=== PATIENT | male | born 1945 | race Caucasian/White ===

== ENCOUNTER 2017-02-13 15:03 | Emergency (ER) | payer OTHER ==
[~2017-02-13] VITALS: Ht 185.4 cm; Wt 141.0 kg
[~2017-02-13 15:03] MED LIST: ATEN50TA8 PO; ATOR-22 PO; CMD10 PO; CMD5 PO; FLEC100T21 PO; GABA-113 PO; OXYC-57 PO
[2017-02-13 15:05] VITALS: TEMP 36.3; Ht 185.4 cm; Wt 141.0 kg
[2017-02-13] MEDS ORDERED: OPTIRAY 320 IV PRN (15:30)
--- NOTE | 2017-02-13 15:38 | EMERGENCY ROOM VISIT NOTE ---
History Report prepared by Morris: Gold Chu Under the Supervision of: Dr. Farshad Cardona M.D. First contact with patient: 15:09 Chief Complaint: ABDOMINAL PAIN Stated Complaint: PAIN IN LEFT SIDE/NEAR WAISTLINE History of Present Illness The patient is a 71 year old male who presents to the Emergency Room with complaints of worsening left sided abdominal pain starting yesterday. The patient states that the pain is worse with movement. The patient denies any nausea, vomiting, diarrhea, burning with urination, hematuria, hematochezia, cough, congestion, fever, and chills. He denies any history of kidney stones, though he has a history of shingles on his right side. He notes that his last bowel movement was a couple days ago, and he has to strain, though he states that this is normal for him. The patient is on warfarin for chronic A-fib. He reports that he drank some coffee this morning and ate a couple of cookies because he did not have much appetite. Source of History: patient Onset: yesterday Position: abdomen (left side) Timing: worsening Modifying Factors (Worsening): movement Associated Symptoms: No fevers, No chills, No cough, No nausea, No vomiting , No hematochezia, No diarrhea, No urinary symptoms Review of Systems See HPI for pertinent positives and negatives. A total of ten systems were reviewed and were otherwise negative. Past Medical & Surgical Medical Problems: (1) Heart disease (2) Pneumonia Family History Heart disease Lung disease Social History Smoking Status: Never Smoker Marital Status: Housing Status: lives with family Occupation Status: retired Current/Historical Medications Scheduled Atenolol (Tenormin), 100 MG PO DAILY Atorvastatin (Lipitor), 20 MG PO DAILY Digoxin (Digoxin), 1 TAB PO DAILY Flecainide (Tambocor), 100 MG PO TID Gabapentin (Neurontin), 400 MG PO DAILY Multivitamins/Minerals (Mvi With Minerals), 1 TAB PO DAILY Scheduled PRN Docusate Sodium (Colace), 1 CAP PO BID PRN for Constipation Metoclopramide (Reglan), 10 MG PO Q6H PRN for Nausea Oxycodone Ir (Roxicodone Ir), 1-2 TAB PO Q4H PRN for Pain Allergies Coded Allergies: No Known Allergies (Verified , 10/07/02) Physical Exam Vital Signs Date Time Temp Pulse Resp B/P (MAP) Pulse Ox O2 Delivery O2 Flow Rate FiO2 02/13/17 18:30 62 16 124/76 98 Room Air 02/13/17 17:21 66 16 132/80 94 Room Air 02/13/17 16:05 75 02/13/17 15:05 36.3 85 18 129/84 93 Room Air Physical Exam GENERAL: Awake, alert, uncomfortable-appearing, in no distress HENT: Dry mucous membranes. Normocephalic, atraumatic. Oropharynx unremarkable. EYES: Normal conjunctiva. Sclera non-icteric. NECK: Supple. No nuchal rigidity. FROM. No JVD. RESPIRATORY: Clear to auscultation. CARDIAC: Irregularly irregular rate and rhythm. Extremities warm and well perfused. Pulses equal. ABDOMEN: Obese abdomen. Mild left lower quadrant and left flank tenderness. No peritoneal signs. Soft, non-distended. No rebound or guarding. No masses. RECTAL: Deferred. MUSCULOSKELETAL: Chest examination reveals no tenderness. The back is symmetrical on inspection without obvious abnormality. There is no CVA tenderness to palpation. No joint edema. LOWER EXTREMITIES: 1+ lower extremity edema bilaterally and symmetric. No discoloration. NEURO: Normal sensorium. No sensory or motor deficits noted. SKIN: No rash or jaundice noted. Medical Decision & Procedures ER Provider Diagnostic Interpretation: Radiology results as stated below per my review and radiologist interpretation: CHEST ONE VIEW PORTABLE HISTORY: 71 years-old Male abd pain acute generalized abdominal pain COMPARISON: Lumbar spine radiographs 08/31/2010 TECHNIQUE: Portable AP view of the chest FINDINGS: Cardiac silhouette is mildly enlarged. There is atherosclerosis of the aorta. Mild right hemidiaphragmatic elevation. No pneumothorax, pleural effusion or focal airspace consolidation. Minimal linear subsegmental bibasilar opacities suggest atelectasis. Degenerative changes involve the spine and shoulders. IMPRESSION: 1. Cardiomegaly without overt pulmonary edema. 2. Mild right hemidiaphragm elevation with bibasilar linear opacities suggesting atelectasis or scarring. The above report was generated using voice recognition software. It may contain grammatical, syntax or spelling errors. Electronically signed by: Paul Barber M.D. 02/13/2017 4:46 PM Dictated Date/Time: 02/13/2017 4:45 PM ABD/PELVIS IV CONTRAST ONLY CLINICAL HISTORY: 71 years-old Male presenting with LLQ abd pain. TECHNIQUE: Multidetector CT of the abdomen and pelvis was performed after the administration of intravenous contrast. IV contrast: 121 mL of Optiray 320. A dose lowering technique was used consistent with the principles of ALARA (as low as reasonably achievable). COMPARISON: 12/16/2007. CT DOSE (mGy.cm): The estimated cumulative dose is 1745.07 mGy.cm. 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 Lung bases: Bandlike opacities at the lung bases likely atelectasis or scarring. Multichamber enlargement of the heart. Coronary artery calcification. No pericardial or pleural effusion. Liver: Congenital hypoplasia of the medial segments of the left hepatic lobe. No focal lesion. Patent hepatic vasculature. Biliary: No intrahepatic or extrahepatic biliary ductal dilatation. Normal gallbladder. Pancreas: Normal. Spleen: Normal. Adrenal glands: Normal. Kidneys and ureters: Interval increase in size of the exophytic right renal cystic lesion, which measures 10.4 cm, previously 5.7 cm. This is incompletely characterized and may contain a thin septation and/or debris (suspected Bosniak 2). Exophytic lower pole right renal lesion has a punctate focus of calcification indicative of a minimally complex cyst (Bosniak 2) Few additional well-defined hypodensities in the kidneys likely also cysts. No hydronephrosis. No nephrolithiasis. Normal ureters. Bladder: Mild circumference of bladder wall thickening may indicate chronic outlet obstruction. Pelvic organs: Prostate enlargement likely secondary to benign prostatic hyperplasia. Bowel: Normal appendix. No bowel obstruction. Mildly prominent epiploic appendage in the left lower quadrant with only minimal associated inflammatory change if any. Peritoneal cavity: No free fluid or intraperitoneal gas. Lymph nodes: No enlarged lymph nodes in the abdomen or pelvis. Vasculature: Atherosclerosis of the normal caliber abdominal aorta. IVC patent. Circumaortic left renal vein. Abdominal wall: Small fat-containing umbilical hernia. Musculoskeletal: Degenerative changes of the spine. Degenerative changes of the hips bilaterally. Osteopenia. IMPRESSION: 1. Prominent epiploic appendage in the left lower quadrant with questionable trace inflammatory change, possible minimal epiploic appendagitis. No other convincing evidence of acute intra-abdominal pathology. 2. Interval increase in size of the exophytic right renal cystic lesion, suspected to be a minimally complex lesion (Bosniak 2). This is incompletely characterized. 3. Prostatomegaly with chronic bladder outlet obstruction. 4. Degenerative changes of the spine and hips. 5. Osteopenia. Electronically signed by: David Donato M.D. 02/13/2017 5:26 PM Dictated Date/Time: 02/13/2017 5:17 PM Laboratory Results 02/13/17 15:55 Red Blood Count 5.51, Mean Corpuscular Volume 87.5, Mean Corpuscular Hemoglobin 28.9, Mean Corpuscular Hemoglobin Concent 33.0, Mean Platelet Volume 10.3, Neutrophils (%) (Auto) 71.9, Lymphocytes (%) (Auto) 13.7, Monocytes (%) (Auto) 11.4, Eosinophils (%) (Auto) 2.3, Basophils (%) (Auto) 0.2, Neutrophils # (Auto ) 6.58, Lymphocytes # (Auto) 1.25, Monocytes # (Auto) 1.04, Eosinophils # (Auto ) 0.21, Basophils # (Auto) 0.02 02/13/17 15:55 Test 02/13/17 15:55 02/13/17 16:09 02/13/17 17:00 02/13/17 18:44 White Blood Count 9.15 K/uL (4.8-10.8) Red Blood Count 5.51 M/uL (4.7-6.1) Hemoglobin 15.9 g/dL (14.0-18.0) Hematocrit 48.2 % (42-52) Mean Corpuscular Volume 87.5 fL (80-100) Mean Corpuscular Hemoglobin 28.9 pg (25-34) Mean Corpuscular Hemoglobin Concent 33.0 g/dl (32-36) Platelet Count 181 K/uL (130-400) Mean Platelet Volume 10.3 fL (7.4-10.4) Neutrophils (%) (Auto) 71.9 % Lymphocytes (%) (Auto) 13.7 % Monocytes (%) (Auto) 11.4 % Eosinophils (%) (Auto) 2.3 % Basophils (%) (Auto) 0.2 % Neutrophils # (Auto) 6.58 K/uL (1.4-6.5) Lymphocytes # (Auto) 1.25 K/uL (1.2-3.4) Monocytes # (Auto) 1.04 K/uL (0.11-0.59) Eosinophils # (Auto) 0.21 K/uL (0-0.5) Basophils # (Auto) 0.02 K/uL (0-0.2) RDW Standard Deviation 45.1 fL (36.4-46.3) RDW Coefficient of Variation 14.2 % (11.5-14.5) Immature Granulocyte % (Auto) 0.5 % Immature Granulocyte # (Auto) 0.05 K/uL (0.00-0.02) Prothrombin Time 17.7 SECONDS (9.0-12.0) Prothromb Time International Ratio 1.6 (0.9-1.1) Anion Gap 8.0 mmol/L (3-11) Est Creatinine Clear Calc Drug Dose 116.6 ml/min Estimated GFR () 101.3 Estimated GFR (Non- 87.4 BUN/Creatinine Ratio 15.7 (10-20) Calcium Level 8.8 mg/dl (8.5-10.1) Total Bilirubin 0.7 mg/dl (0.2-1) Direct Bilirubin 0.1 mg/dl (0-0.2) Aspartate Amino Transf (AST/SGOT) 22 U/L (15-37) Alanine Aminotransferase (ALT/SGPT) 38 U/L (12-78) Alkaline Phosphatase 110 U/L (45-117) Total Protein 7.7 gm/dl (6.4-8.2) Albumin 3.3 gm/dl (3.4-5.0) Lipase 392 U/L (73-393) Lactic Acid Level 1.3 mmol/L (0.4-2.0) Urine Color YELLOW Urine Appearance CLEAR (CLEAR) Urine pH 5.0 (4.5-7.5) Urine Specific [place] 1.015 (1.000-1.030) Urine Protein NEG (NEG) Urine Glucose (UA) NEG (NEG) Urine Ketones NEG (NEG) Urine Occult Blood NEG (NEG) Urine Nitrite NEG (NEG) Urine Bilirubin NEG (NEG) Urine Urobilinogen NEG (NEG) Urine Leukocyte Esterase NEG (NEG) Digoxin Level 0.5 ng/ml (0.8-2.0) Laboratory results reviewed by me Medications Administered Medications (Trade) Dose Ordered Sig/Sanchez Route Start Time Stop Time Status Last Admin Dose Admin Oxycodone/ Acetaminophen (Percocet 5-325mg Tab) 1 tab NOW ONCE PO 02/13/17 18:00 02/13/17 18:01 DC 02/13/17 18:19 1 TAB Metoclopramide HCl (Reglan Inj) 10 mg NOW STAT IV 02/13/17 18:06 02/13/17 18:08 DC 02/13/17 18:19 10 MG ECG Indication: abdominal pain Rate (beats per minute): 78 Rhythm: atrial fibrillation Findings: RBBB (incomplete), no acute ischemic change Comparison ECG Date: 05/30/05 Change: RBBB is not new ED Course 1509: The patient was evaluated in room B12. A complete history and physical exam was performed. 1758: I reevaluated the patient. Discussed results and discharge instructions: He verbalized understanding and agreement. The patient is ready for discharge. 1800: Percocet 5-325mg Tab PO 1806: Reglan 10mg IV Medical Decision I reviewed the patient's past medical history, medications, and the nursing notes as described above. Differential Diagnoses include: ischemic bowel, gastroenteritis, diverticulitis , obstruction, renal stone, UTI, pyelonephritis. The patient is a 71-year-old gentleman with a past medical history of A. fib on Coumadin who presents emergency Department with left flank and left lower quadrant abdominal pain which began yesterday per history of present illness. On arrival the patient is uncomfortable but in no acute distress. He is afebrile with stable vital signs. Labs unremarkable including WBC and lactate wnl. CT abd pelvic with mild epiploic appendagitis. Patient feeling improved after IVF and meds. Findings and plan for follow-up reviewed with patient. Patient agreeable and d/c'd per discharge instructions. Medication Reconcilliation Current Medication List: was personally reviewed by me Blood Pressure Screening Patient's blood pressure: Normal blood pressure Impression Primary Impression: Epiploic appendagitis Additional Impression: Renal cyst Scribe Attestation The scribe's documentation has been prepared under my direction and personally reviewed by me in its entirety. I confirm that the note above accurately reflects all work, treatment, procedures, and medical decision making performed by me. Departure Information Dispostion Home / Self-Care Prescriptions Docusate Sodium (COLACE) 100 Mg Cap 1 CAP PO BID Y for Constipation for 7 Days, #14 CAP Prov: Farshad Cardona M.D. 02/13/17 Oxycodone Ir (Roxicodone Ir) 5 Mg Tab 1-2 TAB PO Q4H Y for Pain, #6 TAB Prov: Farshad Cardona M.D. 02/13/17 Metoclopramide (Reglan) 10 Mg Tab 10 MG PO Q6H Y for Nausea, #10 TAB Prov: Farshad Cardona M.D. 02/13/17 Referrals Ej Baumann M.D. (PCP) Forms Call Back Authorization, HOME CARE DOCUMENTATION FORM, IMPORTANT VISIT INFORMATION Patient Instructions Abdominal Pain, My [facility], Simple Renal Cysts Additional Instructions Please follow up with your primary care physician in the next 1-3 days for re- evaluation and call your coagulation clinic to adjust your Coumadin dosing. You were found to have Epiploic Appendigitis, which likely is causing your pain. You were also found to have incidental renal cysts that were increased in size. Otherwise, your exam, EKG, chest xray, CT scan, and lab results did not show signs of an emergent condition at this time. Acetaminophen for pain as needed. Oxycodone for breakthrough pain as needed. Reglan to improve gastric motility to help with your constipation. Use stool softener such as colace if constipation persists or worsens. Return to the emergency department for worsening symptoms as described in the accompanying instructions. ABD/PELVIS IV CONTRAST ONLY CLINICAL HISTORY: 71 years-old Male presenting with LLQ abd pain. TECHNIQUE: Multidetector CT of the abdomen and pelvis was performed after the administration of intravenous contrast. IV contrast: 121 mL of Optiray 320. A dose lowering technique was used consistent with the principles of ALARA (as low as reasonably achievable). COMPARISON: 12/16/2007. CT DOSE (mGy.cm): The estimated cumulative dose is 1745.07 mGy.cm. 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 Lung bases: Bandlike opacities at the lung bases likely atelectasis or scarring. Multichamber enlargement of the heart. Coronary artery calcification. No pericardial or pleural effusion. Liver: Congenital hypoplasia of the medial segments of the left hepatic lobe. No focal lesion. Patent hepatic vasculature. Biliary: No intrahepatic or extrahepatic biliary ductal dilatation. Normal gallbladder. Pancreas: Normal. Spleen: Normal. Adrenal glands: Normal. Kidneys and ureters: Interval increase in size of the exophytic right renal cystic lesion, which measures 10.4 cm, previously 5.7 cm. This is incompletely characterized and may contain a thin septation and/or debris (suspected Bosniak 2). Exophytic lower pole right renal lesion has a punctate focus of calcification indicative of a minimally complex cyst (Bosniak 2) Few additional well-defined hypodensities in the kidneys likely also cysts. No hydronephrosis. No nephrolithiasis. Normal ureters. Bladder: Mild circumference of bladder wall thickening may indicate chronic outlet obstruction. Pelvic organs: Prostate enlargement likely secondary to benign prostatic hyperplasia. Bowel: Normal appendix. No bowel obstruction. Mildly prominent epiploic appendage in the left lower quadrant with only minimal associated inflammatory change if any. Peritoneal cavity: No free fluid or intraperitoneal gas. Lymph nodes: No enlarged lymph nodes in the abdomen or pelvis. Vasculature: Atherosclerosis of the normal caliber abdominal aorta. IVC patent. Circumaortic left renal vein. Abdominal wall: Small fat-containing umbilical hernia. Musculoskeletal: Degenerative changes of the spine. Degenerative changes of the hips bilaterally. Osteopenia. IMPRESSION: 1. Prominent epiploic appendage in the left lower quadrant with questionable trace inflammatory change, possible minimal epiploic appendagitis. No other convincing evidence of acute intra-abdominal pathology. 2. Interval increase in size of the exophytic right renal cystic lesion, suspected to be a minimally complex lesion (Bosniak 2). This is incompletely characterized. 3. Prostatomegaly with chronic bladder outlet obstruction. 4. Degenerative changes of the spine and hips. 5. Osteopenia. Problem Qualifiers
[2017-02-13 16:22] LABS: BASO % 0.2 %; BASO ABS # 0.02 K/uL (0-0.2); COMPLETE YES; EOS % 2.3 %; HEMATOCRIT 48.2 % (42-52); IG% 0.5 %; LYMPH % 13.7 %; LYMPH ABS # 1.25 K/uL (1.2-3.4); MEAN CELL VOLUME 87.5 fL (80-100); MEAN CORPUSCULAR HEMOGLOBIN 28.9 pg (25-34); MEAN PLATELET VOLUME 10.3 fL (7.4-10.4); MONO % 11.4 %; NEUT % 71.9 %; PLATELET COUNT 181 K/uL (130-400); RED BLOOD COUNT 5.51 M/uL (4.7-6.1); WHITE BLOOD COUNT 9.15 K/uL (4.8-10.8)
[2017-02-13] MEDS ORDERED: LNX125 PO (16:24)
[2017-02-13] MEDS ORDERED: MULT-513 PO (16:24)
[2017-02-13] MEDS ORDERED: GABA1CAP5 PO (16:24)
[2017-02-13 16:35] LABS: INR 1.6 (0.9-1.1); PROTHROMBIN TIME (PATIENT) 17.7 SECONDS (9.0-12.0)
[2017-02-13 16:43] LABS: BUN/CREATININE RATIO 15.7 (10-20); CALCIUM 8.8 mg/dl (8.5-10.1); CREATININE 0.87 mg/dl (0.60-1.40); POTASSIUM 4.2 mmol/L (3.5-5.1)
--- NOTE | 2017-02-13 16:48 | DIAGNOSTIC IMAGING REPORT ---
CHEST ONE VIEW PORTABLE HISTORY: 71 years-old Male abd pain acute generalized abdominal pain COMPARISON: Lumbar spine radiographs 08/31/2010 TECHNIQUE: Portable AP view of the chest FINDINGS: Cardiac silhouette is mildly enlarged. There is atherosclerosis of the aorta. Mild right hemidiaphragmatic elevation. No pneumothorax, pleural effusion or focal airspace consolidation. Minimal linear subsegmental bibasilar opacities suggest atelectasis. Degenerative changes involve the spine and shoulders. IMPRESSION: 1. Cardiomegaly without overt pulmonary edema. 2. Mild right hemidiaphragm elevation with bibasilar linear opacities suggesting atelectasis or scarring. The above report was generated using voice recognition software. It may contain grammatical, syntax or spelling errors. Electronically signed by: Paul Barber M.D. 02/13/2017 4:46 PM Dictated Date/Time: 02/13/2017 4:45 PM
[2017-02-13 17:15] LABS: MANUAL MICROSCOPIC REQUIRED? NO; REVIEW REQ? NO; URINE APPEARANCE CLEAR (CLEAR); URINE BILIRUBIN NEG (NEG); URINE COLOR YELLOW; URINE NITRITE NEG (NEG); URINE SPECIFIC GRAVITY 1.015 (1.000-1.030); UROBILINOGEN NEG (NEG); ZZUR CULT IF INDIC CLEAN CATCH NO
--- NOTE | 2017-02-13 17:28 | DIAGNOSTIC IMAGING REPORT ---
ABD/PELVIS IV CONTRAST ONLY CLINICAL HISTORY: 71 years-old Male presenting with LLQ abd pain. TECHNIQUE: Multidetector CT of the abdomen and pelvis was performed after the administration of intravenous contrast. IV contrast: 121 mL of Optiray 320. A dose lowering technique was used consistent with the principles of ALARA (as low as reasonably achievable). COMPARISON: 12/16/2007. CT DOSE (mGy.cm): The estimated cumulative dose is 1745.07 mGy.cm. 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 Lung bases: Bandlike opacities at the lung bases likely atelectasis or scarring. Multichamber enlargement of the heart. Coronary artery calcification. No pericardial or pleural effusion. Liver: Congenital hypoplasia of the medial segments of the left hepatic lobe. No focal lesion. Patent hepatic vasculature. Biliary: No intrahepatic or extrahepatic biliary ductal dilatation. Normal gallbladder. Pancreas: Normal. Spleen: Normal. Adrenal glands: Normal. Kidneys and ureters: Interval increase in size of the exophytic right renal cystic lesion, which measures 10.4 cm, previously 5.7 cm. This is incompletely characterized and may contain a thin septation and/or debris (suspected Bosniak 2). Exophytic lower pole right renal lesion has a punctate focus of calcification indicative of a minimally complex cyst (Bosniak 2) Few additional well-defined hypodensities in the kidneys likely also cysts. No hydronephrosis. No nephrolithiasis. Normal ureters. Bladder: Mild circumference of bladder wall thickening may indicate chronic outlet obstruction. Pelvic organs: Prostate enlargement likely secondary to benign prostatic hyperplasia. Bowel: Normal appendix. No bowel obstruction. Mildly prominent epiploic appendage in the left lower quadrant with only minimal associated inflammatory change if any. Peritoneal cavity: No free fluid or intraperitoneal gas. Lymph nodes: No enlarged lymph nodes in the abdomen or pelvis. Vasculature: Atherosclerosis of the normal caliber abdominal aorta. IVC patent. Circumaortic left renal vein. Abdominal wall: Small fat-containing umbilical hernia. Musculoskeletal: Degenerative changes of the spine. Degenerative changes of the hips bilaterally. Osteopenia. IMPRESSION: 1. Prominent epiploic appendage in the left lower quadrant with questionable trace inflammatory change, possible minimal epiploic appendagitis. No other convincing evidence of acute intra-abdominal pathology. 2. Interval increase in size of the exophytic right renal cystic lesion, suspected to be a minimally complex lesion (Bosniak 2). This is incompletely characterized. 3. Prostatomegaly with chronic bladder outlet obstruction. 4. Degenerative changes of the spine and hips. 5. Osteopenia. Electronically signed by: David Donato M.D. 02/13/2017 5:26 PM Dictated Date/Time: 02/13/2017 5:17 PM
[2017-02-13] MEDS ORDERED: OXYCODONE/ACETAMINOPHEN 5-325 TAB PO ONE (18:00)
[2017-02-13] MEDS ORDERED: METOCLOPRAMIDE HCL INJ 5 MG/ML 2 ML VIAL IV STA (18:06)
[2017-02-13 18:30] VITALS: BP 124/76; PULSE 62; O2SAT 98
[2017-02-13] MEDS ORDERED: OXYC1TAB3 PO (18:31)
[2017-02-13] MEDS ORDERED: DOCU-94 PO (18:31)
[2017-02-13] MEDS ORDERED: METO-157 PO (18:31)
== END 2017-02-13 19:01 | disposition home or self-care (01) ==
LOC: C.EDB 15:04
DX: K63.89 Other specified diseases of intestine (principal); Q43.8 Other specified congenital malformations of intestine; N28.1 Cyst of kidney, acquired; I48.91 Unspecified atrial fibrillation; I51.9 Heart disease, unspecified; Z87.01 Personal history of pneumonia (recurrent); Z79.01 Long term (current) use of anticoagulants; Z79.899 Other long term (current) drug therapy; Z82.49 Family history of ischemic heart disease and other diseases of the circulatory system; Z83.6 Family history of other diseases of the respiratory system

== ENCOUNTER 2021-08-13 10:45 | Inpatient (IN) ==
--- NOTE | 2021-08-13 11:14 | Emergency Department Note ---
Impression & Plan Acute exacerbation of CHF (congestive heart failure), History of atrial fibrillation, Hypophosphatemia, Hypoxemia ED Provider Note NAME: GERBER MEDINA AGE: 76 SEX: M : 1945 ARRIVES VIA: Walk-In INFORMANT: Patient, ED PROVIDER(S): Franck Perez MD Chief Complaint: Shortness of breath HPI: Patient presents due to concern for shortness of breath. This is been ongoing approximately 1 to 2 months but acutely worsened last 24 to 48 hours. The patient denies any fevers or chills. The patient does believe that he had associated weight loss. Patient does admit to increasing or eating a fair amount of processed meats like lunch meat. The patient does have a known history of A. fib and is followed with Dr. Smith. Patient does take atenolol and Coumadin in addition to digoxin. The patient did take his morning medications. The patient does complain of dyspnea on exertion and and orthopnea. Patient has not noticed any overt lower extremity edema and is not on a diuretic. The patient denies any nausea vomiting or chest pain. Patient denies any prior history of DVT or PE. No recent falls or trauma. The patient states he has follow-up with Dr. Smith with [facility] cardiology in the past ROS: See HPI for pertinent positives and negatives. A total of 10 systems were reviewed and otherwise negative. Past medical history: See below Surgical history: See below Social history: See below Physical Exam: GENERAL: Fatigue in appearance,NAD, wearing glasses, wearing a mask, non-toxic. EYE EXAM: Normal conjunctiva. PERRL, no anisocoria and EOM's grossly intact w/o pain. OROPHARYNX: Moist mucus membranes. Grossly normal dentition. NECK: Supple, no nuchal rigidity, no adenopathy, non-tender. No signs of meningismus. LUNGS: Decreased breath sounds bilateral bases normal chest wall mechanics. HEART: Irregularly irregular, no MRG. ABDOMEN: Abdomen soft, non-tender, normo-active bowel sounds, no masses, no rebound or guarding. BACK: No CVA TTP. SKIN: No rashes and no bruising. UPPER EXTREMITIES: Upper extremities are grossly normal. LOWER EXTREMITIES: Grossly normal, trace symmetric bilateral lower extremity edema without erythema or calf pain. Compartments are soft. NEURO EXAM: A&O x3, cranial nerves II-XII grossly intact, normal speech, moves all 4 extremities on command w/o issue. Differential diagnoses: Reactive airway disease, pneumonia, pneumothorax, COPD, CHF, infections, cardiac ischemia, pulmonary embolism, musculoskeletal, gastrointestinal, as well as other pathologies. Course: Patient was seen and evaluated the bedside. Full history physical exam was pe rformed. EKG interpreted by me Michelle cortez, ventricular rate of 61, normal QRS, normal axis, no obvious ST elevations. Imaging Studies: See Below Cardiac monitoring: An order was placed for continuous cardiac monitoring. The monitor shows a rate of 67 with irregularly irregular rhythm. MDM: Patient presented for worsening shortness of breath and orthopnea. Blood work was obtained along with an EKG troponin chest x-ray BNP. Dig level also ordered along with phosphorus. Patient was placed on a small amount of supplemental oxygen as the patient was teetering between 89 to 92% on room air. Patient's most recent outpatient family physician visit with Dr. Baumann was reviewed. The patient was asymptomatic at that time in April of this past year. Patient is normal white count H&H and platelet count. The patient's kidney function is unremarkable. Slightly subtherapeutic INR 1.8. The patient does have mild hypophosphatemia which was ordered for repleted. Troponin and BNP are not grossly elevated. Digoxin is slightly low. There may be an element of that the patient's rate is too well controlled and perhaps too slow. Patient's chest x-ray does show some pleural effusions and pulmonary edema. Patient is Lasix marleni and was ordered 20 IV Lasix. I did speak with the on-call hospitalist Dr. Myers and the patient was admitted to the medicine service. Critical Care: I have personally spent 35 minutes of critical care time in direct management of this patient. This includes bedside care, interpretation of diagnostic studies, and testing, discussion with consultants, patient, and family members, and other require inpatient management activities. This 35 minutes is in excess of all separately billable procedures. Past Med/Surg History Medical History Atrial fibrillation HLD (hyperlipidemia) HIRAM (obstructive sleep apnea) Surgical History Hx of colonoscopy Social History Smoking Status: Current every day smoker Tobacco Type: E-cigarettes / Vaping Hx Alcohol Use: No Hx Substance Use: No Preferred Language: Mohawk Communication Ability: Effective Beliefs That Will Affect Care: None Current Living Situation: Spouse Feels Safe at Home: Yes Assistive Devices: None Allergies Allergies Allergy/AdvReac Type Severity Reaction Status Date / Time No Known Allergies Allergy Unknown Verified 08/13/21 11:46 Home Meds Home Medications Medication Instructions Recorded Confirmed Atenolol (Tenormin) 100 mg PO QAM #0 12/16/07 08/13/21 Digoxin 1 tab PO QAM #0 02/13/17 08/13/21 Gabapentin (Neurontin) 400 mg PO QAM #0 cap 02/13/17 08/13/21 sildenafil 100 mg tablet 100 mg PO QAM PRN 02/11/19 08/13/21 warfarin 10 mg tablet 5 mg PO QAM 02/11/19 08/13/21 atorvastatin 40 mg tablet 40 mg PO QAM 08/13/21 08/13/21 Results & Data (ED) Vital Signs Vital Signs - 24 hr 08/13/21 10:50 08/13/21 11:27 08/13/21 12:00 Temperature 36.9 C Temperature Source Temporal Artery Scan Pulse Rate 65 Pulse Rate [Apical] 60 56 L Pulse Rhythm [Apical] Irregular Respiratory Rate 14 20 18 Blood Pressure 100/72 Blood Pressure [Right Arm] 97/60 L 117/75 Blood Pressure Mean 81 Blood Pressure Mean [Right Arm] 72 89 Pulse Oximetry 93 95 97 Oxygen Delivery Method Room Air Nasal Cannula Nasal Cannula Oxygen Flow Rate 2 2 Sepsis Recent Fever Within 48 Hours No Sepsis New/Unexplained Change in Mental Status No Sepsis Action Taken by Nursing No Action Required Oxygen Flow Rate - Titration 2 Pulse Oximetry Post Tiitration 95 Home Medications Current Medication List: was personally reviewed by me Laboratory Data Attestation: I reviewed the patient's lab results. Result diagrams: 08/13/21 11:32 08/13/21 11:32 Lab Results 08/13/21 08/13/21 08/13/21 Range/Units 11:32 11:32 11:32 WBC 7.98 (4.8-10.8) K/uL RBC 5.59 (4.7-6.1) M/uL Hgb 16.3 (14.0-18.0) g/dL Hct 49.9 (42-52) % MCV 89.3 (80-100) fL MCH 29.2 (25-34) pg MCHC 32.7 (32-36) g/dL RDW Std Deviation 45.8 (36.4-46.3) fL RDW Coeff of Lizandro 14.0 (11.5-14.5) % Plt Count 217 (130-400) K/uL MPV 10.5 H (7.4-10.4) fL Immature Gran % (Auto) 0.1 % Neut % (Auto) 74.1 % Lymph % (Auto) 12.5 % Lyman % (Auto) 10.5 % Eos % (Auto) 2.5 % Baso % (Auto) 0.3 % Neut # (Auto) 5.91 (1.4-6.5) K/uL Lymph # (Auto) 1.00 L (1.2-3.4) K/uL Lyman # (Auto) 0.84 H (0.11-0.59) K/uL Eos # (Auto) 0.20 (0-0.5) K/uL Baso # (Auto) 0.02 (0-0.2) K/uL Immature Gran # (Auto) 0.01 (0.00-0.02) K/uL PT 18.7 H (9.0-12.0) Seconds INR 1.8 H (0.9-1.1) Sodium (136-145) mmol/L Potassium (3.5-5.1) mmol/L Chloride (98-107) mmol/L Carbon Dioxide (21-32) mmol/L Anion Gap (3-11) BUN (6-23) mg/dl Creatinine (0.6-1.4) mg/dl Est Cr Clr Drug Dosing ml/min Est GFR ( Amer) ml/min Est GFR (Non-Af Amer) ml/min BUN/Creatinine Ratio (10-20) Glucose (70-99(Fasting)) mg/dl Calcium (8.5-10.1) mg/dl Phosphorus (2.5-4.9) mg/dl Magnesium (1.7-2.4) mg/dl Total Bilirubin (0.2-1.0) mg/dl AST (13-39) U/L ALT (7-52) U/L Alkaline Phosphatase (34-104) U/L Troponin I High Sens 6.2 (0-20) pg/ml B-Natriuretic Peptide (0-100) pg/ml Total Protein (6.0-8.3) gm/dl Albumin (3.4-5.0) gm/dl Globulin (2.5-4.0) gm/dl Albumin/Globulin Ratio (0.9-2) Digoxin (0.8-2.0) ng/ml SARS-CoV-2, RNA, NAAT (NEGATIVE) 08/13/21 08/13/21 08/13/21 Range/Units 11:32 11:32 11:32 WBC (4.8-10.8) K/uL RBC (4.7-6.1) M/uL Hgb (14.0-18.0) g/dL Hct (42-52) % MCV (80-100) fL MCH (25-34) pg MCHC (32-36) g/dL RDW Std Deviation (36.4-46.3) fL RDW Coeff of Lizandro (11.5-14.5) % Plt Count (130-400) K/uL MPV (7.4-10.4) fL Immature Gran % (Auto) % Neut % (Auto) % Lymph % (Auto) % Lyman % (Auto) % Eos % (Auto) % Baso % (Auto) % Neut # (Auto) (1.4-6.5) K/uL Lymph # (Auto) (1.2-3.4) K/uL Lyman # (Auto) (0.11-0.59) K/uL Eos # (Auto) (0-0.5) K/uL Baso # (Auto) (0-0.2) K/uL Immature Gran # (Auto) (0.00-0.02) K/uL PT (9.0-12.0) Seconds INR (0.9-1.1) Sodium 142 (136-145) mmol/L Potassium 4.5 (3.5-5.1) mmol/L Chloride 106 (98-107) mmol/L Carbon Dioxide 29 (21-32) mmol/L Anion Gap 7 (3-11) BUN 11 (6-23) mg/dl Creatinine 0.85 (0.6-1.4) mg/dl Est Cr Clr Drug Dosing 109.5 ml/min Est GFR ( Amer) 98.8 ml/min Est GFR (Non-Af Amer) 85.2 ml/min BUN/Creatinine Ratio 12.9 (10-20) Glucose 87 (70-99(Fasting)) mg/dl Calcium 9.1 (8.5-10.1) mg/dl Phosphorus 2.2 L (2.5-4.9) mg/dl Magnesium 2.2 (1.7-2.4) mg/dl Total Bilirubin 0.9 (0.2-1.0) mg/dl AST 15 (13-39) U/L ALT 17 (7-52) U/L Alkaline Phosphatase 110 H (34-104) U/L Troponin I High Sens (0-20) pg/ml B-Natriuretic Peptide 85 (0-100) pg/ml Total Protein 7.0 (6.0-8.3) gm/dl Albumin 3.7 (3.4-5.0) gm/dl Globulin 3.3 (2.5-4.0) gm/dl Albumin/Globulin Ratio 1.1 (0.9-2) Digoxin 0.7 L (0.8-2.0) ng/ml SARS-CoV-2, RNA, NAAT (NEGATIVE) 08/13/21 Range/Units 11:32 WBC (4.8-10.8) K/uL RBC (4.7-6.1) M/uL Hgb (14.0-18.0) g/dL Hct (42-52) % MCV (80-100) fL MCH (25-34) pg MCHC (32-36) g/dL RDW Std Deviation (36.4-46.3) fL RDW Coeff of Lizandro (11.5-14.5) % Plt Count (130-400) K/uL MPV (7.4-10.4) fL Immature Gran % (Auto) % Neut % (Auto) % Lymph % (Auto) % Lyman % (Auto) % Eos % (Auto) % Baso % (Auto) % Neut # (Auto) (1.4-6.5) K/uL Lymph # (Auto) (1.2-3.4) K/uL Lyman # (Auto) (0.11-0.59) K/uL Eos # (Auto) (0-0.5) K/uL Baso # (Auto) (0-0.2) K/uL Immature Gran # (Auto) (0.00-0.02) K/uL PT (9.0-12.0) Seconds INR (0.9-1.1) Sodium (136-145) mmol/L Potassium (3.5-5.1) mmol/L Chloride (98-107) mmol/L Carbon Dioxide (21-32) mmol/L Anion Gap (3-11) BUN (6-23) mg/dl Creatinine (0.6-1.4) mg/dl Est Cr Clr Drug Dosing ml/min Est GFR ( Amer) ml/min Est GFR (Non-Af Amer) ml/min BUN/Creatinine Ratio (10-20) Glucose (70-99(Fasting)) mg/dl Calcium (8.5-10.1) mg/dl Phosphorus (2.5-4.9) mg/dl Magnesium (1.7-2.4) mg/dl Total Bilirubin (0.2-1.0) mg/dl AST (13-39) U/L ALT (7-52) U/L Alkaline Phosphatase (34-104) U/L Troponin I High Sens (0-20) pg/ml B-Natriuretic Peptide (0-100) pg/ml Total Protein (6.0-8.3) gm/dl Albumin (3.4-5.0) gm/dl Globulin (2.5-4.0) gm/dl Albumin/Globulin Ratio (0.9-2) Digoxin (0.8-2.0) ng/ml SARS-CoV-2, RNA, NAAT NEGATIVE (NEGATIVE) Administered Medications Discontinued Medications Furosemide (Furosemide Inj 20 Mg/2 Ml Vial) 20 mg IV ONE ONE Stop: 08/13/21 12:13 Last Admin: 08/13/21 12:31 Dose: 20 mg Documented by: [id number] Potassium Phosphate (Pot Phosphate Monobasic W/ Sod Tab) 2 tab PO NOW STA Stop: 08/13/21 12:13 Last Admin: 08/13/21 12:31 Dose: 2 tab Documented by: [id number] Imaging Data Radiologist's Impression: Chest X-Ray 08/13/21 11:27 XR chest 1V portable HISTORY: Dyspnea COMPARISON: Chest 02/13/2017. FINDINGS: No pneumothorax. The cardiac silhouette remains enlarged. Small right and trace left pleural effusions have developed in the interval. There is perihilar interstitial/vascular thickening consistent with mild interstitial pulmonary edema. Linear density within the right midlung zone likely represents fluid within the right minor fissure. Hazy appearance of the right lung base likely represents layering pleural fluid. IMPRESSION: 1. Interval development of mild interstitial pulmonary edema and bilateral pleural effusions. 2. Stable cardiomegaly. ACT 112: Negative or not required by law. Electronically signed by: Sb Seth M.D. 08/13/2021 12:42 PM Discharge Plan Visit Data Chief Complaint: Shortness of Breath/Dyspnea Stated Complaint: SOB ED Provider: Franck Perez Discharge Problem: Acute exacerbation of CHF (congestive heart failure), History of atrial fibrillation, Hypophosphatemia, Hypoxemia Patient Disposition: Admitted As Inpatient Forms Stand Alone Forms: [facility] Prescriptions Prescriptions: No Action Atenolol (Tenormin) 50 MG tablet 100 mg PO QAM Qty: 0 RF: 0 Digoxin 0.125 MG tablet 1 tab PO QAM Qty: 0 RF: 0 Gabapentin (Neurontin) 400 MG capsule 400 mg PO QAM Qty: 0 RF: 0 warfarin 10 mg Tablet 5 mg PO QAM RF: 0 sildenafil 100 mg Tablet 100 mg PO QAM PRN (Reason: Erectile Dysfunction) RF: 0 atorvastatin 40 mg tablet 40 mg PO QAM RF: 0 Referrals Referrals: Ej Baumann MD [Primary Care Provider] -
[2021-08-13 11:45] LABS: Basophils # (auto) 0.02 K/uL (0-0.2); Basophils % (auto) 0.3 %; Eosinophils % (auto) 2.5 %; Hematocrit (blood only) 49.9 % (42-52); Hemoglobin 16.3 g/dL (14.0-18.0); Immature Granulocytes # (auto) 0.01 K/uL (0.00-0.02); Immature Granulocytes % (auto) 0.1 %; Lymphocytes % (auto) 12.5 %; Mean Corpuscular Hemoglobin 29.2 pg (25-34); Mean Corpuscular Hgb Conc 32.7 g/dL (32-36); Mean Corpuscular Volume 89.3 fL (80-100); Mean Platelet Volume 10.5 fL (7.4-10.4); Monocytes # (auto) 0.84 K/uL (0.11-0.59); Monocytes % (auto) 10.5 %; Neutrophils # (auto) 5.91 K/uL (1.4-6.5); Neutrophils % (auto) 74.1 %; Platelet Count 217 K/uL (130-400); RDW Standard Deviation 45.8 fL (36.4-46.3); Red Blood Count 5.59 M/uL (4.7-6.1); White Blood Count 7.98 K/uL (4.8-10.8)
[2021-08-13 11:57] LABS: INR 1.8 (0.9-1.1); Prothrombin Time 18.7 Seconds (9.0-12.0)
[2021-08-13 12:04] LABS: Albumin Globulin Ratio 1.1 (0.9-2); Albumin Level 3.7 gm/dl (3.4-5.0); BUN Creatinine Ratio 12.9 (10-20); Bilirubin,Total 0.9 mg/dl (0.2-1.0); Calcium 9.1 mg/dl (8.5-10.1); Creatinine Clr Calc Pharmacy 109.5 ml/min; Est GFR (African American) 98.8 ml/min; Est GFR (Non-African American) 85.2 ml/min; Globulin 3.3 gm/dl (2.5-4.0); Magnesium 2.2 mg/dl (1.7-2.4); Phosphorus 2.2 mg/dl (2.5-4.9); Potassium 4.5 mmol/L (3.5-5.1)
[2021-08-13] MEDS ORDERED: FUROSEMIDE INJ 20 MG/2 ML VIAL IV ONE ×2 (12:12→18:15)
[2021-08-13] MEDS ORDERED: POT PHOSPHATE MONOBASIC W/ SOD TAB PO STA (12:12)
--- NOTE | 2021-08-13 12:43 | XRay Report ---
XR chest 1V portable HISTORY: Dyspnea COMPARISON: Chest 02/13/2017. FINDINGS: No pneumothorax. The cardiac silhouette remains enlarged. Small right and trace left pleura l effusions have developed in the interval. There is perihilar interstitial/vascular thickening consi stent with mild interstitial pulmonary edema. Linear density within the right midlung zone likely rep resents fluid within the right minor fissure. Hazy appearance of the right lung base likely represent s layering pleural fluid. IMPRESSION: 1. Interval development of mild interstitial pulmonary edema and bilateral pleural effusions. 2. Stable cardiomegaly. ACT 112: Negative or not required by law. Electronically signed by: Sb Seth M.D. 08/13/2021 12:42 PM
[2021-08-13] MEDS ORDERED: POLYETHYLENE (MIRALAX) 17 GM PACK PO PRN (12:49)
[2021-08-13] MEDS ORDERED: MAGNESIUM HYDROXIDE SUSP 30 ML UDC PO PRN (12:49)
[2021-08-13] MEDS ORDERED: ACETAMINOPHEN 325 MG TAB PO PRN (13:08)
--- NOTE | 2021-08-13 13:11 | History & Physical Report ---
Date of Service August 13, 2021 Assessment & Plan (1) Acute CHF: Plan: #. Acute CHF #. Hypoxia #. History of CAD Patient comes in with shortness of breath worsening over the last couple of years, more so in the last couple of weeks Imaging reveals bilateral pleural effusion, examination reveals 1+ BLE edema, clinical signs and symptoms consistent with CHF 2019 heart cath with ejection fraction of 60%, normal LV function, moderate diffuse CAD with single-vessel obstructive disease. Patient reports visiting cardiology. 3 years ago. Admitting EKG and hs Trop reviewed. Pt is chest pain free at the moment. HFpEF versus HFrEF, echo pending, acute CHF likely secondary to progression of CAD, cardiology consult. Monitor and replete electrolytes as appropriate. Patient received a dose of IV Lasix in the ED, patient not on Lasix at home, will continue with 20 Mg IV Lasix daily, consider another dose of IV Lasix during the day today if tolerates. #. A. fib Rate controlled, admitting EKG reviewed, continue with home meds including warfarin, monitor PT/INR daily. Pt take 5 mg coumadin on Sat and Saturday; 10 mg on Rest of the days per patient and his at bedside. #. Other chronic medical conditions: Continue with/resume home meds and when appropriate. #. DVT prophylaxis: Patient on warfarin #. Full code History of Present Illness Chief Complaint: Shortness of breath worsening Primary Care Provider: Ej Baumann MD 76-year-old gentleman with PMH of CAD, HIRAM, HLD, A. fib on Coumadin, morbid obesity, postherpetic polyneuropathy presented 08/13 to our ED with complaint of progressive shortness of breath. Per patient, he has been feeling this shortness of breath for couple of years especially with lying down, this has been worsening since last couple of weeks with climbing up stairs/walking to the car and also with lying flat which is the reason that he visited ER today. Patient reports that he has not noticed increase in his weight or any increase in swelling of his lower extremities. Patient denies any home oxygen use. Patient does have trouble lying flat. Patient does complain of occasional chest pain at rest, 1-2 times a week. Patient does have history of diffuse CAD with single-vessel obstructive disease in the past. Patient has seen his cardiology almost 3 years ago per patient. Patient does report to have constipation. Patient denies any headache/dizziness/sore throat/cough/palpitation/acute changes in his bladder habits/other review of symptoms. Patient quit smoking 2014, smoked for 30 years with 1 PPD. Patient currently smoking e-cigarettes. Patient drinks around 6-8 drinks at a time, once every 3 weeks. Denies any recreational drug use/marijuana use. Full code Worked in " [employer]". No family history of cancer or blood clot. Family history positive for VT in father at age 78. Personal history negative for blood clot, had polyp during colonoscopy few years ago, asked to follow-up every 5 years, patient reports that it was not malignant in nature. Home meds reviewed with the patient, he has taken all his AM meds. Allergies Allergy/AdvReac Type Severity Reaction Status Date / Time No Known Allergies Allergy Unknown Verified 08/13/21 11:46 Home Medications Medication Instructions Recorded Confirmed Type Atenolol (Tenormin) 100 mg PO QAM #0 12/16/07 08/13/21 History Digoxin 1 tab PO QAM #0 02/13/17 08/13/21 History Gabapentin (Neurontin) 400 mg PO QAM #0 cap 02/13/17 08/13/21 History sildenafil 100 mg tablet 100 mg PO QAM PRN 02/11/19 08/13/21 History warfarin 10 mg tablet 5 mg PO QAM 02/11/19 08/13/21 History atorvastatin 40 mg tablet 40 mg PO QAM 08/13/21 08/13/21 History Past Med/Surg History Medical History Atrial fibrillation HLD (hyperlipidemia) HIRAM (obstructive sleep apnea) Surgical History Hx of colonoscopy Social History Smoking Status: Current every day smoker Tobacco Type: E-cigarettes / Vaping Hx Alcohol Use: No Hx Substance Use: No Preferred Language: Frisian Communication Ability: Effective Beliefs That Will Affect Care: None Current Living Situation: Spouse Feels Safe at Home: Yes Assistive Devices: None Review of Systems Review of Systems: Negative otherwise mentioned in HPI Physical Exam Physical Exam: GENERAL: Alert and oriented x3. NAD, on 2L NC O2. HEENT: No pallor, no icterus. Pupils equal, round and reactive to light. Oral mucosa moist. NECK: No JVD, no neck masses. HEART: S1 and S2 heard. Regular rate and rhythm. No murmur, no gallop. RESPIRATORY SYSTEM: Normal AP diameter. No accessory muscle use. No wheezing, no crackles. decreased breath sounds bibasal. ABDOMEN: Soft, bowel sounds present, nontender, no distention. CENTRAL NERVOUS SYSTEM: No facial droop. Speech is clear. Obeys simple commands. Moves extremities. EXTREMITIES: 1 + BLE edema, RLE chronic skin changes noted, no erythema seen. Results & Data Results & Data ([facility]) Vital Signs (Past 12 Hours) Vital Signs Temp Pulse Pulse Resp BP BP Pulse Ox 08/13/21 12:00 56 L 18 117/75 97 08/13/21 11:27 60 20 97/60 L 95 08/13/21 10:50 36.9 C 65 14 100/72 93 Code Status & VTE Plan VTE Prophylaxis Plan VTE Prophylaxis will be ordered: Yes
[2021-08-13] MEDS: WARFARIN SOD 5 MG TAB PO SCH (16:20)
[2021-08-13 16:59] LABS: Appearance Urine Clear (Clear); Bilirubin Urine Negative (Negative); Blood Urine Negative (Negative); Color Urine Yellow; Glucose Urine UA Negative (Negative); Ketones Urine Negative (Negative); Leukocyte Esterase Urine Negative (Negative); Nitrite Urine Negative (Negative); Protein Urine Negative (Negative); Specific Gravity Urine 1.007 (1.000-1.030); Urobilinogen Urine Negative (Negative)
[2021-08-13] MEDS ORDERED: MELATONIN 3 MG TAB PO PRN (22:53)
[2021-08-14] MEDS ORDERED: ZOLPIDEM TARTRATE 5 MG TAB PO PRN (03:43)
[2021-08-14] MEDS ORDERED: LORazepam 0.5 MG TAB PO STA (03:44)
--- NOTE | 2021-08-14 08:19 | Hospitalist Progress Note ---
Date of Service August 14, 2021 Assessment & Plan (1) Acute CHF: Plan: #. Acute CHF #. Hypoxia #. History of CAD Patient comes in with shortness of breath worsening over the last couple of years, more so in the last couple of weeks Imaging reveals bilateral pleural effusion, examination reveals 1+ BLE edema, clinical signs and symptoms consistent with CHF 2019 heart cath with ejection fraction of 60%, normal LV function, moderate diffuse CAD with single-vessel obstructive disease. Patient reports visiting cardiology. 3 years ago. Admitting EKG and hs Trop reviewed. Pt is chest pain free at the moment. HFpEF versus HFrEF, echo pending, acute CHF likely secondary to progression of CAD, cardiology consult. Monitor and replete electrolytes as appropriate. Patient received a dose of IV Lasix in the ED, patient not on Lasix at home, w ill continue with 20 Mg IV Lasix daily, consider another dose of IV Lasix during the day today if tolerates. 08/14 -patient responded well to diuresis. Has been breathing comfortably on room air since this morning. Currently saturating 95% on room air. Patient is eager to be discharged. We will have him follow-up with her primary care doctor in the next couple of days. We will start him on furosemide and lisinopril, small doses, this can be further adjusted with his primary care physicians. Recommend obtaining BMP at the next PCP appointment #. A. fib Rate controlled, admitting EKG reviewed, continue with home meds including warfarin, monitor PT/INR daily. Pt take 5 mg coumadin on Sat and Saturday; 10 mg on Rest of the days per patient and his at bedside. #. Other chronic medical conditions: Continue with/resume home meds and when appropriate. #. DVT prophylaxis: Patient on warfarin #. Full code Admission and Anticipated Discharge Date Admission Date: August 13, 2021 Subjective Patient seen in follow-up of shortness of breath, CHF exacerbation, history of A. fib Currently patient is sitting up in bed, in no acute distress Patient is now on room air, breathing comfortably Denies any chest pain palpitations, cough, increased shortness of breath Denies any recent history of increased lower extremity edema or increased abdominal girth Also denies any fevers, chills, abdominal pain, nausea vomiting He is eager to be discharged as he is very uncomfortable in the hospital bed Review of Systems Review of Systems: All systems reviewed & are unremarkable except as noted in Subjective Physical Exam Physical Exam: GENERAL: Alert and oriented x3. NAD, on RA HEENT: No pallor, no icterus . EOMI. Pupils eq ual, round and jesse ctive to light. O ral mucosa moist. NECK: No JVD, no neck masses. HEART : S1 and S2 heard . irregular. No murmur, no gallop. RESPIRATORY SYSTE M: Normal AP diam eter. No accessor y muscle use. No wheezing. Decrease d breath sounds bi basal. ABDOMEN: S oft, bowel sounds present, nontender , no distention. N EURO:Alert orient ed, answering ques tions appropriatel y. Speech is clear . Obeys simple co mmands. Moves ext remities. EXTREMIT IES: 1 + BLE sean a, RLE chronic ski n changes noted, n o erythema seen. Results & Data Results & Data ([facility]) Vital Signs (Past 12 Hours) Vital Signs Temp Pulse Pulse Resp BP Pulse Ox 08/14/21 07:07 36.5 C 81 18 109/73 93 08/14/21 02:59 36.5 C 99 H 18 109/79 93 08/13/21 23:37 87 08/13/21 23:00 36.4 C L 100 H 18 104/74 95 Laboratory Results 08/14/21 08/14/21 08/14/21 Range/Units 08:35 08:35 08:35 WBC 8.53 (4.8-10.8) K/uL RBC 5.66 (4.7-6.1) M/uL Hgb 16.4 (14.0-18.0) g/dL Hct 50.0 (42-52) % MCV 88.3 (80-100) fL MCH 29.0 (25-34) pg MCHC 32.8 (32-36) g/dL RDW Std Deviation 45.4 (36.4-46.3) fL RDW Coeff of Lizandro 14.0 (11.5-14.5) % Plt Count 198 (130-400) K/uL MPV 10.4 (7.4-10.4) fL Immature Gran % (Auto) % Neut % (Auto) % Lymph % (Auto) % [place] % (Auto) % Eos % (Auto) % Baso % (Auto) % Neut # (Auto) (1.4-6.5) K/uL Lymph # (Auto) (1.2-3.4) K/uL [place] # (Auto) (0.11-0.59) K/uL Eos # (Auto) (0-0.5) K/uL Baso # (Auto) (0-0.2) K/uL Immature Gran # (Auto) (0.00-0.02) K/uL PT 17.2 H (9.0-12.0) Seconds INR 1.7 H (0.9-1.1) Sodium 139 (136-145) mmol/L Potassium 3.9 (3.5-5.1) mmol/L Chloride 102 (98-107) mmol/L Carbon Dioxide 31 (21-32) mmol/L Anion Gap 6 (3-11) BUN 13 (6-23) mg/dl Creatinine 0.84 (0.6-1.4) mg/dl Est Cr Clr Drug Dosing 109.8 ml/min Est GFR ( Amer) 99.3 ml/min Est GFR (Non-Af Amer) 85.7 ml/min BUN/Creatinine Ratio 15.5 (10-20) Glucose 104 H (70-99(Fasting)) mg/dl Calcium 9.2 (8.5-10.1) mg/dl Phosphorus 3.1 (2.5-4.9) mg/dl Magnesium 2.0 (1.7-2.4) mg/dl Total Bilirubin (0.2-1.0) mg/dl AST (13-39) U/L ALT (7-52) U/L Alkaline Phosphatase (34-104) U/L Troponin I High Sens (0-20) pg/ml B-Natriuretic Peptide (0-100) pg/ml Total Protein (6.0-8.3) gm/dl Albumin (3.4-5.0) gm/dl Globulin (2.5-4.0) gm/dl Albumin/Globulin Ratio (0.9-2) Urine Color Urine Appearance (Clear) Urine pH (4.5-7.5) Ur Specific [place] (1.000-1.030) Urine Protein (Negative) Urine Glucose (UA) (Negative) Urine Ketones (Negative) Urine Blood (Negative) Urine Nitrite (Negative) Urine Bilirubin (Negative) Urine Urobilinogen (Negative) Ur Leukocyte Esterase (Negative) Digoxin (0.8-2.0) ng/ml SARS-CoV-2, RNA, NAAT (NEGATIVE) 08/13/21 08/13/21 08/13/21 Range/Units 16:30 11:32 11:32 WBC (4.8-10.8) K/uL RBC (4.7-6.1) M/uL Hgb (14.0-18.0) g/dL Hct (42-52) % MCV (80-100) fL MCH (25-34) pg MCHC (32-36) g/dL RDW Std Deviation (36.4-46.3) fL RDW Coeff of Lizandro (11.5-14.5) % Plt Count (130-400) K/uL MPV (7.4-10.4) fL Immature Gran % (Auto) % Neut % (Auto) % Lymph % (Auto) % [place] % (Auto) % Eos % (Auto) % Baso % (Auto) % Neut # (Auto) (1.4-6.5) K/uL Lymph # (Auto) (1.2-3.4) K/uL [place] # (Auto) (0.11-0.59) K/uL Eos # (Auto) (0-0.5) K/uL Baso # (Auto) (0-0.2) K/uL Immature Gran # (Auto) (0.00-0.02) K/uL PT (9.0-12.0) Seconds INR (0.9-1.1) Sodium (136-145) mmol/L Potassium (3.5-5.1) mmol/L Chloride (98-107) mmol/L Carbon Dioxide (21-32) mmol/L Anion Gap (3-11) BUN (6-23) mg/dl Creatinine (0.6-1.4) mg/dl Est Cr Clr Drug Dosing ml/min Est GFR ( Amer) ml/min Est GFR (Non-Af Amer) ml/min BUN/Creatinine Ratio (10-20) Glucose (70-99(Fasting)) mg/dl Calcium (8.5-10.1) mg/dl Phosphorus (2.5-4.9) mg/dl Magnesium (1.7-2.4) mg/dl Total Bilirubin (0.2-1.0) mg/dl AST (13-39) U/L ALT (7-52) U/L Alkaline Phosphatase (34-104) U/L Troponin I High Sens (0-20) pg/ml B-Natriuretic Peptide (0-100) pg/ml Total Protein (6.0-8.3) gm/dl Albumin (3.4-5.0) gm/dl Globulin (2.5-4.0) gm/dl Albumin/Globulin Ratio (0.9-2) Urine Color Yellow Urine Appearance Clear (Clear) Urine pH 5.0 (4.5-7.5) Ur Specific [place] 1.007 (1.000-1.030) Urine Protein Negative (Negative) Urine Glucose (UA) Negative (Negative) Urine Ketones Negative (Negative) Urine Blood Negative (Negative) Urine Nitrite Negative (Negative) Urine Bilirubin Negative (Negative) Urine Urobilinogen Negative (Negative) Ur Leukocyte Esterase Negative (Negative) Digoxin 0.7 L (0.8-2.0) ng/ml SARS-CoV-2, RNA, NAAT NEGATIVE (NEGATIVE) 08/13/21 08/13/21 08/13/21 Range/Units 11:32 11:32 11:32 WBC (4.8-10.8) K/uL RBC (4.7-6.1) M/uL Hgb (14.0-18.0) g/dL Hct (42-52) % MCV (80-100) fL MCH (25-34) pg MCHC (32-36) g/dL RDW Std Deviation (36.4-46.3) fL RDW Coeff of Lizandro (11.5-14.5) % Plt Count (130-400) K/uL MPV (7.4-10.4) fL Immature Gran % (Auto) % Neut % (Auto) % Lymph % (Auto) % [place] % (Auto) % Eos % (Auto) % Baso % (Auto) % Neut # (Auto) (1.4-6.5) K/uL Lymph # (Auto) (1.2-3.4) K/uL [place] # (Auto) (0.11-0.59) K/uL Eos # (Auto) (0-0.5) K/uL Baso # (Auto) (0-0.2) K/uL Immature Gran # (Auto) (0.00-0.02) K/uL PT 18.7 H (9.0-12.0) Seconds INR 1.8 H (0.9-1.1) Sodium 142 (136-145) mmol/L Potassium 4.5 (3.5-5.1) mmol/L Chloride 106 (98-107) mmol/L Carbon Dioxide 29 (21-32) mmol/L Anion Gap 7 (3-11) BUN 11 (6-23) mg/dl Creatinine 0.85 (0.6-1.4) mg/dl Est Cr Clr Drug Dosing 109.5 ml/min Est GFR ( Amer) 98.8 ml/min Est GFR (Non-Af Amer) 85.2 ml/min BUN/Creatinine Ratio 12.9 (10-20) Glucose 87 (70-99(Fasting)) mg/dl Calcium 9.1 (8.5-10.1) mg/dl Phosphorus 2.2 L (2.5-4.9) mg/dl Magnesium 2.2 (1.7-2.4) mg/dl Total Bilirubin 0.9 (0.2-1.0) mg/dl AST 15 (13-39) U/L ALT 17 (7-52) U/L Alkaline Phosphatase 110 H (34-104) U/L Troponin I High Sens (0-20) pg/ml B-Natriuretic Peptide 85 (0-100) pg/ml Total Protein 7.0 (6.0-8.3) gm/dl Albumin 3.7 (3.4-5.0) gm/dl Globulin 3.3 (2.5-4.0) gm/dl Albumin/Globulin Ratio 1.1 (0.9-2) Urine Color Urine Appearance (Clear) Urine pH (4.5-7.5) Ur Specific [place] (1.000-1.030) Urine Protein (Negative) Urine Glucose (UA) (Negative) Urine Ketones (Negative) Urine Blood (Negative) Urine Nitrite (Negative) Urine Bilirubin (Negative) Urine Urobilinogen (Negative) Ur Leukocyte Esterase (Negative) Digoxin (0.8-2.0) ng/ml SARS-CoV-2, RNA, NAAT (NEGATIVE) 08/13/21 08/13/21 Range/Units 11:32 11:32 WBC 7.98 (4.8-10.8) K/uL RBC 5.59 (4.7-6.1) M/uL Hgb 16.3 (14.0-18.0) g/dL Hct 49.9 (42-52) % MCV 89.3 (80-100) fL MCH 29.2 (25-34) pg MCHC 32.7 (32-36) g/dL RDW Std Deviation 45.8 (36.4-46.3) fL RDW Coeff of Lizandro 14.0 (11.5-14.5) % Plt Count 217 (130-400) K/uL MPV 10.5 H (7.4-10.4) fL Immature Gran % (Auto) 0.1 % Neut % (Auto) 74.1 % Lymph % (Auto) 12.5 % [place] % (Auto) 10.5 % Eos % (Auto) 2.5 % Baso % (Auto) 0.3 % Neut # (Auto) 5.91 (1.4-6.5) K/uL Lymph # (Auto) 1.00 L (1.2-3.4) K/uL [place] # (Auto) 0.84 H (0.11-0.59) K/uL Eos # (Auto) 0.20 (0-0.5) K/uL Baso # (Auto) 0.02 (0-0.2) K/uL Immature Gran # (Auto) 0.01 (0.00-0.02) K/uL PT (9.0-12.0) Seconds INR (0.9-1.1) Sodium (136-145) mmol/L Potassium (3.5-5.1) mmol/L Chloride (98-107) mmol/L Carbon Dioxide (21-32) mmol/L Anion Gap (3-11) BUN (6-23) mg/dl Creatinine (0.6-1.4) mg/dl Est Cr Clr Drug Dosing ml/min Est GFR ( Amer) ml/min Est GFR (Non-Af Amer) ml/min BUN/Creatinine Ratio (10-20) Glucose (70-99(Fasting)) mg/dl Calcium (8.5-10.1) mg/dl Phosphorus (2.5-4.9) mg/dl Magnesium (1.7-2.4) mg/dl Total Bilirubin (0.2-1.0) mg/dl AST (13-39) U/L ALT (7-52) U/L Alkaline Phosphatase (34-104) U/L Troponin I High Sens 6.2 (0-20) pg/ml B-Natriuretic Peptide (0-100) pg/ml Total Protein (6.0-8.3) gm/dl Albumin (3.4-5.0) gm/dl Globulin (2.5-4.0) gm/dl Albumin/Globulin Ratio (0.9-2) Urine Color Urine Appearance (Clear) Urine pH (4.5-7.5) Ur Specific [place] (1.000-1.030) Urine Protein (Negative) Urine Glucose (UA) (Negative) Urine Ketones (Negative) Urine Blood (Negative) Urine Nitrite (Negative) Urine Bilirubin (Negative) Urine Urobilinogen (Negative) Ur Leukocyte Esterase (Negative) Digoxin (0.8-2.0) ng/ml SARS-CoV-2, RNA, NAAT (NEGATIVE) Medications Administered Current Inpatient Medications Acetaminophen (Acetaminophen 325 Mg Tab) 650 mg PO Q4H PRN PRN Reason: Pain or Fever Stop: 09/12/21 13:07 Atenolol (Atenolol 50 Mg Tablet) 50 mg PO QAM [facility] Stop: 09/13/21 08:59 Atorvastatin Calcium (Atorvastatin 40 Mg Tab) 40 mg PO QAM [facility] Stop: 09/13/21 08:59 Digoxin (Digoxin 0.125 Mg Tab) 0.125 mg PO DAILY [facility] Stop: 09/13/21 08:59 Furosemide (Furosemide Inj 20 Mg/2 Ml Vial) 20 mg IV DAILY [facility] Stop: 09/13/21 08:59 Gabapentin (Gabapentin 400 Mg Cap) 400 mg PO QAM [facility] Stop: 09/13/21 08:59 Magnesium Hydroxide (Magnesium Hydroxide Susp 30 Ml Udc) 30 ml PO Q12H PRN PRN Reason: Constipation Stop: 09/12/21 12:48 Melatonin (Melatonin 3 Mg Tab) 3 mg PO HS PRN PRN Reason: Sleep Stop: 09/12/21 22:52 Last Admin: 08/13/21 23:19 Dose: 3 mg Documented by: Polyethylene Glycol (Polyethylene (Miralax) 17 Gm Pack) 17 gm PO DAILY PRN PRN Reason: Constipation Stop: 09/12/21 12:48 Warfarin Sodium (Warfarin Sod 5 Mg Tab) 5 mg PO DAILY@1600 [facility] Stop: 09/12/21 15:59 Last Admin: 08/13/21 16:20 Dose: Not Given Documented by:
[2021-08-14 08:52] LABS: Hemoglobin 16.4 g/dL (14.0-18.0); Mean Corpuscular Hgb Conc 32.8 g/dL (32-36); Mean Corpuscular Volume 88.3 fL (80-100); Mean Platelet Volume 10.4 fL (7.4-10.4); Platelet Count 198 K/uL (130-400); RDW Standard Deviation 45.4 fL (36.4-46.3); Red Blood Count 5.66 M/uL (4.7-6.1); White Blood Count 8.53 K/uL (4.8-10.8)
[2021-08-14] MEDS ORDERED: GABAPENTIN 400 MG CAP PO SCH (09:00)
[2021-08-14] MEDS ORDERED: FUROSEMIDE INJ 20 MG/2 ML VIAL IV SCH (09:00)
[2021-08-14] MEDS ORDERED: ATORVASTATIN 40 MG TAB PO SCH (09:00)
[2021-08-14] MEDS ORDERED: ATENOLOL 50 MG TABLET PO SCH (09:00)
[2021-08-14] MEDS ORDERED: DIGOXIN 0.125 MG TAB PO SCH (09:00)
[2021-08-14 09:06] LABS: INR 1.7 (0.9-1.1); Prothrombin Time 17.2 Seconds (9.0-12.0)
[2021-08-14 09:23] LABS: BUN Creatinine Ratio 15.5 (10-20); Calcium 9.2 mg/dl (8.5-10.1); Creatinine Clr Calc Pharmacy 109.8 ml/min; Est GFR (African American) 99.3 ml/min; Est GFR (Non-African American) 85.7 ml/min; Phosphorus 3.1 mg/dl (2.5-4.9); Potassium 3.9 mmol/L (3.5-5.1)
[2021-08-14] MEDS ORDERED: LIDOCAINE 5% 1 PATCH TD SCH (10:15)
--- NOTE | 2021-08-14 11:00 | Electrocardiogram Report ---
Test Reason : Blood Pressure : / mmHG Vent. Rate : 061 BPM Atrial Rate : 241 BPM P-R Int : 000 ms QRS Dur : 098 ms QT Int : 392 ms P-R-T Axes : 000 055 045 degrees QTc Int : 394 ms Poor data quality, interpretation may be adversely affected Atrial fibrillation Incomplete right bundle branch block Abnormal ECG When compared with ECG of 13-FEB-2017 15:34, No significant change was found Confirmed by Ken Evans ([id number]) on 08/14/2021 11:00:23 AM Referred By: Confirmed By:Richard Evans
--- NOTE | 2021-08-14 11:58 | Student Report ---
[facility] Med Student Consult Date of Consultation Date of Consultation: August 14, 2021 HPI History of Present Illness: Mr. Baugh is a very pleasant 76 yo man with a pmh of CAD, Afib, HLD, HIRAM, and obesity, who presented to the ER with shortness of breath over the last year with acute increase in severity over the last few days. Pt reports significant shortness of breath walking up one flight of stairs at baseline, most recently he developed shortness of breath when walking across his living room and especially when lying back to sleep. This past week he used an "old inhaler" with no change in symptoms. He reports he has used a recliner or couch to sleep for the last 20 years. Echocardiogram from 2019 report EF of 60% with diffuse CAD and single vessel obstruction dx. He was treated with Lasix upon arrival and has diuresed appropriately without significant change in renal function. Today, patient still reports shortness of breath but denies lower leg edema or chest pain. He does report some lightheadedness. He was 93% O2 Sat on room air and denies the use of home oxygen. He has a 30 pack year history of cigarettes and 3pyh of electronic cigarettes, which he continues to use. He reports hip pain from previous injury making him very uncomfortable. ROS Review of Systems: Endorses SOB, increased urination, and lightheadness. Denies chest pain, headache, nausea, vomiting, changes in bowel movements, or lower leg swelling. PE Physical Exam: Pt appears uncomfortable seated up in the hospital bed. Tired and irritable affect. HEENT: PEERLA. EOM intact. JVP indeterminate due to neck size Skin: Various skin tags and nevi on the upper back. Cardio: Irregularly irregular pulse with S3 heard on accusation. No pitting edema. Pulm: Bilateral rales and rhonchi. No wheezing. Neuro: Moves all 4 extremities independently. AP Assessment and Plan: Mr. Baugh is a 76 yo male with pmh of CAD, AFib, HIRAM, obesity, and HLD presenting with SOB secondary to acute congestive heart failure. 1) Acute decompensation heart failure Awaiting echo for HFrEF or HFpEF. Will continue diuresing for improvement in respiratory systems. Creatinine at .84 mg/dl. Consider transitioning to oral furosemide. Needs scheduled to follow with outpatient cardiology upon discharge. Pt also needs counseled on the risk of continued cigarette use. -Start ACEi or ARB therapy -Transition to oral furosemide 40mg -Schedule with outpatient cardiology 2) Afib Currently rate controlled (65 HR), -Continue with home medication including warfarin -Continue monitoring PT/INR daily Full Code Dispo: Telemetry DVT: Warfarin Current Inpatient Medications Acetaminophen (Acetaminophen 325 Mg Tab) 650 mg PO Q4H PRN PRN Reason: Pain or Fever Stop: 09/12/21 13:07 Atenolol (Atenolol 50 Mg Tablet) 50 mg PO [facility] Stop: 09/13/21 08:59 Last Admin: 08/14/21 08:27 Dose: 50 mg Documented by: Atorvastatin Calcium (Atorvastatin 40 Mg Tab) 40 mg PO [facility] Stop: 09/13/21 08:59 Last Admin: 08/14/21 08:27 Dose: 40 mg Documented by: Digoxin (Digoxin 0.125 Mg Tab) 0.125 mg PO DAILY [facility] Stop: 09/13/21 08:59 Last Admin: 08/14/21 08:27 Dose: 0.125 mg Documented by: Furosemide (Furosemide Inj 20 Mg/2 Ml Vial) 20 mg IV DAILY [facility] Stop: 09/13/21 08:59 Last Admin: 08/14/21 08:27 Dose: 20 mg Documented by: Gabapentin (Gabapentin 400 Mg Cap) 400 mg PO M [facility] Stop: 09/13/21 08:59 Last Admin: 08/14/21 08:27 Dose: 400 mg Documented by: Lidocaine (Lidocaine 5% 1 Patch) 1 patch TD [facility] Stop: 09/13/21 10:14 Last Admin: 08/14/21 11:05 Dose: 1 patch Documented by: Magnesium Hydroxide (Magnesium Hydroxide Susp 30 Ml Udc) 30 ml PO Q12H PRN PRN Reason: Constipation Stop: 09/12/21 12:48 Melatonin (Melatonin 3 Mg Tab) 3 mg PO HS PRN PRN Reason: Sleep Stop: 09/12/21 22:52 Last Admin: 08/13/21 23:19 Dose: 3 mg Documented by: Miscellaneous (Remove Lidoderm Patch) 1 ea N/A DAILY@2100 [facility] Stop: 09/13/21 20:59 Polyethylene Glycol (Polyethylene (Miralax) 17 Gm Pack) 17 gm PO DAILY PRN PRN Reason: Constipation Stop: 09/12/21 12:48 Warfarin Sodium (Warfarin Sod 5 Mg Tab) 5 mg PO DAILY@1600 [facility] Stop: 09/12/21 15:59 Last Admin: 08/13/21 16:20 Dose: Not Given Documented by: Home Medications Medication Instructions Recorded Confirmed Type Atenolol (Tenormin) 100 mg PO QAM #0 12/16/07 08/13/21 History Digoxin 1 tab PO QAM #0 02/13/17 08/13/21 History Gabapentin (Neurontin) 400 mg PO QAM #0 cap 02/13/17 08/13/21 History sildenafil 100 mg tablet 100 mg PO QAM PRN 02/11/19 08/13/21 History warfarin 10 mg tablet 5 mg PO QAM 02/11/19 08/13/21 History atorvastatin 40 mg tablet 40 mg PO QAM 08/13/21 08/13/21 History Allergies Allergy/AdvReac Type Severity Reaction Status Date / Time No Known Allergies Allergy Unknown Verified 08/13/21 11:46
--- NOTE | 2021-08-14 15:54 | Discharge Summary ---
Date of Service August 14, 2021 Admission HPI Per Admitting Provider 76-year-old gentleman with PMH of CAD, HIRAM, HLD, A. fib on Coumadin, morbid obesity, postherpetic polyneuropathy presented 08/13 to our ED with complaint of progressive shortness of breath. Per patient, he has been feeling this shortness of breath for couple of years especially with lying down, this has been worsening since last couple of weeks with climbing up stairs/walking to the car and also with lying flat which is the reason that he visited ER today. Patient reports that he has not noticed increase in his weight or any increase in swelling of his lower extremities. Patient denies any home oxygen use. Karissa ent does have trouble lying flat. Patient does complain of occasional chest pain at rest, 1-2 times a week. Patient does have history of diffuse CAD with single-vessel obstructive disease in the past. Patient has seen his cardiology almost 3 years ago per patient. Patient does report to have constipation. Patient denies any headache/dizziness/sore throat/cough/palpitation/acute changes in his bladder habits/other review of symptoms. Patient quit smoking 2014, smoked for 30 years with 1 PPD. Patient currently smoking e-cigarettes. Patient drinks around 6-8 drinks at a time, once every 3 weeks. Denies any recreational drug use/marijuana use. 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 No family history of cancer or blood clot. Family history positive for MT in father at age 78. Personal history negative for blood clot, had polyp during colonoscopy few years ago, asked to follow-up every 5 years, patient reports that it was not malignant in nature. Home meds reviewed with the patient, he has taken all his AM meds. Admission Exam Per Admitting Provider GENERAL: Alert and oriented x3. NAD, on 2L NC O2. HEENT: No pallor, no icterus. Pupils equal, round and reactive to light. Oral mucosa moist. NECK: No JVD, no neck masses. HEART: S1 and S2 heard. Regular rate and rhythm. No murmur, no gallop. RESPIRATORY SYSTEM: Normal AP diameter. No accessory muscle use. No wheezing, no crackles. decreased breath sounds bibasal. ABDOMEN: Soft, bowel sounds present, nontender, no distention. CENTRAL NERVOUS SYSTEM: No facial droop. Speech is clear. Obeys simple commands. Moves extremities. EXTREMITIES: 1 + BLE edema, RLE chronic skin changes noted, no erythema seen. Principal Diagnosis Heart failure, acute exacerbation History of A. fib Discharge Exam GENERAL: Alert and oriented x3. NAD, on RA HEENT: No pallor, no icterus. EOMI. Pupils equal, round and reactive to light. Oral mucosa moist. NECK: No JVD, no neck masses. HEART: S1 and S2 heard. irregular. No murmur, no gallop. RESPIRATORY SYSTEM: Normal AP diameter. No accessory muscle use. No wheezing. Decreased breath sounds bibasal. ABDOMEN: Soft, bowel sounds present, nontender, no distention. NEURO:Alert oriented, answering questions appropriately. Speech is clear. Obeys simple commands. Moves extremities. EXTREMITIES: 1 + BLE edema, RLE chronic skin changes noted, no erythema seen. Discharge Data Allergies Allergy/AdvReac Type Severity Reaction Status Date / Time No Known Allergies Allergy Unknown Verified 08/13/21 11:46 Consultations 08/13/21 12:25 ED Decision to Admit Stat 08/13/21 12:49 Consult Cardiology Routine Hospital Course (1) Acute CHF: #. Acute CHF #. Hypoxia #. History of CAD Patient comes in with shortness of breath worsening over the last couple of years, more so in the last couple of weeks Imaging reveals bilateral pleural effusion, examination reveals 1+ BLE edema, clinical signs and symptoms consistent with CHF 2018 heart cath with ejection fraction of 60%, normal LV function, moderate diffuse CAD with single-vessel obstructive disease. Patient reports visiting cardiology. 3 years ago. Admitting EKG and hs Trop reviewed. Pt is chest pain free at the moment. HFpEF versus HFrEF, echo pending, acute CHF likely secondary to progression of CAD, cardiology consult. Monitor and replete electrolytes as appropriate. Patient received a dose of IV Lasix in the ED, patient not on Lasix at home, will continue with 20 Mg IV Lasix daily, consider another dose of IV Lasix during the day today if tolerates. Echo obtained - Normal LV chamber size with mild concentric LVH. Normal LV systolic function, EF 60 to 65%. No segmental LV wall motion abnormalities are noted. Poorly visualized valvular structures without significant stenosis or regurg by Doppler. Moderately dilated RA chamber size. Mildly dilated RV chamber size with normal RV systolic function by TAPSE. Mild enlargement of the aortic root. 08/14 -patient responded well to diuresis. Has been breathing comfortably on room air since this morning. Currently saturating 95% on room air. Patient is eager to be discharged. Explained to the patient that we would recommend that he was seen in the hospital, and continued to be diuresed here, however patient declines and reports that he just cannot stay in the hospital another night. We will have him follow-up with his primary care doctor in the next couple of days, and he will be also seen by cardiology. We will switch his atenolol to metoprolol succinate, and start him on furosemide and lisinopril. This can be further adjusted with his primary care physicians/ cardiology. Recommend obtaining BMP at the next PCP appointment #. A. fib Rate controlled, admitting EKG reviewed, continue with home meds including warfarin, monitor PT/INR daily. Pt take 5 mg coumadin on Sat and Saturday; 10 mg on Rest of the days per patient and his at bedside. #. Other chronic medical conditions: Continue with/resume home meds and when appropriate. Total Time Total Time Spent Total Time Spent (In Minutes): 40 Discharge Plan Discharge Items Patient Disposition: Home - Self-Care Reason For Visit: AC ON CHR HFPEF Discharge Diagnosis: Heart failure (diastolic), acute exacerbation History of A. 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 The appointment with your primary care doctor was scheduled for you for August 18. At that time your blood work should be checkedBMP. You will be contacted about the appointment with cardiology. It is recommended that you stay on low-sodium diet and weigh yourself daily. You were started on new medications, metoprolol, furosemide and lisinopril. Take them as prescribed. Stop taking atenolol, and take metoprolol instead. Take furosemide 40 mg twice a day for next 5 days, then take it daily. Read instructions below in detail. Addtl Nursing Specialist Provider Instructions: Call your Primary Care doctor if any of the following symptoms or problems start or get worse: * Shortness of breath or difficulty breathing * Wake up at night short of breath * Chest pain * Cough * Swelling of your hands, feet, or legs * More fatigued or tired with your normal activity * Palpitations - sudden fast heart beats WEIGHT * Weigh yourself every morning after using the bathroom. * Use the same scale. * Wear the same amount of clothing. * Write your weight down on a chart. * Call your Primary Care doctor if you gain more than 2-3 pounds in 1-2 days. MEDICATIONS * Use this discharge instruction sheet for medication instructions. * Take your medications at the time your doctor ordered. * Do not skip a dose of your medicines. * If you miss a dose of medicine, take it as soon as possible, but DO NOT DOUBLE A DOSE. * Read your medicine information when you get home. * Know all of the side effects of your medicine. If in doubt, ask your pharmacist * Call your Primary Care doctor's office if you have any side effects. * Be sure all of your doctors know what medicine and herbs you take (including cold, flu, and herbal medicine). Take the following with you to your follow-up doctor appointments: * Weight Chart * Medication List * List of questions Do not drink excessive alcohol, beer or wine. Pending Studies at Discharge: No Stand-Alone Forms: My [facility] FAGUO, Smoking Cessation Medications and DC Order Prescriptions: New lisinopril 2.5 mg tablet 2.5 mg PO DAILY Qty: 14 RF: 0 metoprolol succinate 100 mg tablet extended release 24 hr 100 mg PO DAILY Qty: 20 RF: 0 furosemide 40 mg tablet 40 mg PO DAILY Qty: 30 RF: 0 Continued Digoxin 0.125 MG tablet 1 tab PO QAM Qty: 0 RF: 0 Gabapentin (Neurontin) 400 MG capsule 400 mg PO QAM Qty: 0 RF: 0 warfarin 10 mg Tablet 5 mg PO QAM RF: 0 sildenafil 100 mg Tablet 100 mg PO QAM PRN (Reason: Erectile Dysfunction) RF: 0 atorvastatin 40 mg tablet 40 mg PO QAM RF: 0 Discontinued Atenolol (Tenormin) 50 MG tablet 100 mg PO QAM Qty: 0 RF: 0 Discharge Orders: Discharge Order (Routine); Ordered 08/14/21 Ordered By: Abraham Feliz/Other Patient Handouts: Heart Failure: Tracking Your Weight, Coping with Heart Failure, Eating Heart-Healthy Foods Admission Data Admit Date/Time: 08/13/21 12:50 Attending Provider: Abraham Baldwin Admit Provider: Miles Myers Primary Care Provider: Ej Baumann Other Providers: Miles Myers ; Ayo Smith Other Interventions: Discharge Summary Assessment (RN) Last Done: 08/14/21 15:55
[2021-08-14] MEDS: WARFARIN SOD 5 MG TAB PO SCH (16:19)
--- NOTE | 2021-08-14 16:31 | Cardiology Consultation ---
Date of Consultation August 14, 2021 Assessment & Plan (1) Heart failure, diastolic, with acute decompensation: (2) PAF (paroxysmal atrial fibrillation): (3) Hypertension: (4) CAD (coronary artery disease): (5) Morbid obesity: The patient and his were counseled at great lengths as to the pathophysiology and treatment options for acute decompensated diastolic heart failure. He still examines is volume overloaded on exam and I have recommended maintaining inpatient treatment with IV Lasix. However, the patient adamantly refuses stating "doc if I stay here 1 more night I'll " he was not able to further elaborate as to why he felt this way. So, even though not ideal he will be started on oral diuretics. Discharge home on: Lasix 40 mg p.o. twice daily x5 days then 40 mg daily with a as needed dose as well His atenolol will be changed to evidence-based beta-chata: Metoprolol succinate 100 mg daily. Continue lisinopril. Will likely also benefit from spironolactone but will hold off for now. The patient is are also counseled on the need for ischemic evaluation but again he declines. So we will arrange as an outpatient. He was counseled on the significant risk of acute decompensation without further IV diuretics along with the possibility of . The patient still refuses to remain for inpatient therapy. We will need a BMP as an outpatient in 1 week and follow-up with PCP in the next few days. Will also arrange outpatient cardiac follow-up in the next week. Unclear if the patient is compliant with CPAP but should definitely be seen by sleep medicine as an outpatient as well. History of Present Illness Reason for Consultation: CHF Requesting Physician: Dr. Baldwin Attending Physician: Abraham Baldwin MD History of Present Illness The patient is a 76-year-old gentleman who is been a refugee from cardiac care for several years now. He presented to [facility] on 08/13/2021 with complaints of shortness of breath. He states that shortness of breath is been going on for several months possibly up to a year. He states is most notable when he tries to lay down to sleep. He states has not been able to lie in bed and sleeps propped up on the sofa. He presented due to worsening of the shortness of breath. He states he was not even able to get comfortable sitting upright. Upon arrival emergency department is found to be volume overloaded and started on low-dose IV Lasix. He is also in rate controlled atri al fibrillation and takes warfarin on a regular basis. He states his been compliant with his medications. He denies any other complaints of chest pain, palpitations, lightheadedness, dizziness, syncope or peripheral edema. His is present at the bedside during the interview. Problem List: 1. ASCVD 2. Dyslipidemia. LDL goal less than 70 mg/dL. 3. History of tobacco abuse. 4. Longstanding paroxysmal atrial arrhythmias. Atrial flutter ablation in 2005. Chronic atrial fibrillation since at least 2012 5. Past TIA on chronic anticoagulation. 6. Obesity. 7. Obstructive sleep apnea 8. Chronic venous insufficiency. 9. Chronic degenerative joint disease. Allergies Allergy/AdvReac Type Severity Reaction Status Date / Time No Known Allergies Allergy Unknown Verified 08/13/21 11:46 Home Medications Medication Instructions Recorded Confirmed Type Atenolol (Tenormin) 100 mg PO QAM #0 12/16/07 08/13/21 History Digoxin 1 tab PO QAM #0 02/13/17 08/13/21 History Gabapentin (Neurontin) 400 mg PO QAM #0 cap 02/13/17 08/13/21 History sildenafil 100 mg tablet 100 mg PO QAM PRN 02/11/19 08/13/21 History warfarin 10 mg tablet 5 mg PO QAM 02/11/19 08/13/21 History atorvastatin 40 mg tablet 40 mg PO QAM 08/13/21 08/13/21 History furosemide 20 mg tablet 20 mg PO UD #14 tab 08/14/21 Rx lisinopril 2.5 mg tablet 2.5 mg PO DAILY #14 tab 08/14/21 Rx Patient History Medical History (Updated 08/14/21 @ 16:24 by Jamie Evans DO) Atrial fibrillation HLD (hyperlipidemia) HIRAM (obstructive sleep apnea) Surgical History Hx of colonoscopy Social History Smoking Status: Current every day smoker Tobacco Type: E-cigarettes / Vaping Do You Dip or Chew Tobacco: No; Hx Alcohol Use: Yes Hx Substance Use: No Preferred Language: Indonesian Communication Ability: Effective Pattern Drum Maker Required: No Beliefs That Will Affect Care: None Current Living Situation: Spouse Feels Safe at Home: Yes Assistive Devices: None Review of Systems Review of Systems: All systems reviewed & are unremarkable except as noted in HPI & below Physical Exam Physical Exam: General: Awake, alert and oriented x 3. No acute distress. HEENT: Normocephalic, atraumatic. Pupils equal, round and reactive to light and accommodation. Extraocular muscles are intact. Anicteric sclera. Moist mucous membranes. Neck: No JVD. No bruit. Cardiovascular: irregularly irregular, unable to appreciate murmur, rub or gallop. Pulmonary: Decreased breath sounds bilaterally with rales most notably on the right up to the mid level. Abdomen: Bowel sounds x 4, soft. No rebound, guarding or tenderness. No organomegaly. Extremities: No clubbing, cyanosis or edema. +2 pedal pulses bilaterally. Skin: Warm and dry. Results & Data ([facility]) Vital Signs (Past 12 Hours) Vital Signs Temp Pulse Pulse Pulse Resp BP BP 08/14/21 15:55 36.4 C L 81 64 18 104/66 109/73 08/14/21 15:24 36.6 C 62 18 111/73 08/14/21 14:17 69 08/14/21 11:40 36.5 C 65 18 90/57 L 08/14/21 09:27 08/14/21 08:58 104 H 08/14/21 08:27 80 08/14/21 07:07 36.5 C 81 18 109/73 Pulse Ox 08/14/21 15:55 91 08/14/21 15:24 95 08/14/21 14:17 08/14/21 11:40 90 08/14/21 09:27 93 08/14/21 08:58 08/14/21 08:27 08/14/21 07:07 93
== END 2021-08-14 17:25 | disposition home or self-care (01) | DRG 291 ==
LOC: ED 10:45 → 2W 12:50 → SUATTDRO 12:50 → 2W 13:58

== ENCOUNTER 2022-06-19 06:34 | Observation (INO) ==
--- NOTE | 2022-05-28 14:03 | PAT Medication Instructions ---
Medication Instructions Date of Service May 28, 2022 Home Medications Digoxin 1 tab PO QAM Gabapentin (Neurontin) 400 mg PO QAM sildenafil 100 mg tablet 100 mg PO QAM PRN Erectile Dysfunction warfarin 10 mg tablet 5 mg PO QAM atorvastatin 40 mg tablet 40 mg PO QAM aspirin 81 mg capsule 81 mg PO QAM furosemide 40 mg tablet 40 mg PO QAM lisinopril 2.5 mg tablet 2.5 mg PO QAM metoprolol succinate 100 mg tablet,extended release 24 hr 100 mg PO QAM multivitamin 1 tab PO QAM ASK your prescriber and surgeon warfarin 10 mg tablet 5 mg PO QAM STOP taking 24 hours before surgery sildenafil 100 mg tablet 100 mg PO QAM PRN Erectile Dysfunction DO NOT take the morning of surgery furosemide 40 mg tablet 40 mg PO QAM lisinopril 2.5 mg tablet 2.5 mg PO QAM multivitamin 1 tab PO QAM Take morning of surgery With a small sip of water, OTHERWISE NOTHING TO EAT OR DRINK AFTER MIDNIGHT: Digoxin 1 tab PO QAM Gabapentin (Neurontin) 400 mg PO QAM atorvastatin 40 mg tablet 40 mg PO QAM metoprolol succinate 100 mg tablet,extended release 24 hr 100 mg PO QAM aspirin 81 mg capsule 81 mg PO QAM (continue as normal unless told otherwise by surgeon) Other Notes If you have any questions please call us at [phone] or [phone] or [phone] or [phone]
--- NOTE | 2022-05-31 14:01 | Anesthesiology Consultation ---
Date of Service May 31, 2022 Assessment & Plan (1) Encounter for pre-operative examination: Plan - check coags STAT am DOS. - awaiting PCP clearance. - uncontrolled reflux, chronic productive cough and associated wheezing reportedly previously Rx inhaler no longer using/Rx per pt. Pt states only occasionally walks up 1 flight of stairs and does experience dyspnea with exertion, usually remains on flat surfaces. Case discussed with Dr. Allison who advised patient have PCP consultation with consideration for treatment for reflux and untreated sleep apnea if possible prior to surgery. He advised if patient is unable to be started on treatment for sleep apnea, to document consideration to consult respiratory therapy for CPAP while inpatient. - CONSIDER CONSULTING RESPIRATORY THERAPY FOR CPAP WHILE INPATIENT. Surgeon's office made aware. - cardiology 05/30/22 [facility]: "...in-hospital follow-up today May 30, 2022...coronary artery disease, diastolic dysfunction and chronic AFib. He presents today for preop risk assessment prior to going hip surgeries. He is scheduled to undergo his 1st hip surgery on the of this month with Dr. Pretty. The [facility] clinic is already advised him on his Coumadin. He denies any cardiac complaints of chest pain, shortness of breath, palpitations, lightheadedness, dizziness or syncope...From a cardiac standpoint he is doing well and no further cardiac testing or intervention is necessary at this time. He is on a very good medical regimen and no changes will be made today...6 months in follow-up. In terms of his preop risk assessment prior to going hip surgery he and his were counseled that place him as a moderate risk for any adverse perioperative cardiovascular event without risk being approximately less than 5%. There was further counseled that no further cardiac testing or intervention would further lower that risk. They both state that they understand, they are accepting of that risk and wished to proceed. So I see no need to delay from a cardiac standpoint...follow-up with the [facility] clinic as scheduled..." - Outpatient joint assessment: Patient is currently scheduled for inpatient pathway. If re-evaluated pending system levels during current pandemic/surgeon requests outpatient pathway, patient is not acceptable candidate for outpatient joint program from anesthesia standpoint. Chart Review Chart Review: Pending: Refer to Additional Notes / Consult section and Patient seen in Pre Admission Testing Teaching & Discussion Pre-Anesthesia Teaching/Discussion Notes: Instructed NPO after midnight before surgery, except medications with 15 cc of water. Medication instructions provided according to the PAT guidelines. History Surgery Operation Date: 06/19/22 10:40 Proposed Procedures p Left Total Hip Arthroplasty - Parth Pretty MD Height/Weight Height: 6 ft 1 in Weight: 122 kg Allergies Allergy/AdvReac Type Severity Reaction Status Date / Time No Known Allergies Allergy Unknown Verified 05/28/22 13:19 Medications Home Medications Medication Instructions Recorded Confirmed Last Taken Digoxin 1 tab PO QAM ##0 02/13/17 05/28/22 08/13/21 Gabapentin (Neurontin) 400 mg PO QAM #0 caps 02/13/17 05/28/22 08/13/21 sildenafil 100 mg tablet 100 mg PO QAM PRN Erectile 02/11/19 05/28/22 08/13/21 Dysfunction warfarin 10 mg tablet 5 mg PO QAM 02/11/19 05/28/22 08/13/21 atorvastatin 40 mg tablet 40 mg PO QAM 08/13/21 05/28/22 08/13/21 aspirin 81 mg capsule 81 mg PO QAM 05/28/22 05/28/22 Unknown furosemide 40 mg tablet 40 mg PO QAM 05/28/22 05/28/22 Unknown lisinopril 2.5 mg tablet 2.5 mg PO QAM 05/28/22 05/28/22 Unknown metoprolol succinate 100 mg 100 mg PO QAM 05/28/22 05/28/22 Unknown tablet,extended release 24 hr multivitamin 1 tab PO QAM 05/28/22 05/28/22 Unknown Past Medical History Medical History (Updated 05/31/22 @ 15:50 by Genesis Noe PA-C) Atrial fibrillation on warfarin. CAD (coronary artery disease) Moderate diffuse coronary atherosclerosis with single-vessel obstructive disease. The left circumflex is diffusely diseased with subtotal occlusion in its mid and distal portions with filling via left to left and bridge collateral. CHF (congestive heart failure) EF 60-65% Enlargement of aortic root GERD (gastroesophageal reflux disease) pt experiences sensation of heartburn, regurgitation and occasional coughing/choking at night History of atrial flutter History of gout HLD (hyperlipidemia) [place] (hard of hearing) Lumbar spondylosis On anticoagulant therapy HIRAM (obstructive sleep apnea) listed above. pt unsure. no device; sleeps upright Spinal stenosis Patient denies h/o stroke, seizures, heart attack, DM, blood clots or blood transfusions. Exercise / Class Metabolic Activity III < 4 Walking/Shop/Light housework (denies chest discomfort or shortness of breath with usual activities) Past Family History Family History Other No family history of adverse response to anesthesia Past Surgical History Surgical History (Updated 05/31/22 @ 14:40 by Genesis Noe PA-C) History of arthroscopy of left knee History of cardiac cath 2019 [place]. no stents. Moderate diffuse coronary atherosclerosis with single- vessel obstructive disease. The left circumflex is diffusely diseased with subtotal occlusion in its mid and distal portions with filling via left to left and bridge collateral. History of cardiac radiofrequency ablation Hx of colonoscopy Past Anesthesia History No Hx of Anesthesia Complications and No Family Hx of Anesthesia Complications History of PONV No Hx of PONV and No Hx of Motion Sickness Social History Smoking Status: Current every day smoker (advised) tobacco type: e-cigarettes Do You Dip or Chew Tobacco: No Hx Alcohol Use: Yes alcohol intake frequency: holidays/special occasions only Hx Substance Use: No substance use type: does not use Review of Systems Pt reports productive cough-clear sputum (denies blood tinged or hemoptysis) and wheezing x yrs; denies inhaler use though was Rx in past; denies change or worsening. Patient denies chest pain, fever, chills, or palpitations. Physical Exam Vital Signs Vitals BP 101/72 manual (93/61 automatic) P 86 TEMP 98.5 SP02 94% on RA RESP 17 Physical Full cervical extension range of motion without pain TMD 3.5 finger breadths Mallampati Score 2 Dentition: partial upper denture; denies chipped or loose teeth, caps/crowns, implants or bridges Lungs: normal respiratory effort. Clear throughout to auscultation, no adventitious breath sounds Cardiac: irregularly irregular rhythm, regular rate, no murmurs noted Carotid arteries: negative bruit bilat Lab Results Anesthesia Preop Results Results Anesthesia Widget: WBC 9.08 K/ul (4.8-10.8) 05/31/22 Hgb 17.1 g/dl (14.0-18.0) 05/31/22 Hct 51.6 % (42.0-52.0) 05/31/22 Plt 221 K/uL (130-400) 05/31/22 Na 140 mmol/L (136-145) 05/31/22 K 4.5 mmol/L (3.5-5.1) 05/31/22 Cl 101 mmol/L (98-107) 05/31/22 CO2 35 mmol/L (21-32) H 05/31/22 BUN 30 mg/dl (6-23) H 05/31/22 Creat 1.04 mg/dl (0.6-1.4) 05/31/22 Glucose Level 84 mg/dl (70-99(Fasting)) 05/31/22 PT 17.7 Seconds (9.0-12.0) H 05/31/22 PTT 35.5 Seconds (21.0-31.0) H 05/31/22 INR 1.7 (0.9-1.1) H 05/31/22 Blood Type O Positive 05/31/22 Antibody Screen NEGATIVE 05/31/22 Testing Electrocardiogram Date: 05/30/22 Afib, rate 92 bpm Incomplete RBBB Echocardiogram Date: 08/14/21 EF 60-65% No LV segmental wall motion abnormalities Mild cLVH Poorly visualized valvular structures without significant stenosis or regurgitation Moderately dilated RA Mildly dilated RV chamber size with normal RV systolic function Mild enlargement of the aortic root Stress Test Date: 09/14/21 Pharmacologic Negative for inducible ischemia MPHR 132% Cardiac Catheterization Date: 02/12/19 Left main: Modest caliber, bifurcating to give rise to left anterior descending left circumflex. There is mild calcification and no obstruction Left anterior descending: Type II in distribution. It gives rise to to moderately large diagonal branches in its proximal third, 2 large septal branches in its proximal third and midportion. Within the left anterior descending there is diffuse moderate luminal irregularities throughout the vessel and diagonal branches with a smooth 50% stenosis in the LAD midportion beyond the 2 diagonal branches. Left circumflex: Moderate caliber and nondominant distribution. The vessel is diffusely diseased. It gives rise to 2 small marginal branches and a bifurcating obtuse marginal. Circumflex is narrowed by 40% at its origin 50% between the first and second diagonal branches and then has a subtotal occlusion 99% which extends extensively into the LAD obtuse marginal branch with the vessel filling via bridge collaterals and left to left collateral flow. Right coronary artery: Very large dominant vessel with moderate ectasia. Gives rise to a sinoatrial branch shortly after its origin to small RV branches and an acute marginal branch. At the AV groove it gives rise to a very long posterior descending artery branch along the AV groove to posterior ventricular branches. Within the right coronary artery there is moderate luminal irregularities and ectasia but no obstruction. COVID-19 Risk Screen Screening Information COVID-19 Screen Date: 05/31/22 Exposure 21 Days Family/Household +COVID Last 21 Days: No Exposure 10 Days Any COVID Exposure Last 10 Days: No Symptoms Last 10 Days Experienced COVID Sx Last 10 Days: No + COVID 0-90 Days COVID + in Last 0-90 Days: No
--- NOTE | 2022-06-16 09:26 | History and Physical Report ---
CHIEF COMPLAINT: Bilateral hip pain and discomfort, left side greater than right. HISTORY OF PRESENT ILLNESS: This is a 77-year-old gentleman from [place], who specifically presen now for surgical treatment of his hips. He has got a 10-year history of increasing bilateral hip pain and discomfort that has gotten worse overtime. He describes groin pain, thigh pain, and buttock pain. The left side is quite a bit worse than the right. He does have a history of atrial fibrilla tion and he was scared to go to surgery. Pain has gotten debilitating enough that he would like to p roceed now. He has a limited walking tolerance. He has difficulty walking any degree and uses a whe elchair quite a bit as a result. He also has a history of chronic back problems. PAST MEDICAL HISTORY: Significant for: 1. Heart disease/atrial fibrillation, on Coumadin. 2. Elevated cholesterol. 3. Hypertension. PAST SURGICAL HISTORY: Includes left knee meniscus surgery. ALLERGIES: None. CURRENT MEDICATIONS: 1. Atorvastatin. 2. Digoxin. 3. Furosemide. 4. Neurontin. 5. Lisinopril. 6. Metoprolol. 7. Sildenafil. 8. Coumadin. SOCIAL HISTORY: This is a 77-year-old male. He is retired. . Lives in [place]. He does smoke. REVIEW OF SYSTEMS: Significant for heart disease. REVIEW OF SYSTEMS: Significant for atrial fibrillation. No current chest pain or shortness of breat h. No history of DVT or PE. He is on Coumadin. PHYSICAL EXAMINATION: GENERAL: Shows a pleasant elderly male. He comes in a wheelchair. HEENT: Benign. NECK: Supple. No lymphadenopathy. LUNGS: Clear to auscultation. HEART: Has irregularly irregular rhythm. Rate seems pretty normal at less than 100. ABDOMEN: Soft, nontender, and nondistended. EXTREMITIES: Grossly neurovascularly intact except as follows. Examination of both hips revealed the patient can walk, but walks with a hunched over gait. Leg criss ths are pretty equal. He has got limited hip motion on both sides. He has got pain with internal ro tation on both sides. No significant knee effusions. He is neurologically intact. X-RAYS: X-rays were reviewed. It shows advanced left hip arthritis and moderately advanced right hi p arthritis. He has got a Cam-type impingement. Large medial osteophyte. X-rays of the lumbar spine reveal lumbar spondylosis. Fairly diffuse. He has got a little bit of a flat back. Certainly not severe changes. ASSESSMENT: This is a 77-year-old male with multiple medical comorbidities including obesity with BM I of 35, atrial fibrillation, elevated cholesterol, and hypertension with advanced left hip degenerat vidhya joint disease. It is really limiting his activities. He would now like to have his hip fixed. PLAN: We will take him to the operating room and do a left total hip replacement. The risks and heidy efits of this procedure were explained to the patient to include, but not limited to DVT, PE, , infection, neurological injury, vascular injury, bleeding problem, pain, limited range of motion, sti ffness, failure to relieve her symptoms, incomplete relief of symptoms, need for further surgery in t he future, etc. The patient understands and desires to proceed. Informed consent was obtained. He has seen cardiology and cleared. He has been medically optimized. He has a risk due to his heart disease, but he wants to proceed. He has been cleared by his medical doctor. He will stop his Coum marjorie 5 days preop and we will check a stat PT and INR on the morning of surgery. He also has a histo ry of some GERD and would like to treat that in the hospital. As far as discharge plans, he is being planned to be discharged to home with some home health. Job ID: [id number]
[~2022-06-19 06:34] MED LIST changes: +ACETAMINOPHEN 500 MG TAB PO SCH; -ATEN50TA8 PO; -ATOR-22 PO; -CMD10 PO; -CMD5 PO; +CeleBREX 200 MG CAP PO SCH; +DEXAMETHASONE SOD INJ 4 MG/ML VIAL IV SCH; +FAMOTIDINE 20 MG TAB PO SCH; -FLEC100T21 PO; -GABA-113 PO; +LR 500ML BOLUS, THEN 15ML/HR IV SCH; +LR 60ML/HR IV SCH; +METOCLOPRAMIDE HCL 10 MG TABLET PO SCH; -OXYC-57 PO; +TRANEXAMIC ACID 1,000 MG **IV Pre-op IV SCH
[2022-06-19] MEDS ORDERED: BUPIVACAINE 0.5 % 5 MG/1 ML PF 10ML VIAL ONE (06:35)
--- NOTE | 2022-06-19 06:58 | History & Physical Bridge Note ---
Date of Service June 19, 2022 History & Physical Bridge Note I have examined the patient, reviewed the History & Physical and in the interval since the performance of the History & Physical I have noted the following changes of clinical significance: no changes noted
[2022-06-19] MEDS ORDERED: Nursing to Pharmacy Communication SCH (07:00)
[2022-06-19 07:33] LABS: INR 1.1 (0.9-1.1); Prothrombin Time 11.3 Seconds (9.0-12.0)
[2022-06-19] MEDS ORDERED: MIDAZOLAM HCL 1 MG/ML 2ML VIAL ONE (07:33)
[2022-06-19] MEDS ORDERED: ONDANSETRON INJ 2 MG/ML 2 ML VIAL ONE (07:33)
[2022-06-19] MEDS ORDERED: PROPOFOL IV EMULSION 10 MG/ML 20 ML VIAL IV ONE (07:33)
[2022-06-19] MEDS ORDERED: LIDOCAINE 2% MPF LOCAL 5 ML VIAL INFIL ONE (07:33)
[2022-06-19] MEDS ORDERED: ATROPINE SULFATE 0.1 MG/ML 10ML SYR IV PRN (08:07)
[2022-06-19] MEDS ORDERED: ONDANSETRON INJ 2 MG/ML 2 ML VIAL IV PRN ×2 (08:07→12:12)
[2022-06-19] MEDS ORDERED: fentaNYL citrate PF 100 MCG/2 ML VIAL IV PRN (08:07)
[2022-06-19] MEDS ORDERED: BUPIVACAINE/EPINEPHRINE 0.5% MPF 1:200,000 30 ML VIAL ONE (09:06)
[2022-06-19] MEDS ORDERED: PHENYLEPHRINE HCL 10 MG/ML VIAL ONE (10:52)
[2022-06-19] MEDS: ePHEDrine sulfate 50 MG/ML AMP IV PRN ×3 (11:01→11:31)
--- NOTE | 2022-06-19 11:01 | Operative Report ---
PG Post Operative Report Pre & Post Diagnosis Operation Date: 06/19/22 08:50 Pre-Op Diagnosis: Left Hip Degenerative Joint Disease Post-Op Diagnosis: Left Hip Degenerative Joint Disease I identified the patient and participated in the time-out.: Yes Procedure Operation Date: 06/19/22 08:50 Actual Procedures p Left Total Hip Arthroplasty(Left) - Parth Pretty MD Surgeon Parth Pretty MD Supervisor Dry Cleaning Peter Ballard PA-C Estimated Blood Loss 100 Findings Consistent with Post-Op Diagnosis Operative findings revealed a very stiff hip. Significant osteophytes around the femoral head as well as the acetabulum. Appearance grade 4 [id number] disease of the femoral head and acetabulum. Specimens Left femoral head sent for pathology Drains None Anesthesia Type Spinal MAC Complications none Disposition Accompanied Patient To Recovery: No Indications Patient 77-year-old gentleman said a long history of bilateral hip pain discomfort and stiffness is gradually gotten worse over the years. Days really put off surgical treatment to his history of atrial fibrillation concerns with this. Pain is become more debilitating. He is now resorting to a total hip arthroplasty on the left side for advanced hip arthritis. He failed all conservative measures. Description of Procedure Operative implants consist of: 1 Biomet G7 size 60 mm acetabular shell. 2. [place] hole limiter. 3. 6.5 cancellous acetabular screws 1 of 35 mm in length and 1 of 30 mm length. 4. Highly cross-linked polyethylene liner with a 60 mm outer diameter and 36 mm inner diameter. 5. DePuy [place] size 16 KLA femoral stem. 6. +8.5/36 mm ceramic articular ball. The patient was taken the operating, identified, placed on the operating table supine position protectors were properly padded. IV antibiotics tried by anesthesia team. A spinal anesthetic and been implemented holding area. Mckee catheter was placed in sterile fashion. The patient then placed in the right lateral decubitus position. An axillary roll was placed. Stulberg hip positioner was used for positioning. Left hip and leg were then prepped and draped in usual sterile fashion. A posterolateral approach to the left hip was then performed through a curvilinear incision centered over the greater trochanter. Sharp dissection was carried through subcutaneous tissue down to level the IT band gluteal fascia the IT band gluteal fascia incised longitudinally in line with skin incision. The underlying greater bursa was excised. Piriformis and external rotators along with the posterior hip joint capsule were then released from the posterior aspect the hip as a single layer. His hip was extremely stiff with a significant external rotation contracture. The hip was then internally rotated. It was dislocated. The femoral neck osteotomy cut was made with a Final Cut 20 mm above the lesser trochanter. Femoral head was removed and sent for pathology . The femur was retracted anteriorly. Attention drawn the acetabulum. The acetabular labrum was excised. The pulmonary fat was excised. Sequential reaming the acetabular was then performed beginning with a size 47 and progressing up to 59. I reamed a little bit with a 60 mm reamer and then placed a 60 mm cup in about 40 degrees lateral opening and 20 degrees of anteversion. It was fixed with two 6.5 cancellous acetabular screws. A trial liner was placed. Some large anterior osteophytes removed. The attention drawn the femur. The proximal femur was entered with a [employer] cutter followed by canal finder. Then broached beginning with size 8 and progressing up to a 16. We got excellent fit of the 16. We then trialed the hip. The hip was fully stable with a +5 articular ball but the soft tissue tension just seemed really loose. Therefore we elected to place +8.5 articular ball. Seem to recreate his offset more appropriately, his leg lengths more equally and the soft tissue tension appropriately. We elect to place these implants. Nupathe all trial implants were removed. An apex hole luminary was placed. Highly cross-linked polyethylene liner was placed. A size 16 KLA femoral stem was impacted in position. +8.5/36 mm ceramic articular ball was placed. Hip was located once again found to be stable. Attention drawn toward closing. The wounds irrigated cosigns pulsatile lavage solution. I did inject locally with 60 cc of half percent Marcaine with epinephrine. Posterior capsule and external rotators were repaired through drill holes in the posterior trochanter as a single layer with #2 Tycron suture. The IT band gluteal fascia then closed in 1 PDS suture running fashion. Subcutaneous tissues then closed with 2 layers the deep layer #1 Vicryl suture and subcutaneous tissues with 2-0 Dexon suture in a buried interrupted fashion the skin was closed skin fran. Leg was then cleaned and dried a sterile dressing was Xeroform, 4 fours, sterile ABD pad and foam tape was applied. The patient then transferred to the recovery room in stable condition. Patient tolerated the procedure well and there were no complications. Peter Ballard, my physician assistant in nursing, was present for the entire procedure. His assistance was required for proper patient positioning, prepping and draping, surgical exposure, retraction, placing the implants, perform the technical details the operation, closure of the incision site and placement of the sterile bandage. I attest to the content of the Intraoperative Record and any orders documented therein. Any exceptions are noted below.
--- NOTE | 2022-06-19 11:23 | XRay Report ---
XR hip 1V LT w pelvis HISTORY: 77 years-old Male IN PACU - Post Surgical left hip arthroplasty COMPARISON: 05/17/2022 TECHNIQUE: AP view of the pelvis with crosstable lateral view of the left hip FINDINGS: Moderate to severe osteoarthritis of the right hip redemonstrated. Left hip arthroplasty demonstrates satisfactory alignment. Expected postoperative soft tissue swelling with deep tissue air and overlyi ng skin fran. No acute fracture or dislocation. IMPRESSION: Left hip total joint arthroplasty with expected postoperative changes. ACT 112: Negative or not required by law. The above report was generated using voice recognition software. It may contain grammatical, syntax o r spelling errors. Electronically signed by: Jules Barber M.D. 06/19/2022 11:22 AM
--- NOTE | 2022-06-19 12:08 | Anesthesiology Progress Note ---
Date of Service June 19, 2022 Anesthesia Post Procedure Vital Signs Vital Signs: Temp Pulse Pulse Resp BP BP Pulse Ox 06/19/22 11:05 77 29 H 106/69 97 06/19/22 12:05 97.7 F 89 24 93/72 L 93 06/19/22 11:55 88 26 H 95/59 L 92/63 L 94 06/19/22 11:45 86 26 H 98/60 L 93 06/19/22 11:35 89 23 93/66 L 94 06/19/22 11:25 90 24 96/63 L 95 06/19/22 11:15 88 29 H 99/73 L 91 06/19/22 10:55 82 28 H 90/58 L 95 06/19/22 10:47 97.0 F L 76 27 H 81/54 L 95 06/19/22 06:56 98.8 F 90 20 114/87 94 O2 Del Method O2 Flow Rate 06/19/22 11:05 Oxymask 10 06/19/22 12:05 Nasal Cannula 2 06/19/22 11:55 Nasal Cannula 2 06/19/22 11:45 Nasal Cannula 2 06/19/22 11:35 Nasal Cannula 2 06/19/22 11:25 Nasal Cannula 2 06/19/22 11:15 Room Air 06/19/22 10:55 Oxymask 10 06/19/22 10:47 Oxymask 10 06/19/22 06:56 Room Air Transfer of Care Handoff Completed per policy Notes Mental Status: alert / awake / arousable and participated in evaluation Patient Amnestic to Procedure: Yes Nausea / Vomiting: adequately controlled Pain: adequately controlled Airway Patency, RR, SpO2: stable & adequate BP & HR: stable & adequate Hydration State: stable & adequate Neuraxial Anesthesia: was administered and sensory block is resolving Anesthetic Complications: no major complications apparent and Pt Satisfied with anesthetic care
[2022-06-19] MEDS ORDERED: METOCLOPRAMIDE HCL INJ 5 MG/ML 2 ML VIAL IV PRN (12:12)
[2022-06-19] MEDS ORDERED: HYDROmorphone INJ 0.5 MG/0.5 ML SYR IV PRN (12:12)
[2022-06-19] MEDS ORDERED: traMADol HCL 50 MG TABLET PO PRN (12:12)
[2022-06-19] MEDS ORDERED: NALOXONE HCL 0.4 MG/1 ML VIAL/CARP IV PRN (12:12)
[2022-06-19] MEDS ORDERED: MAGNESIUM HYDROXIDE SUSP 30 ML UDC PO PRN (12:12)
[2022-06-19] MEDS ORDERED: bisacodyL 10 MG SUPP PR PRN (12:12)
[2022-06-19] MEDS ORDERED: ALUMINUM/MAGNESIUM SUSP 30 ML UDC PO PRN (12:12)
[2022-06-19] MEDS ORDERED: NON-FORMULARY MEDICATION (Sildenafil 100 mg Tablet) PO PRN (12:12)
[2022-06-19] MEDS: SODIUM CHLORIDE 0.9% 1000ML 1,000 ML IV SCH ×2 (12:38→21:15)
[2022-06-19] MEDS ORDERED: WARFARIN SOD 7.5 MG TAB PO ONE (13:00)
[2022-06-19] MEDS: ACETAMINOPHEN 500 MG TAB PO SCH ×2 (14:01→21:06)
[2022-06-19] MEDS: KETOROLAC TROMETHAMINE 15 MG/ML VIAL IV SCH ×2 (14:02→21:06)
[2022-06-19] MEDS: ceFAZolin 2000MG 2,000 MG/15 ML SYR IV SCH (16:47)
[2022-06-19] MEDS: ASCORBIC ACID 500 MG TAB PO SCH (16:47)
[2022-06-19] MEDS ORDERED: TRANEXAMIC ACID / 0.7% NACL 1,000 MG/100 ML BAG IV SCH (17:00)
[2022-06-19] MEDS ORDERED: SENNA 8.6 MG TAB PO SCH (21:00)
[2022-06-19] MEDS: DOCUSATE SODIUM 100 MG CAP PO SCH (21:06)
[2022-06-20] MEDS: ceFAZolin 2000MG 2,000 MG/15 ML SYR IV SCH (01:47)
[2022-06-20] MEDS: KETOROLAC TROMETHAMINE 15 MG/ML VIAL IV SCH ×3 (01:47→15:12)
[2022-06-20] MEDS: ACETAMINOPHEN 500 MG TAB PO SCH ×2 (05:42→15:12)
[2022-06-20 06:48] LABS: Basophils # (auto) 0.02 K/uL (0-0.2); Basophils % (auto) 0.1 %; Hematocrit (blood only) 42.5 % (42.0-52.0); Hemoglobin 13.8 g/dl (14.0-18.0); Immature Granulocytes # (auto) 0.09 K/uL (0.01-0.20); Immature Granulocytes % (auto) 0.5 %; Lymphocytes % (auto) 4.1 %; Mean Corpuscular Hemoglobin 29.1 pg (25.0-34.0); Mean Corpuscular Hgb Conc 32.5 g/dL (32.0-36.0); Mean Corpuscular Volume 89.7 fL (80.0-100.0); Mean Platelet Volume 10.6 fL (9.4-12.4); Monocytes # (auto) 1.69 K/uL (0.11-0.59); Monocytes % (auto) 9.9 %; Neutrophils # (auto) 14.51 K/uL (1.40-6.50); Neutrophils % (auto) 85.4 %; Platelet Count 151 K/uL (130-400); RDW Coefficient of Variation 13.2 % (11.5-14.5); RDW Standard Deviation 43.6 fL (36.4-46.3); Red Blood Count 4.74 M/uL (4.70-6.10); White Blood Count 17.01 K/ul (4.8-10.8)
[2022-06-20 07:14] LABS: INR 1.3 (0.9-1.1); Prothrombin Time 13.4 Seconds (9.0-12.0)
[2022-06-20 07:35] LABS: Calcium 8.6 mg/dl (8.5-10.1); Creatinine Clr Calc Pharmacy 95.9 ml/min; Est GFR (African American) 95.8 ml/min; Est GFR (Non-African American) 82.7 ml/min; Potassium 4.6 mmol/L (3.5-5.1)
[2022-06-20] MEDS: ASCORBIC ACID 500 MG TAB PO SCH ×2 (08:49→17:03)
[2022-06-20] MEDS: DOCUSATE SODIUM 100 MG CAP PO SCH (08:49)
[2022-06-20] MEDS ORDERED: MULTIVITAMIN TAB PO SCH (09:00)
[2022-06-20] MEDS ORDERED: lisinopril 2.5 MG TAB PO SCH (09:00)
[2022-06-20] MEDS ORDERED: METOPROLOL SUCC 50MG EXT REL TAB PO SCH (09:00)
[2022-06-20] MEDS ORDERED: DOCUSATE SODIUM/SENNA 50/8.6MG TAB PO SCH (09:00)
[2022-06-20] MEDS ORDERED: NON-FORMULARY MEDICATION (Multivitamin Tablet) PO SCH (09:00)
[2022-06-20] MEDS ORDERED: FUROSEMIDE 40 MG TAB PO SCH (09:00)
[2022-06-20] MEDS ORDERED: ATORVASTATIN 40 MG TAB PO SCH (09:00)
[2022-06-20] MEDS ORDERED: GABAPENTIN 400 MG CAP PO SCH (09:00)
[2022-06-20] MEDS ORDERED: DIGOXIN 0.125 MG TAB PO SCH (16:00)
[2022-06-20] MEDS ORDERED: WARFARIN SOD 6 MG TAB PO ONE (16:34)
--- NOTE | 2022-06-20 16:57 | Progress Notes ---
DATE OF SERVICE: 06/20/2022 SUBJECTIVE: A 77-year-old gentleman postoperative day 1 left total hip replacement. He is doing pre tty well. First therapy visit was a little rough, but did much better in the afternoon. He is reall y adamant about going home. Denies any chest pain or shortness of breath. OBJECTIVE: VITAL SIGNS: Temperature 36.6. Vital signs fairly stable. A little hypotensive. LUNGS: Clear to auscultation. HEART: Has regular rate and rhythm. ABDOMEN: Soft, nontender, nondistended. EXTREMITIES: Grossly neurovascularly intact except as follows: Examination of the left hip reveals the dressing to be clean, dry, and intact. His hip is located. Leg-lengths are equal. He is neurologically intact. LABORATORY DATA: Hemoglobin 13.8. Hematocrit 42.5. Electrolytes are stable. INR 1.3. ASSESSMENT: A 77-year-old gentleman with multiple medical comorbidities, postop day 1 from left tota l hip replacement. He has done quite well and did much better at the second therapy visit. He has b een somewhat hypotensive, but his , who is a nurse, says that he is often hypotensive. He has amezcua d no symptoms. PLAN: 1. DVT prophylaxis includes thigh-high TEDs, SCDs, and Coumadin. 2. PT/OT, weightbear as tolerated. Left total hip protocol. 3. Pain control, doing okay with current pain regimen. 4. Disposition. He is adamant about being discharged today. We will send him home and his fee ls comfortable taking care of him. He left home health. I will see him back 2 weeks postop. Job ID: [id number]
--- NOTE | 2022-06-23 19:53 | Discharge Summary ---
Date of Service June 23, 2022 Discharge Data Procedures Performed Operation Date: 06/19/22 08:50 Actual Procedures p Left Total Hip Arthroplasty(Left) - Parth Pretty MD Hospital Course (1) S/P total left hip arthroplasty: This is a 77 year old patient admitted on 06/19/22 and underwent total hip arthroplasty. He tolerated the procedure well and there were no complications. Transferred to the PACU post op and later to the orthopedic floor for further care. He was given ancef for antibiotic prophylaxis. He was also given MONET stockings, SCDs, and coumadin for DVT prophylaxis. Hemoglobin, hematocrit, and vital signs were monitored during his hospital stay and remained stable. He did have some hypotension. Did not require any blood transfusions. There were no complications during his hospital stay. By post op day #1 the patient was tolerating a regular diet, pain was reasonably controlled with oral pain medicine, and he was participating in physical therapy. On post op day #1 the patient was discharged home and set up with home health care. He was given printed discharge instructions including prescriptions for extra strength tylenol, cefadroxil, zofran, senokot, and tramadol. Continue hip precautions. Continue physical therapy, weight bearing as tolerated. Continue MONET stockings. Follow up approximately 2 weeks post op or sooner if there are problems or concerns. Coding Level of Care Code None Diagnoses S/P total left hip arthroplasty Z96.642
== END 2022-06-20 17:50 | disposition home health service (06) ==
LOC: ASU 06:34 → 3E 06:34

== ENCOUNTER 2022-06-23 13:42 | Inpatient (IN) ==
[2022-06-23] MEDS ORDERED: SODIUM CHLORIDE 0.9% 1000ML 500 ML IV ONE (14:18)
--- NOTE | 2022-06-23 14:18 | Emergency Department Note ---
Impression & Plan Pleural effusion, Hypoxia, Acute respiratory acidosis ED Provider Note NAME: GERBER MEDINA AGE: 77 SEX: M : 1945 ARRIVES VIA: Ambulance INFORMANT: Patient, EMS, the patient's significant other ED PROVIDER(S): Alexis Moulton DO CHIEF COMPLAINT: Weakness HPI: The patient is a 77-year-old male who is status post left hip replacement who presented to the emergency department for an evaluation of shortness of breath and generalized weakness. The patient has had symptoms over the course the last few days but they became much worse today. His significant other called 911 because the patient appeared to be having shortness of breath. He was found to be hypoxic upon arrival. He denies having any cough or hemoptysis. He denies having any chest pain or lower extremity swelling. He states has been compliant with his outpatient medications which do include warfarin. He denies having any black or bloody bowel moods. The hip has been checked by home health. They describe a well-healing wound with no bloody bleeding redness or discharge noted. ROS: See above HPI for pertinent positives & negatives. A total of 10 systems reviewed and were otherwise negative. PAST MEDICAL HISTORY: See Below PAST SURGICAL HISTORY: See Below FAMILY HISTORY: See Below SOCIAL HISTORY: See Below HOME MEDICATIONS: See Below ALLERGIES: See Below VITALS: See Below PHYSICAL EXAMINATION: GENERAL: Patient is awake and alert. He is nonanxious appearing. EYES: The conjunctivae are clear. The pupils are round and reactive. EARS, NOSE, MOUTH AND THROAT: The nose is without any evidence of any deformity. Mucous membranes are moist. Tongue is midline. NECK: The neck is nontender and supple. RESPIRATORY: Diminished breath sounds are noted throughout. There is no tachypnea or conversational dyspnea. CARDIOVASCULAR: Irregular heart sounds were noted to auscultation. There is no definite murmur. GASTROINTESTINAL: The abdomen is soft. Abdomen is nontender. MUSCULOSKELETAL/EXTREMITIES: The patient does not have significant pain with range of motion testing of the left hip but only internal/external rotation were evaluated because the patient states he has pain with any other movement. SKIN: There is no obvious evidence of any rash. There is no significant pedal edema. Surgical site was noted on the lateral left thigh. There is no erythema drainage or dehiscence. NEUROLOGIC: Patient is awake alert and oriented x3 MEDICAL DECISION MAKING: The patient is a 77-year-old male who presented to the emergency department for an evaluation of difficulty breathing and generalized weakness. He was hypotensive. His significant other states that he normally does have some degree of hypotension but this appears to be low even for him. He was concerned because he was also having some shortness of breath. He had no fever. He had no hemoptysis. The patient's chest x-ray appeared to be consistent with a pleural effusion. Because he was recently postop CT of the chest was also ordered to ensure that this was not secondary to pulmonary embolism and venous thromboembolic disease. That CT does not show any signs of pulmonary embolism but does show a large pleural effusion. I feel this is likely causing the patient's symptoms. He was treated with a small fluid bolus in the emergency department. He was reevaluated multiple times. A large fluid bolus was avoided given the patient's history of cardiac disease. I discussed the patient's condition with the on-call [facility] group. Triage Nursing notes reviewed. Prior medical records reviewed Vital Signs: reviewed and remarkable for blood pressure Differential diagnosis: Reactive airway disease, pneumonia, pneumothorax, COPD, CHF, infections, cardiac ischemia, pulmonary embolism, musculoskeletal, gastrointestinal, as well as other pathologies. ER treatment provided: See below Diagnostics interpreted by me: ECG: EKG was obtained in the emergency department. My interpretation is atrial fibrillation at 84 bpm. There is no acute ST segment abnormalities noted. There were no PVCs. This was compared to a tracing from August 13, 2021. No changes were noted. Cardiac Monitoring: An order was placed for continuous cardiac monitoring. The monitor shows a rate of 80 bpm with atrial fibrillation. Laboratory studies: As stated above and show below. Imaging studies: See below. Radiographic imaging was reviewed by myself Consultation(s): I discussed this case with Yudy who is on-call for the [facility] hospitalist group. Past Med/Surg History Medical History (Updated 06/23/22 @ 18:11 by Sylvie Hayward PA-C) Atrial fibrillation on warfarin. CAD (coronary artery disease) Moderate diffuse coronary atherosclerosis with single-vessel obstructive disease. The left circumflex is diffusely diseased with subtotal occlusion in its mid and distal portions with filling via left to left and bridge collateral. CHF (congestive heart failure) EF 60-65% Enlargement of aortic root GERD (gastroesophageal reflux disease) pt experiences sensation of heartburn, regurgitation and occasional coughing/choking at night History of atrial flutter History of gout HLD (hyperlipidemia) [place] (hard of hearing) Lumbar spondylosis On anticoagulant therapy HIRAM (obstructive sleep apnea) listed above. pt unsure. no device; sleeps upright Spinal stenosis Surgical History (Updated 06/23/22 @ 19:48 by Saad Ballard PA-C) History of arthroscopy of left knee History of cardiac cath 2019 [place]. no stents. Moderate diffuse coronary atherosclerosis with single- vessel obstructive disease. The left circumflex is diffusely diseased with subtotal occlusion in its mid and distal portions with filling via left to left and bridge collateral. History of cardiac radiofrequency ablation Hx of colonoscopy S/P total hip arthroplasty Family History Other No family history of adverse response to anesthesia Social History Smoking Status: Current every day smoker Tobacco Type: E-cigarettes / Vaping Second Hand Exposure: No; Hx Alcohol Use: Yes Hx Substance Use: No Preferred Language: Turkish Communication Ability: Effective Aluminum Pourer Required: No Beliefs That Will Affect Care: None Current Living Situation: Spouse Other Information That Helps Us Care for You: No Feels Safe at Home: Yes Safety Concerns: Feels Safe At This Time Assistive Devices: Denture - Upper and Glasses Allergies Allergies Allergy/AdvReac Type Severity Reaction Status Date / Time No Known Allergies Allergy Unknown Verified 06/19/22 06:51 Home Meds Home Medications Medication Instructions Recorded Confirmed sildenafil 100 mg tablet 100 mg PO QAM PRN Erectile 02/11/19 06/23/22 Dysfunction warfarin 10 mg tablet 5 mg PO MOWEFR 02/11/19 06/23/22 atorvastatin 40 mg tablet 40 mg PO QAM 08/13/21 06/23/22 aspirin 81 mg capsule 81 mg PO QAM 05/28/22 06/23/22 furosemide 40 mg tablet 40 mg PO QAM 05/28/22 06/23/22 lisinopril 2.5 mg tablet 2.5 mg PO QAM 05/28/22 06/23/22 metoprolol succinate 100 mg 100 mg PO QAM 05/28/22 06/23/22 tablet,extended release 24 hr multivitamin 1 tab PO QAM 05/28/22 06/23/22 digoxin 125 mcg (0.125 mg) tablet 125 mcg PO DAILY 06/23/22 06/23/22 gabapentin 400 mg capsule 400 mg PO DAILY 06/23/22 06/23/22 warfarin 10 mg tablet 10 mg PO UD 06/23/22 06/23/22 Previous Rx's Medication Instructions Recorded acetaminophen 500 mg capsule 1,000 mg PO TID Pain 30 days #180 06/17/22 caps cefadroxil 500 mg capsule 500 mg PO BID 7 days #14 caps 06/17/22 ondansetron HCl 4 mg tablet 4 mg PO Q6 PRN nausea #20 tabs 06/17/22 sennosides 8.6 mg-docusate sodium 1 tab-cap PO DAILY #14 tabs 06/17/22 50 mg tablet (Senokot-S) tramadol 50 mg tablet 50 - 100 mg PO Q6H PRN pain #40 06/17/22 tabs Results & Data (ED) Vital Signs Vital Signs - 24 hr 06/23/22 13:52 06/23/22 13:52 06/23/22 13:52 Temperature 36.6 C Temperature Source Oral Pulse Rate 90 Pulse Rate from SpO2 Sensor Pulse Rhythm Irregular Pulse Strength Normal Respiratory Rate 19 Respiratory Effort / Characteristics Non-Labored Non-Labored Respiratory Depth Normal Respiratory Pattern Regular Regular Blood Pressure 88/62 L Blood Pressure Mean 70 Pulse Oximetry 94 Oxygen Delivery Method Nasal Cannula Nasal Cannula Nasal Cannula Oxygen Flow Rate 2 2 2 Sepsis Recent Fever Within 48 Hours No Sepsis New/Unexplained Change in Mental Status N/A Sepsis Action Taken by Nursing No Action Required 06/23/22 13:58 06/23/22 13:54 06/23/22 14:00 Temperature Temperature Source Pulse Rate 82 81 86 Pulse Rate from SpO2 Sensor 83 90 Pulse Rhythm Pulse Strength Respiratory Rate 14 18 Respiratory Effort / Characteristics Respiratory Depth Respiratory Pattern Blood Pressure Blood Pressure Mean Pulse Oximetry 94 96 Oxygen Delivery Method Oxygen Flow Rate Sepsis Recent Fever Within 48 Hours Sepsis New/Unexplained Change in Mental Status Sepsis Action Taken by Nursing 06/23/22 14:24 06/23/22 14:24 06/23/22 14:30 Temperature Temperature Source Pulse Rate 83 80 Pulse Rate from SpO2 Sensor 87 Pulse Rhythm Pulse Strength Respiratory Rate 22 24 Respiratory Effort / Characteristics Respiratory Depth Respiratory Pattern Blood Pressure 112/60 Blood Pressure Mean 77 Pulse Oximetry 94 Oxygen Delivery Method Oxygen Flow Rate Sepsis Recent Fever Within 48 Hours Sepsis New/Unexplained Change in Mental Status Sepsis Action Taken by Nursing 06/23/22 15:00 06/23/22 15:30 06/23/22 16:00 Temperature Temperature Source Pulse Rate 87 85 83 Pulse Rate from SpO2 Sensor 87 Pulse Rhythm Pulse Strength Respiratory Rate 23 24 21 Respiratory Effort / Characteristics Respiratory Depth Respiratory Pattern Blood Pressure Blood Pressure Mean Pulse Oximetry 95 Oxygen Delivery Method Oxygen Flow Rate Sepsis Recent Fever Within 48 Hours Sepsis New/Unexplained Change in Mental Status Sepsis Action Taken by Nursing 06/23/22 16:30 Temperature Temperature Source Pulse Rate 86 Pulse Rate from SpO2 Sensor Pulse Rhythm Pulse Strength Respiratory Rate 24 Respiratory Effort / Characteristics Respiratory Depth Respiratory Pattern Blood Pressure Blood Pressure Mean Pulse Oximetry Oxygen Delivery Method Oxygen Flow Rate Sepsis Recent Fever Within 48 Hours Sepsis New/Unexplained Change in Mental Status Sepsis Action Taken by Retirement Medications Current Medication List: was personally reviewed by me Laboratory Data Attestation: I reviewed the patient's lab results. 06/23/22 14:15 06/23/22 14:15 Lab Results 06/23/22 06/23/22 06/23/22 Range/Units 14:15 14:15 14:15 WBC 8.71 (4.8-10.8) K/ul RBC 4.85 (4.70-6.10) M/uL Hgb 14.2 (14.0-18.0) g/dl Hct 41.5 L (42.0-52.0) % MCV 85.6 (80.0-100.0) fL MCH 29.3 (25.0-34.0) pg MCHC 34.2 (32.0-36.0) g/dL RDW Std Deviation 42.6 (36.4-46.3) fL RDW Coeff of Lizandro 13.5 (11.5-14.5) % Plt Count 156 (130-400) K/uL MPV 10.8 (9.4-12.4) fL Immature Gran % (Auto) 0.7 % Neut % (Auto) 78.8 % Lymph % (Auto) 6.2 % Major % (Auto) 10.6 % Eos % (Auto) 3.4 % Baso % (Auto) 0.3 % Neut # (Auto) 6.86 H (1.40-6.50) K/uL Lymph # (Auto) 0.54 L (1.2-3.4) K/uL Major # (Auto) 0.92 H (0.11-0.59) K/uL Eos # (Auto) 0.30 (0-0.50) K/uL Baso # (Auto) 0.03 (0-0.2) K/uL Immature Gran # (Auto) 0.06 (0.01-0.20) K/uL Platelet Estimate Normal (Normal) PT 19.0 H (9.0-12.0) Seconds INR 1.8 H (0.9-1.1) APTT 30.0 (21.0-31.0) Seconds PTT Ratio 1.1 D-Dimer 1410 H* (0-500) ug/L FEU VBG pH (7.36-7.41) VBG pCO2 (38-50) mmHg VBG pO2 mmHg VBG HCO3 mmol/L VBG O2 Saturation % VBG Base Excess mEq/L Sodium 139 (136-145) mmol/L Potassium 4.0 (3.5-5.1) mmol/L Chloride 100 (98-107) mmol/L Carbon Dioxide 34 H (21-32) mmol/L Anion Gap 5 (3-11) BUN 13 (6-23) mg/dl Creatinine 0.73 (0.6-1.4) mg/dl Est Cr Clr Drug Dosing Not Reportable Est GFR ( Amer) 104.4 ml/min Est GFR (Non-Af Amer) 90.1 ml/min BUN/Creatinine Ratio 17.8 (10-20) Glucose 92 (70-99(Fasting)) mg/dl Lactate (0.4-2.0) mmol/L Calcium 8.8 (8.6-10.3) mg/dl Magnesium 1.9 (1.7-2.4) mg/dl Total Bilirubin 1.0 (0.2-1.0) mg/dl Direct Bilirubin TNP AST 30 (13-39) U/L ALT 16 (7-52) U/L Alkaline Phosphatase 73 (34-104) U/L Troponin I High Sens 7.1 (0-20) pg/ml Total Protein 6.2 (6.0-8.3) gm/dl Albumin 3.2 L (3.4-5.0) gm/dl Procalcitonin (0-0.5) ng/ml Urine Color Urine Appearance (Clear) Urine pH (4.5-7.5) Ur Specific Truxton (1.000-1.030) Urine Protein (Negative) Urine Glucose (UA) (Negative) Urine Ketones (Negative) Urine Blood (Negative) Urine Nitrite (Negative) Urine Bilirubin (Negative) Urine Urobilinogen (Negative) Ur Leukocyte Esterase (Negative) Digoxin (0.8-2.0) ng/ml SARS-CoV-2 (PCR) (Negative) Influenza Type A (PCR) (Neg) Influenza Type B (PCR) (Neg) RSV (RT-PCR) (Neg) 06/23/22 06/23/22 06/23/22 Range/Units 14:15 14:15 14:15 WBC (4.8-10.8) K/ul RBC (4.70-6.10) M/uL Hgb (14.0-18.0) g/dl Hct (42.0-52.0) % MCV (80.0-100.0) fL MCH (25.0-34.0) pg MCHC (32.0-36.0) g/dL RDW Std Deviation (36.4-46.3) fL RDW Coeff of Lizandro (11.5-14.5) % Plt Count (130-400) K/uL MPV (9.4-12.4) fL Immature Gran % (Auto) % Neut % (Auto) % Lymph % (Auto) % Major % (Auto) % Eos % (Auto) % Baso % (Auto) % Neut # (Auto) (1.40-6.50) K/uL Lymph # (Auto) (1.2-3.4) K/uL Major # (Auto) (0.11-0.59) K/uL Eos # (Auto) (0-0.50) K/uL Baso # (Auto) (0-0.2) K/uL Immature Gran # (Auto) (0.01-0.20) K/uL Platelet Estimate (Normal) PT (9.0-12.0) Seconds INR (0.9-1.1) APTT (21.0-31.0) Seconds PTT Ratio D-Dimer (0-500) ug/L FEU VBG pH (7.36-7.41) VBG pCO2 (38-50) mmHg VBG pO2 mmHg VBG HCO3 mmol/L VBG O2 Saturation % VBG Base Excess mEq/L Sodium (136-145) mmol/L Potassium (3.5-5.1) mmol/L Chloride (98-107) mmol/L Carbon Dioxide (21-32) mmol/L Anion Gap (3-11) BUN (6-23) mg/dl Creatinine (0.6-1.4) mg/dl Est Cr Clr Drug Dosing Est GFR ( Amer) ml/min Est GFR (Non-Af Amer) ml/min BUN/Creatinine Ratio (10-20) Glucose (70-99(Fasting)) mg/dl Lactate 1.5 (0.4-2.0) mmol/L Calcium (8.6-10.3) mg/dl Magnesium (1.7-2.4) mg/dl Total Bilirubin (0.2-1.0) mg/dl Direct Bilirubin AST (13-39) U/L ALT (7-52) U/L Alkaline Phosphatase (34-104) U/L Troponin I High Sens (0-20) pg/ml Total Protein (6.0-8.3) gm/dl Albumin (3.4-5.0) gm/dl Procalcitonin < 0.05 (0-0.5) ng/ml Urine Color Urine Appearance (Clear) Urine pH (4.5-7.5) Ur Specific [place] (1.000-1.030) Urine Protein (Negative) Urine Glucose (UA) (Negative) Urine Ketones (Negative) Urine Blood (Negative) Urine Nitrite (Negative) Urine Bilirubin (Negative) Urine Urobilinogen (Negative) Ur Leukocyte Esterase (Negative) Digoxin 0.7 L (0.8-2.0) ng/ml SARS-CoV-2 (PCR) (Negative) Influenza Type A (PCR) (Neg) Influenza Type B (PCR) (Neg) RSV (RT-PCR) (Neg) 06/23/22 06/23/22 06/23/22 Range/Units 14:15 14:15 15:06 WBC (4.8-10.8) K/ul RBC (4.70-6.10) M/uL Hgb (14.0-18.0) g/dl Hct (42.0-52.0) % MCV (80.0-100.0) fL MCH (25.0-34.0) pg MCHC (32.0-36.0) g/dL RDW Std Deviation (36.4-46.3) fL RDW Coeff of Lizandro (11.5-14.5) % Plt Count (130-400) K/uL MPV (9.4-12.4) fL Immature Gran % (Auto) % Neut % (Auto) % Lymph % (Auto) % Major % (Auto) % Eos % (Auto) % Baso % (Auto) % Neut # (Auto) (1.40-6.50) K/uL Lymph # (Auto) (1.2-3.4) K/uL Major # (Auto) (0.11-0.59) K/uL Eos # (Auto) (0-0.50) K/uL Baso # (Auto) (0-0.2) K/uL Immature Gran # (Auto) (0.01-0.20) K/uL Platelet Estimate (Normal) PT (9.0-12.0) Seconds INR (0.9-1.1) APTT (21.0-31.0) Seconds PTT Ratio D-Dimer (0-500) ug/L FEU VBG pH 7.28 L (7.36-7.41) VBG pCO2 75 H (38-50) mmHg VBG pO2 28 mmHg VBG HCO3 35 mmol/L VBG O2 Saturation < 60.0 % VBG Base Excess 5.8 mEq/L Sodium (136-145) mmol/L Potassium (3.5-5.1) mmol/L Chloride (98-107) mmol/L Carbon Dioxide (21-32) mmol/L Anion Gap (3-11) BUN (6-23) mg/dl Creatinine (0.6-1.4) mg/dl Est Cr Clr Drug Dosing Est GFR ( Amer) ml/min Est GFR (Non-Af Amer) ml/min BUN/Creatinine Ratio (10-20) Glucose (70-99(Fasting)) mg/dl Lactate (0.4-2.0) mmol/L Calcium (8.6-10.3) mg/dl Magnesium (1.7-2.4) mg/dl Total Bilirubin (0.2-1.0) mg/dl Direct Bilirubin AST (13-39) U/L ALT (7-52) U/L Alkaline Phosphatase (34-104) U/L Troponin I High Sens (0-20) pg/ml Total Protein (6.0-8.3) gm/dl Albumin (3.4-5.0) gm/dl Procalcitonin (0-0.5) ng/ml Urine Color Yellow Urine Appearance Clear (Clear) Urine pH 5.0 (4.5-7.5) Ur Specific [place] 1.011 (1.000-1.030) Urine Protein Negative (Negative) Urine Glucose (UA) Negative (Negative) Urine Ketones Negative (Negative) Urine Blood Negative (Negative) Urine Nitrite Negative (Negative) Urine Bilirubin Negative (Negative) Urine Urobilinogen Negative (Negative) Ur Leukocyte Esterase Negative (Negative) Digoxin (0.8-2.0) ng/ml SARS-CoV-2 (PCR) NEGATIVE (Negative) Influenza Type A (PCR) Negative (Neg) Influenza Type B (PCR) Negative (Neg) RSV (RT-PCR) Negative (Neg) 06/23/22 Range/Units 15:50 WBC (4.8-10.8) K/ul RBC (4.70-6.10) M/uL Hgb (14.0-18.0) g/dl Hct (42.0-52.0) % MCV (80.0-100.0) fL MCH (25.0-34.0) pg MCHC (32.0-36.0) g/dL RDW Std Deviation (36.4-46.3) fL RDW Coeff of Lizandro (11.5-14.5) % Plt Count (130-400) K/uL MPV (9.4-12.4) fL Immature Gran % (Auto) % Neut % (Auto) % Lymph % (Auto) % Major % (Auto) % Eos % (Auto) % Baso % (Auto) % Neut # (Auto) (1.40-6.50) K/uL Lymph # (Auto) (1.2-3.4) K/uL Major # (Auto) (0.11-0.59) K/uL Eos # (Auto) (0-0.50) K/uL Baso # (Auto) (0-0.2) K/uL Immature Gran # (Auto) (0.01-0.20) K/uL Platelet Estimate (Normal) PT (9.0-12.0) Seconds INR (0.9-1.1) APTT (21.0-31.0) Seconds PTT Ratio D-Dimer (0-500) ug/L FEU VBG pH (7.36-7.41) VBG pCO2 (38-50) mmHg VBG pO2 mmHg VBG HCO3 mmol/L VBG O2 Saturation % VBG Base Excess mEq/L Sodium (136-145) mmol/L Potassium (3.5-5.1) mmol/L Chloride (98-107) mmol/L Carbon Dioxide (21-32) mmol/L Anion Gap (3-11) BUN (6-23) mg/dl Creatinine (0.6-1.4) mg/dl Est Cr Clr Drug Dosing Est GFR ( Amer) ml/min Est GFR (Non-Af Amer) ml/min BUN/Creatinine Ratio (10-20) Glucose (70-99(Fasting)) mg/dl Lactate (0.4-2.0) mmol/L Calcium (8.6-10.3) mg/dl Magnesium (1.7-2.4) mg/dl Total Bilirubin (0.2-1.0) mg/dl Direct Bilirubin 0.2 AST (13-39) U/L ALT (7-52) U/L Alkaline Phosphatase (34-104) U/L Troponin I High Sens (0-20) pg/ml Total Protein (6.0-8.3) gm/dl Albumin (3.4-5.0) gm/dl Procalcitonin (0-0.5) ng/ml Urine Color Urine Appearance (Clear) Urine pH (4.5-7.5) Ur Specific [place] (1.000-1.030) Urine Protein (Negative) Urine Glucose (UA) (Negative) Urine Ketones (Negative) Urine Blood (Negative) Urine Nitrite (Negative) Urine Bilirubin (Negative) Urine Urobilinogen (Negative) Ur Leukocyte Esterase (Negative) Digoxin (0.8-2.0) ng/ml SARS-CoV-2 (PCR) (Negative) Influenza Type A (PCR) (Neg) Influenza Type B (PCR) (Neg) RSV (RT-PCR) (Neg) Administered Medications Acetaminophen (Acetaminophen 500 Mg Tab) 1,000 mg PO TID KOTA Stop: 07/23/22 20:59 Last Admin: 06/23/22 20:09 Dose: 1,000 mg Documented By: BUNNY Discontinued Medications Sodium Chloride (Nss 1000ml) 500 mls @ 999 mls/hr IV .Q31M ONE Stop: 06/23/22 14:48 Last Infusion: 06/23/22 18:04 Dose: 0 mls/hr Documented By: Admin: 06/23/22 14:49 Dose: 999 mls/hr Documented By: YARELYK Ioversol (Optiray 320 500ml) 110 ml IV ONCE ONE Stop: 06/23/22 15:46 Last Admin: 06/23/22 15:46 Dose: 110 ml Documented By: SHANE Imaging Data Attestation: I personally reviewed and interpreted this imaging study as follows: My Impression: 1 view chest x-ray was obtained in the emergency department. My interpretation is large right pleural effusion, cardiomegaly, final report below. Radiologist's Impression: Chest X-Ray 06/23/22 14:00 SINGLE VIEW CHEST CLINICAL HISTORY: Sepsis FINDINGS: 2 AP, portable, upright chest radiographs are compared to study dated 05/31/2022. The examination is degraded by portable technique and patient rotation. The heart is enlarged. There is prominence of the pulmonary vasculatu re. There is a layering right pleural effusion with right basilar consolidation. Atelectasis is noted at the left lung base. No pneumothorax is seen. The skeletal structures are osteopenic. The bony thorax is grossly intact. IMPRESSION: 1. Cardiomegaly with prominence of the pulmonary vasculature. Correlate clinically for evidence of fluid overload/mild congestive change. 2. Layering right pleural effusion with right basilar consolidation. Radiographic follow-up to resolution is recommended. ACT 112: Negative or not required by law. Electronically signed by: Marito Davison M.D. 06/23/2022 4:30 PM Chest CTA 06/23/22 15:29 CT ANGIOGRAM OF THE CHEST CLINICAL HISTORY: Dyspnea. Recent surgery. COMPARISON STUDY: Chest x-ray dated 06/23/2022. Abdominal CT dated 02/13/2017. TECHNIQUE: Following the IV administration of 110 cc of Optiray 320, CT angiogram of the chest was performed from the upper abdomen to the thoracic inlet utilizing the pulmonary embolus protocol. Images are reviewed in the axial, sagittal, and coronal planes. 3-D MIPS images are created and assessed. IV contrast was administered without complication. A dose lowering technique was utilized adhering to the principles of ALARA. The examination is degraded by motion artifact. CT DOSE: 859.16 mGy.cm FINDINGS: Thyroid: Imaged portions of the thyroid gland are normal in size and attenuation. Thoracic aorta: There is mild atherosclerotic calcification of the thoracic aorta, which is normal in caliber and demonstrates standard 3-vessel arch anatomy. The thoracic aorta is not well opacified. Pulmonary vasculature: The main pulmonary arteries are dilated suggesting pulmonary artery hypertension. There are no filling defects identified in main, lobar, or proximal segmental pulmonary branches to suggest pulmonary embolus. The segmental and subsegmental vessels are not well assessed due to motion artifact. Heart: The heart is enlarged noting a small pericardial effusion. The coronary arteries are densely calcified. Lungs and pleural spaces: There is a moderate to large right pleural effusion with associated right basilar consolidation. There is a small pleural effusion on the left with dependent atelectasis. There are mild groundglass opacities in the left upper lobe and lingula. The trachea and central airways appear clear. Mediastinum: There are calcified mediastinal lymph nodes. No mediastinal lymphadenopathy is seen. Trisha: There are calcified left hilar nodes. No hilar adenopathy is identified. Axillae: There is no axillary lymphadenopathy. Upper abdomen: There are calcified hepatic granulomas. Reflux of contrast into the IVC suggests cardiac dysfunction. A tiny hiatal hernia is noted. Skeletal structures: The skeletal structures are osteopenic. The skeletal structures are osteopenic. Degenerative change and dish is noted throughout the thoracic spine. Soft tissues: Low density ovoid right paraspinous densities are seen on images #102, #104, #120, and #143. Similar-appearing paraspinous densities on the left are seen on images #153 and #157. These could represent small nerve sheath tumors or possibly foci of extramedullary hematopoiesis. These have been present dating back to 2017 and are of doubtful significance. IMPRESSION: 1. There is no evidence of central pulmonary embolus in the main, lobar, or proximal segmental pulmonary arteries. The segmental and subsegmental vessels are not well assessed due to motion artifact. 2. Moderate to large right and small left pleural effusions with dependent consolidation. 3. Minimal groundglass opacities in the left upper lobe and lingula nonspecific and may represent a mild pneumonitis. Correlate clinically. 4. Cardiomegaly with evidence of pulmonary artery hypertension 5. Additional findings as above. ACT 112: Negative or not required by law. Electronically signed by: Marito Davison M.D. 06/23/2022 4:50 PM Discharge Plan Visit Data Chief Complaint: Shortness of Breath/Dyspnea Stated Complaint: SHORTNESS OF BREATH ED Provider: Alexis Moulton Discharge Problem: Pleural effusion, Hypoxia, Acute respiratory acidosis Patient Disposition: Being Evaluated by Hospitalist Discharge Instructions Interventions: ED Discharge Assessment Last Done: 06/23/22 18:05
[2022-06-23 14:51] LABS: Appearance Urine Clear (Clear); Bilirubin Urine Negative (Negative); Blood Urine Negative (Negative); Color Urine Yellow; Glucose Urine UA Negative (Negative); Ketones Urine Negative (Negative); Leukocyte Esterase Urine Negative (Negative); Nitrite Urine Negative (Negative); Protein Urine Negative (Negative); Specific Gravity Urine 1.011 (1.000-1.030); Urobilinogen Urine Negative (Negative)
[2022-06-23 14:59] LABS: Basophils # (auto) 0.03 K/uL (0-0.2); Basophils % (auto) 0.3 %; Eosinophils % (auto) 3.4 %; Immature Granulocytes # (auto) 0.06 K/uL (0.01-0.20); Immature Granulocytes % (auto) 0.7 %; Lymphocytes # (auto) 0.54 K/uL (1.2-3.4); Lymphocytes % (auto) 6.2 %; Monocytes # (auto) 0.92 K/uL (0.11-0.59); Monocytes % (auto) 10.6 %; Neutrophils # (auto) 6.86 K/uL (1.40-6.50); Neutrophils % (auto) 78.8 %; Platelet Estimate Normal (Normal)
[2022-06-23 15:00] LABS: Hematocrit (blood only) 41.5 % (42.0-52.0); Hemoglobin 14.2 g/dl (14.0-18.0); Mean Corpuscular Hemoglobin 29.3 pg (25.0-34.0); Mean Corpuscular Hgb Conc 34.2 g/dL (32.0-36.0); Mean Corpuscular Volume 85.6 fL (80.0-100.0); Mean Platelet Volume 10.8 fL (9.4-12.4); Platelet Count 156 K/uL (130-400); RDW Coefficient of Variation 13.5 % (11.5-14.5); RDW Standard Deviation 42.6 fL (36.4-46.3); Red Blood Count 4.85 M/uL (4.70-6.10); White Blood Count 8.71 K/ul (4.8-10.8)
[2022-06-23 15:02] LABS: Alanine Aminotransferase 16 U/L (7-52); Albumin Level 3.2 gm/dl (3.4-5.0); Alkaline Phosphatase 73 U/L (34-104); Anion Gap 5 (3-11); Aspartate Aminotransferase 30 U/L (13-39); BUN Creatinine Ratio 17.8 (10-20); Blood Urea Nitrogen 13 mg/dl (6-23); Calcium 8.8 mg/dl (8.6-10.3); Carbon Dioxide 34 mmol/L (21-32); Chloride 100 mmol/L (98-107); Est GFR (African American) 104.4 ml/min; Est GFR (Non-African American) 90.1 ml/min; Glucose 92 mg/dl (70-99(Fasting)); Magnesium 1.9 mg/dl (1.7-2.4); Sodium 139 mmol/L (136-145); Total Protein 6.2 gm/dl (6.0-8.3)
[2022-06-23 15:05] LABS: Troponin I High Sensitivity 7.1 pg/ml (0-20)
[2022-06-23 15:14] LABS: Influenza A virus by PCR Negative (Neg); Influenza B virus by PCR Negative (Neg); RSV by PCR Negative (Neg); SARS CoV2 RNA(COVID-19) Ceph NEGATIVE (Negative)
[2022-06-23 15:16] LABS: INR 1.8 (0.9-1.1); Partial Thromboplastin Ratio 1.1
[2022-06-23 15:23] LABS: Base Excess VBG 5.8 mEq/L; HCO3 VBG 35 mmol/L; Oxygen Saturation VBG < 60.0 %; PCO2 VBG 75 mmHg (38-50); PO2 VBG 28 mmHg; pH VBG 7.28 (7.36-7.41)
[2022-06-23 15:31] LABS: D Dimer 1410 ug/L FEU (0-500)
[2022-06-23] MEDS ORDERED: OPTIRAY 320 500ml IV ONE (15:45)
--- NOTE | 2022-06-23 16:32 | XRay Report ---
SINGLE VIEW CHEST CLINICAL HISTORY: Sepsis FINDINGS: 2 AP, portable, upright chest radiographs are compared to study dated 05/31/2022. The examina tion is degraded by portable technique and patient rotation. The heart is enlarged. There is promine nce of the pulmonary vasculature. There is a layering right pleural effusion with right basilar conso lidation. Atelectasis is noted at the left lung base. No pneumothorax is seen. The skeletal structure s are osteopenic. The bony thorax is grossly intact. IMPRESSION: 1. Cardiomegaly with prominence of the pulmonary vasculature. Correlate clinically for evidence of fl uid overload/mild congestive change. 2. Layering right pleural effusion with right basilar consolidation. Radiographic follow-up to resolu tion is recommended. ACT 112: Negative or not required by law. Electronically signed by: Marito Davison M.D. 06/23/2022 4:30 PM
--- NOTE | 2022-06-23 16:53 | CT Scan Report ---
CT ANGIOGRAM OF THE CHEST CLINICAL HISTORY: Dyspnea. Recent surgery. COMPARISON STUDY: Chest x-ray dated 06/23/2022. Abdominal CT dated 02/13/2017. TECHNIQUE: Following the IV administration of 110 cc of Optiray 320, CT angiogram of the chest was pe rformed from the upper abdomen to the thoracic inlet utilizing the pulmonary embolus protocol. Images are reviewed in the axial, sagittal, and coronal planes. 3-D MIPS images are created and assessed. I V contrast was administered without complication. A dose lowering technique was utilized adhering to the principles of ALARA. The examination is degraded by motion artifact. CT DOSE: 859.16 mGy.cm FINDINGS: Thyroid: Imaged portions of the thyroid gland are normal in size and attenuation. Thoracic aorta: There is mild atherosclerotic calcification of the thoracic aorta, which is normal in caliber and demonstrates standard 3-vessel arch anatomy. The thoracic aorta is not well opacified. Pulmonary vasculature: The main pulmonary arteries are dilated suggesting pulmonary artery hypertensi on. There are no filling defects identified in main, lobar, or proximal segmental pulmonary branches to suggest pulmonary embolus. The segmental and subsegmental vessels are not well assessed due to mot ion artifact. Heart: The heart is enlarged noting a small pericardial effusion. The coronary arteries are densely c alcified. Lungs and pleural spaces: There is a moderate to large right pleural effusion with associated right b asilar consolidation. There is a small pleural effusion on the left with dependent atelectasis. There are mild groundglass opacities in the left upper lobe and lingula. The trachea and central airways a ppear clear. Mediastinum: There are calcified mediastinal lymph nodes. No mediastinal lymphadenopathy is seen. Trisha: There are calcified left hilar nodes. No hilar adenopathy is identified. Axillae: There is no axillary lymphadenopathy. Upper abdomen: There are calcified hepatic granulomas. Reflux of contrast into the IVC suggests cardi ac dysfunction. A tiny hiatal hernia is noted. Skeletal structures: The skeletal structures are osteopenic. The skeletal structures are osteopenic. Degenerative change and dish is noted throughout the thoracic spine. Soft tissues: Low density ovoid right paraspinous densities are seen on images #102, #104, #120, and #143. Similar-appearing paraspinous densities on the left are seen on images #153 and #157. These cou ld represent small nerve sheath tumors or possibly foci of extramedullary hematopoiesis. These have b een present dating back to 2017 and are of doubtful significance. IMPRESSION: 1. There is no evidence of central pulmonary embolus in the main, lobar, or proximal segmental pulmon solomon arteries. The segmental and subsegmental vessels are not well assessed due to motion artifact. 2. Moderate to large right and small left pleural effusions with dependent consolidation. 3. Minimal groundglass opacities in the left upper lobe and lingula nonspecific and may represent a m ild pneumonitis. Correlate clinically. 4. Cardiomegaly with evidence of pulmonary artery hypertension 5. Additional findings as above. ACT 112: Negative or not required by law. Electronically signed by: Marito Davison M.D. 06/23/2022 4:50 PM
--- NOTE | 2022-06-23 16:57 | History & Physical Report ---
Date of Service June 23, 2022 Assessment & Plan (1) Pleural effusion: (2) Acute respiratory failure with hypoxia: Plan: Patient is 77-year-old male with PMH CAD, atrial fibrillation anticoagulated on warfarin, chronic diastolic heart failure, dyslipidemia, HIRAM presented to ER with complaint of shortness of breath x couple days. Patient noted to be hypoxic at home. Denies fever, chills, cough, chest pain No leukocytosis. D-dimer: 1410, lactate WNL. Procalcitonin negative. Negative influenza and RSV PCR, negative SARS-CoV-2 PCR CXR: Cardiomegaly with prominence of the pulmonary vasculature. Layering right pleural effusion with right basilar consolidation. CTA chest: 1. There is no evidence of central pulmonary embolus in the main, lobar, or proximal segmental pulmonary arteries. The segmental and subsegmental vessels are not well assessed due to motion artifact. 2. Moderate to large right and small left pleural effusions with dependent consolidation. 3. Minimal groundglass opacities in the left upper lobe and lingula nonspecific and may represent a mild pneumonitis. Correlate clinically. 4. Cardiomegaly with evidence of pulmonary artery hypertension Acute respiratory failure with pleural effusion. Possible acute on chronic diastolic heart failure. Less likely pneumonia without cough, fever, and normal procalcitonin Doing well on supplemental oxygen at 2L Supplemental oxygen as needed Echo Will hold on trial of diuresis at this time with patient's soft BPs Pulmonology consult Cardiology consult CBC, BMP in a.m. (3) Hypotension: Plan: BP is on the low side in ER 88/62, 112/60, 92/68. BPs run on the low side at baseline In ER given 500 mL NSS Hold home lisinopril, continue metoprolol succinate with holding parameters (4) Atrial fibrillation: Plan: Chronic atrial fibrillation, anticoagulated on warfarin Current rate controlled INR: 1.8 Digoxin level: 1.7 Continue metoprolol succinate, digoxin, warfarin INR in a.m. (5) S/P total hip arthroplasty: Plan: S/P left total hip arthroplasty on 06/19/[address] Pretty On cefadroxil 7-day course for postop prophylaxis. Will switch to Keflex since cefadroxil is non-formulary Will need continued outpatient PT and ortho follow up (6) CAD (coronary artery disease): Plan: History cardiac cath 2019: Moderate diffuse coronary atherosclerosis with single-vessel obstructive disease. Left circumflex is diffusely diseased with subtotal occlusion in its mid and distal portions with filling via left to left and bridge collateral Medically managed Continue aspirin, atorvastatin, metoprolol succinate Hold lisinopril for now (7) HIRAM (obstructive sleep apnea): Plan: Does not use CPAP DVT Prophylaxis On warfarin. Follow INR Full Code as per discussion with pt Follows with Dr Baumann for routine care Pt was seen and care coordinated with Dr Adame. See addendum I spent a total of 79 minutes reviewing notes, outpatient records, labs, medication, coordinating, documenting and providing care for this patient excluding time spent in the performance of separately billed services. History of Present Illness Chief Complaint: SOB Primary Care Provider: Ej Baumann MD Patient is 77-year-old male with PMH CAD, atrial fibrillation anticoagulated on warfarin, chronic diastolic heart failure, dyslipidemia, HIRAM presented to ER with complaint of shortness of breath x couple days. History obtained from patient however patient somewhat of a poor historian, assists in history. History also obtained from inpatient and outpatient chart review. S/P left total hip arthroplasty on 06/19/[address] Pretty and discharged from hospital on 06/20/2022. Warfarin was held 06/14-06/18. Warfarin restarted with 15 mg warfarin on 06/19 & 06/20 and then resuming 5 mg on Saturday, Saturday and Saturday and 10 mg all other days. Post-op patient was discharged on cefadroxil 500 mg twice daily x7 days. Reports has been using 1000 mg Tylenol 3 times daily for pain control. Has tramadol 50 mg every 6 hours as needed pain however has been reportedly using sparingly. Patient reports at baseline has intermittent shortness of breath that can occur with exertion or rest. He reports chronic orthopnea. Patient states since being home past couple days has had increased shortness of breath. He is receiving home PT. reports physical therapist was concerned with his low blood pressure today. It is reported he was hypoxic today per EMS and was brought to the hospital. Of note patient had low BPs during hospitalization for left LEXI. Patient's reports patient runs low BPs at baseline. Patient reports had medications this morning including Lasix 40 mg, lisinopril 2.5 mg. Denies fever/chills, diaphoresis, N/V/D/C, JOHNSON, dizziness, syncope, vision changes, neck pain, CP, palpitations, cough, hemoptysis, sore throat, choking, otalgia, rhinorrhea, abdominal pain, paresthesias, weakness, extremity weakness, extremity edema, increased abdominal girth, rashes, urinary symptoms. Allergies Allergy/AdvReac Type Severity Reaction Status Date / Time No Known Allergies Allergy Unknown Verified 06/19/22 06:51 Home Medications Medication Instructions Recorded Confirmed Type sildenafil 100 mg tablet 100 mg PO QAM PRN Erectile 02/11/19 06/23/22 History Dysfunction warfarin 10 mg tablet 5 mg PO MOWEFR 02/11/19 06/23/22 History atorvastatin 40 mg tablet 40 mg PO QAM 08/13/21 06/23/22 History aspirin 81 mg capsule 81 mg PO QAM 05/28/22 06/23/22 History furosemide 40 mg tablet 40 mg PO QAM 05/28/22 06/23/22 History lisinopril 2.5 mg tablet 2.5 mg PO QAM 05/28/22 06/23/22 History metoprolol succinate 100 mg 100 mg PO QAM 05/28/22 06/23/22 History tablet,extended release 24 hr multivitamin 1 tab PO QAM 05/28/22 06/23/22 History acetaminophen 500 mg capsule 1,000 mg PO TID Pain 30 days #180 06/17/22 06/23/22 Rx caps cefadroxil 500 mg capsule 500 mg PO BID 7 days #14 caps 06/17/22 06/23/22 Rx ondansetron HCl 4 mg tablet 4 mg PO Q6 PRN nausea #20 tabs 06/17/22 06/23/22 Rx sennosides 8.6 mg-docusate sodium 1 tab-cap PO DAILY #14 tabs 06/17/22 06/23/22 Rx 50 mg tablet (Senokot-S) tramadol 50 mg tablet 50 - 100 mg PO Q6H PRN pain #40 06/17/22 06/23/22 Rx tabs digoxin 125 mcg (0.125 mg) tablet 125 mcg PO DAILY 06/23/22 06/23/22 History gabapentin 400 mg capsule 400 mg PO DAILY 06/23/22 06/23/22 History warfarin 10 mg tablet 10 mg PO UD 06/23/22 06/23/22 History Past Med/Surg History Medical History (Updated 06/23/22 @ 18:11 by Sylvie Hayward PA-C) Atrial fibrillation on warfarin. CAD (coronary artery disease) Moderate diffuse coronary atherosclerosis with single-vessel obstructive disease. The left circumflex is diffusely diseased with subtotal occlusion in its mid and distal portions with filling via left to left and bridge collateral. CHF (congestive heart failure) EF 60-65% Enlargement of aortic root GERD (gastroesophageal reflux disease) pt experiences sensation of heartburn, regurgitation and occasional coughing/choking at night History of atrial flutter History of gout HLD (hyperlipidemia) [place] (hard of hearing) Lumbar spondylosis On anticoagulant therapy HIRAM (obstructive sleep apnea) listed above. pt unsure. no device; sleeps upright Spinal stenosis Surgical History (Updated 06/23/22 @ 19:48 by Saad Ballard PA-C) History of arthroscopy of left knee History of cardiac cath 2019 [place]. no stents. Moderate diffuse coronary atherosclerosis with single- vessel obstructive disease. The left circumflex is diffusely diseased with subtotal occlusion in its mid and distal portions with filling via left to left and bridge collateral. History of cardiac radiofrequency ablation Hx of colonoscopy S/P total hip arthroplasty Family History Other No family history of adverse response to anesthesia Social History Smoking Status: Current every day smoker Tobacco Type: E-cigarettes / Vaping Second Hand Exposure: No; Hx Alcohol Use: Yes Hx Substance Use: No Preferred Language: Polish Communication Ability: Effective Bi Developer Required: No Beliefs That Will Affect Care: None Current Living Situation: Spouse Other Information That Helps Us Care for You: No Feels Safe at Home: Yes Safety Concerns: Feels Safe At This Time Assistive Devices: Denture - Upper and Glasses Review of Systems Review of Systems: All systems reviewed & are unremarkable except as noted in HPI & below Physical Exam Physical Exam: General: no distress, +obese Head: normocephalic, atraumatic Eyes:conjunctiva non-injected, anicteric ENT: normal inspection external ears, nose, mucous membranes moist Neck: supple, trachea midline Lungs: no respiratory distress on current 2L via NC with sats 96%, +diminished breath sounds right lower lung, otherwise no wheezing/rhonchi/rales noted CV: Irregularly irregular, rate 92, no murmur, trace pretibial edema Abd: Protuberant, normal BS, soft, non-tender Ext: no cyanosis, no calf tenderness; LLE: Left lateral hip/proximal leg with edema,+ surgical incision with fran in place with slight surrounding erythema,no discharge or bleeding, distal pulses palpable, sensation to light touch intact. Neuro: A&O x 3, no focal deficits noted, normal affect Skin: warm, dry Results & Data Results & Data Vital Signs (Past 12 Hours) Vital Signs Temp Pulse Resp BP Pulse Ox O2 Del Method O2 Flow Rate 06/23/22 15:00 87 23 95 06/23/22 14:30 80 24 94 06/23/22 14:24 112/60 06/23/22 14:24 83 22 06/23/22 14:00 86 18 96 06/23/22 13:54 81 14 94 06/23/22 13:58 82 06/23/22 13:52 Nasal Cannula 2 06/23/22 13:52 Nasal Cannula 2 06/23/22 13:52 36.6 C 90 19 88/62 L 94 Nasal Cannula 2 Laboratory Results Short CBC 06/23/22 Range/Units 14:15 WBC 8.71 (4.8-10.8) K/ul Hgb 14.2 (14.0-18.0) g/dl Hct 41.5 L (42.0-52.0) % Plt Count 156 (130-400) K/uL BMP 06/23/22 14:15 Sodium 139 Potassium 4.0 Chloride 100 Carbon Dioxide 34 H BUN 13 Creatinine 0.73 Glucose 92 Calcium 8.8 Liver Function 06/23/22 06/23/22 Range/Units 14:15 15:50 Total Bilirubin 1.0 (0.2-1.0) mg/dl Direct Bilirubin TNP 0.2 AST 30 (13-39) U/L ALT 16 (7-52) U/L Alkaline Phosphatase 73 (34-104) U/L Albumin 3.2 L (3.4-5.0) gm/dl Urine 06/23/22 Range/Units 14:15 Urine Color Yellow Urine Appearance Clear (Clear) Urine pH 5.0 (4.5-7.5) Ur Specific [place] 1.011 (1.000-1.030) Urine Protein Negative (Negative) Urine Glucose (UA) Negative (Negative) Diagnostic Findings Chest X-Ray 06/23/22 14:00 SINGLE VIEW CHEST CLINICAL HISTORY: Sepsis FINDINGS: 2 AP, portable, upright chest radiographs are compared to study dated 05/31/2022. The examination is degraded by portable technique and patient rotation. The heart is enlarged. There is prominence of the pulmonary vasculature. There is a layering right pleural effusion with right basilar consolidation. Atelectasis is noted at the left lung base. No pneumothorax is seen. The skeletal structures are osteopenic. The bony thorax is grossly intact. IMPRESSION: 1. Cardiomegaly with prominence of the pulmonary vasculature. Correlate clinically for evidence of fluid overload/mild congestive change. 2. Layering right pleural effusion with right basilar consolidation. Radiographic follow-up to resolution is recommended. ACT 112: Negative or not required by law. Electronically signed by: Marito Davison M.D. 06/23/2022 4:30 PM Chest CTA 06/23/22 15:29 CT ANGIOGRAM OF THE CHEST CLINICAL HISTORY: Dyspnea. Recent surgery. COMPARISON STUDY: Chest x-ray dated 06/23/2022. Abdominal CT dated 02/13/2017. TECHNIQUE: Following the IV administration of 110 cc of Optiray 320, CT angiogram of the chest was performed from the upper abdomen to the thoracic inlet utilizing the pulmonary embolus protocol. Images are reviewed in the axial, sagittal, and coronal planes. 3-D MIPS images are created and assessed. IV contrast was administered without complication. A dose lowering technique was utilized adhering to the principles of ALARA. The examination is degraded by motion artifact. CT DOSE: 859.16 mGy.cm FINDINGS: Thyroid: Imaged portions of the thyroid gland are normal in size and attenuation. Thoracic aorta: There is mild atherosclerotic calcification of the thoracic aorta, which is normal in caliber and demonstrates standard 3-vessel arch anatomy. The thoracic aorta is not well opacified. Pulmonary vasculature: The main pulmonary arteries are dilated suggesting pulmonary artery hypertension. There are no filling defects identified in main, lobar, or proximal segmental pulmonary branches to suggest pulmonary embolus. The segmental and subsegmental vessels are not well assessed due to motion artifact. Heart: The heart is enlarged noting a small pericardial effusion. The coronary arteries are densely calcified. Lungs and pleural spaces: There is a moderate to large right pleural effusion with associated right basilar consolidation. There is a small pleural effusion on the left with dependent atelectasis. There are mild groundglass opacities in the left upper lobe and lingula. The trachea and central airways appear clear. Mediastinum: There are calcified mediastinal lymph nodes. No mediastinal lymphadenopathy is seen. Trisha: There are calcified left hilar nodes. No hilar adenopathy is identified. Axillae: There is no axillary lymphadenopathy. Upper abdomen: There are calcified hepatic granulomas. Reflux of contrast into the IVC suggests cardiac dysfunction. A tiny hiatal hernia is noted. Skeletal structures: The skeletal structures are osteopenic. The skeletal structures are osteopenic. Degenerative change and dish is noted throughout the thoracic spine. Soft tissues: Low density ovoid right paraspinous densities are seen on images #102, #104, #120, and #143. Similar-appearing paraspinous densities on the left are seen on images #153 and #157. These could represent small nerve sheath tumors or possibly foci of extramedullary hematopoiesis. These have been present dating back to 2017 and are of doubtful significance. IMPRESSION: 1. There is no evidence of central pulmonary embolus in the main, lobar, or proximal segmental pulmonary arteries. The segmental and subsegmental vessels are not well assessed due to motion artifact. 2. Moderate to large right and small left pleural effusions with dependent consolidation. 3. Minimal groundglass opacities in the left upper lobe and lingula nonspecific and may represent a mild pneumonitis. Correlate clinically. 4. Cardiomegaly with evidence of pulmonary artery hypertension 5. Additional findings as above. ACT 112: Negative or not required by law. Electronically signed by: Marito Davison M.D. 06/23/2022 4:50 PM ECG Rate (beats per minute): 84 Rhythm: atrial fibrillation Findings: + other (incomplete RBBB) Comparison ECG Date: from (No significant changes from 05/30/2022 EKG) Supervising Physician Co-Signing Physician Notes Care coordinated with Sylvie Hayward PA-C. Agree with above note. Patient seen and examined. Please refer to her notes for full details. Vital signs reviewed. Physical exam: General exam: Alert and oriented. Not in acute distress. CVS: S1 and S2 heard, regular rate and rhythm, no murmurs. RS: Clear to auscultation, bibasilar crackles pesent ABD: Soft, bowel sounds present, nontender, no distention. MANAGER MANAGED BACKUP SERVICES: Nonfocal. EXT: trace pedal edema, no erythema. Labs: Reviewed. Assessment and plan: 77M who recently had left hip surgery was brought in from home because of sob and Hypotension. SBP in 80's on presentation and received 500cc fluid bolus. On oxygen sats are ok. Denies any chest pain. 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 N cough. No nausea or abdominal pain. Says sob started today. Currently resting comfortably. in room Sob hypoxia acute resp failure pleural effusion on CT chest. NO PE. possible acute on vchronic diastolic chf holding on diuresis because of soft BP continue oxygen supplementation close monitor cardio and pulmonary consult Other diagnosis and plan of care as per Sylvie Hayward PA-C. Shiraz sotelo MD.
[2022-06-23] MEDS ORDERED: POLYETHYLENE (MIRALAX) 17 GM PACK PO PRN (19:09)
[2022-06-23] MEDS ORDERED: traMADol HCL 50 MG TABLET PO PRN (19:09)
[2022-06-23] MEDS ORDERED: MAGNESIUM HYDROXIDE SUSP 30 ML UDC PO PRN (19:09)
[2022-06-23] MEDS ORDERED: ONDANSETRON INJ 2 MG/ML 2 ML VIAL IV PRN (19:09)
[2022-06-23] MEDS: ACETAMINOPHEN 500 MG TAB PO SCH (20:09)
--- NOTE | 2022-06-23 21:40 | Communication Note ---
Date of Service: June 23, 2022 ABG shows pco2 75. hx of lito not uses cpap. currently alert and oriented. ordered bipap hope tolerates it. Thanks
[2022-06-23] MEDS: cephALEXin 500 MG CAP PO SCH (21:44)
[2022-06-24] MEDS ORDERED: MELATONIN 3 MG TAB PO PRN (01:08)
[2022-06-24 05:46] LABS: Base Excess ABG 8.3 mEq/L (-9-1.8); HCO3 ABG 34 mmol/L (19-24); Oxygen Saturation ABG 97.8 % (90-95); PCO2 ABG 50 mmHg (35-46); PO2 ABG 83 mmHg (80-95); pH ABG 7.44 (7.35-7.45)
[2022-06-24 05:50] LABS: Allen Test Pos (Pos)
[2022-06-24 05:55] LABS: Hematocrit (blood only) 40.3 % (42.0-52.0); Hemoglobin 13.4 g/dl (14.0-18.0); Mean Corpuscular Hemoglobin 29.1 pg (25.0-34.0); Mean Corpuscular Hgb Conc 33.3 g/dL (32.0-36.0); Mean Corpuscular Volume 87.6 fL (80.0-100.0); Mean Platelet Volume 10.1 fL (9.4-12.4); Platelet Count 178 K/uL (130-400); RDW Coefficient of Variation 13.6 % (11.5-14.5); RDW Standard Deviation 43.4 fL (36.4-46.3); White Blood Count 7.87 K/ul (4.8-10.8)
[2022-06-24 06:09] LABS: Calcium 8.5 mg/dl (8.6-10.3); Creatinine Clr Calc Pharmacy 144.9 ml/min; Est GFR (African American) 113.2 ml/min; Est GFR (Non-African American) 97.7 ml/min
[2022-06-24 06:18] LABS: Prothrombin Time 20.2 Seconds (9.0-12.0)
--- NOTE | 2022-06-24 07:21 | Pulmonary Consultation ---
Date of Consultation June 24, 2022 Assessment & Plan (1) HIRAM (obstructive sleep apnea): (2) Atrial fibrillation: (3) Pleural effusion: (4) Acute exacerbation of CHF (congestive heart failure): Heart failure type: unspecified Qualified Code(s): I50.9 - Heart failure, unspecified (5) Acute respiratory failure with hypoxia: Plan CT chest 06/23/2022 personally reviewed: Large right-sided pleural effusion with dependent atelectasis of the right lower lobe, small left sided effusion Patchy groundglass opacity in the left upper lobe on the periphery Cardiomegaly No significant mediastinal lymphadenopathy 2D echo 08/14/2021: EF 60-65%, moderate dilated RA, mildly dilated RV with normal RV function -- Acute hypoxic respiratory failure Multifactorial Underlying diastolic CHF along with pleural effusion COVID-19, influenza A/B, RSV all negative Procalcitonin negative --Pleural effusion along with right lower lobe atelectasis which is likely secondary to heart failure -- Obesity with HIRAM Recommend BiPAP nightly and as needed shortness of breath --A-fib On warfarin at home -- Active smoker Approximately [id number] smoking history No wheezing. No need for any standing inhalers right now Plan: Patient is not interested in having a thoracentesis done. I did explain to the patient it is unlikely that the large pleural effusion will resolve totally with diuretics but he wants to have conservative approach first and then decide regarding the procedure later on INR today is 2. Prior to any procedure would recommend INR to be less than 1.7- 1.5 Continue with diuretics, incentive spirometry and BiPAP Titrate of oxygen if possible. Keep O2 saturation between 90-92% Case was discussed with Dr. Myers Please note the above document was generated using voice recognition software. It may contain grammatical, syntax or spelling errors.Any formal questions or concerns about the content, text or information contained within the body of this dictation should be directly addressed to the provider for clarification. History of Present Illness Attending Physician: Miles Myers MD History of Present Illness 77-year-old male presented to the hospital with complaints of weakness Past medical history A-fib on warfarin, diastolic CHF, dyslipidemia, HIRAM not on CPAP Pulmonary consulted for pleural effusion At the time of examination patient was saturating 97% on 2 L nasal cannula, not in any acute distress. I went down to 1 L nasal cannula On asking why he ended up in the hospital, the patient stated that it was a physical therapist who said that his blood pressure was low. On asking whether he was short of breath he denied. He says he is able to do his minimal activity which she does without any shortness of breath Denies any chest pain, no chest tightness, no wheezing, no diaphoresis, no palpitation Occasional cough with clear phlegm. Denies any hemoptysis No dysuria, no diarrhea, no hematuria, no hematochezia, no epistaxis Patient is not on any oxygen at home Social history: Current smoker, greater than [id number] smoking history Allergies Allergy/AdvReac Type Severity Reaction Status Date / Time No Known Allergies Allergy Unknown Verified 06/19/22 06:51 Home Medications Medication Instructions Recorded Confirmed Type sildenafil 100 mg tablet 100 mg PO QAM PRN Erectile 02/11/19 06/23/22 History Dysfunction warfarin 10 mg tablet 5 mg PO MOWEFR 02/11/19 06/23/22 History atorvastatin 40 mg tablet 40 mg PO QAM 08/13/21 06/23/22 History aspirin 81 mg capsule 81 mg PO QAM 05/28/22 06/23/22 History furosemide 40 mg tablet 40 mg PO QAM 05/28/22 06/23/22 History lisinopril 2.5 mg tablet 2.5 mg PO QAM 05/28/22 06/23/22 History metoprolol succinate 100 mg 100 mg PO QAM 05/28/22 06/23/22 History tablet,extended release 24 hr multivitamin 1 tab PO QAM 05/28/22 06/23/22 History acetaminophen 500 mg capsule 1,000 mg PO TID Pain 30 days #180 06/17/22 06/23/22 Rx caps cefadroxil 500 mg capsule 500 mg PO BID 7 days #14 caps 06/17/22 06/23/22 Rx ondansetron HCl 4 mg tablet 4 mg PO Q6 PRN nausea #20 tabs 06/17/22 06/23/22 Rx sennosides 8.6 mg-docusate sodium 1 tab-cap PO DAILY #14 tabs 06/17/22 06/23/22 Rx 50 mg tablet (Senokot-S) tramadol 50 mg tablet 50 - 100 mg PO Q6H PRN pain #40 06/17/22 06/23/22 Rx tabs digoxin 125 mcg (0.125 mg) tablet 125 mcg PO DAILY 06/23/22 06/23/22 History gabapentin 400 mg capsule 400 mg PO DAILY 06/23/22 06/23/22 History warfarin 10 mg tablet 10 mg PO UD 06/23/22 06/23/22 History Patient History Medical History Atrial fibrillation on warfarin. CAD (coronary artery disease) Moderate diffuse coronary atherosclerosis with single-vessel obstructive disease. The left circumflex is diffusely diseased with subtotal occlusion in its mid and distal portions with filling via left to left and bridge collateral. CHF (congestive heart failure) EF 60-65% Enlargement of aortic root GERD (gastroesophageal reflux disease) pt experiences sensation of heartburn, regurgitation and occasional coughing/choking at night History of atrial flutter History of gout HLD (hyperlipidemia) [place] (hard of hearing) Lumbar spondylosis On anticoagulant therapy HIRAM (obstructive sleep apnea) listed above. pt unsure. no device; sleeps upright Spinal stenosis Surgical History History of arthroscopy of left knee History of cardiac cath 2019 [place]. no stents. Moderate diffuse coronary atherosclerosis with single- vessel obstructive disease. The left circumflex is diffusely diseased with subtotal occlusion in its mid and distal portions with filling via left to left and bridge collateral. History of cardiac radiofrequency ablation Hx of colonoscopy S/P total hip arthroplasty Family History Other No family history of adverse response to anesthesia Social History Smoking Status: Current every day smoker Tobacco Type: E-cigarettes / Vaping Second Hand Exposure: No; Hx Alcohol Use: Yes Hx Substance Use: No Preferred Language: Thai Communication Ability: Effective Dental Hygiene Teacher Required: No Beliefs That Will Affect Care: None Current Living Situation: Spouse Other Information That Helps Us Care for You: No Feels Safe at Home: Yes Safety Concerns: Feels Safe At This Time Assistive Devices: Denture - Upper and Glasses Review of Systems Review of Systems: All systems reviewed & are unremarkable except as noted in HPI & below Physical Exam Physical Exam: Constitutional: No acute distress HEENT: EOMI, PERRLA Respiratory system: Decreased air entry on the right side, no wheeze, no rhonchi, positive crackles bilateral lower lobes CVS: S1-S2 positive, no murmurs or gallops, distant heart sounds Abdomen: Soft, nontender, nondistended, positive bowel sounds x4, obese Extremities: +2 pulses bilaterally radialis/ dorsalis pedis, no cyanosis, +1 pitting edema bilateral lower extremity Neuro: Awake alert oriented x3 Psych: Normal mood and affect G/U: Positive [place] Skin: no rashes, warm and dry Lymphatic: no cervical or axillary lymphadenopathy Results & Data Results & Data Vital Signs (Past 12 Hours) Vital Signs Temp Pulse Pulse Resp BP Pulse Ox O2 Del Method 06/24/22 03:38 36.4 C L 88 20 106/71 96 Nasal Cannula 06/24/22 00:08 36.4 C L 83 20 90/60 L 95 Nasal Cannula 06/23/22 21:59 82 06/23/22 20:40 90 22 96 O2 Flow Rate 06/24/22 03:38 2.0 06/24/22 00:08 2.0 06/23/22 21:59 06/23/22 20:40 2 Laboratory Results 06/24/22 05:31 06/24/22 05:31 PG Care Time/CCT Total # of Minutes Spent Total Time Spent with Patient: Total time spent is greater than 50% in coordination of care (as documented) at patient's floor/unit and/or counseling patient: Coding Level of Care Code 81859 INT INP/OBS CARE 3/75MIN Diagnoses HIRAM (obstructive sleep apnea) G47.33 Atrial fibrillation I48.91 Pleural effusion J90 Acute exacerbation of CHF (congestive heart failure) I50.9 Heart failure type: unspecified Acute respiratory failure with hypoxia J96.01
[2022-06-24] MEDS: ASPIRIN 81 MG ECTAB PO SCH (08:22)
[2022-06-24] MEDS: ACETAMINOPHEN 500 MG TAB PO SCH ×3 (08:22→20:56)
[2022-06-24] MEDS: ATORVASTATIN 40 MG TAB PO SCH (08:23)
[2022-06-24] MEDS: cephALEXin 500 MG CAP PO SCH ×4 (08:23→20:57)
[2022-06-24] MEDS: GABAPENTIN 400 MG CAP PO SCH (08:23)
[2022-06-24] MEDS: METOPROLOL SUCC 50MG EXT REL TAB PO SCH (08:24)
[2022-06-24] MEDS: MULTIVITAMIN TAB PO SCH (08:24)
--- NOTE | 2022-06-24 11:50 | Electrocardiogram Report ---
Test Reason : Blood Pressure : / mmHG Vent. Rate : 084 BPM Atrial Rate : 094 BPM P-R Int : 000 ms QRS Dur : 098 ms QT Int : 372 ms P-R-T Axes : 000 055 046 degrees QTc Int : 439 ms Atrial fibrillation Incomplete right bundle branch block Abnormal ECG When compared with ECG of 13-AUG-2021 11:19, No significant change was found Confirmed by Alexis Puentes ([id number]) on 06/24/2022 11:50:31 AM Referred By: REFERRED SELF Confirmed By:Alexis Puentes
--- NOTE | 2022-06-24 12:10 | Cardiology Consultation ---
Date of Consultation June 24, 2022 Assessment & Plan (1) Acute respiratory failure with hypoxia: (2) Pleural effusion: (3) Acute respiratory acidosis: (4) Heart failure, diastolic, with acute decompensation: (5) PAF (paroxysmal atrial fibrillation): (6) Hypertension: (7) CAD (coronary artery disease): (8) HIRAM (obstructive sleep apnea): Plan Patient presents with acute decompensated diastolic heart failure resulting in pleural effusions and acute hypoxic respiratory failure Likely due to fluid administration during his recent hip surgery Patient is already declined thoracentesis Recommend Lasix 40 mg IV twice daily along with following and replete electrolytes as necessary The patient is very reluctant to remain for inpatient treatment I counseled the patient and his at great lengths as to the need for IV diuresis to improve his respiratory status History of Present Illness Attending Physician: Miles Myers MD History of Present Illness PAST MEDICAL HISTORY: 1. ASCVD, Moderate diffuse coronary atherosclerosis with single- vessel obstructive disease. The left circumflex is diffusely diseased with subtotal occlusion in its mid and distal portions with filling via left to left and bridge collateral. Cardiac catheterization 2018 2. Dyslipidemia. LDL goal less than 70 mg/dL. 3. History of tobacco abuse. 4. Longstanding paroxysmal atrial arrhythmias. Atrial flutter ablation in 2005. Chronic atrial fibrillation since at least 2012 5. Past TIA on chronic anticoagulation. 6. Obesity. 7. Obstructive sleep apnea 8. Chronic venous insufficiency. 9. Chronic degenerative joint disease. Allergies Allergy/AdvReac Type Severity Reaction Status Date / Time No Known Allergies Allergy Unknown Verified 06/19/22 06:51 Home Medications Medication Instructions Recorded Confirmed Type sildenafil 100 mg tablet 100 mg PO QAM PRN Erectile 02/11/19 06/23/22 History Dysfunction warfarin 10 mg tablet 5 mg PO MOWEFR 02/11/19 06/23/22 History atorvastatin 40 mg tablet 40 mg PO QAM 08/13/21 06/23/22 History aspirin 81 mg capsule 81 mg PO QAM 05/28/22 06/23/22 History furosemide 40 mg tablet 40 mg PO QAM 05/28/22 06/23/22 History lisinopril 2.5 mg tablet 2.5 mg PO QAM 05/28/22 06/23/22 History metoprolol succinate 100 mg 100 mg PO QAM 05/28/22 06/23/22 History tablet,extended release 24 hr multivitamin 1 tab PO QAM 05/28/22 06/23/22 History acetaminophen 500 mg capsule 1,000 mg PO TID Pain 30 days #180 06/17/22 06/23/22 Rx caps cefadroxil 500 mg capsule 500 mg PO BID 7 days #14 caps 06/17/22 06/23/22 Rx ondansetron HCl 4 mg tablet 4 mg PO Q6 PRN nausea #20 tabs 06/17/22 06/23/22 Rx sennosides 8.6 mg-docusate sodium 1 tab-cap PO DAILY #14 tabs 06/17/22 06/23/22 Rx 50 mg tablet (Senokot-S) tramadol 50 mg tablet 50 - 100 mg PO Q6H PRN pain #40 06/17/22 06/23/22 Rx tabs digoxin 125 mcg (0.125 mg) tablet 125 mcg PO DAILY 06/23/22 06/23/22 History gabapentin 400 mg capsule 400 mg PO DAILY 06/23/22 06/23/22 History warfarin 10 mg tablet 10 mg PO UD 06/23/22 06/23/22 History Patient History Medical History Atrial fibrillation on warfarin. CAD (coronary artery disease) Moderate diffuse coronary atherosclerosis with single-vessel obstructive disease. The left circumflex is diffusely diseased with subtotal occlusion in its mid and distal portions with filling via left to left and bridge collateral. CHF (congestive heart failure) EF 60-65% Enlargement of aortic root GERD (gastroesophageal reflux disease) pt experiences sensation of heartburn, regurgitation and occasional coughing/choking at night History of atrial flutter History of gout HLD (hyperlipidemia) [place] (hard of hearing) Lumbar spondylosis On anticoagulant therapy HIRAM (obstructive sleep apnea) listed above. pt unsure. no device; sleeps upright Spinal stenosis Surgical History History of arthroscopy of left knee History of cardiac cath 2019 [place]. no stents. Moderate diffuse coronary atherosclerosis with single- vessel obstructive disease. The left circumflex is diffusely diseased with subtotal occlusion in its mid and distal portions with filling via left to left and bridge collateral. History of cardiac radiofrequency ablation Hx of colonoscopy S/P total hip arthroplasty Family History Other No family history of adverse response to anesthesia Social History Smoking Status: Current every day smoker Tobacco Type: E-cigarettes / Vaping Second Hand Exposure: No; Hx Alcohol Use: Yes Hx Substance Use: No Preferred Language: Polish Communication Ability: Effective Cuff Turner Required: No Beliefs That Will Affect Care: None Current Living Situation: Spouse Other Information That Helps Us Care for You: No Feels Safe at Home: Yes Safety Concerns: Feels Safe At This Time Assistive Devices: Denture - Upper and Glasses Review of Systems Review of Systems: All systems reviewed & are unremarkable except as noted in HPI & below Physical Exam Physical Exam: General: Awake, alert and oriented x 3. No acute distress. HEENT: Normocephalic, atraumatic. Pupils equal, round and reactive to light and accommodation. Extraocular muscles are intact. Anicteric sclera. Moist mucous membranes. Neck: No JVD. No bruit. Cardiovascular: Regular. Positive S-4. Normal S-1 and S-2. No S-3. 3/6 mid-to-late systolic ejection murmur, right sternal border with radiation to the bilateral carotids. No rubs. Pulmonary: Clear to auscultation bilaterally. No rales, rhonchi, or wheezing. Abdomen: Bowel sounds x 4, soft. No rebound, guarding or tenderness. No organomegaly. Extremities: No clubbing, cyanosis or edema. +2 pedal pulses bilaterally. Skin: Warm and dry. Results & Data Vital Signs (Past 12 Hours) Vital Signs Temp Pulse Resp BP Pulse Ox O2 Del Method O2 Flow Rate 06/24/22 10:35 Room Air 2 06/24/22 08:19 37.1 C 89 20 112/77 93 Nasal Cannula 2.0 06/24/22 03:38 36.4 C L 88 20 106/71 96 Nasal Cannula 2.0 06/24/22 00:08 36.4 C L 83 20 90/60 L 95 Nasal Cannula 2.0 Diagnostic Findings Interpretation Summary. Stress test results from August 2021 The primary indication after review was deemed appropriate and the examination was performed. The stress echo is negative for inducible ischemia. No arrhythmias. Normal heart rate and blood pressure response to dobutamine infusion. Transient hypotensive response to atropine infusion, resolved prior to patient leaving examination area.
[2022-06-24] MEDS ORDERED: FUROSEMIDE INJ 20 MG/2 ML VIAL IV ONE (13:15)
--- NOTE | 2022-06-24 13:21 | Hospitalist Progress Note ---
Date of Service June 24, 2022 Assessment & Plan (1) Acute respiratory failure with hypoxia: Plan 77-year-old male with PMH of CAD, atrial fibrillation on warfarin, chronic diastolic heart failure, HLD, HIRAM presented to the ED 06/23 with complaint of shortness of breath for couple of days. Patient noted to be hypoxic at home, does not use any home oxygen at baseline. Patient denied any fever or chills or cough or chest pain. He is being managed for the following: Pleural effusion: Acute respiratory failure with hypoxia: Pericardial effusion: Await cardiology recs At presentation, no leukocytosis. D-dimer: 1410, lactate WNL. Procalcitonin ne gative. Negative influenza and RSV PCR, negative SARS-CoV-2 PCR Admitting imagings: CXR with vascular congestion and right greater than left pleural effusion. CTA chest with no evidence of PE, large right and small left pleural effusion with dependent consolidation, cardiomegaly with evidence of pulmonary artery hypertension. Echo with grade 1 diastolic dysfunction, EF 60 to 65%, mild concentric LVH, moderate-sized anteroapical loculated pericardial effusion. RVSP normal. Acute respiratory failure with pleural effusion. Possible acute on chronic diastolic heart failure. Less likely pneumonia without cough, fever, and normal procalcitonin Doing well on supplemental oxygen at 2L, wean down oxygen as tolerated. Patient wanting to be discharged today but unable to discharge him medically as he is not stable, patient made aware that it is unsafe to be discharged at this condition. Blood pressure soft, will use a small dose of Lasix, cardiology consulted, await recommendation. Pulmonology evaluated, discussed with pulm, will need right thoracentesis and INR less than 1.7 Coumadin on hold, repeat INR in AM. Continue with telemetry monitoring. Hypotension: BP is on the low side at presentation 88/62, 112/60, 92/68. BPs run on the low side at baseline per family. Hold BP meds in favor of diuresis, continue with metoprolol. Atrial fibrillation: Chronic atrial fibrillation/rate controlled, anticoagulated on warfarin, c/w metoprolol and digoxin. Warfarin on hold (see above) S/P total hip arthroplasty: S/P left total hip arthroplasty on 06/19/[address] Pretty, on cefadroxil 7 day course for postop Px. Keflex in hospital. C/w PT/OT inpt and outpt and f/u w/ Ortho. CAD (coronary artery disease): History cardiac cath 2019: Moderate diffuse coronary atherosclerosis with single-vessel obstructive disease. Left circumflex is diffusely diseased with subtotal occlusion in its mid and distal portions with filling via left to left and bridge collateral Medically managed Continue aspirin, atorvastatin, metoprolol succinate HIRAM (obstructive sleep apnea): Does not use CPAP DVT Prophylaxis: Therapeutic INR, warfarin on hold currently for possible thoracentesis. Full Code PCP: Dr Baumann Patient's Danyell Baugh [[phone]] was given a phone call twice and left voicemail to call us back at the hospital and ask for Dr. Myers. Admission and Anticipated Discharge Date Admission Date: June 23, 2022 Subjective Patient seen and examined at bedside as a follow-up of pleural effusion, acute respiratory failure with hypoxia and acute on chronic diastolic heart failure. 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 If not treated adequately, he might go in to cardiac or respiratory rate arrest leading up to . Such has been explained to the patient at bedside exam and he voiced understanding. If he still insist to leave the hospital, patient made aware that he will have to sign AMA. RN also aware. Physical Exam Physical Exam: GENERAL: Alert and oriented x3. NAD, on 2L NC O2. Appears weak/frail/tired/ill. Obese class II. HEENT: No pallor, no icterus. Pupils equal, round and reactive to light. Oral mucosa moist. NECK: No JVD, no neck masses. HEART: S1 and S2 heard. irregular rate and rhythm. No murmur, no gallop. RESPIRATORY SYSTEM: Normal AP diameter. No accessory muscle use. No wheezing, RLL - decreased breath sounds; LLL - crackles. ABDOMEN: Soft, bowel sounds present, nontender, no distention. CENTRAL NERVOUS SYSTEM: No facial droop. Speech is clear. Obeys simple commands. Moves extremities. EXTREMITIES: 1+ BLE edema, no erythema seen. Left lateral hip/proximal leg with edema,+ surgical incision with fran in place with slight surrounding erythema,no discharge or bleeding, distal pulses palpable, sensation to light touch intact. Results & Data Results & Data Vital Signs (Past 12 Hours) Vital Signs Temp Pulse Resp BP Pulse Ox O2 Del Method O2 Flow Rate 06/24/22 12:30 36.5 C 85 19 102/67 93 Nasal Cannula 2.0 06/24/22 10:35 Room Air 2 06/24/22 08:19 37.1 C 89 20 112/77 93 Nasal Cannula 2.0 06/24/22 03:38 36.4 C L 88 20 106/71 96 Nasal Cannula 2.0
[2022-06-24] MEDS ORDERED: WARFARIN SOD 10 MG TAB PO SCH (16:00)
[2022-06-24] MEDS ORDERED: DIGOXIN 0.125 MG TAB PO SCH (16:00)
[2022-06-24] MEDS: FUROSEMIDE 40 MG/4 ML VIAL IV SCH ×3 (16:22→21:03)
[2022-06-25 07:22] LABS: Hematocrit (blood only) 42.5 % (42.0-52.0); Mean Corpuscular Hemoglobin 28.8 pg (25.0-34.0); Mean Corpuscular Hgb Conc 32.9 g/dL (32.0-36.0); Mean Corpuscular Volume 87.4 fL (80.0-100.0); Mean Platelet Volume 9.7 fL (9.4-12.4); Platelet Count 177 K/uL (130-400); RDW Coefficient of Variation 13.5 % (11.5-14.5); RDW Standard Deviation 43.2 fL (36.4-46.3); Red Blood Count 4.86 M/uL (4.70-6.10); White Blood Count 9.08 K/ul (4.8-10.8)
[2022-06-25 07:31] LABS: INR 1.7 (0.9-1.1); Prothrombin Time 17.2 Seconds (9.0-12.0)
[2022-06-25 07:44] LABS: BUN Creatinine Ratio 13.7 (10-20); Calcium 8.8 mg/dl (8.6-10.3); Creatinine Clr Calc Pharmacy 119.1 ml/min; Est GFR (African American) 104.4 ml/min; Est GFR (Non-African American) 90.1 ml/min; Magnesium 2.1 mg/dl (1.7-2.4); Phosphorus 2.6 mg/dl (2.5-4.9); Potassium 3.7 mmol/L (3.5-5.1)
[2022-06-25] MEDS: cephALEXin 500 MG CAP PO SCH ×2 (09:01→12:07)
[2022-06-25] MEDS: ACETAMINOPHEN 500 MG TAB PO SCH (09:02)
[2022-06-25] MEDS: ASPIRIN 81 MG ECTAB PO SCH (09:02)
[2022-06-25] MEDS: ATORVASTATIN 40 MG TAB PO SCH (09:02)
[2022-06-25] MEDS: METOPROLOL SUCC 50MG EXT REL TAB PO SCH (09:03)
[2022-06-25] MEDS: GABAPENTIN 400 MG CAP PO SCH (09:03)
[2022-06-25] MEDS: FUROSEMIDE 40 MG/4 ML VIAL IV SCH (09:03)
[2022-06-25] MEDS: MULTIVITAMIN TAB PO SCH (09:03)
[2022-06-25] MEDS ORDERED: POTASSIUM CHLORIDE CRTAB 20 MEQ TABCR PO STA (09:34)
[2022-06-25] MEDS ORDERED: FUROSEMIDE 40 MG/4 ML VIAL IV ONE (11:07)
--- NOTE | 2022-06-25 12:03 | Pulmonology Progress Note ---
Date of Service June 25, 2022 Assessment & Plan (1) HIRAM (obstructive sleep apnea): (2) Atrial fibrillation: (3) Pleural effusion: (4) Acute exacerbation of CHF (congestive heart failure): Heart failure type: unspecified Qualified Code(s): I50.9 - Heart failure, unspecified (5) Acute respiratory failure with hypoxia: Plan IMPRESSION: Patient is a 77-year-old male with a significant past medical history of obstructive sleep apnea, A-fib, and pleural effusions. Patient also with CHF for which she has been evaluated by cardiology. RECOMMENDATIONS: 1. Pleural Effusion - * Conversation had yesterday by Dr. Velasquez regarding thoracentesis. He had declined initially. Apparently, there was conversation with hospitalist for discussion of moving forward with thoracentesis versus holding off at this time. * I did have extensive conversation with patient at bedside. He is reluctant to have any procedures performed at this time. He would rather be discharged home. * While it would make sense to have at least initial cultures and cell count performed on his sizable pleural effusion, the patient is reluctant and is clinically improved. He is currently saturating well on room air alone. He is ready to be discharged home. * I did offer to him that he certainly could have a follow-up chest x-ray in the next 2 weeks to be performed by his primary care provider. If he has recurrent of symptoms or his chest x-ray demonstrates significant residual pleural effusion, he would likely benefit from thoracentesis in the outpatient setting which could be arranged through our office. This compromise seemed more appropriate to the patient and is the avenue he would rather approach. * Otherwise, the patient is stable for discharge from a pulmonary perspective. * We will be happy to see him in the office as needed. Thank you for allowing us to participate in the care of this patient. Pulmonary medicine will sign off at this time. Admission and Anticipated Discharge Date Admission Date: June 23, 2022 Subjective Patient seen and evaluated bedside. He reports feeling much better. He is on room air at this time and saturating in the low to mid 90s. He is anxious to be discharged home. Review of Systems Review of Systems: A complete 6 point review of systems was reviewed with the patient with pertinent positives and negatives as per history of present illness. All else were negative. Physical Exam Physical Exam: VITAL SIGNS - Vital signs and nursing notes were reviewed. GENERAL - 77-year-old male appearing his stated age who is in no acute distress. Communicates well with provider and answers questions appropriately. MOUTH/OROPHARYNX - Without perioral cyanosis. NECK - Neck with FROM. LUNGS - Auscultation reveals bibasilar rales. No wheezing or rhonchi noted. CARDIAC - RRR with S1/S2. No murmur, rubs, or gallops appreciated. ABDOMEN - Abdominal inspection demonstrates obese abdomen. BS normoactive all four quadrants. No tenderness, palpable masses, or ascites noted. EXTREMITIES - Bilateral pretibial edema present. +3/5 radial palpated throughou t. PSYCH - A&Ox3 and cooperates fully with examiner. Pt is very pleasant and interacts well with examiner. Results & Data Results & Data Vital Signs (Past 12 Hours) Vital Signs Temp Pulse Pulse Resp BP Pulse Ox O2 Del Method 06/25/22 11:25 36.4 C L 98 H 18 109/73 92 Room Air 06/25/22 10:41 92 Room Air 06/25/22 09:38 98 H 06/25/22 07:52 36.6 C 99 H 16 129/83 94 Nasal Cannula 06/25/22 07:40 Room Air 06/25/22 04:01 36.7 C 96 H 20 123/86 93 Nasal Cannula 06/25/22 00:00 86 O2 Flow Rate 06/25/22 11:25 06/25/22 10:41 06/25/22 09:38 06/25/22 07:52 2 06/25/22 07:40 06/25/22 04:01 06/25/22 00:00 PG Care Time/CCT Total # of Minutes Spent Total Time Spent with Patient: Total time spent is greater than 50% in coordination of care (as documented) at patient's floor/unit and/or counseling patient: Coding Level of Care Code 19597 SUB INP/OBS CARE 2/35MIN Diagnoses HIRAM (obstructive sleep apnea) G47.33 Atrial fibrillation I48.91 Pleural effusion J90 Acute exacerbation of CHF (congestive heart failure) I50.9 Heart failure type: unspecified Acute respiratory failure with hypoxia J96.01
--- NOTE | 2022-06-25 12:28 | Cardiology Progress Note ---
Date of Service June 25, 2022 Assessment & Plan (1) Acute respiratory failure with hypoxia: (2) Pleural effusion: (3) Acute respiratory acidosis: (4) Heart failure, diastolic, with acute decompensation: (5) PAF (paroxysmal atrial fibrillation): (6) Hypertension: (7) CAD (coronary artery disease): (8) HIRAM (obstructive sleep apnea): Plan Patient presents with acute decompensated diastolic heart failure resulting in pleural effusions and acute hypoxic respiratory failure Likely due to fluid administration during his recent hip surgery Patient is already declined thoracentesis Recommend Lasix 40 mg IV twice daily along with following and replete electrolytes as necessary The patient is very reluctant to remain for inpatient treatment I counseled the patient and his at great lengths as to the need for IV diuresis to improve his respiratory status 06/25/2022: Patient has been successfully diuresed and no longer requires supplemental O2 We will give an additional dose of IV Lasix x1 now and then recommend discharge to home Recommend restarting home medications on discharge with the only change being an additional dose of as needed Lasix in the afternoon Admission and Anticipated Discharge Date Admission Date: June 23, 2022 Subjective Patient seen and examined. Chart reviewed. Telemetry reviewed. No longer requiring supplemental oxygen, patient states he feels well and is anxious for discharge. Review of Systems Review of Systems: All systems reviewed & are unremarkable except as noted in HPI & below Physical Exam Physical Exam: General: Awake, alert and oriented x 3. No acute distress. HEENT: Normocephalic, atraumatic. Pupils equal, round and reactive to light and accommodation. Extraocular muscles are intact. Anicteric sclera. Moist mucous membranes. Neck: No JVD. No bruit. Cardiovascular: Regular. Positive S-4. Normal S-1 and S-2. No S-3. 3/6 mid-to-late systolic ejection murmur, right sternal border with radiation to the bilateral carotids. No rubs. Pulmonary: Clear to auscultation bilaterally. No rales, rhonchi, or wheezing. Abdomen: Bowel sounds x 4, soft. No rebound, guarding or tenderness. No organomegaly. Extremities: No clubbing, cyanosis or edema. +2 pedal pulses bilaterally. Skin: Warm and dry. Results & Data Vital Signs (Past 12 Hours) Vital Signs Temp Pulse Pulse Resp BP Pulse Ox O2 Del Method 06/25/22 11:25 36.4 C L 98 H 18 109/73 92 Room Air 06/25/22 10:41 92 Room Air 06/25/22 09:38 98 H 06/25/22 07:52 36.6 C 99 H 16 129/83 94 Nasal Cannula 06/25/22 07:40 Room Air 06/25/22 04:01 36.7 C 96 H 20 123/86 93 Nasal Cannula O2 Flow Rate 06/25/22 11:25 06/25/22 10:41 06/25/22 09:38 06/25/22 07:52 2 06/25/22 07:40 06/25/22 04:01
--- NOTE | 2022-06-25 13:44 | Discharge Summary ---
Date of Service June 25, 2022 Admission HPI Per Admitting Provider Patient is 77-year-old male with PMH CAD, atrial fibrillation anticoagulated on warfarin, chronic diastolic heart failure, dyslipidemia, HIRAM presented to ER with complaint of shortness of breath x couple days. History obtained from patient however patient somewhat of a poor historian, assists in history. History also obtained from inpatient and outpatient chart review. S/P left total hip arthroplasty on 06/19/[address] Pretty and discharged from hospital on 06/20/2022. Warfarin was held 06/14-06/18. Warfarin restarted with 15 mg warfarin on 06/19 & 06/20 and then resuming 5 mg on Saturday, Saturday and Saturday and 10 mg all other days. Post-op patient was discharged on cefadroxil 500 mg twice daily x7 days. Reports has been using 1000 mg Tylenol 3 times daily for pain control. Has tramadol 50 mg every 6 hours as needed pain however has been reportedly using sparingly. Patient reports at baseline has intermittent shortness of breath that can occur with exertion or rest. He reports chronic orthopnea. Patient states since being home past couple days has had increased shortness of breath. He is receiving home PT. reports physical therapist was concerned with his low blood pressure today. It is reported he was hypoxic today per EMS and was brought to the hospital. Of note patient had low BPs during hospitalization for left LEXI. Patient's reports patient runs low BPs at baseline. Patient reports had medications this morning including Lasix 40 mg, lisinopril 2.5 mg. Denies fever/chills, diaphoresis, N/V/D/C, JOHNSON, dizziness, syncope, vision changes, neck pain, CP, palpitations, cough, hemoptysis, sore throat, choking, otalgia, rhinorrhea, abdominal pain, paresthesias, weakness, extremity weakness, extremity edema, increased abdominal girth, rashes, urinary symptoms. Admission Exam Per Admitting Provider General: no distress, +obese Head: normocephalic, atraumatic Eyes:conjunctiva non-injected, anicteric ENT: normal inspection external ears, nose, mucous membranes moist Neck: supple, trachea midline Lungs: no respiratory distress on current 2L via NC with sats 96%, +diminished breath sounds right lower lung, otherwise no wheezing/rhonchi/rales noted CV: Irregularly irregular, rate 92, no murmur, trace pretibial edema Abd: Protuberant, normal BS, soft, non-tender Ext: no cyanosis, no calf tenderness; LLE: Left lateral hip/proximal leg with edema,+ surgical incision with fran in place with slight surrounding erythema,no discharge or bleeding, distal pulses palpable, sensation to light t ouch intact. Neuro: A&O x 3, no focal deficits noted, normal affect Skin: warm, dry Principal Diagnosis Pleural effusion, right greater than left Acute respiratory failure with hypoxia, resolved Acute on chronic diastolic heart failure History of A-fib on Coumadin H/o recent status post total hip arthroplasty, ongoing home physical therapy per patient Discharge Exam GENERAL: Alert and oriented x3. NAD, on RA. Obese class II. HEENT: No pallor, no icterus. Pupils equal, round and reactive to light. Oral mucosa moist. NECK: No JVD, no neck masses. HEART: S1 and S2 heard. irregular rate and rhythm. No murmur, no gallop. RESPIRATORY SYSTEM: Normal AP diameter. No accessory muscle use. No wheezing, RLL - decreased breath sounds; LLL - crackles. ABDOMEN: Soft, bowel sounds present, nontender, no distention. CENTRAL NERVOUS SYSTEM: No facial droop. Speech is clear. Obeys simple commands. Moves extremities. EXTREMITIES: 1+ BLE edema, no erythema seen. Left lateral hip/proximal leg with edema,+ surgical incision with fran in place with slight surrounding erythema,no discharge or bleeding, distal pulses palpable, sensation to light touch intact. Discharge Data Allergies Allergy/AdvReac Type Severity Reaction Status Date / Time No Known Allergies Allergy Unknown Verified 06/19/22 06:51 Consultations 06/23/22 16:44 ED Decision to Admit Stat 06/23/22 18:57 Consult Pulmonology Routine 06/24/22 08:00 Consult Cardiology Routine Ordered Studies 06/23/22 15:29 CT angio chest PE protocol Stat Hospital Course (1) Acute respiratory failure with hypoxia: Plan 77-year-old male with PMH of CAD, atrial fibrillation on warfarin, chronic diastolic heart failure, HLD, HIRAM presented to the ED 06/23 with complaint of shortness of breath for couple of days. Patient noted to be hypoxic at home, does not use any home oxygen at baseline. Patient denied any fever or chills or cough or chest pain. He was managed for the following: Pleural effusion: Acute respiratory failure with hypoxia: Pericardial effusion: Cardiology evaluated. Follow-up with cardiology as an outpatient. Acute on chronic heart failure with preserved ejection fraction At presentation, no leukocytosis. D-dimer: 1410, lactate WNL. Procalcitonin negative. Negative influenza and RSV PCR, negative SARS-CoV-2 PCR Admitting imagings: CXR with vascular congestion and right greater than left pleural effusion. CTA chest with no evidence of PE, large right and small left pleural effusion with dependent consolidation, cardiomegaly with evidence of pulmonary artery hypertension. Echo with grade 1 diastolic dysfunction, EF 60 to 65%, mild concentric LVH, moderate-sized anteroapical loculated pericardial effusion. RVSP normal. Acute respiratory failure with pleural effusion. Possible acute on chronic diastolic heart failure. Less likely pneumonia without cough, fever, and normal procalcitonin Successfully weaned down to room air with IV diuresis. Patient has declined right thoracentesis multiple times despite being offered per pulmonology, patient agreed to closely follow-up with PCP and get an x-ray as needed or in 2 weeks to assess for his pleural effusion and possible referral to pulmonology office from his PCP office. Cardiology evaluated, being discharged on current home meds except Lasix being used as needed in the evening additionally. Maintain heart healthy diet, low-sodium diet, fluid restriction of 1.8 to 2 L/day. Maintain follow-up with cardiology 2 to 4 weeks upon discharge. Hypotension: Appears resolved, tolerating his home blood pressure medications. Generally his blood pressure runs soft per his family. Atrial fibrillation: Chronic atrial fibrillation/rate controlled, anticoagulated on warfarin, c/w metoprolol and digoxin. S/P total hip arthroplasty: S/P left total hip arthroplasty on 06/19/[address] Pretty, on cefadroxil 7 day course for postop Px. Keflex in hospital. C/w PT/OT inpt and outpt and f/u w/ Ortho. CAD (coronary artery disease): History cardiac cath 2019: Moderate diffuse coronary atherosclerosis with single-vessel obstructive disease. Left circumflex is diffusely diseased with subtotal occlusion in its mid and distal portions with filling via left to left and bridge collateral Medically managed Continue aspirin, atorvastatin, metoprolol succinate HIRAM (obstructive sleep apnea): Does not use CPAP DVT Prophylaxis: Therapeutic INR, warfarin on hold currently for possible thoracentesis. Full Code PCP: Dr Baumann Patient is very insistent on going home and would like it to be done today, has declined right thoracentesis offered by pulmonology multiple times. Patient being discharged home with following instruction at the point of discharge: Follow-up with your primary care physician within a week time and likely you will need labs CBC/CMP/magnesium/phosphorus. As you have declined right-sided pleural tapping [right thoracentesis] while in hospital multiple times, you will need a close follow-up with PCP for ongoing evaluation and get an x-ray with any worsening of your respiratory status or in 2 weeks time and if it is not getting better or if it is getting worse then you will need referral to pulmonology from your PCP office. Maintain heart healthy diet, low-sodium diet [less than 2 g/day], fluid restriction of 1800 to 2000 mL/day. Take your Lasix 40 mg daily in the morning as prior and then you can use as needed Lasix in the evening for the days when you have increased leg swelling or shortness of breath or increase in the weight by greater than 5 pounds. Measure your weights daily at about the same time and maintain a log. Continue with your warfarin as prior, follow-up with your Coumadin clinic in 2 to 3 days upon discharge. Continue with your home physical therapy for your recent total hip surgery as prior. Complete your course of antibiotic as prior. Follow-up with your orthopedic doctor as scheduled as prior. Follow-up with your cardiology in 2 to 4 weeks time of discharge. Take your medications as prescribed. Home Health Attestation I certify that this patient is under my care and that I, or a physicians family and divorce legal assistant working with me, had a face to-face encounter that meets the home health [id number] encounter requirements with this patient. The encounter with the patient was in whole, or in part, for the following medical condition, which is the primary reason for home health care (list medical condition): I certify that, based on my findings, the following services are medically necessary home health services: My clinical findings support the need for the above services because: Further, I certify that my clinical findings support that this patient is homebound (i.e. absences from home require considerable and taxing effort and are for medical reasons or sabianism services or infrequently or of short duration when for other reasons) because: Certification for Home Health Services: Based on the above findings, I certify that this patient is confined to the home and needs intermittent alf care, physical therapy and/or speech therapy or continues to need occupational therapy. The patient is under my care, and I have initiated the establishment of the plan of care. This patient will be followed by a physician who will periodically review the plan of care. Total Time Total Time Spent Total Time Spent (In Minutes): 50 Discharge Plan Discharge Items Patient Disposition: Home - Home Health Services Reason For Visit: SHORTNESS OF BREATH Discharge Diagnosis: Pleural effusion, right greater than left Acute respiratory failure with hypoxia, resolved Acute on chronic diastolic heart failure History of A-fib on Coumadin H/o recent status post total hip arthroplasty, ongoing home physical therapy per patient Activity: Resume your previous activity Non-emergency contact: Primary Care Provider Call non-emergency contact if: you have any medication questions Follow-up/Referrals: Ej Baumann MD [Primary Care Provider] - Diet: Heart Healthy and Low Sodium (2gm) Fluids: 1800ml (7 cups) Addtl Attending Provider Instructions: Follow-up with your primary care physician within a week time and likely you will need labs CBC/CMP/magnesium/phosphorus. As you have declined right-sided pleural tapping [right thoracentesis] while in hospital multiple times, you will need a close follow-up with PCP for ongoing evaluation and get an x-ray with any worsening of your respiratory status or in 2 weeks time and if it is not getting better or if it is getting worse then you will need referral to pulmonology from your PCP office. Maintain heart healthy diet, low-sodium diet [less than 2 g/day], fluid restriction of 1800 to 2000 mL/day. Take your Lasix 40 mg daily in the morning as prior and then you can use as needed Lasix in the evening for the days when you have increased leg swelling or shortness of breath or increase in the weight by greater than 5 pounds. Measure your weights daily at about the same time and maintain a log. Continue with your warfarin as prior, follow-up with your Coumadin clinic in 2 to 3 days upon discharge. Continue with your home physical therapy for your recent total hip surgery as prior. Complete your course of antibiotic as prior. Follow-up with your orthopedic doctor as scheduled as prior. Follow-up with your cardiology in 2 to 4 weeks time of discharge. Take your medications as prescribed. Pending Studies at Discharge: Yes (Admitting blood culture final results.) Stand-Alone Forms: My [facility], Smoking Cessation Medications and DC Order Prescriptions: Continued tramadol 50 mg tablet 50 - 100 mg PO Q6H PRN (Reason: pain) Qty: 40 0RF Rx Instructions: Take as needed for Pain. ondansetron HCl 4 mg tablet 4 mg PO Q6 PRN (Reason: nausea) Qty: 20 1RF acetaminophen 500 mg capsule 1,000 mg PO TID 30 Days Qty: 180 0RF Rx Instructions: Take 3 times per day to lessen pain. sennosides-docusate sodium [Senokot-S] 8.6-50 mg tablet 1 tab-cap PO DAILY Qty: 14 0RF Rx Instructions: Take daily to prevent constipation cefadroxil 500 mg capsule 500 mg PO BID 7 Days Qty: 14 0RF Rx Instructions: 7 day course. Started 06/20/22 warfarin 10 mg Tablet 5 mg PO MOWEFR sildenafil 100 mg Tablet 100 mg PO QAM PRN (Reason: Erectile Dysfunction) atorvastatin 40 mg tablet 40 mg PO QAM multivitamin Tablet 1 tab PO QAM aspirin 81 mg Capsule 81 mg PO QAM metoprolol succinate 100 mg tablet extended release 24 hr 100 mg PO QAM lisinopril 2.5 mg tablet 2.5 mg PO QAM warfarin 10 mg tablet 10 mg PO UD Rx Instructions: Sun, tues, thurs, sat digoxin 125 mcg (0.125 mg) tablet 125 mcg PO DAILY gabapentin 400 mg capsule 400 mg PO DAILY Changed furosemide 40 mg tablet 40 mg PO UD Qty: 60 0RF Rx Instructions: 1 tab daily in AM and 1 tab as needed in the evening as instructed. Discharge Orders: Discharge Order- CHF (Routine); Ordered 06/25/22 Ordered By: Miles Myers Admission Data Admit Date/Time: 06/23/22 17:05 Attending Provider: Miles Myers Admit Provider: Shiraz Adame Primary Care Provider: Ej Baumann Other Providers: Shiraz Adame ; Jamie Evans [place]
[2022-06-25] MEDS ORDERED: WARFARIN SOD 5 MG TAB PO SCH (16:00)
== END 2022-06-25 14:41 | disposition home health service (06) | DRG 291 ==
LOC: ED 13:42 → SUATTDRO 17:05 → 4W 17:05

== ENCOUNTER 2022-09-09 20:30 | Observation (INO) ==
[2022-09-09] MEDS ORDERED: SODIUM CHLORIDE 0.9% 500 ML IV STA (20:53)
[2022-09-09] MEDS ORDERED: SODIUM CHLORIDE 0.9% 1000ML 500 ML IV ONE (21:22)
[2022-09-09 21:24] LABS: Hematocrit (blood only) 47.2 % (42.0-52.0); Hemoglobin 15.1 g/dl (14.0-18.0); Mean Corpuscular Volume 87.6 fL (80.0-100.0); Mean Platelet Volume 10.7 fL (9.4-12.4); Platelet Count 203 K/uL (130-400); RDW Coefficient of Variation 14.6 % (11.5-14.5); RDW Standard Deviation 46.6 fL (36.4-46.3); Red Blood Count 5.39 M/uL (4.70-6.10); White Blood Count 10.68 K/ul (4.8-10.8)
[2022-09-09] MEDS ORDERED: CEFEPIME 2,000 MG/20 ML VIAL IV STA (21:33)
--- NOTE | 2022-09-09 21:36 | Emergency Department Note ---
Impression & Plan Hypotension, Acute urinary retention, Hematuria, Coagulopathy ED Provider Note NAME: GERBER MEDINA AGE: 77 SEX: M : 1945 ARRIVES VIA: Walk-In INFORMANT: [Patient][] ED PROVIDER(S): [Marito Freire MD] CHIEF COMPLAINT: Hematuria HISTORY OF PRESENT ILLNESS: The patient is a 77-year-old male on Coumadin. He has a history of A-fib. He was here today earlier about 5 or 6 hours ago. He was in for urinary retention. His laboratory work-up was unrevealing except for an INR of 2.8. A Mckee catheter was placed and his urinary retention was relieved. Since being home, he has had blood in the urine. He feels washed out. He presents back for evaluation. There has been no fever, no cough. He is short of breath but this is baseline. He has not had chills. No abdominal pain, no chest pain. PMHx/PSHx: See Below SOCIAL HISTORY: See Below. PHYSICAL EXAM: GENERAL: Patient is in no acute distress. HEENT: No acute trauma, normocephalic atraumatic, mucous membranes moist, no nasal congestion. NECK: No stridor, no adenopathy, no meningismus, trachea is midline. LUNGS: Clear to auscultation bilaterally when listening anterior, no wheeze, no rhonchi, breath sounds equal. HEART: Irregular rhythm, normal rate, no obvious murmur ABDOMEN: Soft, nontender, bowel sounds positive, no peritonitis. EXTREMITIES: No cyanosis, moderate bilateral pedal edema, full range of motion of all the joints without pain or difficulty, no signs for acute trauma. NEUROLOGIC: Oriented x 3, interactive, awake. SKIN: No rash, no jaundice, no diaphoresis. Groin: There is a Mckee catheter in place. He is circumcised. There is bloody urine in the leg bag. DIFFERENTIAL DIAGNOSIS: Coagulopathy, anemia, misplaced Mckee catheter, urinary retention, hydronephrosis, renal or bladder mass, electrolyte imbalance, sepsis bacteremia, among others. EMERGENCY DEPARTMENT COURSE/PROCEDURES: Prior/Outside records reviewed: Recent ED visit note. ECG per my interpretation: Indication was hypotension. ECG shows atrial fibrillation with a rate of 84. There is no ST elevation, no PVCs. There is an incomplete right bundle branch block. The QTc is 446. Continuous Cardiac Monitoring per my interpretation: An order was placed for continuous cardiac monitoring. The monitor shows a rate of 89 with atrial fibrillation. Critical Care Note: I have personally spent 42 minutes of critical care time in the direct management of this patient. This includes bedside care, interpretation of diagnostic studies, and testing, discussion with consultants, patient, and family members, and other required patient management activities. This 42 minutes is in excess of all separately billable procedures. MEDICAL DECISION MAKING: There is no leukocytosis or concerning anemia. There is a normal platelet count. INR is elevated at 2.9, consistent with his Coumadin use. No renal failure or electrolyte abnormality in need of emergent correction. Lactic acid level was not elevated making severe sepsis less likely. No concerning liver enzyme elevation. ECG shows atrial fibrillation, no obvious ischemia. Cardiac enzyme testing x1 is not consistent with acute cardiac injury. Urinalysis demonstrates hematuria, no obvious infection. Chest film per my review shows a right pleural effusion, no CHF or pneumonia. Abdominal and pelvis CT demonstrates the Mckee within the bladder. The bladder wall is thickened. No obstructing ureteral stone identified. No diverticulitis. Digoxin level is pending. Patient received IV saline, 1 L in total. He was given IV cefepime as empiric antibiotic coverage. He was given 5 mg of IV vitamin K to reverse the INR. The patient presents hypotensive, feeling weak with hematuria. He takes Cou madin daily. With the findings and his presentation, hospitalization is warranted. I spoke with the patient and case management, the on-call hospitalist was consulted. The patient is currently resting comfortably. Of note, I did have the nursing staff irrigate the Mckee/bladder. The urine did seem less bloody after. Of note, I did consider sepsis as a possible cause of his hypotension however, after further assessment and based on today's testing, I feel this is very unlikely. DISPOSITION: Patient's presentation and findings warrant a hospital stay. Past Med/Surg History Medical History Atrial fibrillation on warfarin. CAD (coronary artery disease) Moderate diffuse coronary atherosclerosis with single-vessel obstructive disease. The left circumflex is diffusely diseased with subtotal occlusion in its mid and distal portions with filling via left to left and bridge collateral. CHF (congestive heart failure) EF 60-65% Encounter for pre-operative examination Enlargement of aortic root GERD (gastroesophageal reflux disease) pt experiences sensation of heartburn, regurgitation and occasional coughing/choking at night History of atrial flutter History of gout HLD (hyperlipidemia) [place] (hard of hearing) Lumbar spondylosis On anticoagulant therapy HIRAM (obstructive sleep apnea) listed above. pt unsure. no device; sleeps upright Spinal stenosis Surgical History History of arthroscopy of left knee History of cardiac cath History of cardiac radiofrequency ablation Hx of colonoscopy S/P total hip arthroplasty Family History Other No family history of adverse response to anesthesia Social History Smoking Status: Former smoker Tobacco Type: E-cigarettes / Vaping Age Started Using Tobacco: 10; Age Quit Using Tobacco: 70; packs per day: 1; Second Hand Exposure: No; Do You Dip or Chew Tobacco: No; Hx Alcohol Use: Yes Hx Substance Use: No Preferred Language: Grenadian Communication Ability: Effective Hide Tanner Required: No Beliefs That Will Affect Care: None Current Living Situation: Spouse Feels Safe at Home: Yes Assistive Devices: Wheelchair Allergies Allergies Allergy/AdvReac Type Severity Reaction Status Date / Time No Known Allergies Allergy Unknown Verified 09/09/22 23:14 Home Meds Home Medications Medication Instructions Recorded Confirmed sildenafil 100 mg tablet 100 mg PO QAM PRN Erectile 02/11/19 09/09/22 Dysfunction warfarin 10 mg tablet 5 - 10 mg PO DIRECTED 02/11/19 09/09/22 atorvastatin 40 mg tablet 40 mg PO QAM 08/13/21 09/09/22 aspirin 81 mg capsule 81 mg PO QAM 05/28/22 09/09/22 lisinopril 2.5 mg tablet 2.5 mg PO QAM 05/28/22 09/09/22 metoprolol succinate 100 mg 100 mg PO QAM 05/28/22 09/09/22 tablet,extended release 24 hr multivitamin 1 tab PO QAM 05/28/22 09/09/22 digoxin 125 mcg (0.125 mg) tablet 125 mcg PO DAILY 06/23/22 09/09/22 gabapentin 400 mg capsule 400 mg PO DAILY 06/23/22 09/09/22 acetaminophen 500 mg capsule 500 mg PO HS 09/09/22 09/09/22 diphenhydramine 25 1 tab PO HS 09/09/22 09/09/22 mg-acetaminophen 500 mg tablet (Tylenol PM Extra Strength) docusate sodium 100 mg capsule 100 mg PO DAILY 09/09/22 09/09/22 (Colace) furosemide 40 mg tablet 40 mg PO DAILY 09/09/22 09/09/22 Results & Data (ED) Vital Signs Vital Signs - 24 hr 09/09/22 20:37 09/09/22 20:59 09/09/22 21:28 Temperature 36.7 C Temperature Source Temporal Artery Scan Pulse Rate 89 Respiratory Rate 18 Respiratory Effort / Characteristics Non-Labored Spontaneous Respiratory Depth Normal Blood Pressure 72/45 L Blood Pressure [Left Arm] 81/55 L Blood Pressure Mean 54 Blood Pressure Mean [Left Arm] 63 Pulse Oximetry 93 Oxygen Delivery Method Nasal Cannula Oxygen Flow Rate 0 Sepsis Recent Fever Within 48 Hours No Sepsis New/Unexplained Change in Mental Status No Sepsis Action Taken by Nursing No Action Required Oxygen Flow Rate - Titration 2 Pulse Oximetry Post Tiitration 94 Home Medications Current Medication List: was personally reviewed by me Laboratory Data Attestation: I reviewed the patient's lab results. 09/09/22 20:54 09/09/22 20:54 Lab Results 09/09/22 09/09/22 09/09/22 Range/Units 20:48 20:54 20:54 WBC 10.68 (4.8-10.8) K/ul RBC 5.39 (4.70-6.10) M/uL Hgb 15.1 (14.0-18.0) g/dl Hct 47.2 (42.0-52.0) % MCV 87.6 (80.0-100.0) fL MCH 28.0 (25.0-34.0) pg MCHC 32.0 (32.0-36.0) g/dL RDW Std Deviation 46.6 H (36.4-46.3) fL RDW Coeff of Lizandro 14.6 H (11.5-14.5) % Plt Count 203 (130-400) K/uL MPV 10.7 (9.4-12.4) fL PT (9.0-12.0) Seconds INR (0.9-1.1) APTT (21.0-31.0) Seconds PTT Ratio Sodium (136-145) mmol/L Potassium (3.5-5.1) mmol/L Chloride (98-107) mmol/L Carbon Dioxide (21-32) mmol/L Anion Gap (3-11) BUN (6-23) mg/dl Creatinine (0.6-1.4) mg/dl Est Cr Clr Drug Dosing ml/min Est GFR ( Amer) ml/min Est GFR (Non-Af Amer) ml/min BUN/Creatinine Ratio (10-20) Glucose (70-99(Fasting)) mg/dl Lactate (0.4-2.0) mmol/L Calcium (8.6-10.3) mg/dl Magnesium (1.7-2.4) mg/dl Total Bilirubin (0.2-1.0) mg/dl AST (13-39) U/L ALT (7-52) U/L Alkaline Phosphatase (34-104) U/L Troponin I High Sens (0-20) pg/ml Total Protein (6.0-8.3) gm/dl Albumin (3.4-5.0) gm/dl Globulin (2.5-4.0) gm/dl Albumin/Globulin Ratio (0.9-2) Urine Color [place] Urine Appearance Cloudy A (Clear) Urine pH 5.5 (4.5-7.5) Ur Specific [place] 1.025 (1.000-1.030) Urine Protein 3+ H (Negative) Urine Glucose (UA) Negative (Negative) Urine Ketones Trace H (Negative) Urine Blood 3+ H (Negative) Urine Nitrite Negative (Negative) Urine Bilirubin Negative (Negative) Urine Urobilinogen Negative (Negative) Ur Leukocyte Esterase 1+ H (Negative) Urine WBC (Auto) 5-10 H (0-5) /hpf Urine RBC (Auto) >30 H (0-4) /hpf U Hyaline Cast (Auto) 0 (0-5) /lpf U Epithel Cells (Auto) 20-30 H (0-5) /lpf Urine Bacteria (Auto) Negative (Negative) Blood Type O Positive Antibody Screen NEGATIVE 09/09/22 09/09/22 09/09/22 Range/Units 20:54 20:54 22:49 WBC (4.8-10.8) K/ul RBC (4.70-6.10) M/uL Hgb (14.0-18.0) g/dl Hct (42.0-52.0) % MCV (80.0-100.0) fL MCH (25.0-34.0) pg MCHC (32.0-36.0) g/dL RDW Std Deviation (36.4-46.3) fL RDW Coeff of Lizandro (11.5-14.5) % Plt Count (130-400) K/uL MPV (9.4-12.4) fL PT 29.4 H (9.0-12.0) Seconds INR 2.9 H (0.9-1.1) APTT 39.6 H (21.0-31.0) Seconds PTT Ratio 1.4 Sodium 142 (136-145) mmol/L Potassium 4.1 (3.5-5.1) mmol/L Chloride 105 (98-107) mmol/L Carbon Dioxide 32 (21-32) mmol/L Anion Gap 5 (3-11) BUN 17 (6-23) mg/dl Creatinine 1.04 (0.6-1.4) mg/dl Est Cr Clr Drug Dosing 81.9 ml/min Est GFR ( Amer) 80.5 ml/min Est GFR (Non-Af Amer) 69.4 ml/min BUN/Creatinine Ratio 16.3 (10-20) Glucose 122 H (70-99(Fasting)) mg/dl Lactate 1.2 (0.4-2.0) mmol/L Calcium 9.3 (8.6-10.3) mg/dl Magnesium 2.0 (1.7-2.4) mg/dl Total Bilirubin 0.5 (0.2-1.0) mg/dl AST 20 (13-39) U/L ALT 15 (7-52) U/L Alkaline Phosphatase 95 (34-104) U/L Troponin I High Sens 5.7 (0-20) pg/ml Total Protein 6.6 (6.0-8.3) gm/dl Albumin 3.7 (3.4-5.0) gm/dl Globulin 2.9 (2.5-4.0) gm/dl Albumin/Globulin Ratio 1.3 (0.9-2) Urine Color Urine Appearance (Clear) Urine pH (4.5-7.5) Ur Specific [place] (1.000-1.030) Urine Protein (Negative) Urine Glucose (UA) (Negative) Urine Ketones (Negative) Urine Blood (Negative) Urine Nitrite (Negative) Urine Bilirubin (Negative) Urine Urobilinogen (Negative) Ur Leukocyte Esterase (Negative) Urine WBC (Auto) (0-5) /hpf Urine RBC (Auto) (0-4) /hpf U Hyaline Cast (Auto) (0-5) /lpf U Epithel Cells (Auto) (0-5) /lpf Urine Bacteria (Auto) (Negative) Blood Type Antibody Screen Administered Medications Discontinued Medications Sodium Chloride (Nss) 500 mls @ 999 mls/hr IV .Q31M STA Stop: 09/09/22 21:23 Last Admin: 09/09/22 20:59 Dose: 999 mls/hr Documented By: ML Sodium Chloride (Nss 1000ml) 500 mls @ 999 mls/hr IV .Q31M ONE Stop: 09/09/22 21:52 Last Admin: 09/09/22 21:27 Dose: 999 mls/hr Documented By: АЛЕКСАНДР Cefepime HCl (Maxipime) 2,000 mg in 20 mls @ 5 mls/min IV NOW STA; Protocol Stop: 09/09/22 21:36 Last Admin: 09/09/22 23:00 Dose: 5 mls/min Documented By: АЛЕКСАНДР Imaging Data Attestation: I personally reviewed and interpreted this imaging study as follows: My Impression: Chest x-ray: Per my review, there is a small to moderate size right pleural effusion, no pneumonia or CHF. Radiologist's Impression: Abdomen/Pelvis CT 09/09/22 21:21 Exam(s): CT ABDOMEN + PELVIS Without Contrast EXAM: CT Abdomen and Pelvis Without Intravenous Contrast CLINICAL HISTORY: Reason for exam: poss urinary obstruc. TECHNIQUE: Axial computed tomography images of the abdomen and pelvis without intravenous contrast. Automated exposure control was utilized for the study. A dose lowering technique was utilized adhering to the principles of ALARA. COMPARISON: No relevant prior studies available. FINDINGS: Lung bases: Unremarkable. No mass. No consolidation. Pleural space: Moderate RIGHT pleural effusion. ABDOMEN: Liver: Unremarkable. Gallbladder and bile ducts: Contracted gallbladder. No calcified stones. No ductal dilation. Pancreas: Unremarkable. No ductal dilation. Spleen: Unremarkable. No splenomegaly. Adrenals: Unremarkable. No mass. Kidneys and ureters: No hydronephrosis. Nonobstructing 5 mm, 3 mm, 2 mm, and 2 mm renal calculi in the RIGHT kidney. RIGHT lower pole renal cyst measures 3.9 cm. Stomach and bowel: Unremarkable. No acute diverticulitis. No small bowel obstruction. No free air. PELVIS: Appendix: No findings to suggest acute appendicitis. Bladder: Mckee catheter terminates in the decompressed urinary bladder which demonstrates mild wall thickening. The need for urinalysis should be determined clinically. No stones. Reproductive: Enlarged prostate gland measures 5.6 cm medial-lateral. ABDOMEN and PELVIS: Intraperitoneal space: See above. Bones/joints: Degenerative changes of the spine. LEFT hip arthroplasty. No acute fracture. No dislocation. Soft tissues: Unremarkable. Vasculature: Atherosclerotic changes of the aorta. No abdominal aortic aneurysm. Lymph nodes: Unremarkable. No enlarged lymph nodes. IMPRESSION: 1. No acute diverticulitis. No small bowel obstruction. No free air. 2. Mckee catheter terminates in the decompressed urinary bladder which demonstrates mild wall thickening. The need for urinalysis should be determined clinically. 3. Moderate RIGHT pleural effusion. 4. No hydronephrosis. Nonobstructing 5 mm, 3 mm, 2 mm, and 2 mm renal calculi in the RIGHT kidney. Electronically signed by: Power Bonds MD 09/09/22 23:15 PM Discharge Plan Visit Data Chief Complaint: Hematuria Stated Complaint: HEMATURIA ED Provider: Marito Freire Discharge Problem: Hypotension, Acute urinary retention, Hematuria, Coagulopathy Patient Disposition: Admitted As Inpatient Condition: Fair Forms Stand Alone Forms: My [facility] Prescriptions Prescriptions: No Action warfarin 10 mg Tablet 5 - 10 mg PO DIRECTED Rx Instructions: DIRECTED BY [facility] sildenafil 100 mg Tablet 100 mg PO QAM PRN (Reason: Erectile Dysfunction) atorvastatin 40 mg tablet 40 mg PO QAM multivitamin Tablet 1 tab PO QAM aspirin 81 mg Capsule 81 mg PO QAM metoprolol succinate 100 mg tablet extended release 24 hr 100 mg PO QAM lisinopril 2.5 mg tablet 2.5 mg PO QAM digoxin 125 mcg (0.125 mg) tablet 125 mcg PO DAILY gabapentin 400 mg capsule 400 mg PO DAILY docusate sodium [Colace] 100 mg Capsule 100 mg PO DAILY diphenhydramine-acetaminophen [Tylenol PM Extra Strength] 25-500 mg Tablet 1 tab PO HS Rx Instructions: Takes with one ES TYLENOL QHS furosemide 40 mg tablet 40 mg PO DAILY acetaminophen 500 mg capsule 500 mg PO HS Rx Instructions: Takes with 1 Tylenol pm QHS Referrals Referrals: Ej Baumann MD [Primary Care Provider] -
[2022-09-09 21:37] LABS: Appearance Urine Cloudy (Clear); Bacteria Urine Automated Negative (Negative); Bilirubin Urine Negative (Negative); Blood Urine 3+ (Negative); Color Urine Orange; Epithelial Cell Urine Auto 20-30 /lpf (0-5); Glucose Urine UA Negative (Negative); Ketones Urine Trace (Negative); Leukocyte Esterase Urine 1+ (Negative); Nitrite Urine Negative (Negative); Protein Urine 3+ (Negative); RBC Urine Automated >30 /hpf (0-4); Specific Gravity Urine 1.025 (1.000-1.030); Urobilinogen Urine Negative (Negative); pH Urine 5.5 (4.5-7.5)
[2022-09-09 21:41] LABS: Albumin Globulin Ratio 1.3 (0.9-2); Albumin Level 3.7 gm/dl (3.4-5.0); BUN Creatinine Ratio 16.3 (10-20); Bilirubin,Total 0.5 mg/dl (0.2-1.0); Calcium 9.3 mg/dl (8.6-10.3); Creatinine Clr Calc Pharmacy 81.9 ml/min; Est GFR (African American) 80.5 ml/min; Est GFR (Non-African American) 69.4 ml/min; Globulin 2.9 gm/dl (2.5-4.0); Potassium 4.1 mmol/L (3.5-5.1); Total Protein 6.6 gm/dl (6.0-8.3)
[2022-09-09 21:47] LABS: Troponin I High Sensitivity 5.7 pg/ml (0-20)
[2022-09-09 21:52] LABS: Cast Urine Automated 0 /lpf (0-5)
[2022-09-09 21:57] LABS: INR 2.9 (0.9-1.1); Partial Thromboplastin Ratio 1.4; Partial Thromboplastin Time 39.6 Seconds (21.0-31.0); Prothrombin Time 29.4 Seconds (9.0-12.0)
[2022-09-09] MEDS ORDERED: PHYTONADIONE 5 MG in DEXTROSE 5% 50 ML IV ONE (22:59)
--- NOTE | 2022-09-09 23:15 | CT Scan Report ---
Exam(s): CT ABDOMEN + PELVIS Without Contrast EXAM: CT Abdomen and Pelvis Without Intravenous Contrast CLINICAL HISTORY: Reason for exam: poss urinary obstruc. TECHNIQUE: Axial computed tomography images of the abdomen and pelvis without intravenous contrast. Automated exposure control was utilized for the study. A dose lowering technique was utilized adhering to the principles of ALARA. COMPARISON: No relevant prior studies available. FINDINGS: Lung bases: Unremarkable. No mass. No consolidation. Pleural space: Moderate RIGHT pleural effusion. ABDOMEN: Liver: Unremarkable. Gallbladder and bile ducts: Contracted gallbladder. No calcified stones. No ductal dilation. Pancreas: Unremarkable. No ductal dilation. Spleen: Unremarkable. No splenomegaly. Adrenals: Unremarkable. No mass. Kidneys and ureters: No hydronephrosis. Nonobstructing 5 mm, 3 mm, 2 mm, and 2 mm renal calculi in the RIGHT kidney. RIGHT lower pole renal cyst measures 3.9 cm. Stomach and bowel: Unremarkable. No acute diverticulitis. No small bowel obstruction. No free air. PELVIS: Appendix: No findings to suggest acute appendicitis. Bladder: Mckee catheter terminates in the decompressed urinary bladder which demonstrates mild wall thickening. The need for urinalysis should be determined clinically. No stones. Reproductive: Enlarged prostate gland measures 5.6 cm medial-lateral. ABDOMEN and PELVIS: Intraperitoneal space: See above. Bones/joints: Degenerative changes of the spine. LEFT hip arthroplasty. No acute fracture. No dislocation. Soft tissues: Unremarkable. Vasculature: Atherosclerotic changes of the aorta. No abdominal aortic aneurysm. Lymph nodes: Unremarkable. No enlarged lymph nodes. IMPRESSION: 1. No acute diverticulitis. No small bowel obstruction. No free air. 2. Mckee catheter terminates in the decompressed urinary bladder which demonstrates mild wall thickening. The need for urinalysis should be determined clinically. 3. Moderate RIGHT pleural effusion. 4. No hydronephrosis. Nonobstructing 5 mm, 3 mm, 2 mm, and 2 mm renal calculi in the RIGHT kidney. Electronically signed by: Power Bonds MD 09/09/22 23:15 PM
[2022-09-10] MEDS ORDERED: LORazepam 0.5 MG TAB PO STA (00:20)
[2022-09-10] MEDS ORDERED: POLYETHYLENE (MIRALAX) 17 GM PACK PO PRN (02:16)
[2022-09-10] MEDS ORDERED: NITROGLYCERIN SL 0.4 MG/TAB TAB SL PRN (02:16)
[2022-09-10] MEDS ORDERED: SODIUM CHLORIDE 0.9% 1000ML 1,000 ML IV SCH (02:16)
[2022-09-10] MEDS ORDERED: ACETAMINOPHEN 325 MG TAB PO PRN (02:16)
--- NOTE | 2022-09-10 05:24 | History and Physical Report ---
DATE OF ADMISSION: 09/10/2022. CHIEF COMPLAINT: Hematuria. HISTORY OF PRESENT ILLNESS: This is a 77-year-old male with past medical history significant for hyperlipidemia, obstructive sleep apnea, chronic tobacco mucositis, atrial fibrillation, chronic diastolic CHF, venous insufficiency, postherpetic polyneuropathy, tobacco use disorder, presents with hematuria. The patient was in the ER in the morning with urinary retention, was placed on Mckee catheter and sent home. After going home, he started to develop hematuria. That is the reason he came back here. His INR is 2.9, received IV vitamin K in the ER. His hemoglobin is stable. Possible UTI. The patient denies any abdominal pain. Normal bowel movements. No chest pain, no shortness of breath, no nausea, no headache, no blurred visions. He has some runny nose. Has smoker's cough. Eating and drinking okay. No difficulty swallowing. Currently, blood pressure is somewhat soft. The patient was having pleural effusion, he was admitted in May, initially declined thoracocentesis but later agreed and seemed to be done as an outpatient recently as per patient..Says shortness of breath is slightly better after thoracocentesis . Also in may admission he was treated for acute diastolic CHF . Had echocardiogram done on 09/06/2022 showed small complex anterior loculated pericardial effusion, EF is 55-59%. ALLERGIES: No known drug allergies. PAST MEDICAL HISTORY: As mentioned above. PAST SURGICAL HISTORY: Colonoscopy. MEDICATIONS: The patient is on Tylenol 500 mg p.o. at bedtime, aspirin 81 mg p.o. a.m., atorvastatin 40 mg p.o. a.m., levothyroxine 125 mcg p.o. daily, Tylenol PM Extra Strength 1 tablet p.o. at bedtime, Colace 100 mg p.o. daily, Lasix 40 mg p.o. daily, gabapentin 400 mg p.o. daily, lisinopril 2.5 mg p.o. a.m., metoprolol succinate 100 mg p.o. daily, multivitamin 1 tablet p.o. daily, warfarin 5-10 mg as directed. FAMILY HISTORY: Father had prostate cancer and [place]. SOCIAL HISTORY: . Smokes 1 pack a day, for the last 43 years. Alcohol, drinks one shot of alcohol 3 times a week. No drug use. REVIEW OF SYSTEMS: As per HPI. Rest of review of systems is negative. PHYSICAL EXAMINATION: GENERAL: The patient is of moderate build, not in acute distress. VITAL SIGNS: Temperature 36.7, pulse 87, respiratory rate 24, blood pressure 80/48, oxygen 95%. HEENT: Pupils equal, round and reactive to light. Oral mucosa moist. NECK: No JVD, no neck masses. CARDIOVASCULAR: S1 and S2 heard. Regular rate and rhythm. No murmur, no gallop. RESPIRATORY SYSTEM: Normal AP diameter. No accessory muscle use. No wheezing or crackles. ABDOMEN: Soft, bowel sounds present, nontender, no distention. CENTRAL NERVOUS SYSTEM: Cranial nerves II-XII grossly intact, nonfocal. EXTREMITIES: No edema, no erythema. LABORATORY DATA: WBC 10.6, hemoglobin 15.1, hematocrit 47.2, platelets 203. PT 29.4, INR 2.9. Sodium 142, potassium 4.1, chloride 105, bicarbonate 32, BUN 17, creatinine 1, serum glucose 122. Lactate 1.2, calcium 9.8, magnesium 2, total bilirubin 0.5, AST 20, ALT 15, alkaline phosphatase 95. Troponin high sensitivity 5.7. Urinalysis, +1 leukocyte esterase. SARS-CoV-2 rapid test negative. IMAGING DATA: Chest x-ray, possible mild right pleural effusion. CT abdomen and pelvis without contrast shows no moderate right pleural effusion. No hydronephrosis, nonobstructing right renal calculi. EKG: Atrial fibrillation at a rate of 84, incomplete right bundle-branch block. ASSESSMENT AND PLAN: This is a 77-year-old male who presents with hematuria. 1. Hematuria. In the morning, he was in the ER with urinary retention, catheter was placed, now presented with hematuria. Hemoglobin is stable at 15.1. Blood consent obtained. We will follow H and H q.6 hours. INR is 2.9. Received IV vitamin K 5 mg in the ER, holding Coumadin and aspirin. We will keep him n.p.o., gentle fluids. Consult Urology in the a.m.Follow pt/inr 2. History of obstructive sleep apnea. Seems not using CPAP. 3. History of CAD. Cardiac catheterization in 2019 showed moderate diffuse single vessel obstructive disease, medically managed. Holding aspirin as above. Continue statin and metoprolol succinate with holding parameters. 4. Atrial fibrillation. Rate controlled with metoprolol, which will be given with holding parameters. Continue digoxin. Holding Coumadin for above. 5. Hypotension. History of hypotension in the past. Blood pressure is soft. Getting gentle fluids. We will monitor blood pressure. Blood pressure medication with holding parameters, holding lisinopril for now. 6. History of chronic diastolic congestive heart failure. Continue metoprolol with holding parameters and Lasix with holding parameters. Getting gentle fluids, monitor for any volume overload. 7. Tobacco abuse. Needs counseling. 8. UTI on cefepime. will follow cultures. 9. Deep venous thrombosis prophylaxis: SCDs for now. DISPOSITION: Closely monitor in tele floor. Level 1 full code. Expect to discharge home and follow with family doctor. Job ID: [id number] [facility] HOSPITALBrittani
[2022-09-10 06:10] LABS: Basophils # (auto) 0.03 K/uL (0-0.2); Basophils % (auto) 0.2 %; Eosinophils # (auto) 0.12 K/uL (0-0.50); Hematocrit (blood only) 44.5 % (42.0-52.0); Immature Granulocytes # (auto) 0.05 K/uL (0.01-0.20); Immature Granulocytes % (auto) 0.4 %; Lymphocytes # (auto) 0.63 K/uL (1.2-3.4); Lymphocytes % (auto) 5.2 %; Mean Corpuscular Hemoglobin 28.1 pg (25.0-34.0); Mean Corpuscular Hgb Conc 31.5 g/dL (32.0-36.0); Mean Corpuscular Volume 89.2 fL (80.0-100.0); Mean Platelet Volume 10.7 fL (9.4-12.4); Monocytes % (auto) 8.2 %; Neutrophils # (auto) 10.38 K/uL (1.40-6.50); Platelet Count 150 K/uL (130-400); RDW Coefficient of Variation 14.6 % (11.5-14.5); RDW Standard Deviation 47.8 fL (36.4-46.3); Red Blood Count 4.99 M/uL (4.70-6.10); White Blood Count 12.21 K/ul (4.8-10.8)
[2022-09-10 06:25] LABS: BUN Creatinine Ratio 17.4 (10-20); Calcium 8.6 mg/dl (8.6-10.3); Creatinine Clr Calc Pharmacy 92.7 ml/min; Est GFR (African American) 93.3 ml/min; Est GFR (Non-African American) 80.5 ml/min; Potassium 4.5 mmol/L (3.5-5.1)
[2022-09-10 06:34] LABS: INR 1.9 (0.9-1.1); Prothrombin Time 19.7 Seconds (9.0-12.0)
--- NOTE | 2022-09-10 06:56 | XRay Report ---
XR chest 1V portable CLINICAL HISTORY: Weakness. COMPARISON STUDY: Chest CT June 21, 2022. Chest radiograph September 09, 2022 at 1:57 PM. FINDINGS: There is no pneumothorax. Small to moderate right pleural effusion. Slightly increased in s ize since prior exam. There is associated right basilar opacity. Cardiomegaly is unchanged. No eviden ce for pulmonary edema. IMPRESSION: 1. Small to moderate right pleural effusion. 2. Cardiomegaly without evidence for pulmonary edema. ACT 112: Negative or not required by law. Electronically signed by: Isaiah Morin M.D. 09/10/2022 6:54 AM
[2022-09-10] MEDS ORDERED: METOPROLOL SUCC 50MG EXT REL TAB PO SCH (09:00)
[2022-09-10] MEDS ORDERED: FUROSEMIDE 40 MG TAB PO SCH (09:00)
[2022-09-10] MEDS ORDERED: GABAPENTIN 400 MG CAP PO SCH (09:00)
[2022-09-10] MEDS ORDERED: ATORVASTATIN 40 MG TAB PO SCH (09:00)
[2022-09-10] MEDS ORDERED: CEFEPIME 2,000 MG in SYRINGE 0 ML IV SCH (09:00)
[2022-09-10] MEDS ORDERED: DOCUSATE SODIUM 100 MG CAP PO SCH (09:00)
[2022-09-10] MEDS ORDERED: MULTIVITAMIN TAB PO SCH (09:00)
[2022-09-10] MEDS ORDERED: DIGOXIN 0.125 MG TAB PO SCH (09:00)
[2022-09-10] MEDS ORDERED: SODIUM CHLORIDE 0.9% 1000ML 1,000 ML IV ONE (09:15)
--- NOTE | 2022-09-10 10:40 | Urology Consultation ---
Date of Consultation September 10, 2022 Assessment & Plan (1) Acute urinary retention: (2) Hematuria: Plan 77yo/M admitted with urinary retention, hematuria, hypotension. Urology consulted for gross hematuria. -Afebrile, hypotensive. -Labs show leukocytosis of 12.21, hemoglobin 13, creatinine 0.92. Continue to trend. -UA yesterday with blood, repeat negative. No urine culture pending. -Blood cultures pending. On IV Cefepime. -CT abd pelvis reviewed- No hydronephrosis, nonobstructing right renal stones, bladder decompressed with Mckee catheter. -Hematuria appears to have cleared- Mckee currently draining clear yellow urine. -Hematuria was likely secondary to catheter trauma, bladder distention, possible UTI in the setting of chronic anticoagulation. -No plan for intervention. -Recommend maintaining the Mckee catheter for at least 1 week to allow for bladder rest/decompression. Will arrange outpatient voiding trial. -Continue supportive care and antibiotic therapy. -Follow cultures and tailor as culture data becomes available. -Anticoagulation per primary team. -Discussed with hospital team. -Urology will follow peripherally. Please contact us with any further questions, concerns, or changes in patient status. History of Present Illness Attending Physician: Jennifer Caba MD History of Present Illness 77 year old male with a past medical history significant for hyperlipidemia, obstructive sleep apnea, atrial fibrillation, chronic diastolic CHF, venous insufficiency, postherpetic polyneuropathy, tobacco use disorder admitted with gross hematuria and suspected UTI. Patient was initially seen in the ED yesterday morning with urinary retention and a Mckee catheter was placed and he was discharged home. Patient returned to the ED that evening due to gross hematuria and weakness at home. He is on Coumadin. On arrival, he was afebrile and hypotensive. Labs show no leukocytosis or concerns of anemia. Normal renal function. Urinalysis demonstrated hematuria, no obvious signs of infection. Patient received IV saline, 1 L in total. He was given IV cefepime as empiric antibiotic coverage. He was given 5 mg of IV vitamin K to reverse the INR. He was admitted to medicine for further management and monitoring. CT abdomen pelvis - 1. No acute diverticulitis. No small bowel obstruction. No free air. 2. Mckee catheter terminates in the decompressed urinary bladder which demonstrates mild wall thickening.The need for urinalysis should be determined clinically. 3. Moderate RIGHT pleural effusion. 4. No hydronephrosis. Nonobstructing 5 mm, 3 mm, 2 mm, and 2 mm renal calculi in the RIGHT kidney. Patient examined at bedside this AM. Awake, resting in bed on arrival. No acute distress. Mckee catheter intact, draining clear yellow urine. He denies abdominal, flank, back pain. Denies fevers, chills, nausea, vomiting. He denies prior episodes of gross hematuria. Denies bothersome urinary symptoms at baseline. Denies prior urological history. Has never seen a urologist. Per chart review - Father had prostate ca Hx of tobacco use. Allergies Allergy/AdvReac Type Severity Reaction Status Date / Time No Known Allergies Allergy Unknown Verified 09/09/22 23:14 Home Medications Medication Instructions Recorded Confirmed Type sildenafil 100 mg tablet 100 mg PO QAM PRN Erectile 02/11/19 09/09/22 History Dysfunction warfarin 10 mg tablet 5 - 10 mg PO DIRECTED 02/11/19 09/09/22 History atorvastatin 40 mg tablet 40 mg PO QAM 08/13/21 09/09/22 History aspirin 81 mg capsule 81 mg PO QAM 05/28/22 09/09/22 History lisinopril 2.5 mg tablet 2.5 mg PO QAM 05/28/22 09/09/22 History metoprolol succinate 100 mg 100 mg PO QAM 05/28/22 09/09/22 History tablet,extended release 24 hr multivitamin 1 tab PO QAM 05/28/22 09/09/22 History digoxin 125 mcg (0.125 mg) tablet 125 mcg PO DAILY 06/23/22 09/09/22 History gabapentin 400 mg capsule 400 mg PO DAILY 06/23/22 09/09/22 History acetaminophen 500 mg capsule 500 mg PO HS 09/09/22 09/09/22 History diphenhydramine 25 1 tab PO HS 09/09/22 09/09/22 History mg-acetaminophen 500 mg tablet (Tylenol PM Extra Strength) docusate sodium 100 mg capsule 100 mg PO DAILY 09/09/22 09/09/22 History (Colace) furosemide 40 mg tablet 40 mg PO DAILY 09/09/22 09/09/22 History cefdinir 300 mg capsule 300 mg PO BID 5 days #10 caps 09/10/22 Rx Patient History Medical History Atrial fibrillation on warfarin. CAD (coronary artery disease) Moderate diffuse coronary atherosclerosis with single-vessel obstructive disease. The left circumflex is diffusely diseased with subtotal occlusion in its mid and distal portions with filling via left to left and bridge collateral. CHF (congestive heart failure) EF 60-65% Encounter for pre-operative examination Enlargement of aortic root GERD (gastroesophageal reflux disease) pt experiences sensation of heartburn, regurgitation and occasional coughing/choking at night History of atrial flutter History of gout HLD (hyperlipidemia) NIKOLAI (hard of hearing) Lumbar spondylosis On anticoagulant therapy HIRAM (obstructive sleep apnea) listed above. pt unsure. no device; sleeps upright Spinal stenosis Surgical History History of arthroscopy of left knee History of cardiac cath History of cardiac radiofrequency ablation Hx of colonoscopy S/P total hip arthroplasty Family History Other No family history of adverse response to anesthesia Social History Smoking Status: Current every day smoker Tobacco Type: E-cigarettes / Vaping Age Started Using Tobacco: 10; Age Quit Using Tobacco: 70; packs per day: 1; Second Hand Exposure: No; Do You Dip or Chew Tobacco: No; Hx Alcohol Use: Yes Alcohol type: hard liquor Hx Substance Use: No Preferred Language: Sami Communication Ability: Effective 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: No Beliefs That Will Affect Care: None Current Living Situation: Spouse Feels Safe at Home: Yes Safety Concerns: Feels Safe At This Time Assistive Devices: Walker Review of Systems Review of Systems: All systems reviewed & are unremarkable except as noted in HPI & below Physical Exam Constitutional: no acute distress Neck: normal visual inspection Respiratory: no respiratory distress and no labored breathing Gastrointestinal (Abdomen): Inspection/Auscultation: abdomen normal to inspection Musculoskeletal: Head/Neck/Chest: normocephalic Skin: No visible rashes or lesions to exposed skin areas Neurologic: moves all extremities and awake Psychiatric: A+Ox3, euthymic affect Genitourinary: Mckee catheter intact Results & Data Vital Signs (Past 12 Hours) Vital Signs Temp Pulse Pulse Resp BP BP Pulse Ox 09/10/22 08:39 82 09/10/22 08:15 36.4 C L 82 18 83/55 L 96 09/10/22 07:37 09/10/22 07:12 79 09/10/22 02:33 96 H 09/10/22 02:30 09/10/22 02:29 36.8 C 97 H 16 104/70 93 09/10/22 01:30 90 22 107/84 94 09/10/22 00:31 87 24 80/48 L 95 09/10/22 00:00 20 78/48 L 94 O2 Del Method O2 Flow Rate 09/10/22 08:39 09/10/22 08:15 Room Air 09/10/22 07:37 Room Air 09/10/22 07:12 09/10/22 02:33 09/10/22 02:30 Nasal Cannula 2 09/10/22 02:29 Room Air 09/10/22 01:30 09/10/22 00:31 09/10/22 00:00 PG Care Time/CCT Total # of Minutes Spent Total Time Spent with Patient: Total time spent is greater than 50% in coordination of care (as documented) at patient's floor/unit and/or counseling patient: Coding Level of Care Code 14183 INT INP/OBS CARE 2/55MIN Diagnoses Acute urinary retention R33.8 Hematuria R31.0 Hematuria type: gross (2) Hematuria Hematuria type: gross Qualified Code(s): R31.0 - Gross hematuria
[2022-09-10 12:07] LABS: Hematocrit (blood only) 42.4 % (42.0-52.0)
--- NOTE | 2022-09-10 13:32 | Discharge Summary ---
Date of Service September 10, 2022 Admission HPI Per Admitting Provider 77-year-old male with past medical history significant for hyperlipidemia, obstructive sleep apnea, chronic tobacco mucositis, atrial fibrillation, chronic diastolic CHF, venous insufficiency, postherpetic polyneuropathy, tobacco use disorder, presents with hematuria. The patient was in the ER in the morning with urinary retention, was placed on Guillory catheter and sent home. After going home, he started to develop hematuria. That is the reason he came back here. His INR is 2.9, received IV vitamin K in the ER. His hemoglobin is stable. Possible UTI. The patient denies any abdominal pain. Normal bowel movements. No chest pain, no shortness of breath, no nausea, no headache, no blurred visions. He has some runny nose. Has smoker's cough. Eating and drinking okay. No difficulty swallowing. Currently, blood pressure is somewhat soft. The patient was having pleural effusion, he was admitted in May, initially declined thoracocentesis but later agreed and seemed to be done as an outpatient recently as per patient..Says shortness of breath is slightly better after thoracocentesis . Also in may admission he was treated for acute diastolic CHF . Had echocardiogram done on 09/06/2022 showed small complex anterior loculated pericardial effusion, EF is 55-59%. Admission Exam Per Admitting Provider GENERAL: The patient is of moderate build, not in acute distress. VITAL SIGNS: Temperature 36.7, pulse 87, respiratory rate 24, blood pressure 80/48, oxygen 95%. HEENT: Pupils equal, round and reactive to light. Oral mucosa moist. NECK: No JVD, no neck masses. CARDIOVASCULAR: S1 and S2 heard. Regular rate and rhythm. No murmur, no gallop. RESPIRATORY SYSTEM: Normal AP diameter. No accessory muscle use. No wheezing or crackles. ABDOMEN: Soft, bowel sounds present, nontender, no distention. CENTRAL NERVOUS SYSTEM: Cranial nerves II-XII grossly intact, nonfocal. EXTREMITIES: No edema, no erythema. Principal Diagnosis Hematuria Discharge Exam Constitutional + well hydrated and + obese; no acute distress Eyes PERRL, conjunctivae normal, anicteric sclerae ENMT external ear and nose normal, oropharynx normal Respiratory normal respiratory effort, lungs clear to auscultation Cardiovascular Rate/Rhythm: + irregularly irregular S1 S2 Gastrointestinal (Abdomen) normal bowel sounds, soft, nontender, no hepatosplenomegaly Musculoskeletal No pedal edema Neurologic PERRL, EOMI, accommodation nl, no face palsy, no dysarthria Genitourinary Guillory in situ with yellowish urine Discharge Data Allergies Allergy/AdvReac Type Severity Reaction Status Date / Time No Known Allergies Allergy Unknown Verified 09/09/22 23:14 Consultations 09/09/22 23:13 ED Decision to Admit Stat 09/10/22 08:00 Consult Urology Routine Ordered Studies 09/09/22 21:21 CT abd pelvis wo con Stat Hospital Course (1) Hematuria: (2) Acute urinary retention: (3) Atrial fibrillation: (4) Hypotension: Plan Patient had presented to ER for urinary retention earlier, guillory was placed and he was to follow up with Urology outpatient. Developed hematuria some hours later and returned to ER. Patient takes warfarin for Afib. INR was 2.9. He got Vit K in ER and hematuria resolved. He was started empirically on antibiotics. UA during hematuria and after does not suggest UTI. However, Urology team who evaluated today recommend discharging on po antibiotics. Patient discharged on po cefdinir Hematuria likely due to catheter trauma in a patient on anticoagulation Patient is to follow up with Urology next week. Patient to continue his warfarin Educated on home catheter management Patient has hypotension. Review of chart noted this is chronic. As patient had recent Echo that noted some pericardial effusion, I discussed with Ultrasound Manager and a limited Echo was obtained which did not show any tamponade. Patient is to continue his home med including lasix and to follow up with Cardiology and family doctor Total Time Total Time Spent Total Time Spent (In Minutes): 50 Total Time Includes: Examination of the Patient, Discharge Planning, Medication Reconciliation and Communication With Other Providers Discharge Plan Discharge Items Patient Disposition: Home - Self-Care Reason For Visit: HEMATURIA Discharge Diagnosis: Hematuria Condition on Discharge: Fair Activity: Resume your previous activity Non-emergency contact: Primary Care Provider and Urologist Call non-emergency contact if: you have any medication questions and your symptoms worsen Follow-up/Referrals: Katie Wisdom CRNP [Nurse Practitioner] - (The Urology office will call you with an appointment.) Ej Baumann MD [Primary Care Provider] - (Date & Time 09/18/2022 1:20 PM Provider Ej Baumann MD Department [facility] ) Diet: Heart Healthy and Low Sodium (2gm) Addtl Attending Provider Instructions: Mr Baugh You came to the hospital complaining of bloody urine which has now resolved. You were evaluated by the Urologist who recommend keeping the guillory catheter until follow up with them in their office next week. You are being discharged on 5 days of antibiotics. Please continue your home medications including warfarin. Please ensure follow up with your Primary Doctor. It was a pleasure taking care of you. Pending Studies at Discharge: Yes Stand-Alone Forms: [facility] [employer], Smoking Cessation Medications and DC Order Prescriptions: New cefdinir 300 mg capsule 300 mg PO BID 5 Days Qty: 10 0RF Continued warfarin 10 mg Tablet 5 - 10 mg PO DIRECTED Rx Instructions: DIRECTED BY ANTICOAGULATION CLINIC sildenafil 100 mg Tablet 100 mg PO QAM PRN (Reason: Erectile Dysfunction) atorvastatin 40 mg tablet 40 mg PO QAM multivitamin Tablet 1 tab PO QAM aspirin 81 mg Capsule 81 mg PO QAM metoprolol succinate 100 mg tablet extended release 24 hr 100 mg PO QAM lisinopril 2.5 mg tablet 2.5 mg PO QAM digoxin 125 mcg (0.125 mg) tablet 125 mcg PO DAILY gabapentin 400 mg capsule 400 mg PO DAILY docusate sodium [Colace] 100 mg Capsule 100 mg PO DAILY diphenhydramine-acetaminophen [Tylenol PM Extra Strength] 25-500 mg Tablet 1 tab PO HS Rx Instructions: Takes with one ES TYLENOL QHS furosemide 40 mg tablet 40 mg PO DAILY acetaminophen 500 mg capsule 500 mg PO HS Rx Instructions: Takes with 1 Tylenol pm QHS Discharge Orders: Discharge Order (Routine); Ordered 09/10/22 Ordered By: Jennifer Caba Admission Data Admit Date/Time: 09/10/22 01:25 Attending Provider: Jennifer Caba I. Admit Provider: Shiraz Adame Primary Care Provider: Ej Baumann Other Providers: Shiraz Adame ; Zain Lovell ; Jamie Love ; Ken Montoya ; Katie Wisdom ; Sebastian Zapata ; Maryan Dumont ; Elham Combs ; Madhu Gallegos ; Judd Cronin ; Concepción Simpson ; Daniel Costello ; Armando Pyle. Other Interventions: Discharge Summary Assessment (RN) Last Done: 09/10/22 13:57
--- NOTE | 2022-09-10 16:40 | Electrocardiogram Report ---
Test Reason : Blood Pressure : / mmHG Vent. Rate : 084 BPM Atrial Rate : 000 BPM P-R Int : 000 ms QRS Dur : 096 ms QT Int : 378 ms P-R-T Axes : 000 074 057 degrees QTc Int : 446 ms Atrial fibrillation Incomplete right bundle branch block Abnormal ECG When compared with ECG of 23-JUN-2022 13:54, Nonspecific T wave abnormality now evident in Anterior leads Confirmed by Ken Evans ([id number] on 09/10/2022 4:40:03 PM Referred By: REFERRED SELF Confirmed By:Richard Evans
[2022-09-10] MEDS ORDERED: diphenhydrAMINE Capsule 25 MG CAP PO SCH (21:00)
[2022-09-10] MEDS ORDERED: NON-FORMULARY MEDICATION (Diphenhydramine-Acetaminophen [Tylenol Pm Extra Strength] 25-500 PO SCH (21:00)
[2022-09-10] MEDS ORDERED: ACETAMINOPHEN 500 MG TAB PO SCH ×2 (21:00)
== END 2022-09-10 15:31 | disposition home or self-care (01) ==
LOC: ED 20:30 → 4W 09-10 01:25 → SUATTDRO 09-10 01:25 → INTOOBSV 09-10 01:25 → 4W 09-10 01:57

== ENCOUNTER 2022-09-24 10:01 | Inpatient (IN) ==
--- NOTE | 2022-09-20 09:08 | Anesthesiology Consultation ---
Date of Service September 20, 2022 Assessment & Plan (1) Encounter for pre-operative examination: Plan - Case discussed in detail with Dr. España who advised patient does not need additional evaluation or testing from his standpoint prior to surgery as scheduled SDS at [facility]. To anesthesiologist discretion if repeat testing is needed DOS. - check coags STAT am DOS. - ER 09/15/22 [facility]: "...having retention...feeling much better after the Mckee catheter was placed. I did speak with Dr. Montoya of urology, who recommended patient can stop the Flomax and will need to follow-up next week..." - discharge summary 09/10/22 [facility]: "...Says shortness of breath is slightly better after thoracocentesis...Vit K in ER and hematuria resolved...was started empirically on antibiotics...Patient has hypotension. Review of chart noted this is chronic...recent Echo that noted some pericardial effusion, I discussed with [employer] Consultant and a limited Echo was obtained which did not show any tamponade. Patient is to continue his home med including lasix and to follow up with Cardiology..." - s/p thoracentesis 09/03/22, 1500 mL of yellow pleural fluid was removed per report. - pulmonology 08/29/22 [facility]: "...Right sided Pleural effusion Along with right lower lobe atelectasis which is likely secondary to heart failure. Patient is willing to undergo thoracentesis...will go ahead with thoracentesis once it is less than 1.7..." - cardiology 08/28/22 [facility]: "...acute on chronic diastolic heart failure...continue furosemide 40 mg daily...systolic BP is 98 mmHg and there I do not think there is room for additional titration of his diuretic...pleural effusion on right...already had a repeat chest x-ray with results as outlined above...agreeable to further discussion with regards to having a thor acentesis...refer him back to [facility] pulmonary medicine..." - COVID screening: Per confectionery cooker on 09/20/2022: Travel screen negative, no known COVID-19 positive contacts or current COVID-19 related symptoms in past 2 weeks. To surgeon's discretion if preop COVID testing is needed. Chart Review Chart Review: Acceptable Risk for Surgery and Patient NOT seen in Pre Admission Testing History Surgery Operation Date: 09/24/22 11:45 Proposed Procedures p TURP (Transurethral Resection of the Prostate) - Sebastian Zapata DO Height/Weight Height: 6 ft 1 in Weight: 115.666 kg Allergies Allergy/AdvReac Type Severity Reaction Status Date / Time No Known Allergies Allergy Unknown Verified 09/20/22 08:20 Medications Home Medications Medication Instructions Recorded Confirmed Last Taken sildenafil 100 mg tablet 100 mg PO QAM PRN Erectile 02/11/19 09/20/22 08/13/21 Dysfunction warfarin 10 mg tablet 5 - 10 mg PO DIRECTED 02/11/19 09/20/22 09/15/22 atorvastatin 40 mg tablet 40 mg PO QAM 08/13/21 09/20/22 09/15/22 aspirin 81 mg capsule 81 mg PO QAM 05/28/22 09/20/22 09/15/22 lisinopril 2.5 mg tablet 2.5 mg PO QAM 05/28/22 09/20/22 09/15/22 metoprolol succinate 100 mg 100 mg PO QAM 05/28/22 09/20/22 09/15/22 tablet,extended release 24 hr multivitamin 1 tab PO QAM 05/28/22 09/20/22 09/15/22 digoxin 125 mcg (0.125 mg) tablet 125 mcg PO DAILY 06/23/22 09/20/22 09/15/22 gabapentin 400 mg capsule 400 mg PO DAILY 06/23/22 09/20/22 09/15/22 acetaminophen 500 mg capsule 500 mg PO HS 09/09/22 09/20/22 09/15/22 diphenhydramine 25 1 tab PO HS 09/09/22 09/20/22 09/15/22 mg-acetaminophen 500 mg tablet (Tylenol PM Extra Strength) docusate sodium 100 mg capsule 100 mg PO DAILY 09/09/22 09/20/22 09/15/22 (Colace) furosemide 40 mg tablet 40 mg PO DAILY 09/09/22 09/20/22 09/15/22 phenazopyridine 200 mg tablet 200 mg PO TID PRN pain 3 days #9 09/14/22 09/20/22 Unknown tabs tamsulosin 0.4 mg capsule 0.4 mg PO DAILY #30 caps 09/14/22 09/20/22 09/15/22 cephalexin 500 mg capsule 500 mg PO BID 10 days #20 caps 09/19/22 09/20/22 Unknown finasteride 5 mg tablet 5 mg PO DAILY #30 tabs 09/19/22 09/20/22 Unknown oxybutynin chloride 5 mg tablet 5 mg PO TID PRN bladder spasms #30 09/19/22 09/20/22 Unknown tabs phenazopyridine 200 mg tablet 200 mg PO TID PRN pain 3 days #9 09/19/22 09/20/22 Unknown tabs tamsulosin 0.4 mg capsule 0.4 mg PO DAILY #30 caps 09/19/22 09/20/22 Unknown Past Medical History Medical History (Updated 09/20/22 @ 09:24 by Genesis Noe PA-C) Atrial fibrillation on warfarin. CAD (coronary artery disease) Moderate diffuse coronary atherosclerosis with single-vessel obstructive disease. The left circumflex is diffusely diseased with subtotal occlusion in its mid and distal portions with filling via left to left and bridge collateral. CHF (congestive heart failure) EF 60-65% Enlargement of aortic root Mckee catheter in place GERD (gastroesophageal reflux disease) pt experiences sensation of heartburn, regurgitation and occasional coughing/choking at night History of atrial flutter History of gout HLD (hyperlipidemia) [place] (hard of hearing) Hx of acute congestive heart failure Lumbar spondylosis On anticoagulant therapy HIRAM (obstructive sleep apnea) listed above. pt unsure. no device; sleeps upright Spinal stenosis TIA (transient ischemic attack) "past TIA on chronic anticoagulation" per [facility] cardio Urinary retention Past Family History Family History Other No family history of adverse response to anesthesia Past Surgical History Surgical History History of arthroscopy of left knee History of cardiac cath 2019 [place]. no stents. Moderate diffuse coronary atherosclerosis with single-ve ssel obstructive disease. The left circumflex is diffusely diseased with subtotal occlusion in its mid and distal portions with filling via left to left and bridge collateral. History of cardiac radiofrequency ablation History of [place]acentesis 05/2022 [place] Hx of colonoscopy S/P total hip arthroplasty left, 05/2022 [place] Social History Smoking Status: Current every day smoker tobacco type: e-cigarettes Smoking cigarettes per day: vapes daily- advised Do You Dip or Chew Tobacco: No Hx Alcohol Use: Yes Alcohol type: hard liquor alcohol intake frequency: holidays/special occasions only Hx Substance Use: No substance use type: does not use Lab Results Anesthesia Preop Results Results Anesthesia Widget: WBC 12.21 K/ul (4.8-10.8) H 09/10/22 Hgb 13.0 g/dl (14.0-18.0) L 09/10/22 Hct 42.4 % (42.0-52.0) 09/10/22 Plt 150 K/uL (130-400) 09/10/22 Na 142 mmol/L (136-145) 09/10/22 K 4.5 mmol/L (3.5-5.1) 09/10/22 Cl 108 mmol/L (98-107) H 09/10/22 CO2 33 mmol/L (21-32) H 09/10/22 BUN 16 mg/dl (6-23) 09/10/22 Creat 0.92 mg/dl (0.6-1.4) 09/10/22 Glucose Level 104 mg/dl (70-99(Fasting)) H 09/10/22 PT 19.7 Seconds (9.0-12.0) H 09/10/22 PTT 39.6 Seconds (21.0-31.0) H 09/09/22 INR 1.9 (0.9-1.1) H 09/10/22 Urine Color [place] 09/15/22 Urine Appearance Clear (Clear) 09/15/22 Urine pH (4.5-7.5) 09/15/22 Urine Specific [place] 1.014 (1.000-1.030) 09/15/22 Urine Protein (Negative) 09/15/22 Urine Glucose (UA) (Negative) 09/15/22 Urine Ketones (Negative) 09/15/22 Urine Blood (Negative) 09/15/22 Urine Nitrite (Negative) 09/15/22 Urine Bilirubin (Negative) 09/15/22 Urine Urobilinogen (Negative) 09/15/22 Urine Leukocyte Esterase (Negative) 09/15/22 Urine WBC (Auto) 5-10 /hpf (0-5) H 09/09/22 Urine RBC (Auto) >30 /hpf (0-4) H 09/09/22 Urine Hyaline Casts (Auto) 0 /lpf (0-5) 09/09/22 Urine Epithelial Cells (Auto) 20-30 /lpf (0-5) H 09/09/22 Urine Bacteria (Auto) Negative (Negative) 09/09/22 SARS-CoV-2, RNA, NAAT NEGATIVE (NEGATIVE) 09/09/22 Blood Type O Positive 09/09/22 Antibody Screen NEGATIVE 09/09/22 Testing Electrocardiogram Date: 09/09/22 Afib, rate 84 bpm Incomplete RBBB Chest X-Ray Date: 09/09/22 *1view* 1. Small to moderate right pleural effusion. 2. Cardiomegaly without evidence for pulmonary edema. 09/03/22 1 view CXR after thoracentesis Mildly decreased size of the right pleural effusion status post thoracentesis. No postprocedural pneumothorax identified. Chest CTA 06/23/22 1. There is no evidence of central pulmonary embolus in the main, lobar, or proximal segmental pulmonary arteries. The segmental and subsegmental vessels are not well assessed due to motion artifact. 2. Moderate to large right and small left pleural effusions with dependent consolidation. 3. Minimal groundglass opacities in the left upper lobe and lingula nonspecific and may represent a mild pneumonitis. Correlate clinically. 4. Cardiomegaly with evidence of pulmonary artery hypertension 5. Additional findings as above. Pt declined thoracentesis at that time per records. Echocardiogram Date: 09/10/22 Limited study for reassessment of pericardial effusion Trace circumferential pericardial effusion with a mild amount of focal fluid collection adjacent to the right atrium Tamponade is absent EF 55-60% Moderately dilated atria bilat 06/04/22 EF 60-65% No segmental LV wall motion abnormalities Mild aortic valve sclerosis without significant aortic valvular stenosis Grade I diastolic dysfunction Moderate sized, anteroapical loculated pericardial effusion with significant stranding, no hemodynamic compromise to suggest tamponade No significant valvular pathology Stress Test Date: 09/14/21 Pharmacologic MPHR 132% Negative for inducible ischemia Cardiac Catheterization Date: 02/12/19 Left main: Modest caliber, bifurcating to give rise to left anterior descending left circumflex. There is mild calcification and no obstruction Left anterior descending: Type II in distribution. It gives rise to to moderately large diagonal branches in its proximal third, 2 large septal branches in its proximal third and midportion. Within the left anterior descending there is diffuse moderate luminal irregularities throughout the vessel and diagonal branches with a smooth 50% stenosis in the LAD midportion beyond the 2 diagonal branches. Left circumflex: Moderate caliber and nondominant distribution. The vessel is diffusely diseased. It gives rise to 2 small marginal branches and a bifurcating obtuse marginal. Circumflex is narrowed by 40% at its origin 50% between the first and second diagonal branches and then has a subtotal occlusion 99% which extends extensively into the LAD obtuse marginal branch with the vessel filling via bridge collaterals and left to left collateral flow. Right coronary artery: Very large dominant vessel with moderate ectasia. Gives rise to a sinoatrial branch shortly after its origin to small RV branches and an acute marginal branch. At the AV groove it gives rise to a very long posterior descending artery branch along the AV groove to posterior ventricular branches. Within the right coronary artery there is moderate luminal irregularities and ectasia but no obstruction Recommendations: Medical Therapy and/or Counseling Other Testing Abdomen pelvis CT 09/09/22 1. No acute diverticulitis. No small bowel obstruction. No free air. 2. Mckee catheter terminates in the decompressed urinary bladder which demonstrates mild wall thickening. The need for urinalysis should be determined clinically. 3. Moderate RIGHT pleural effusion. 4. No hydronephrosis. Nonobstructing 5 mm, 3 mm, 2 mm, and 2 mm renal calculi in the RIGHT kidney. Chest CTA 06/23/22 1. There is no evidence of central pulmonary embolus in the main, lobar, or proximal segmental pulmonary arteries. The segmental and subsegmental vessels are not well assessed due to motion artifact. 2. Moderate to large right and small left pleural effusions with dependent consolidation. 3. Minimal groundglass opacities in the left upper lobe and lingula nonspecific and may represent a mild pneumonitis. Correlate clinically. 4. Cardiomegaly with evidence of pulmonary artery hypertension 5. Additional findings as above.
[~2022-09-24 10:01] MED LIST changes: -ACETAMINOPHEN 500 MG TAB PO SCH; +CIPROFLOXACIN / D5W 400 MG/200 ML BAG IV SCH; -CeleBREX 200 MG CAP PO SCH; -DEXAMETHASONE SOD INJ 4 MG/ML VIAL IV SCH; -FAMOTIDINE 20 MG TAB PO SCH; +LACTATED RINGER'S 1,000 ML IV SCH; -LR 500ML BOLUS, THEN 15ML/HR IV SCH; -LR 60ML/HR IV SCH; -METOCLOPRAMIDE HCL 10 MG TABLET PO SCH; -TRANEXAMIC ACID 1,000 MG **IV Pre-op IV SCH
--- NOTE | 2022-09-24 10:32 | History & Physical Bridge Note ---
Date of Service September 24, 2022 History & Physical Bridge Note I have examined the patient, reviewed the History & Physical and in the interval since the performance of the History & Physical I have noted the following changes of clinical significance: no changes noted
[2022-09-24] MEDS ORDERED: fentaNYL citrate PF 100 MCG/2 ML VIAL ONE ×2 (10:46→12:54)
[2022-09-24] MEDS ORDERED: MIDAZOLAM HCL 1 MG/ML 2ML VIAL ONE (10:47)
[2022-09-24] MEDS ORDERED: PROPOFOL IV EMULSION 10 MG/ML 20 ML VIAL IV ONE (10:47)
[2022-09-24] MEDS ORDERED: LIDOCAINE 2% 2 ML VIAL/AMP(20MG/ML) INFIL ONE (10:47)
[2022-09-24] MEDS ORDERED: ONDANSETRON INJ 2 MG/ML 2 ML VIAL ONE (10:47)
[2022-09-24 11:08] LABS: INR 1.1 (0.9-1.1); Partial Thromboplastin Time 29.1 Seconds (21.0-31.0); Prothrombin Time 12.2 Seconds (9.0-12.0)
[2022-09-24] MEDS ORDERED: ePHEDrine sulfate 50 MG/ML AMP IV PRN (11:09)
[2022-09-24] MEDS ORDERED: ATROPINE SULFATE 0.1 MG/ML 10ML SYR IV PRN (11:09)
[2022-09-24] MEDS ORDERED: ONDANSETRON INJ 2 MG/ML 2 ML VIAL IV PRN (11:09)
[2022-09-24] MEDS ORDERED: PROMETHAZINE HCL 6.25 MG in SODIUM CHLORIDE 0.9% 50 ML IV PRN (11:09)
[2022-09-24] MEDS ORDERED: fentaNYL citrate PF 100 MCG/2 ML VIAL IV PRN (11:09)
[2022-09-24] MEDS ORDERED: MoRPHine SULFATE 2 MG/ML CARP IV PRN (11:19)
[2022-09-24] MEDS ORDERED: MoRPHine SULFATE 4 MG/ML 1 ML CARP\\VIAL IV PRN (11:19)
[2022-09-24] MEDS ORDERED: PHENAZOPYRIDINE HCL 200 MG TAB PO PRN (11:19)
[2022-09-24] MEDS ORDERED: oxyBUTYnin chloride 5 MG TAB PO PRN (11:24)
[2022-09-24] MEDS ORDERED: PHENYLEPHRINE 100MCG/ML 5ML SYR ONE (12:42)
--- NOTE | 2022-09-24 13:01 | Operative Report ---
PG Post Operative Report Pre & Post Diagnosis Operation Date: 09/24/22 11:45 Pre-Op Diagnosis: Acute Urinary Retention, Hematuria Post-Op Diagnosis: Acute Urinary Retention, Hematuria I identified the patient and participated in the time-out.: Yes Procedure Operation Date: 09/24/22 11:45 Actual Procedures p Transurethral Resection of the Prostate(Not Applicable) - Sebastian Zapata DO Surgeon Sebastian Zapata, II, DO Manager Outreach None Estimated Blood Loss 10 Findings Consistent with Post-Op Diagnosis Large Prostate with obstruction. Very large median lobe with significant projection into bladder. Large lateral lobes. Significant obstruction. Trabeculation and diverticulum. Specimens Prostate adenoma. Drains 22Fr [address] Catheter Anesthesia Type General Complications none Disposition Disposition: Recovery Room Indications Patient with obstruction due to prostate enlargement. Risks and benefits discussed at length. Description of Procedure Patient was consented and brought back to the operating room. Patient was placed under anesthesia in the supine position and moved to the dorsal lithotomy position. Patient was prepped and draped in the regular sterile fashion. A time out was completed. A 30degree Cystoscope was placed into the bladder and the entire bladder was examined. The UO's were identified as well as the bladder neck, trigone, dome, and the other important landmarks. The prostatic urethra and large lobes/adenoma was assessed and the veru and bladder neck identified and area/size was assessed. The resection scope was placed and the fine bipolar loop was selected. Starting at the 5 and 7 o'clock positions, a channel was created from bladder neck to the veru. Extensive resection was necessary in order to resect down the extreme large median lobe. It did cause considerable obstructive issues. The lateral lobes were also found to be enlarged. Resection was taken further along the edges. Care was taken to control any bleeding throughout the resection process. The channel was able to be resected down to capsule fibers. This drastically opened up the channel. Allow much better access into the bladder. Extensive irrigation was necessary in order to clear debris. The Specimen was removed and sent for analysis. The resection bed and any bleeding areas were fulgurated/cauterized and the entire area inspected. All bleeding was controlled. The bladder was inspected a final time. The bladder was emptied and irrigated. All specimen and debris was removed. The scope was removed with the bladder partially full. A 22 [place] three-way catheter was placed and balloon elevated. This was easily irrigated. The patient was cleaned, aroused from anesthesia, and transferred to the pacu in stable condition having tolerated the procedure well with no complications. I was present and participated in all aspects of the procedure. The patient will be monitored in the PACU until transferred. The patient will be observed overnight with continuous bladder irrigation. We will plan to restart his blood thinner this evening with plans to monitor. I attest to the content of the Intraoperative Record and any orders documented therein. Any exceptions are noted below.
--- NOTE | 2022-09-24 13:49 | Anesthesiology Progress Note ---
Date of Service September 24, 2022 Anesthesia Post Procedure Vital Signs Vital Signs: Temp Pulse Resp BP Pulse Ox O2 Del Method O2 Flow Rate 09/24/22 13:40 36.4 C L 69 18 109/62 94 Nasal Cannula 2 09/24/22 13:30 67 20 111/76 95 Room Air 09/24/22 13:20 69 18 110/78 96 Oxymask 4 09/24/22 13:10 68 18 147/108 H 96 Oxymask 4 09/24/22 13:00 36.0 C L 68 12 175/116 H 94 Oxymask 6 09/24/22 10:29 Room Air 09/24/22 10:29 36.7 C 87 22 103/76 90 Room Air Pain Intensity Left Hip: Pain Intensity: 4 Transfer of Care Handoff Completed per policy Notes Mental Status: alert / awake / arousable Patient Amnestic to Procedure: Yes Nausea / Vomiting: adequately controlled Pain: adequately controlled Airway Patency, RR, SpO2: stable & adequate BP & HR: stable & adequate Hydration State: stable & adequate Anesthetic Complications: no major complications apparent
[2022-09-24] MEDS ORDERED: SODIUM CHLORIDE 0.9% 1000ML 1,000 ML IV SCH (14:30)
[2022-09-24 14:46] LABS: Basophils # (auto) 0.02 K/uL (0-0.2); Basophils % (auto) 0.2 %; Eosinophils # (auto) 0.27 K/uL (0-0.50); Eosinophils % (auto) 2.9 %; Hematocrit (blood only) 45.7 % (42.0-52.0); Hemoglobin 14.4 g/dl (14.0-18.0); Immature Granulocytes # (auto) 0.05 K/uL (0.01-0.20); Immature Granulocytes % (auto) 0.5 %; Lymphocytes # (auto) 0.92 K/uL (1.2-3.4); Lymphocytes % (auto) 9.8 %; Mean Corpuscular Hemoglobin 27.4 pg (25.0-34.0); Mean Corpuscular Hgb Conc 31.5 g/dL (32.0-36.0); Mean Corpuscular Volume 86.9 fL (80.0-100.0); Monocytes # (auto) 0.84 K/uL (0.11-0.59); Monocytes % (auto) 8.9 %; Neutrophils # (auto) 7.33 K/uL (1.40-6.50); Neutrophils % (auto) 77.7 %; Platelet Count 191 K/uL (130-400); RDW Coefficient of Variation 14.1 % (11.5-14.5); RDW Standard Deviation 44.9 fL (36.4-46.3); Red Blood Count 5.26 M/uL (4.70-6.10); White Blood Count 9.43 K/ul (4.8-10.8)
[2022-09-24] MEDS: ceFAZolin 2000MG 2,000 MG/15 ML SYR IV SCH ×2 (14:51→22:25)
[2022-09-24 14:59] LABS: Albumin Globulin Ratio 1.3 (0.9-2); Albumin Level 3.5 gm/dl (3.4-5.0); BUN Creatinine Ratio 14.6 (10-20); Bilirubin,Total 0.8 mg/dl (0.2-1.0); Calcium 9.1 mg/dl (8.6-10.3); Creatinine Clr Calc Pharmacy 101.7 ml/min; Est GFR (African American) 99.6 ml/min; Est GFR (Non-African American) 85.9 ml/min; Globulin 2.8 gm/dl (2.5-4.0); Potassium 4.2 mmol/L (3.5-5.1); Total Protein 6.3 gm/dl (6.0-8.3)
--- NOTE | 2022-09-24 15:59 | Hospitalist Consultation ---
Date of Consultation September 24, 2022 History of Present Illness Reason for Consultation: Consult postop for CHF Attending Physician: Sebastian Zapata, II, DO History of Present Illness This is a 77-year-old male with PMH of atrial fibrillation on long-term anticoagulation, tobacco use, chronic tobacco mucositis, chronic diastolic heart failure, venous insufficiency, obstructive sleep apnea and recent urinary retention who is POD#0 s/p TURP procedure by Dr. Zapata. Allergies Allergy/AdvReac Type Severity Reaction Status Date / Time No Known Allergies Allergy Unknown Verified 09/24/22 10:26 Home Medications Medication Instructions Recorded Confirmed Type sildenafil 100 mg tablet 100 mg PO QAM PRN Erectile 02/11/19 09/24/22 History Dysfunction warfarin 10 mg tablet 5 - 10 mg PO DIRECTED 02/11/19 09/24/22 History atorvastatin 40 mg tablet 40 mg PO QAM 08/13/21 09/24/22 History aspirin 81 mg capsule 81 mg PO QAM 05/28/22 09/24/22 History lisinopril 2.5 mg tablet 2.5 mg PO QAM 05/28/22 09/24/22 History metoprolol succinate 100 mg 100 mg PO QAM 05/28/22 09/24/22 History tablet,extended release 24 hr multivitamin 1 tab PO QAM 05/28/22 09/24/22 History digoxin 125 mcg (0.125 mg) tablet 125 mcg PO DAILY 06/23/22 09/24/22 History gabapentin 400 mg capsule 400 mg PO DAILY 06/23/22 09/24/22 History acetaminophen 500 mg capsule 500 mg PO HS 09/09/22 09/24/22 History diphenhydramine 25 1 tab PO HS 09/09/22 09/24/22 History mg-acetaminophen 500 mg tablet (Tylenol PM Extra Strength) docusate sodium 100 mg capsule 100 mg PO DAILY 09/09/22 09/24/22 History (Colace) furosemide 40 mg tablet 40 mg PO DAILY 09/09/22 09/24/22 History phenazopyridine 200 mg tablet 200 mg PO TID PRN pain 3 days #9 09/14/22 09/24/22 Rx tabs tamsulosin 0.4 mg capsule 0.4 mg PO DAILY #30 caps 09/14/22 09/24/22 Rx cephalexin 500 mg capsule 500 mg PO BID 10 days #20 caps 09/19/22 09/24/22 Rx finasteride 5 mg tablet 5 mg PO DAILY #30 tabs 09/19/22 09/24/22 Rx oxybutynin chloride 5 mg tablet 5 mg PO TID PRN bladder spasms #30 09/19/22 09/24/22 Rx tabs Patient History Medical History Atrial fibrillation on warfarin. CAD (coronary artery disease) Moderate diffuse coronary atherosclerosis with single-vessel obstructive disease. The left circumflex is diffusely diseased with subtotal occlusion in its mid and distal portions with filling via left to left and bridge collateral. CHF (congestive heart failure) EF 60-65% Enlargement of aortic root Mckee catheter in place GERD (gastroesophageal reflux disease) pt experiences sensation of heartburn, regurgitation and occasional coughing/choking at night History of atrial flutter History of gout HLD (hyperlipidemia) [place] (hard of hearing) Hx of acute congestive heart failure Lumbar spondylosis On anticoagulant therapy HIRAM (obstructive sleep apnea) listed above. pt unsure. no device; sleeps upright Spinal stenosis TIA (transient ischemic attack) "past TIA on chronic anticoagulation" per [facility] cardio Urinary retention Surgical History History of arthroscopy of left knee History of cardiac cath 2019 [place]. no stents. Moderate diffuse coronary atherosclerosis with single- vessel obstructive disease. The left circumflex is diffusely diseased with subtotal occlusion in its mid and distal portions with filling via left to left and bridge collateral. History of cardiac radiofrequency ablation History of thoracentesis 05/2022 [place] Hx of colonoscopy S/P total hip arthroplasty left, 05/2022 [place] Family History Other No family history of adverse response to anesthesia Social History Smoking Status: Current every day smoker Tobacco Type: E-cigarettes / Vaping Age Started Using Tobacco: 10; Age Quit Using Tobacco: 70; packs per day: 1; Cigarettes Per Day: vapes daily- advised; Second Hand Exposure: Yes; Do You Dip or Chew Tobacco: No; Tobacco Cessation Education Requested by Patient: No Hx Alcohol Use: Yes Alcohol type: hard liquor Hx Substance Use: No Preferred Language: Turkmen Communication Ability: Effective Organizational Development Director Required: No Beliefs That Will Affect Care: [facility] Current Living Situation: Spouse Other Information That Helps Us Care for You: No Feels Safe at Home: Yes Safety Concerns: Feels Safe At This Time Assistive Devices: Denture - Upper, Glasses and Walker Results & Data Results & Data Vital Signs (Past 12 Hours) Vital Signs Temp Pulse Pulse Resp BP Pulse Ox O2 Del Method 09/24/22 15:19 36.4 C L 72 18 115/81 96 Nasal Cannula 09/24/22 14:37 66 09/24/22 14:40 36.4 C L 72 20 100/58 L 96 Nasal Cannula 09/24/22 14:17 36.9 C 72 20 104/71 95 Nasal Cannula 09/24/22 14:26 36.9 C 72 20 104/71 95 Nasal Cannula 09/24/22 14:00 71 24 108/62 95 Nasal Cannula 09/24/22 13:50 67 20 102/71 96 Nasal Cannula 09/24/22 13:40 36.4 C L 69 18 109/62 94 Nasal Cannula 09/24/22 13:30 67 20 111/76 95 Room Air 09/24/22 13:20 69 18 110/78 96 Oxymask 09/24/22 13:10 68 18 147/108 H 96 Oxymask 09/24/22 13:00 36.0 C L 68 12 175/116 H 94 Oxymask 09/24/22 10:29 Room Air 09/24/22 10:29 36.7 C 87 22 103/76 90 Room Air O2 Flow Rate 09/24/22 15:19 2 09/24/22 14:37 09/24/22 14:40 2 09/24/22 14:17 2 09/24/22 14:26 2 09/24/22 14:00 2 09/24/22 13:50 2 09/24/22 13:40 2 09/24/22 13:30 09/24/22 13:20 4 09/24/22 13:10 4 09/24/22 13:00 6 09/24/22 10:29 09/24/22 10:29
--- NOTE | 2022-09-24 16:29 | XRay Report ---
XR chest 1V portable CLINICAL HISTORY: volume overload COMPARISON STUDY: Chest CT June 23, 2022. Chest radiograph September 09, 2022. FINDINGS: There is no pneumothorax. A moderate right pleural effusion has increased in size since karrie or examination. Associated right lung airspace opacity is present. No left pleural effusion is identi fied. Cardiomegaly is unchanged. There is no evidence for overt pulmonary edema. IMPRESSION: 1. Increase in size of a moderate right pleural effusion. Associated right lung airspace opacity. 2. Cardiomegaly without evidence for pulmonary edema. ACT 112: Negative or not required by law. Electronically signed by: Isaiah Morin M.D. 09/24/2022 4:28 PM
--- NOTE | 2022-09-24 16:38 | Hospitalist Consultation ---
Date of Consultation September 24, 2022 Assessment & Plan (1) Pleural effusion: (2) HIRAM (obstructive sleep apnea): - Admitted under urology service - Medicine consulted for dyspnea, requirement of 2 L supplemental o2 and does not wear this at baseline - CXR ordered - appears to have moderate right sided pleural effusion which is larger than previous study where pt underwent thoracentesis on 09/03/22 and 1500mL was taken off - Lasix 40 mg IV now, continue with 40 mg Po daily dosing as per home meds - Stop fluids, pt has received LR all day and last dose of lasix was yesterday morning, BNP=72 - Consult Pulm for possible thoracentesis during this admission (3) S/P TURP: (4) Urinary retention: - Continue management of guillory catheter per primary team - Bladder irrigation in place, currently draining bright red urine - Pain management and bowel regimen ordered (5) Heart failure, diastolic, with acute decompensation: (6) CAD (coronary artery disease): (7) PAF (paroxysmal atrial fibrillation): - Chronic diastolic, will continue lasix as above, does not appear to be grossly overloaded peripherally - no JVD, no pitting edema - Cont asa 81 mg daily, , atorvastatin, metoprolol succinate. - digoxin 125 mcg for rate control - BP is soft at 90s/50s -- per pt , pt runs on the lower side. - Lisinopril on hold - Cont coumadin, follow INR with am labs DVT ppx: - teds, scds, coumadin CODE: Full code Dispo: From home, likely to remain in the hospital x 1-2 days A total of 45 minutes were spent with greater than 50% of that time face to face with the patient, personally reviewing all current laboratories, imaging studies, past medication reconciliation, outpatient chart review, and discussion with specialists to collaborate care for the patient with attending. Please see attending documentation for corrections and/or additions. Thank you for involving us in the care of Mr. Baugh. Please do not hesitate to call with questions or concerns. At this time medicine service will follow along. Supervising Physician Co-Signing Physician Notes I have seen and examined the patient and have discussed the case with the provider above. I agree with the assessment and plan as stated with the following exceptions. Patient is 77-year-old man with history of A-fib on Coumadin and known right- sided pleural effusion that is recurrent. He underwent a TURP procedure with Dr. Zapata today. Postoperatively he was noted to have worsened difficulty breathing and hypoxia. We were consulted for assistance with this and a chest x-ray revealed persistent/worsened right-sided pleural effusion with a possible right lung airspace opacity. The patient is afebrile and not working to breathe. Pulmonary auscultation reveals diminished breath sounds on the right and clear to auscultation on the left with no wheezing or rhonchi heard. Notably patient was upright after OR procedure for several hours prior to chest x-ray being taken. Outpatient record review reveals at least 2 thoracenteses in the last 3 months for this pleural effusion that is recurrent. Blood pressure is soft, however, giving trial of Lasix 40 IV now. We may not be able to give additional because of hypotension. We will plan to consult pulmonology with repeat chest x-ray in the morning and consideration of repeat thoracentesis. Physical exam otherwise is consistent with that noted above. Guillory catheter is in place with barclay red urine. Medications were reviewed. Thank you for this consultation. DO Lito History of Present Illness Reason for Consultation: Fluid overload s/p TURP Requesting Physician: Dr. Padilla Attending Physician: Sebastian Zapata, II, DO History of Present Illness This is a 77-year-old male with PMH of atrial fibrillation on coumadin, CAD with moderate diffuse single-vessel obstructive disease medically managed, chronic diastolic CHF, venous insufficiency, postherpetic polyneuropathy, obstructive sleep apnea, tobacco use, chronic tobacco mucositis. He was recently hospitalized on 09/10 for hematuria and was seen by urology, guillory catheter was placed, and was placed on short course of oral antibiotics and has 3 days left on this course. With his recent urinary retention/hematuria, urology proceeded with surgical intervention and he is currently POD#0 s/p TURP procedure by Dr. Zapata. Medicine has been consulted for possible volume overload. Pt takes lasix 40 mg for chronic diastolic CHF and last dose was on 09/23. Pt was started on LR given 1L IV today for the OR, and anesthesia in PACU concern that the lung s sound wet. Pt complains of dyspnea on exertion as well as increased dyspnea with lying flat. He is currently on 2 L via NC, and does not wear supplemental o2 or cpap at home. Pt was supposed to have an outpatient sleep study but does not appear to have done so yet. Pt had previously seen pulmonology for right sided pleural effusion in May but at that time decline the tap. More recently on 09/03/22 the pt underwent thoracentesis of 1500 mL removal fluid. Pulmonology has established with him as an outpatient. Upon review of CXR and appearance of the pleural effusion being bigger today compared to previously, will ask pulmonology regarding possible thoracentesis Allergies Allergy/AdvReac Type Severity Reaction Status Date / Time No Known Allergies Allergy Unknown Verified 09/24/22 10:26 Home Medications Medication Instructions Recorded Confirmed Type sildenafil 100 mg tablet 100 mg PO QAM PRN Erectile 02/11/19 09/24/22 History Dysfunction warfarin 10 mg tablet 5 - 10 mg PO DIRECTED 02/11/19 09/24/22 History atorvastatin 40 mg tablet 40 mg PO QAM 08/13/21 09/24/22 History aspirin 81 mg capsule 81 mg PO QAM 05/28/22 09/24/22 History lisinopril 2.5 mg tablet 2.5 mg PO QAM 05/28/22 09/24/22 History metoprolol succinate 100 mg 100 mg PO QAM 05/28/22 09/24/22 History tablet,extended release 24 hr multivitamin 1 tab PO QAM 05/28/22 09/24/22 History digoxin 125 mcg (0.125 mg) tablet 125 mcg PO DAILY 06/23/22 09/24/22 History gabapentin 400 mg capsule 400 mg PO DAILY 06/23/22 09/24/22 History acetaminophen 500 mg capsule 500 mg PO HS 09/09/22 09/24/22 History diphenhydramine 25 1 tab PO HS 09/09/22 09/24/22 History mg-acetaminophen 500 mg tablet (Tylenol PM Extra Strength) docusate sodium 100 mg capsule 100 mg PO DAILY 09/09/22 09/24/22 History (Colace) furosemide 40 mg tablet 40 mg PO DAILY 09/09/22 09/24/22 History phenazopyridine 200 mg tablet 200 mg PO TID PRN pain 3 days #9 09/14/22 09/24/22 Rx tabs tamsulosin 0.4 mg capsule 0.4 mg PO DAILY #30 caps 09/14/22 09/24/22 Rx cephalexin 500 mg capsule 500 mg PO BID 10 days #20 caps 09/19/22 09/24/22 Rx finasteride 5 mg tablet 5 mg PO DAILY #30 tabs 09/19/22 09/24/22 Rx oxybutynin chloride 5 mg tablet 5 mg PO TID PRN bladder spasms #30 09/19/22 09/24/22 Rx tabs Patient History Medical History Atrial fibrillation on warfarin. CAD (coronary artery disease) Moderate diffuse coronary atherosclerosis with single-vessel obstructive disease. The left circumflex is diffusely diseased with subtotal occlusion in its mid and distal portions with filling via left to left and bridge collateral. CHF (congestive heart failure) EF 60-65% Enlargement of aortic root Guillory catheter in place GERD (gastroesophageal reflux disease) pt experiences sensation of heartburn, regurgitation and occasional coughing/choking at night History of atrial flutter History of gout HLD (hyperlipidemia) [place] (hard of hearing) Hx of acute congestive heart failure Lumbar spondylosis On anticoagulant therapy HIRAM (obstructive sleep apnea) listed above. pt unsure. no device; sleeps upright Spinal stenosis TIA (transient ischemic attack) "past TIA on chronic anticoagulation" per [facility] cardio Urinary retention Surgical History (Updated 09/24/22 @ 17:36 by Jaylene Stone PA-C) History of arthroscopy of left knee History of cardiac cath 2019 [place]. no stents. Moderate diffuse coronary atherosclerosis with single- vessel obstructive disease. The left circumflex is diffusely diseased with subtotal occlusion in its mid and distal portions with filling via left to left and bridge collateral. History of cardiac radiofrequency ablation History of thoracentesis 05/2022 [place] Hx of colonoscopy S/P total hip arthroplasty left, 05/2022 [place] Family History Other No family history of adverse response to anesthesia Social History Smoking Status: Current every day smoker Tobacco Type: E-cigarettes / Vaping Age Started Using Tobacco: 10; Age Quit Using Tobacco: 70; packs per day: 1; Cigarettes Per Day: vapes daily- advised; Second Hand Exposure: Yes; Do You Dip or Chew Tobacco: No; Tobacco Cessation Education Requested by Patient: No Hx Alcohol Use: Yes Alcohol type: hard liquor Hx Substance Use: No Preferred Language: Persian Communication Ability: Effective Veneer Glue Spreader Required: No Beliefs That Will Affect Care: Anabaptism Current Living Situation: Spouse Other Information That Helps Us Care for You: No Feels Safe at Home: Yes Safety Concerns: Feels Safe At This Time Assistive Devices: Denture - Upper, Glasses and Walker Review of Systems Review of Systems: Constitutional: No fever, sweats or chills Eyes: No diplopia, no worsening or blurred vision ENT: normal hearing, no trouble swallowing Respiratory: No cough, sputum, + dyspnea with lying flat, +dyspnea with minimal exertion Cardiovascular: No chest pain, tightness or palpitations Abdomen: No pain, nausea, vomiting, diarrhea or constipation Musculoskeletal: No joint pain, calf pain, swelling : sp TURP Neurologic: No weakness, numbness/tingling, or balance problems Psychiatric: No anxiety or depression Skin: No rash or itch Physical Exam Physical Exam: General: awake, alert, no apparent distress, + obese, fatigued Head: Normocephalic, atraumatic ENT: PERRL, EOMI, no pharyngeal exudate, mucous membranes moist Chest: Absent breath sounds in R base and to the mid edge, no crackles, breath sounds present throughout on the left but diminished, on 2 L via NC, no rales Cardiac: Regular rate and rhythm, no murmur, no JVD, normal peripheral pulses, good capillary refill Abdominal: NABS x 4 quadrants, soft, nondistended, nontender to palpation, no rebound or guarding : guillory catheter in place, draining bright red urine, guillory irrigation in place Extremities: Normal inspection, no peripheral edema or erythema, calfs nontender to palpation Psych: Normal mood and affect Neuro: AAO x 3, strength intact bilaterally and rated 5/5, no motor deficits, speech is clear, no peripheral sensory deficits Results & Data Results & Data Vital Signs (Past 12 Hours) Vital Signs Temp Pulse Pulse Resp BP Pulse Ox O2 Del Method 09/24/22 16:05 36.4 C L 67 20 94/62 L 95 Nasal Cannula 09/24/22 15:19 36.4 C L 72 18 115/81 96 Nasal Cannula 09/24/22 14:37 66 09/24/22 14:40 36.4 C L 72 20 100/58 L 96 Nasal Cannula 09/24/22 14:17 36.9 C 72 20 104/71 95 Nasal Cannula 09/24/22 14:26 36.9 C 72 20 104/71 95 Nasal Cannula 09/24/22 14:00 71 24 108/62 95 Nasal Cannula 09/24/22 13:50 67 20 102/71 96 Nasal Cannula 09/24/22 13:40 36.4 C L 69 18 109/62 94 Nasal Cannula 09/24/22 13:30 67 20 111/76 95 Room Air 09/24/22 13:20 69 18 110/78 96 Oxymask 09/24/22 13:10 68 18 147/108 H 96 Oxymask 09/24/22 13:00 36.0 C L 68 12 175/116 H 94 Oxymask 09/24/22 10:29 Room Air 09/24/22 10:29 36.7 C 87 22 103/76 90 Room Air O2 Flow Rate 09/24/22 16:05 2 09/24/22 15:19 2 09/24/22 14:37 09/24/22 14:40 2 09/24/22 14:17 2 09/24/22 14:26 2 09/24/22 14:00 2 09/24/22 13:50 2 09/24/22 13:40 2 09/24/22 13:30 09/24/22 13:20 4 09/24/22 13:10 4 09/24/22 13:00 6 09/24/22 10:29 09/24/22 10:29
[2022-09-24] MEDS: ONDANSETRON INJ 2 MG/ML 2 ML VIAL IV PRN (17:00)
[2022-09-24] MEDS ORDERED: FUROSEMIDE 40 MG/4 ML VIAL IV STA (17:14)
[2022-09-24] MEDS ORDERED: WARFARIN SOD 5 MG TAB PO SCH (19:00)
[2022-09-24] MEDS: DOCUSATE SODIUM 100 MG CAP PO SCH (20:07)
[2022-09-24] MEDS: MELATONIN 3 MG TAB PO PRN (20:37)
[2022-09-24] MEDS: oxyCODONE/ACETAMINOPHEN 5mg/325mg TAB PO PRN (23:20)
[2022-09-25] MEDS: ceFAZolin 2000MG 2,000 MG/15 ML SYR IV SCH ×3 (05:51→23:34)
[2022-09-25 06:32] LABS: BUN Creatinine Ratio 13.4 (10-20); Calcium 8.8 mg/dl (8.6-10.3); Est GFR (African American) 87.5 ml/min; Est GFR (Non-African American) 75.5 ml/min; Magnesium 2.1 mg/dl (1.7-2.4); Potassium 4.9 mmol/L (3.5-5.1)
[2022-09-25 06:41] LABS: INR 1.1 (0.9-1.1)
--- NOTE | 2022-09-25 07:47 | XRay Report ---
XR chest 1V portable CLINICAL HISTORY: evaluate pleural effusion COMPARISON STUDY: Chest CT June 23, 2022. Chest radiograph September 24, 2022. FINDINGS: There is no pneumothorax. A moderate to large right pleural effusion appears to have increa sed in size although this apparent change could be positional. Associated right lung opacity is prese nt. There is cardiomegaly with pulmonary vascular congestion, unchanged. No left pleural effusion. IMPRESSION: 1. Moderate to large right pleural effusion with associated right lung opacity. 2. Cardiomegaly with pulmonary vascular congestion. ACT 112: Negative or not required by law. Electronically signed by: Isaiah Morin M.D. 09/25/2022 7:45 AM
[2022-09-25] MEDS: METOPROLOL SUCC 50MG EXT REL TAB PO SCH (08:43)
[2022-09-25] MEDS: DOCUSATE SODIUM 100 MG CAP PO SCH ×2 (08:44→20:28)
[2022-09-25] MEDS: GABAPENTIN 400 MG CAP PO SCH (08:45)
[2022-09-25] MEDS: FINASTERIDE 5 MG TAB PO SCH (08:45)
[2022-09-25] MEDS: TAMSULOSIN HCL 0.4 MG CAP PO SCH (08:45)
--- NOTE | 2022-09-25 08:51 | Pulmonary Consultation ---
Date of Consultation September 25, 2022 Assessment & Plan (1) Pleural effusion: (2) HIRAM (obstructive sleep apnea): Plan Impression: 77-year-old male with lymphocytic exudative pleural effusion status postthoracentesis about a month ago with reaccumulation of the pleural fluid. Cytology and cultures at that point time were negative. Etiology is unclear although diastolic heart failure certainly would be in the differential. He has undergone urological procedure with reaccumulation of the pleural fluid. Recommendations: 1. Pleural effusion: Discussed with the patient. At this point time I think proceeding with repeat thoracentesis is reasonable. This was discussed with the patient. His anticoagulation has been held. He is agreeable to proceed. We will plan on bedside ultrasound-guided catheter thoracentesis today. Fluid will be sent for repeat analysis. Can follow-up with Dr. Daniel in the outpatient setting. If the effusion remains lymphocytic exudative and no etiology is identified, consideration for referral for medical pleuroscopy or video-assisted thoracoscopic evaluation with potential pleurodesis may be appropriate. 2. Sleep disordered breathing: Continue CPAP. 3. The patient does not need to remain in the hospital from a pulmonary standpoint. Hopefully his oxygenation will improve postthoracentesis. Outpatient follow-up can be conducted with Dr. Daniel. Thanks for the opportunity of assisting in the care management. Feel free to contact us with questions or concerns. We will sign off once the thoracentesis is completed History of Present Illness Attending Physician: Sebastian Zapata, II, DO History of Present Illness Asked by hospitalist service to evaluate this patient with pleural effusion. History is obtained from review electronic medical record as well as discussion with the patient. The patient is a 77-year-old male who is followed by Dr. Daniel in the outpatient pulmonary clinic. He was last seen there in the end of July. He underwent thoracentesis the first week of August by interventional radiology with improvement in his respiratory symptoms. The fluid was a lymphocytic exudate at that point in time. He was admitted to the hospital for lower urinary obstruction issues and taken to the OR 09/24/2022 for acute urinary retention and hematuria. He underwent transurethral resection of the prostate. He tolerated the procedure well and was observed overnight with continuous bladder irrigation. Hospitalist consultation was requested yesterday. He had some shortness of breath and new oxygen requirement. Chest x-ray revealed increasing size of the left-sided pleural effusion. He did receive fairly extensive IV fluids for the procedure. Does have a history of atrial fibrillation on chronic anticoagulation with Coumadin as well as coronary disease and chronic diastolic heart failure with sleep disordered breathing. Pulmonary was consulted for evaluation management of the pleural effusion. On 09 03 the patient underwent thoracentesis with radiology with removal of 1.5 L. cytology showed moderate chronic pleuritis without evidence of malignancy. Fluid characteristics showed lymphocytic exudate with 97% lymphocytes 2% neutrophils and 1% mesothelial cells with a pH of 7.51 pleural total protein of 4.1 with an LDH of 68 and glucose of 32 with an amylase of 32. Gram stain and cultures showed no growth to date and AFB stains and cultures were negative. The patient does complain of some mild shortness of breath. No chest pain or palpitations. His anticoagulation has been held and his INR is currently normal. Allergies Allergy/AdvReac Type Severity Reaction Status Date / Time No Known Allergies Allergy Unknown Verified 09/24/22 10:26 Home Medications Medication Instructions Recorded Confirmed Type sildenafil 100 mg tablet 100 mg PO QAM PRN Erectile 02/11/19 09/24/22 History Dysfunction warfarin 10 mg tablet 5 - 10 mg PO DIRECTED 02/11/19 09/24/22 History atorvastatin 40 mg tablet 40 mg PO QAM 08/13/21 09/24/22 History aspirin 81 mg capsule 81 mg PO QAM 05/28/22 09/24/22 History lisinopril 2.5 mg tablet 2.5 mg PO QAM 05/28/22 09/24/22 History metoprolol succinate 100 mg 100 mg PO QAM 05/28/22 09/24/22 History tablet,extended release 24 hr multivitamin 1 tab PO QAM 05/28/22 09/24/22 History digoxin 125 mcg (0.125 mg) tablet 125 mcg PO DAILY 06/23/22 09/24/22 History gabapentin 400 mg capsule 400 mg PO DAILY 06/23/22 09/24/22 History acetaminophen 500 mg capsule 500 mg PO HS 09/09/22 09/24/22 History diphenhydramine 25 1 tab PO HS 09/09/22 09/24/22 History mg-acetaminophen 500 mg tablet (Tylenol PM Extra Strength) docusate sodium 100 mg capsule 100 mg PO DAILY 09/09/22 09/24/22 History (Colace) furosemide 40 mg tablet 40 mg PO DAILY 09/09/22 09/24/22 History phenazopyridine 200 mg tablet 200 mg PO TID PRN pain 3 days #9 09/14/22 09/24/22 Rx tabs tamsulosin 0.4 mg capsule 0.4 mg PO DAILY #30 caps 09/14/22 09/24/22 Rx cephalexin 500 mg capsule 500 mg PO BID 10 days #20 caps 09/19/22 09/24/22 Rx finasteride 5 mg tablet 5 mg PO DAILY #30 tabs 09/19/22 09/24/22 Rx oxybutynin chloride 5 mg tablet 5 mg PO TID PRN bladder spasms #30 09/19/22 09/24/22 Rx tabs Patient History Medical History Atrial fibrillation on warfarin. CAD (coronary artery disease) Moderate diffuse coronary atherosclerosis with single-vessel obstructive disease. The left circumflex is diffusely diseased with subtotal occlusion in its mid and distal portions with filling via left to left and bridge collateral. CHF (congestive heart failure) EF 60-65% Enlargement of aortic root Mckee catheter in place GERD (gastroesophageal reflux disease) pt experiences sensation of heartburn, regurgitation and occasional coughing/choking at night History of atrial flutter History of gout HLD (hyperlipidemia) [place] (hard of hearing) Hx of acute congestive heart failure Lumbar spondylosis On anticoagulant therapy HIRAM (obstructive sleep apnea) listed above. pt unsure. no device; sleeps upright Spinal stenosis TIA (transient ischemic attack) "past TIA on chronic anticoagulation" per [facility] cardio Urinary retention Surgical History (Updated 09/24/22 @ 17:36 by Jaylene Stone PA-C) History of arthroscopy of left knee History of cardiac cath 2019 [place]. no stents. Moderate diffuse coronary atherosclerosis with single- vessel obstructive disease. The left circumflex is diffusely diseased with subtotal occlusion in its mid and distal portions with filling via left to left and bridge collateral. History of cardiac radiofrequency ablation History of thoracentesis 05/2022 [place] Hx of colonoscopy S/P total hip arthroplasty left, 05/2022 [place] Family History Other No family history of adverse response to anesthesia Social History Smoking Status: Current every day smoker Tobacco Type: E-cigarettes / Vaping Age Started Using Tobacco: 10; Age Quit Using Tobacco: 70; packs per day: 1; Cigarettes Per Day: vapes daily- advised; Second Hand Exposure: Yes; Do You Dip or Chew Tobacco: No; Tobacco Cessation Education Requested by Patient: No Hx Alcohol Use: Yes Alcohol type: hard liquor Hx Substance Use: No Preferred Language: Citizen [place] Communication Ability: Effective Lead Nitrate Processor Required: No Beliefs That Will Affect Care: Restorationism Current Living Situation: Spouse Other Information That Helps Us Care for You: No Feels Safe at Home: Yes Safety Concerns: Feels Safe At This Time Assistive Devices: Denture - Upper, Glasses and Walker Review of Systems Review of Systems: All systems reviewed & are unremarkable except as noted in Subjective Physical Exam Constitutional: WD/WN, vitals as above Neck: trachea midline, no thyromegaly Respiratory: no respiratory distress, no labored breathing and not tachypneic Auscultation: + diminished lung sounds Right lung base with dullness to percussion Cardiovascular: RRR, no murmur, no edema Gastrointestinal (Abdomen): normal bowel sounds, soft, nontender, no hepatosplenomegaly Musculoskeletal: Extremities: extremities normal to inspection Skin: no rashes, warm and dry Neurologic: Nonfocal exam Lymphatic: no cervical lymphadenopathy Results & Data Results & Data Vital Signs (Past 12 Hours) Vital Signs Temp Pulse Resp BP Pulse Ox O2 Del Method O2 Flow Rate 09/25/22 07:27 36.5 C 85 17 91/60 L 91 Nasal Cannula 3 09/25/22 07:37 Nasal Cannula 3 09/25/22 03:00 36.5 C 77 18 95/63 L 95 Nasal Cannula 2 09/24/22 22:22 36.7 C 75 17 86/54 L 94 Nasal Cannula 2 09/24/22 21:33 Nasal Cannula 2 Critical Care Results & Data Vital Signs (Past 12 Hours) Vital Signs Temp Pulse Resp BP Pulse Ox O2 Del Method O2 Flow Rate 09/25/22 07:27 36.5 C 85 17 91/60 L 91 Nasal Cannula 3 09/25/22 07:37 Nasal Cannula 3 09/25/22 03:00 36.5 C 77 18 95/63 L 95 Nasal Cannula 2 09/24/22 22:22 36.7 C 75 17 86/54 L 94 Nasal Cannula 2 09/24/22 21:33 Nasal Cannula 2 Lab & Micro Results (Past 24 Hours) RBC 5.26 M/uL (4.70-6.10) 09/24/22 WBC 9.43 K/ul (4.8-10.8) 09/24/22 Hgb 14.4 g/dl (14.0-18.0) 09/24/22 Hct 45.7 % (42.0-52.0) 09/24/22 MCV 86.9 fL (80.0-100.0) 09/24/22 MCH 27.4 pg (25.0-34.0) 09/24/22 MCHC 31.5 g/dL (32.0-36.0) L 09/24/22 RDW Standard Deviation 44.9 fL (36.4-46.3) 09/24/22 RDW Coefficient of Variation 14.1 % (11.5-14.5) 09/24/22 Plt Count 191 K/uL (130-400) 09/24/22 MPV 10.0 fL (9.4-12.4) 09/24/22 Neutrophils (%) (Auto) 77.7 % 09/24/22 Lymphocytes (%) (Auto) 9.8 % 09/24/22 Monocytes # (Auto) 0.84 K/uL (0.11-0.59) H 09/24/22 Eosinophils # (Auto) 0.27 K/uL (0-0.50) 09/24/22 Immature Granulocyte % (Auto) 0.5 % 09/24/22 Neutrophils # (Auto) 7.33 K/uL (1.40-6.50) H 09/24/22 Lymphocytes # (Auto) 0.92 K/uL (1.2-3.4) L 09/24/22 Monocytes # (Auto) 0.84 K/uL (0.11-0.59) H 09/24/22 Eosinophils # (Auto) 0.27 K/uL (0-0.50) 09/24/22 Basophils # (Auto) 0.02 K/uL (0-0.2) 09/24/22 Immature Granulocyte # (Auto) 0.05 K/uL (0.01-0.20) 3 Na 141 mmol/L (136-145) 09/25/22 K 4.9 mmol/L (3.5-5.1) 09/25/22 Cl 103 mmol/L (98-107) 09/25/22 CO2 36 mmol/L (21-32) H 09/25/22 Anion Gap 2 (3-11) L 09/25/22 BUN 13 mg/dl (6-23) 09/25/22 Creatinine 0.97 mg/dl (0.6-1.4) 09/25/22 Estimated GFR ( Amer) 87.5 ml/min 09/25/22 Estimated GFR (Non-Af Amer) 75.5 ml/min 09/25/22 BUN/Creatinine Ratio 13.4 (10-20) 09/25/22 Glu 110 mg/dl (70-99(Fasting)) H 09/25/22 Ca 8.8 mg/dl (8.6-10.3) 09/25/22 Total Bilirubin 0.8 mg/dl (0.2-1.0) 09/24/22 AST 16 U/L (13-39) 09/24/22 ALT 13 U/L (7-52) 09/24/22 Alkaline Phosphatase 89 U/L (34-104) 09/24/22 TP 6.3 gm/dl (6.0-8.3) 09/24/22 Albumin 3.5 gm/dl (3.4-5.0) 09/24/22 Globulin 2.8 gm/dl (2.5-4.0) 09/24/22 Albumin/Globulin Ratio 1.3 (0.9-2) 09/24/22 Mg 2.1 mg/dl (1.7-2.4) 09/25/22 06:01 Calcium Level 8.8 mg/dl (8.6-10.3) 09/25/22 06:01 Prothromb Time International Ratio 1.1 (0.9-1.1) 09/25/22 06:0 1 Diagnostic Findings (Past 24 Hours) Chest X-Ray 09/24/22 15:53 XR chest 1V portable CLINICAL HISTORY: volume overload COMPARISON STUDY: Chest CT June 23, 2022. Chest radiograph September 09, 2022. FINDINGS: There is no pneumothorax. A moderate right pleural effusion has increased in size since prior examination. Associated right lung airspace opacity is present. No left pleural effusion is identified. Cardiomegaly is unchanged. There is no evidence for overt pulmonary edema. IMPRESSION: 1. Increase in size of a moderate right pleural effusion. Associated right lung airspace opacity. 2. Cardiomegaly without evidence for pulmonary edema. ACT 112: Negative or not required by law. Electronically signed by: Isaiah Morin M.D. 09/24/2022 4:28 PM Chest X-Ray 09/25/22 07:00 XR chest 1V portable CLINICAL HISTORY: evaluate pleural effusion COMPARISON STUDY: Chest CT June 23, 2022. Chest radiograph September 24, 2022. FINDINGS: There is no pneumothorax. A moderate to large right pleural effusion appears to have increased in size although this apparent change could be positional. Associated right lung opacity is present. There is cardiomegaly with pulmonary vascular congestion, unchanged. No left pleural effusion. IMPRESSION: 1. Moderate to large right pleural effusion with associated right lung opacity. 2. Cardiomegaly with pulmonary vascular congestion. ACT 112: Negative or not required by law. Electronically signed by: Isaiah Morin M.D. 09/25/2022 7:45 AM I & O Totals 24 Hours 09/24/22 09/25/22 09/26/22 06:59 06:59 06:59 Intake Total 1999 Output Total 3060 / 3060 100 / 100 Balance -1060 / -1060 -100 / -100 Cumulative 09/19/22 16:38 thru 09/25/22 07:27 Intake Total 1999 Output Total 3160 Balance -1160 RT Ventilator Mngmt (Last Documented) Ventilator Ordered Settings Respiratory Rate 17 09/25/22 07:27 Ventilator - PT Measurements Respiratory Rate 17 PG Care Time/CCT Total # of Minutes Spent Total Time Spent with Patient: Total time spent is greater than 50% in coordination of care (as documented) at patient's floor/unit and/or counseling patient: Coding Level of Care Code 02694 INT INP/OBS CARE 3/75MIN Diagnoses Pleural effusion J90 HIRAM (obstructive sleep apnea) G47.33
--- NOTE | 2022-09-25 09:53 | Urology Progress Note ---
Date of Service September 25, 2022 Assessment & Plan (1) S/P TURP: (2) Urinary retention: Plan: 77yo/M admitted postoperatively s/p TURP by Dr. Zapata on 09/24/2022. -Postop day #1 -Afebrile, BPs soft overnight, on 3L O2. -Labs reviewed -WBC and creatinine normal, hemoglobin 14.4. Will continue to trend. -3 way Mckee catheter intact, patent and draining pink tinged urine with CBI on slow. -Will continue CBI for now. OK to titrate as needed. (3) Pleural effusion: (4) HIRAM (obstructive sleep apnea): (5) Atrial fibrillation: Plan: -Medicine consulted postoperatively due to shortness of breath, new oxygen requirement, medical comorbidities. -Postop CXR showing moderate right sided pleural effusion which is larger than previous study. Pt has hx of at least 2 thoracenteses in last 3mo for recurrent pleural effusion. -Pulm consulted for possible thoracentesis. -Pulmonology consultation reviewed- Plan is for bedside ultrasound-guided catheter thoracentesis today 09/25. -Hx of Afib on Coumadin. Currently being held for thoracentesis today. INR 1.1. Plan -Maintain Mckee catheter -Continue antibiotics -Continue pain management and bowel regimen -Continue diet -Appreciate medicine and pulmonology consultations and assistance. Continue care per their recommendations. -Will continue to monitor closely Admission and Anticipated Discharge Date Admission Date: September 24, 2022 Subjective POD #1 s/p TURP Admitted postoperatively for CBI. Hospitalist consultation requested due to shortness of breath, new oxygen requirement, medical comorbidities. Pt examined at bedside this AM. Awake, resting in bed on arrival. No acute distress. Mckee intact, draining pink tinged urine with CBI on slow. Denies any pain or discomfort at present. Denies fevers, chills, nausea, vomiting. Denies CP. No c/o SOB. On 3L O2 via NC. BPs running soft overnight. Pt is eager to go home. Medicine and Pulm consulted. Review of Systems Constitutional: as per Subjective / HPI; no fever and no chills Cardiovascular: as per Subjective / HPI; no chest pain and no dyspnea Gastrointestinal: as per Subjective / HPI; no abdominal pain, no nausea and no vomiting Genitourinary: + as per Subjective / HPI Physical Exam Constitutional: no acute distress Respiratory: no respiratory distress and no labored breathing O2 via NC Gastrointestinal (Abdomen): Percussion/Palpation: abdomen soft; abdomen nontender Skin: No visible rashes or lesions to exposed skin areas Neurologic: awake Psychiatric: Orientation: alert, oriented x 3 and cooperative Genitourinary: Mckee draining pink tinged urine with CBI on slow Results & Data Vital Signs (Past 12 Hours) Vital Signs Temp Pulse Resp BP Pulse Ox O2 Del Method O2 Flow Rate 09/25/22 09:20 91 H 96/64 L 92 Nasal Cannula 3 09/25/22 07:27 36.5 C 85 17 91/60 L 91 Nasal Cannula 3 09/25/22 07:37 Nasal Cannula 3 09/25/22 03:00 36.5 C 77 18 95/63 L 95 Nasal Cannula 2 09/24/22 22:22 36.7 C 75 17 86/54 L 94 Nasal Cannula 2 PG Care Time/CCT Total # of Minutes Spent Total Time Spent with Patient: Total time spent is greater than 50% in coordination of care (as documented) at patient's floor/unit and/or counseling patient: Coding Level of Care Code 79633 SUB INP/OBS CARE 2/35MIN Diagnoses S/P TURP Z90.79 Urinary retention R33.9 Pleural effusion J90 HIRAM (obstructive sleep apnea) G47.33 Atrial fibrillation I48.91
--- NOTE | 2022-09-25 10:42 | Procedure Note ---
Procedure Note Date of Service September 25, 2022 Note Procedure: Diagnostic therapeutic ultrasound-guided catheter thoracentesis, right Bench Hand Machine: Dr. Armin Florian Indication: Pleural effusion Consent: Signed by patient and verified with timeout prior to procedure Anesthesia: 8 mL's 1% lidocaine without epinephrine local. Procedure: Consent was verified and timeout performed. Appropriate imaging studies were reviewed prior to the procedure. Patient was placed in a seated position and limited thoracic ultrasound was performed of the right chest. A moderate-sized right effusion was noted with compressive atelectasis. Site appropriate for thoracentesis was selected. The skin was prepped and draped in normal sterile fashion. Lidocaine was used for local analgesia. Fluid was aspirated via the finder needle. A small skin cammy was made with the scalpel and the catheter over the needle apparatus was advanced over the rib into the pleural space. Using the syringe one-way valve system, a total of 2200 mL's of clear yellow fluid was removed. Procedure was terminated due to patient experiencing some pain. The catheter was removed and observed to be intact. A sterile dressing was applied. Post procedure chest x-ray was ordered. Fluid was sent for cytology, cell count differential, Gram stain and culture, LDH, pH, total protein, and glucose. The patient tolerated the procedure well without obvious complication Coding CPT Codes Pulmonary/Thoracic - Pulmonary and Thoracic: 21656 Thoracentesis w imaging ([id number]) [facility] [place] Codes (Charges) Pulmonary/Thoracic Procedure 1: Pulmonary and Thoracic: 42816 Thoracentesis w imaging
--- NOTE | 2022-09-25 11:08 | XRay Report ---
XR chest 1V portable CLINICAL HISTORY: S/P Thoracentesis COMPARISON STUDY: Chest radiograph performed earlier today. FINDINGS: Right pleural effusion has markedly decreased in size following thoracentesis. There is a l obulated density at the medial right lung base. Equivocal small right apical pneumothorax. Cardiomega ly is again noted. There is no evidence for overt pulmonary edema. IMPRESSION: 1. Marked decrease in size of the right pleural effusion status post thoracentesis. Equivocal small r ight apical pneumothorax. This is likely artifactual but can be assessed on follow-up chest radiograp h. 2. Lobulated density at the medial right lung base. This could reflect atelectasis and can also be as sessed on follow-up radiographs. ACT 112: Negative or not required by law. Electronically signed by: Isaiah Morin M.D. 09/25/2022 11:07 AM
[2022-09-25 11:22] LABS: Total Protein Pleural Fluid 3.8 gm/dl
[2022-09-25 11:31] LABS: Appearance Pleural Fluid Cloudy; Color Pleural Fluid Yellow; Lymphocytes, Fluid 91 %; Mono,Macrophage,Mesothelial 7 %; Neutrophils, Fluid 2 %; RBC Pleural Fluid Auto < 2000 /uL; Source Pleural Fluid Right Lung; WBC Pleural Fluid Auto 788 /uL
--- NOTE | 2022-09-25 14:07 | Hospitalist Progress Note ---
Date of Service September 25, 2022 Assessment & Plan (1) S/P TURP: Plan: Status post TURP on 09/24/2022 Managed by urologist Minimal abdominal symptoms Three-way Guillory catheter is in place-still draining pinkish urine Management as per urologist (2) Pleural effusion: Plan: - Admitted under urology service - Medicine consulted for dyspnea, requirement of 2 L supplemental o2 and does not wear this at baseline - CXR ordered - appears to have moderate right sided pleural effusion which is larger than previous study where pt underwent thoracentesis on 09/03/22 and 1500mL was taken off - Lasix 40 mg IV now, continue with 40 mg Po daily dosing as per home meds - Stop fluids, pt has received LR all day and last dose of lasix was yesterday morning, BNP=72 -Appreciate pulmonary input and recommendation -Status post right thoracentesis of 2.2 L of fluid::Fluid was sent for cytology, cell count differential, Gram stain and culture, LDH, pH, total protein, and glucose. -Remains stable following the procedure (3) HIRAM (obstructive sleep apnea): (4) Urinary retention: Plan: - Continue management of guillory catheter per primary team - Bladder irrigation in place, currently draining bright red urine - Pain management and bowel regimen ordered -Has been on intravenous cefazolin as per primary (5) Heart failure, diastolic, with acute decompensation: Plan: Received 1 dose of Lasix on admission We will continue with oral furosemide from tomorrow (6) CAD (coronary artery disease): Plan: No acute cardiac symptoms (7) PAF (paroxysmal atrial fibrillation): Plan: - Chronic diastolic, will continue lasix as above, does not appear to be grossly overloaded peripherally - no JVD, no pitting edema - Cont asa 81 mg daily, , atorvastatin, metoprolol succinate. - digoxin 125 mcg for rate control - BP is soft at 90s/50s -- per pt , pt runs on the lower side. - Lisinopril on hold - Cont coumadin, follow INR with am labs -Rate is controlled DVT ppx: - teds, scds, coumadin -Coumadin has been restarted -Monitor INR CODE: Full code Dispo: From home, likely to remain in the hospital x 1-2 days Admission and Anticipated Discharge Date Admission Date: September 24, 2022 Subjective 09/25/2022 The patient was seen and examined in medical telemetry unit He is a status post right thoracentesis of 2.2 L and complains some chest pain on the right side Has been stable and denies any significant symptoms Remains generally weak and lethargic Review of Systems Review of Systems: All systems reviewed and are unremarkable except as noted below Respiratory: Minimal shortness of breath at rest Physical Exam Physical Exam: Lying in bed comfortably Constitutional: well developed, well nourished, + ill appearing and + obese Eyes: PERRL, conjunctivae normal, anicteric sclerae ENMT: external ear and nose normal, oropharynx normal Neck: trachea midline, no thyromegaly Respiratory: no respiratory distress Auscultation: + diminished lung sounds and + crackles (Right base) Cardiovascular: Rate/Rhythm: regular rate and regular rhythm; not tachycardic Heart Sounds: normal S1 and normal S2; no murmur Extremities: no edema Gastrointestinal (Abdomen): Inspection/Auscultation: normal bowel sounds; abdomen not distended Percussion/Palpation: + abdomen tender and abdomen soft Musculoskeletal: No acute arthritis involving any joint Neurologic: normal touch/pain/proprioception and moves all extremities; no focal motor deficits Lymphatic: no cervical or axillary lymphadenopathy Results & Data Results & Data Vital Signs (Past 12 Hours) Vital Signs Temp Pulse Pulse Resp BP Pulse Ox O2 Del Method 09/25/22 12:39 36.6 C 85 18 98/67 L 94 Nasal Cannula 09/25/22 07:15 85 09/25/22 09:20 91 H 96/64 L 92 Nasal Cannula 09/25/22 07:27 36.5 C 85 17 91/60 L 91 Nasal Cannula 09/25/22 07:37 Nasal Cannula 09/25/22 03:00 36.5 C 77 18 95/63 L 95 Nasal Cannula O2 Flow Rate 09/25/22 12:39 3 09/25/22 07:15 09/25/22 09:20 3 09/25/22 07:27 3 09/25/22 07:37 3 09/25/22 03:00 2 Laboratory Results Short CBC 09/24/22 Range/Units 13:54 WBC 9.43 (4.8-10.8) K/ul Hgb 14.4 (14.0-18.0) g/dl Hct 45.7 (42.0-52.0) % Plt Count 191 (130-400) K/uL BMP 09/24/22 09/25/22 13:54 06:01 Sodium 142 141 Potassium 4.2 4.9 Chloride 105 103 Carbon Dioxide 33 H 36 H BUN 12 13 Creatinine 0.82 0.97 Glucose 99 110 H Calcium 9.1 8.8 Liver Function 09/24/22 Range/Units 13:54 Total Bilirubin 0.8 (0.2-1.0) mg/dl AST 16 (13-39) U/L ALT 13 (7-52) U/L Alkaline Phosphatase 89 (34-104) U/L Albumin 3.5 (3.4-5.0) gm/dl Medications Administered Current Inpatient Medications Digoxin (Digoxin 0.125 Mg Tab) 0.125 mg PO DAILY@1600 [facility] Stop: 10/25/22 15:59 Docusate Sodium (Docusate Sodium 100 Mg Cap) 100 mg PO BID [facility] Stop: 10/24/22 20:59 Last Admin: 09/25/22 08:44 Dose: 100 mg Finasteride (Finasteride 5 Mg Tab) 5 mg PO DAILY [facility] Stop: 10/25/22 08:59 Last Admin: 09/25/22 08:45 Dose: 5 mg Furosemide (Furosemide 40 Mg Tab) 40 mg PO DAILY [facility] Stop: 10/25/22 08:59 Gabapentin (Gabapentin 400 Mg Cap) 400 mg PO DAILY [facility] Stop: 10/25/22 08:59 Last Admin: 09/25/22 08:45 Dose: 400 mg Cefazolin Sodium (Ancef 2000mg) 2,000 mg in 15 mls @ 3.75 mls/min IV Q8H [facility]; Protocol Stop: 09/25/22 14:29 Last Admin: 09/25/22 05:51 Dose: 3.75 mls/min Melatonin (Melatonin 3 Mg Tab) 3 mg PO HS PRN PRN Reason: Sleep Stop: 10/24/22 20:14 Last Admin: 09/24/22 20:37 Dose: 3 mg Metoprolol Succinate (Metoprolol Succ 50mg Ext Rel Tab) 100 mg PO QAM [facility] Stop: 10/25/22 08:59 Last Admin: 09/25/22 08:43 Dose: Not Given Morphine Sulfate (Morphine Sulfate 4 Mg/Ml 1 Ml Carp\Vial) 4 mg IV Q3H PRN PRN Reason: Pain (6,7,8,9,10) Stop: 10/08/22 11:18 Morphine Sulfate (Morphine Sulfate 2 Mg/Ml Carp) 2 mg IV Q3H PRN PRN Reason: Pain (1,2,3,4,5) & Pre PT Stop: 10/08/22 11:18 Ondansetron HCl (Ondansetron Inj 2 Mg/Ml 2 Ml Vial) 4 mg IV Q6H PRN PRN Reason: Nausea And Vomiting Stop: 10/24/22 11:18 Last Admin: 09/24/22 17:00 Dose: 4 mg Oxybutynin Chloride (Oxybutynin Chloride 5 Mg Tab) 5 mg PO TID PRN PRN Reason: bladder spasms Stop: 10/24/22 11:23 Oxycodone/Acetaminophen (Oxycodone/Acetaminophen 5mg/325mg Tab) 1 tab PO Q4H PRN PRN Reason: MODERATE Pain (4,5,6) & Pre PT Stop: 10/08/22 11:18 Last Admin: 09/24/22 23:20 Dose: 1 tab Phenazopyridine HCl (Phenazopyridine Hcl 200 Mg Tab) 200 mg PO TID PRN PRN Reason: Dysuria, Urgency, Pain Stop: 10/24/22 11:18 Tamsulosin HCl (Tamsulosin Hcl 0.4 Mg Cap) 0.4 mg PO DAILY [facility] Stop: 10/25/22 08:59 Last Admin: 09/25/22 08:45 Dose: 0.4 mg Warfarin Sodium (Warfarin Sod 10 Mg Tab) 10 mg PO SuTuWeThFrSa@1600 [facility] Stop: 10/25/22 15:59 Warfarin Sodium (Warfarin Sod 5 Mg Tab) 5 mg PO Mo@1600 [facility] Stop: 10/24/22 18:59 Last Admin: 09/24/22 18:33 Dose: 5 mg
[2022-09-25] MEDS ORDERED: DIGOXIN 0.125 MG TAB PO SCH (16:00)
[2022-09-25] MEDS: WARFARIN SOD 10 MG TAB PO SCH (16:09)
[2022-09-25] MEDS: MELATONIN 3 MG TAB PO PRN (20:28)
[2022-09-25] MEDS: oxyCODONE/ACETAMINOPHEN 5mg/325mg TAB PO PRN (20:28)
[2022-09-26] MEDS ORDERED: ALBUMIN 25% 25 GM/100 ML VIAL IV ONE (02:59)
[2022-09-26] MEDS ORDERED: METOPROLOL TARTRATE 1 MG/ML VIAL IV STA (02:59)
[2022-09-26] MEDS: DIGOXIN 0.125 MG TAB PO SCH (03:24)
[2022-09-26 04:00] LABS: Basophils # (auto) 0.02 K/uL (0-0.2); Basophils % (auto) 0.1 %; Eosinophils # (auto) 0.03 K/uL (0-0.50); Eosinophils % (auto) 0.2 %; Hematocrit (blood only) 43.5 % (42.0-52.0); Hemoglobin 13.5 g/dl (14.0-18.0); Immature Granulocytes # (auto) 0.08 K/uL (0.01-0.20); Immature Granulocytes % (auto) 0.6 %; Lymphocytes # (auto) 0.61 K/uL (1.2-3.4); Lymphocytes % (auto) 4.5 %; Mean Corpuscular Hemoglobin 27.5 pg (25.0-34.0); Mean Corpuscular Volume 88.6 fL (80.0-100.0); Mean Platelet Volume 9.9 fL (9.4-12.4); Monocytes # (auto) 1.06 K/uL (0.11-0.59); Monocytes % (auto) 7.8 %; Neutrophils # (auto) 11.78 K/uL (1.40-6.50); Neutrophils % (auto) 86.8 %; Platelet Count 179 K/uL (130-400); RDW Coefficient of Variation 13.8 % (11.5-14.5); RDW Standard Deviation 44.4 fL (36.4-46.3); Red Blood Count 4.91 M/uL (4.70-6.10); White Blood Count 13.58 K/ul (4.8-10.8)
[2022-09-26 04:00] LABS: Bacteria Urine Automated Negative (Negative); Bilirubin Urine Negative (Negative); Blood Urine 3+ (Negative); Epithelial Cell Urine Auto 20-30 /lpf (0-5); Glucose Urine UA Negative (Negative); Ketones Urine Negative (Negative); Leukocyte Esterase Urine 1+ (Negative); Nitrite Urine Negative (Negative); Protein Urine 2+ (Negative); Specific Gravity Urine 1.008 (1.000-1.030); Urobilinogen Urine Negative (Negative); WBC Urine Automated >30 /hpf (0-5)
[2022-09-26 04:03] LABS: Appearance Urine Turbid (Clear); Color Urine Red
[2022-09-26 04:05] LABS: RBC Urine Automated >30 /hpf (0-4)
[2022-09-26 04:16] LABS: Calcium 8.8 mg/dl (8.6-10.3); Est GFR (African American) 96.7 ml/min; Est GFR (Non-African American) 83.4 ml/min; Magnesium 2.1 mg/dl (1.7-2.4); Potassium 4.5 mmol/L (3.5-5.1)
[2022-09-26 04:28] LABS: INR 1.2 (0.9-1.1); Partial Thromboplastin Ratio 1.1; Partial Thromboplastin Time 30.8 Seconds (21.0-31.0); Prothrombin Time 13.2 Seconds (9.0-12.0)
--- NOTE | 2022-09-26 04:31 | Communication Note ---
Date of Service: September 26, 2022 Patient noted to be febrile and tachycardic. Dry cough symptoms as per RN. No abdominal/flank pain/diarrhea. UA WBC esterase AP Sepsis secondary to complicated UTI Recent TURP Follow urine CS, Cefepime for now
[2022-09-26] MEDS: CEFEPIME 2,000 MG in SYRINGE 0 ML IV SCH ×3 (05:16→20:16)
[2022-09-26] MEDS: DOCUSATE SODIUM 100 MG CAP PO SCH ×2 (08:31→20:16)
[2022-09-26] MEDS: FINASTERIDE 5 MG TAB PO SCH (08:31)
[2022-09-26] MEDS: GABAPENTIN 400 MG CAP PO SCH (08:31)
[2022-09-26] MEDS: FUROSEMIDE 40 MG TAB PO SCH (08:31)
[2022-09-26] MEDS: TAMSULOSIN HCL 0.4 MG CAP PO SCH (08:31)
--- NOTE | 2022-09-26 08:34 | Urology Progress Note ---
Date of Service September 26, 2022 Assessment & Plan (1) S/P TURP: (2) Urinary retention: Plan: 77yo/M admitted to urology service postoperatively s/p TURP by Dr. Zapata on 09/24/2022. -Postop day #2 -Afebrile at present (Tmax 37.7C and tachycardic overnight). BP still running 90's systolic. On 3L NC. -Labs reviewed -WBC up from 9.43-13.58, hemoglobin 13.5, creatinine stable. Will continue to trend. -Urine and blood cultures collected overnight and pending. -Pt switched from Ancef to Cefepime. Follow cultures. -3 way Mckee catheter intact and draining light pink urine with CBI on slow drip. Can continue to wean off CBI as able. (3) Pleural effusion: (4) HIRAM (obstructive sleep apnea): (5) Atrial fibrillation: Plan: -Medicine consulted postoperatively due to shortness of breath, new oxygen requirement, management of medical comorbidities. -Postop CXR showing moderate right sided pleural effusion which is larger than previous study. Pt has hx of at least 2 thoracenteses in last 3mo for recurrent pleural effusion. -Pulmonology consulted. Pt underwent thoracentesis 09/25 with removal of 2.2 L of fluid. -Coumadin restarted 09/25. INR 1.2 today. Plan -Maintain Mckee catheter, wean CBI as able. -Continue antibiotics and follow cultures -Continue pain management and bowel regimen -Continue diet -Appreciate medicine and pulmonology consultations and assistance. Continue care per their recommendations. -Will continue to monitor closely Admission and Anticipated Discharge Date Admission Date: September 24, 2022 Subjective Pt examined at bedside this AM. Awake, resting in bed on arrival. No acute distress. Pt with low grade temp and tachycardia overnight. Urine and blood cultures collected- antibiotics changed to Cefepime. BP still running 90s systolic. Denies fevers, chills, nausea, vomiting. Denies CP/SOB. Denies pain. Mckee intact, draining pink urine with CBI on slow. Review of Systems Constitutional: as per Subjective / HPI Gastrointestinal: as per Subjective / HPI Genitourinary: + as per Subjective / HPI Physical Exam Constitutional: no acute distress Respiratory: no respiratory distress and no labored breathing O2 via NC Gastrointestinal (Abdomen): Percussion/Palpation: abdomen soft; abdomen nontender Skin: No visible rashes or lesions to exposed skin areas Neurologic: awake Psychiatric: Orientation: alert, oriented x 3 and cooperative Genitourinary: Mckee draining pink tinged urine with CBI on slow Results & Data Vital Signs (Past 12 Hours) Vital Signs Temp Pulse Pulse Resp BP BP Pulse Ox 09/26/22 07:23 36.8 C 105 H 16 96/62 L 93 09/26/22 05:22 37.1 C 103 H 20 101/67 94 09/26/22 03:28 36.9 C 119 H 96/57 L 95 09/26/22 03:24 119 H 09/26/22 02:46 37.7 C H 09/26/22 02:42 37.3 C 107 H 20 105/71 99 09/26/22 00:01 36.7 C 92 H 18 104/69 100 09/25/22 21:59 96 H 09/25/22 21:00 O2 Del Method O2 Flow Rate 09/26/22 07:23 Nasal Cannula 2 09/26/22 05:22 Nasal Cannula 2 09/26/22 03:28 Nasal Cannula 2 09/26/22 03:24 09/26/22 02:46 09/26/22 02:42 Nasal Cannula 3 09/26/22 00:01 Nasal Cannula 2 09/25/22 21:59 09/25/22 21:00 Nasal Cannula 3 PG Care Time/CCT Total # of Minutes Spent Total Time Spent with Patient: Total time spent is greater than 50% in coordination of care (as documented) at patient's floor/unit and/or counseling patient: Coding Level of Care Code 73853 SUB INP/OBS CARE 2/35MIN Diagnoses S/P TURP Z90.79 Urinary retention R33.9 Pleural effusion J90 HIRAM (obstructive sleep apnea) G47.33 Atrial fibrillation I48.91
--- NOTE | 2022-09-26 09:58 | Pulmonology Progress Note ---
Date of Service September 26, 2022 Assessment & Plan (1) Pleural effusion: (2) Exertional shortness of breath: (3) HIRAM (obstructive sleep apnea): Plan Attending: Dr. Florian Impression: 77-year-old male admitted for urological procedure. Pulmonary was consulted for recurrent pleural effusion. Patient underwent thoracentesis yesterday. Pleural fluid labs are currently pending. Patient is currently 93% on 3 L via nasal cannula. Patient was initially treated with cefazolin. He is currently on Ceftin pain. Recommendations: 1. Recurrent pleural effusion: * Status postthoracentesis on 09/03/2022 with 1.5 L of lymphocytic exudative fluid * Status postthoracentesis 09/25/2022 2.2 L clear yellow fluid * Labs are still pending from yesterday's procedure * Patient can follow-up with Dr. Daniel in the outpatient clinic for results and further management. * Per review of Dr. Florian's note yesterday, "If the effusion remains lymphocytic exudative and no etiology is identified, consideration for referral for medical pleuroscopy or video-assisted thoracoscopic evaluation with potential pleurodesis may be appropriate." 2. Sleep disordered breathing/hypersomnia: * Patient should continue with CPAP therapy while inpatient * Split-night polysomnography exam ordered by Dr. Daniel. It appears as though the study has not yet been completed * Further management outpatient with the pulmonary clinic 3. Exertional shortness of breath: * Appears to be multifactorial. Patient with elevated BMI of 33.8 kg/m. Most likely also due to history of smoking and deconditioning * Will see if patient has any improvement now that thoracentesis has been performed twice this month. 4. Obesity secondary to excess calories: * Patient should continue to increase activity as tolerated * Decrease overall calories as well as empty calories * Patient may benefit from nutritional consult as an outpatient Thank you for including us in the care of this patient. At this time pulmonary will sign off. Please feel free to reconsult or call with questions. Patient is scheduled to see Dr. Daniel in follow-up on 10/08/2022 at 10 AM. Patient is aware of this appointment. This will be added to the discharge instructions. Please refer to Dr. Florian's addendum for further corrections and recommendations. Admission and Anticipated Discharge Date Admission Date: September 24, 2022 Subjective Attending: Dr. Florian This is a 77-year-old male that follows with Dr. Daniel in the outpatient clinic. He has a history of pleural effusion. He underwent thoracentesis on 09/03/2022 for 1.5 L. He underwent second thoracentesis 09/25/2022 with 2200 mL of clear yellow fluid was evacuated. Although he had pleural effusion in the past, review of notes indicates that he was resistant to have thoracentesis until his 09/03/2022 procedure. Laboratory results for the 09/03/2022 procedure revealed no growth from the culture and no evidence of acid- fast bacilli. Fluid at that time appeared to be lymphocytic exudative. No evidence of malignancy at that time. Results from yesterday's thoracentesis are pending. No chest x-ray performed this morning. Patient was admitted for TURP procedure with Dr. Zapata from urology. He currently does not have any evidence of respiratory distress. He is on supplemental oxygen and maintaining 90% SaO2 on 2 L/min via nasal cannula. Patient denies any prior history of supplemental oxygen use at home. He has no acute pulmonary complaints. Review of Systems Review of Systems: A total of 10 systems was reviewed and is negative other than as listed in the HPI Physical Exam Physical Exam: GENERAL : No acute distress EYES: No icterus, gaze conjugate NOSE: No evidence of epistaxis MOUTH: No lesions or candidiasis NECK: Supple LUNGS: CTA B/L, no wheezes, rales or rhonchi BACK: No evidence of bruising or bleeding from right-sided thoracentesis. HEART: Regular, rate controlled ABDOMEN: Soft, NT, ND, BS Present EXTREMITIES: No LE edema, pedal pulses intact NEURO: A&OX3 Results & Data Results & Data Vital Signs (Past 12 Hours) Vital Signs Temp Pulse Pulse Resp BP BP Pulse Ox 09/26/22 09:32 09/26/22 07:23 36.8 C 105 H 16 96/62 L 93 09/26/22 05:22 37.1 C 103 H 20 101/67 94 09/26/22 03:28 36.9 C 119 H 96/57 L 95 09/26/22 03:24 119 H 09/26/22 02:46 37.7 C H 09/26/22 02:42 37.3 C 107 H 20 105/71 99 09/26/22 00:01 36.7 C 92 H 18 104/69 100 09/25/22 21:59 96 H O2 Del Method O2 Flow Rate 09/26/22 09:32 Nasal Cannula 3 09/26/22 07:23 Nasal Cannula 2 09/26/22 05:22 Nasal Cannula 2 09/26/22 03:28 Nasal Cannula 2 09/26/22 03:24 09/26/22 02:46 09/26/22 02:42 Nasal Cannula 3 09/26/22 00:01 Nasal Cannula 2 09/25/22 21:59 Critical Care Results & Data Vital Signs (Past 12 Hours) Vital Signs Temp Pulse Pulse Resp BP BP Pulse Ox 09/26/22 09:39 99 H 09/26/22 09:32 09/26/22 07:23 36.8 C 105 H 16 96/62 L 93 09/26/22 05:22 37.1 C 103 H 20 101/67 94 09/26/22 03:28 36.9 C 119 H 96/57 L 95 09/26/22 03:24 119 H 09/26/22 02:46 37.7 C H 09/26/22 02:42 37.3 C 107 H 20 105/71 99 09/26/22 00:01 36.7 C 92 H 18 104/69 100 09/25/22 21:59 96 H O2 Del Method O2 Flow Rate 09/26/22 09:39 09/26/22 09:32 Nasal Cannula 3 09/26/22 07:23 Nasal Cannula 2 09/26/22 05:22 Nasal Cannula 2 09/26/22 03:28 Nasal Cannula 2 09/26/22 03:24 09/26/22 02:46 09/26/22 02:42 Nasal Cannula 3 09/26/22 00:01 Nasal Cannula 2 09/25/22 21:59 Lab & Micro Results (Past 24 Hours) RBC 4.91 M/uL (4.70-6.10) 09/26/22 WBC 13.58 K/ul (4.8-10.8) H 09/26/22 Hgb 13.5 g/dl (14.0-18.0) L 09/26/22 Hct 43.5 % (42.0-52.0) 09/26/22 MCV 88.6 fL (80.0-100.0) 09/26/22 MCH 27.5 pg (25.0-34.0) 09/26/22 MCHC 31.0 g/dL (32.0-36.0) L 09/26/22 RDW Standard Deviation 44.4 fL (36.4-46.3) 09/26/22 RDW Coefficient of Variation 13.8 % (11.5-14.5) 09/26/22 Plt Count 179 K/uL (130-400) 09/26/22 MPV 9.9 fL (9.4-12.4) 09/26/22 Neutrophils (%) (Auto) 86.8 % 09/26/22 Lymphocytes (%) (Auto) 4.5 % 09/26/22 Monocytes # (Auto) 1.06 K/uL (0.11-0.59) H 09/26/22 Eosinophils # (Auto) 0.03 K/uL (0-0.50) 09/26/22 Immature Granulocyte % (Auto) 0.6 % 09/26/22 Neutrophils # (Auto) 11.78 K/uL (1.40-6.50) H 09/26/22 Lymphocytes # (Auto) 0.61 K/uL (1.2-3.4) L 09/26/22 Monocytes # (Auto) 1.06 K/uL (0.11-0.59) H 09/26/22 Eosinophils # (Auto) 0.03 K/uL (0-0.50) 09/26/22 Basophils # (Auto) 0.02 K/uL (0-0.2) 09/26/22 Immature Granulocyte # (Auto) 0.08 K/uL (0.01-0.20) 3 Na 136 mmol/L (136-145) 09/26/22 K 4.5 mmol/L (3.5-5.1) 09/26/22 Cl 98 mmol/L (98-107) 09/26/22 CO2 36 mmol/L (21-32) H 09/26/22 Anion Gap 2 (3-11) L 09/26/22 BUN 15 mg/dl (6-23) 09/26/22 Creatinine 0.88 mg/dl (0.6-1.4) 09/26/22 Estimated GFR ( Amer) 96.7 ml/min 09/26/22 Estimated GFR (Non-Af Amer) 83.4 ml/min 09/26/22 BUN/Creatinine Ratio 17.0 (10-20) 09/26/22 Glu 144 mg/dl (70-99(Fasting)) H 09/26/22 Ca 8.8 mg/dl (8.6-10.3) 09/26/22 Mg 2.1 mg/dl (1.7-2.4) 09/26/22 03:44 Calcium Level 8.8 mg/dl (8.6-10.3) 09/26/22 03:44 Prothromb Time International Ratio 1.2 (0.9-1.1) H 09/26/22 03 :44 Microbiology 09/25/22 10:10 Acid Fast Bacilli Smear - Final Pleural Fluid,Right 09/25/22 10:10 Gram Stain - Final Pleural Fluid Diagnostic Findings (Past 24 Hours) Chest X-Ray 09/25/22 10:41 XR chest 1V portable CLINICAL HISTORY: S/P Thoracentesis COMPARISON STUDY: Chest radiograph performed earlier today. FINDINGS: Right pleural effusion has markedly decreased in size following thoracentesis. There is a lobulated density at the medial right lung base. Equivocal small right apical pneumothorax. Cardiomegaly is again noted. There is no evidence for overt pulmonary edema. IMPRESSION: 1. Marked decrease in size of the right pleural effusion status post thoracentesis. Equivocal small right apical pneumothorax. This is likely artifactual but can be assessed on follow-up chest radiograph. 2. Lobulated density at the medial right lung base. This could reflect atelectasis and can also be assessed on follow-up radiographs. ACT 112: Negative or not required by law. Electronically signed by: Isaiah Morin M.D. 09/25/2022 11:07 AM I & O Totals 24 Hours 09/25/22 09/26/22 09/27/22 06:59 06:59 06:59 Intake Total 1999 940 / 940 Output Total 3060 / 3060 2700 / 2700 Balance -1060 / -1060 -1760 / -1760 Cumulative 09/19/22 16:38 thru 09/26/22 06:22 Intake Total 2940 Output Total 5760 Balance -2820 RT Ventilator Mngmt (Last Documented) Ventilator Ordered Settings Respiratory Rate 16 09/26/22 07:23 Ventilator - PT Measurements Respiratory Rate 16 PG Care Time/CCT Total # of Minutes Spent Total Time Spent with Patient: Total time spent is greater than 50% in coordination of care (as documented) at patient's floor/unit and/or counseling patient:30 minutes Coding Level of Care Code 16843 SUB INP/OBS CARE 2/35MIN Diagnoses Pleural effusion J90 Exertional shortness of breath R06.02 HIRAM (obstructive sleep apnea) G47.33 Time Spent (min) 30
[2022-09-26] MEDS: METOPROLOL SUCC 50MG EXT REL TAB PO SCH (11:43)
--- NOTE | 2022-09-26 15:48 | Hospitalist Progress Note ---
Date of Service September 26, 2022 Assessment & Plan (1) S/P TURP: Plan: per previous attending notes with addendum: Status post TURP on 09/24/2022 Managed by urologist Minimal abdominal symptoms Three-way Guillory catheter is in place-still draining pinkish urine Management as per urologist 09/26 Positive fever overnight Urine culture pending Blood cultures pending Continue IV cefepime day #2 (2) Pleural effusion: Plan: - Admitted under urology service - Medicine consulted for dyspnea, requirement of 2 L supplemental o2 and does not wear this at baseline - CXR ordered - appears to have moderate right sided pleural effusion which is larger than previous study where pt underwent thoracentesis on 09/03/22 and 1500mL was taken off - Lasix 40 mg IV now, continue with 40 mg Po daily dosing as per home meds - Stop fluids, pt has received LR all day and last dose of lasix was yesterday morning, BNP=72 -Appreciate pulmonary input and recommendation -Status post right thoracentesis of 2.2 L of fluid::Fluid was sent for cytology, cell count differential, Gram stain and culture, LDH, pH, total protein, and glucose. -Remains stable following the procedure 09/26 Respiratory status stable Wean off oxygen supplement accordingly Discussed with pulmonary service, pleural effusion transudative likely from CHF Continue Lasix 40 mg p.o. daily (3) HIRAM (obstructive sleep apnea): Plan: Continue CPAP (4) Urinary retention: Plan: - Continue management of guilolry catheter per primary team - Bladder irrigation in place, currently draining bright red urine - Pain management and bowel regimen ordered (5) Heart failure, diastolic, with acute decompensation: Plan: Received 1 dose of Lasix on admission We will continue with oral furosemide (6) CAD (coronary artery disease): Plan: No acute cardiac symptoms (7) PAF (paroxysmal atrial fibrillation): Plan: - Chronic diastolic, will continue lasix as above, does not appear to be grossly overloaded peripherally - no JVD, no pitting edema - Cont asa 81 mg daily, , atorvastatin, metoprolol succinate. - digoxin 125 mcg for rate control - BP is soft at 90s/50s -- per pt , pt runs on the lower side. - Lisinopril on hold - Cont coumadin, follow INR with am labs -Rate is controlled 09/26 INR 1.2 Hold Coumadin for today likely resume tomorrow DVT ppx: - teds, scds Coumadin on hold CODE: Full code Dispo: From home, likely to remain in the hospital x 1-2 days Admission and Anticipated Discharge Date Admission Date: September 26, 2022 Subjective Follow-up status post TURP, pleural effusions, etc. Events overnight noted Patient febrile, tachycardic Urine culture and blood cultures ordered Started on cefepime IV Seen this morning, afebrile, sitting up, not in distress, comfortable Appears somewhat tired States he feels fine overall Denies abdominal pain, urethral pain Denies shakes, chills No shortness of breath, cough, sputum production No other symptoms Review of Systems Review of Systems: all noted and negative except for above Physical Exam Physical Exam: General- oriented x 3, not in distress, speaks in sentences with no effort or accessory muscle use Eyes- anicteric Neck- no JVD Lungs- clear BS BL Heart- normal rate, regular rhythm; no murmurs Abdomen- normal bowel sounds, nondistended, soft, nontender Extremities- no pretibial edema, no calf tenderness Neuro- alert, oriented x 3; no gross focal neurologic deficits Skin- warm & dry Results & Data Results & Data Vital Signs (Past 12 Hours) Vital Signs Temp Pulse Pulse Resp BP Pulse Ox O2 Del Method 09/26/22 10:55 36.8 C 108 H 17 90/57 L 93 Nasal Cannula 09/26/22 09:39 99 H 09/26/22 09:32 Nasal Cannula 09/26/22 07:23 36.8 C 105 H 16 96/62 L 93 Nasal Cannula 09/26/22 05:22 37.1 C 103 H 20 101/67 94 Nasal Cannula O2 Flow Rate 09/26/22 10:55 2 09/26/22 09:39 09/26/22 09:32 3 09/26/22 07:23 2 09/26/22 05:22 2 all noted and reviewed including below
[2022-09-26] MEDS: METOPROLOL TARTRATE 25 MG TAB PO SCH (18:23)
[2022-09-26] MEDS: MELATONIN 3 MG TAB PO PRN (22:01)
[2022-09-27] MEDS: CEFEPIME 2,000 MG in SYRINGE 0 ML IV SCH ×3 (05:39→20:10)
[2022-09-27] MEDS: FUROSEMIDE 40 MG TAB PO SCH (08:17)
[2022-09-27] MEDS: FINASTERIDE 5 MG TAB PO SCH (08:17)
[2022-09-27] MEDS: METOPROLOL TARTRATE 25 MG TAB PO SCH ×2 (08:18→18:15)
[2022-09-27] MEDS: TAMSULOSIN HCL 0.4 MG CAP PO SCH (08:18)
[2022-09-27] MEDS: GABAPENTIN 400 MG CAP PO SCH (08:18)
[2022-09-27] MEDS: ACETAMINOPHEN 325 MG TAB PO PRN (08:19)
[2022-09-27] MEDS: DOCUSATE SODIUM 100 MG CAP PO SCH ×2 (08:26→20:11)
[2022-09-27 08:43] LABS: Hematocrit (blood only) 39.7 % (42.0-52.0); Hemoglobin 12.9 g/dl (14.0-18.0); Mean Corpuscular Hemoglobin 27.6 pg (25.0-34.0); Mean Corpuscular Hgb Conc 32.5 g/dL (32.0-36.0); Mean Platelet Volume 10.4 fL (9.4-12.4); Platelet Count 150 K/uL (130-400); RDW Coefficient of Variation 13.6 % (11.5-14.5); RDW Standard Deviation 42.2 fL (36.4-46.3); Red Blood Count 4.67 M/uL (4.70-6.10); White Blood Count 13.79 K/ul (4.8-10.8)
[2022-09-27 09:04] LABS: BUN Creatinine Ratio 18.5 (10-20); Creatinine Clr Calc Pharmacy 129.3 ml/min; Est GFR (African American) 109.5 ml/min; Est GFR (Non-African American) 94.5 ml/min; Potassium 3.8 mmol/L (3.5-5.1)
[2022-09-27 09:15] LABS: INR 1.3 (0.9-1.1); Partial Thromboplastin Ratio 1.2; Partial Thromboplastin Time 35.1 Seconds (21.0-31.0)
--- NOTE | 2022-09-27 09:35 | Urology Progress Note ---
Date of Service September 27, 2022 Assessment & Plan (1) S/P TURP: (2) Urinary retention: Plan: 77yo/M admitted to urology service postoperatively s/p TURP by Dr. Zapata on 09/24/2022. -Postop day #3 -Afebrile, tachycardic, BP still running 90's systolic. -Labs reviewed -WBC 13.79, hemoglobin 12.9, creatinine stable. Will continue to trend. -Urine culture prelim no growth, blood cultures prelim no growth x24 hours. -On IV Cefepime. Follow cultures. -Mckee draining clear urine with CBI on slow -Will clamp CBI and monitor, nursing aware - will reassess later this AM. (3) Pleural effusion: (4) HIRAM (obstructive sleep apnea): (5) Atrial fibrillation: Plan: -Medicine consulted postoperatively due to shortness of breath, new oxygen requirement, management of medical comorbidities. -Postop CXR showing moderate right sided pleural effusion which is larger than previous study. Pt has hx of at least 2 thoracenteses in last 3mo for recurrent pleural effusion. -Pulmonology consulted. Pt underwent thoracentesis 09/25 with removal of 2.2 L of fluid. -Coumadin on hold. INR 1.3 today. Plan -Maintain Mckee catheter -Continue antibiotics and follow cultures -Continue pain management and bowel regimen -Continue diet -Encourage OOB/ambulation -Appreciate medicine and pulmonology consultations and assistance. Continue care per their recommendations. -Will continue to monitor closely Admission and Anticipated Discharge Date Admission Date: September 26, 2022 Subjective Pt examined at bedside this AM. Awake, resting in bed on arrival. No acute distress. Denies fevers, chills, nausea, vomiting. Denies CP/SOB. Denies pain. Mckee intact, draining clear urine with CBI on slow. Eager to go home today. Review of Systems Constitutional: as per Subjective / HPI Cardiovascular: as per Subjective / HPI; no chest pain and no dyspnea Gastrointestinal: as per Subjective / HPI Genitourinary: + as per Subjective / HPI Physical Exam Constitutional: no acute distress Respiratory: no respiratory distress and no labored breathing Gastrointestinal (Abdomen): Percussion/Palpation: abdomen soft; abdomen nontender Neurologic: awake Psychiatric: Orientation: alert, oriented x 3 and cooperative Genitourinary: Mckee intact, draining clear urine with slow CBI Results & Data Vital Signs (Past 12 Hours) Vital Signs Temp Pulse Resp BP Pulse Ox O2 Del Method O2 Flow Rate 09/27/22 07:45 36.7 C 112 H 18 102/66 94 Nasal Cannula 2 09/27/22 03:16 37 C 94 H 18 101/60 92 Nasal Cannula 2 09/26/22 23:00 36.8 C 107 H 18 95/56 L 90 Nasal Cannula 2 PG Care Time/CCT Total # of Minutes Spent Total Time Spent with Patient: Total time spent is greater than 50% in coordination of care (as documented) at patient's floor/unit and/or counseling patient: Coding Level of Care Code 39289 SUB INP/OBS CARE 2/35MIN Diagnoses S/P TURP Z90.79 Urinary retention R33.9 Pleural effusion J90 HIRAM (obstructive sleep apnea) G47.33 Atrial fibrillation I48.91
[2022-09-27] MEDS ORDERED: SODIUM CHLORIDE 0.9% 1000ML 1,000 ML IV ONE (12:34)
[2022-09-27] MEDS: WARFARIN SOD 10 MG TAB PO SCH (12:38)
[2022-09-27] MEDS: DIGOXIN 0.125 MG TAB PO SCH (16:42)
--- NOTE | 2022-09-27 18:08 | Hospitalist Progress Note ---
Date of Service September 27, 2022 Assessment & Plan (1) S/P TURP: Plan: per previous attending notes with addendum: Status post TURP on 09/24/2022 Managed by urologist Minimal abdominal symptoms Three-way Guillory catheter is in place-still draining pinkish urine Management as per urologist 09/26 Positive fever overnight Urine culture pending Blood cultures pending Continue IV cefepime day #2 (2) Pleural effusion: Plan: - Admitted under urology service - Medicine consulted for dyspnea, requirement of 2 L supplemental o2 and does not wear this at baseline - CXR ordered - appears to have moderate right sided pleural effusion which is larger than previous study where pt underwent thoracentesis on 09/03/22 and 1500mL was taken off - Lasix 40 mg IV now, continue with 40 mg Po daily dosing as per home meds - Stop fluids, pt has received LR all day and last dose of lasix was yesterday morning, BNP=72 -Appreciate pulmonary input and recommendation -Status post right thoracentesis of 2.2 L of fluid::Fluid was sent for cytology, cell count differential, Gram stain and culture, LDH, pH, total protein, and glucose. -Remains stable following the procedure 09/26 Respiratory status stable Wean off oxygen supplement accordingly Discussed with pulmonary service, pleural effusion transudative likely from CHF Continue Lasix 40 mg p.o. daily (3) HIRAM (obstructive sleep apnea): Plan: Continue CPAP (4) Urinary retention: Plan: - Continue management of guillory catheter per primary team - Bladder irrigation in place, currently draining bright red urine - Pain management and bowel regimen ordered (5) Heart failure, diastolic, with acute decompensation: Plan: Received 1 dose of Lasix on admission We will continue with oral furosemide (6) CAD (coronary artery disease): Plan: No acute cardiac symptoms (7) PAF (paroxysmal atrial fibrillation): Plan: - Chronic diastolic, will continue lasix as above, does not appear to be grossly overloaded peripherally - no JVD, no pitting edema - Cont asa 81 mg daily, , atorvastatin, metoprolol succinate. - digoxin 125 mcg for rate control - BP is soft at 90s/50s -- per pt , pt runs on the lower side. - Lisinopril on hold - Cont coumadin, follow INR with am labs -Rate is controlled 09/26 INR 1.2 Hold Coumadin for today likely resume tomorrow DVT ppx: - teds, scds Coumadin on hold CODE: Full code Dispo: From home, likely to remain in the hospital x 1-2 days Admission and Anticipated Discharge Date Admission Date: September 26, 2022 Results & Data Results & Data Vital Signs (Past 12 Hours) Vital Signs Temp Pulse Pulse Resp BP BP Pulse Ox 09/27/22 16:42 114 H 09/27/22 16:32 107 H 09/27/22 14:43 36.5 C 106 H 16 92/64 L 92/64 L 99 09/27/22 08:25 109 H 09/27/22 08:25 09/27/22 11:01 36.4 C L 101 H 16 91/60 L 72/53 L 09/27/22 07:45 36.7 C 112 H 18 102/66 94 O2 Del Method O2 Flow Rate 09/27/22 16:42 09/27/22 16:32 09/27/22 14:43 Room Air 09/27/22 08:25 09/27/22 08:25 Nasal Cannula 3 09/27/22 11:01 Room Air 09/27/22 07:45 Nasal Cannula 2
[2022-09-27] MEDS ORDERED: ALBUMIN 25% 25 GM/100 ML VIAL IV ONE (19:45)
[2022-09-27] MEDS ORDERED: POTASSIUM CHLORIDE CRTAB 20 MEQ TABCR PO STA (19:50)
[2022-09-27] MEDS ORDERED: DIGOXIN 0.125 MG/2.5 ML UDP PO STA (19:51)
[2022-09-27 20:11] LABS: Magnesium 2.1 mg/dl (1.7-2.4)
[2022-09-28] MEDS: MELATONIN 3 MG TAB PO PRN ×2 (00:13→21:35)
[2022-09-28] MEDS: ACETAMINOPHEN 325 MG TAB PO PRN (00:13)
[2022-09-28] MEDS: CEFEPIME 2,000 MG in SYRINGE 0 ML IV SCH ×3 (05:40→21:36)
[2022-09-28 07:47] LABS: Hematocrit (blood only) 38.5 % (42.0-52.0); Hemoglobin 12.1 g/dl (14.0-18.0); Mean Corpuscular Hemoglobin 27.2 pg (25.0-34.0); Mean Corpuscular Hgb Conc 31.4 g/dL (32.0-36.0); Mean Corpuscular Volume 86.5 fL (80.0-100.0); Mean Platelet Volume 10.6 fL (9.4-12.4); Platelet Count 144 K/uL (130-400); RDW Coefficient of Variation 13.5 % (11.5-14.5); RDW Standard Deviation 42.6 fL (36.4-46.3); Red Blood Count 4.45 M/uL (4.70-6.10); White Blood Count 9.38 K/ul (4.8-10.8)
[2022-09-28 07:56] LABS: BUN Creatinine Ratio 29.6 (10-20); Calcium 9.1 mg/dl (8.6-10.3); Creatinine Clr Calc Pharmacy 155.5 ml/min; Est GFR (African American) 118.2 ml/min
[2022-09-28 08:59] LABS: INR 1.2 (0.9-1.1); Partial Thromboplastin Ratio 1.3; Partial Thromboplastin Time 35.4 Seconds (21.0-31.0); Prothrombin Time 13.4 Seconds (9.0-12.0)
[2022-09-28] MEDS: FINASTERIDE 5 MG TAB PO SCH (09:28)
[2022-09-28] MEDS: TAMSULOSIN HCL 0.4 MG CAP PO SCH (09:28)
[2022-09-28] MEDS: DOCUSATE SODIUM 100 MG CAP PO SCH ×2 (09:29→21:36)
[2022-09-28] MEDS: METOPROLOL TARTRATE 25 MG TAB PO SCH (09:36)
--- NOTE | 2022-09-28 09:48 | XRay Report ---
XR chest 1V portable CLINICAL HISTORY: ff up pleural effusion COMPARISON STUDY: Chest CT June 23, 2022. Chest radiograph September 25, 2022. FINDINGS: There is no pneumothorax. A small right pleural effusion has increased in size since prior exam. Associated right basilar opacity has increased. There is no left pleural effusion. Cardiomegaly is again noted. There is no evidence for pulmonary edema. IMPRESSION: 1. Increase in size of a small right pleural effusion and associated right basilar opacity. 2. No pneumothorax. 3. Cardiomegaly. No evidence for pulmonary edema. ACT 112: Negative or not required by law. Electronically signed by: Isaiah Morin M.D. 09/28/2022 9:46 AM
[2022-09-28] MEDS: SODIUM CHLORIDE 0.9% 1000ML 1,000 ML IV SCH ×2 (10:00→23:37)
[2022-09-28] MEDS: GABAPENTIN 400 MG CAP PO SCH (10:50)
[2022-09-28] MEDS: METOPROLOL SUCC 25MG EXT REL TAB PO SCH (10:50)
--- NOTE | 2022-09-28 11:12 | Urology Progress Note ---
Date of Service September 28, 2022 Assessment & Plan (1) S/P TURP: (2) Urinary retention: Plan: 77yo/M admitted to urology service postoperatively s/p TURP by Dr. Zapata on 09/24/2022. -Postop day #4 -Afebrile, tachycardic, normotensive. -Labs reviewed -WBC improved to 9.38, hemoglobin 12.1, creatinine stable. Will continue to trend. -Urine culture negative, blood cultures prelim no growth x48 hours. On IV Cefepime. -Mckee draining pink tinged urine off CBI. Continue to monitor. (3) Pleural effusion: (4) HIRAM (obstructive sleep apnea): (5) Atrial fibrillation: Plan: -Medicine consulted postoperatively due to shortness of breath, new oxygen requirement, management of medical comorbidities. -Postop CXR showing moderate right sided pleural effusion which is larger than previous study. Pt has hx of at least 2 thoracenteses in last 3mo for recurrent pleural effusion. -Pulmonology consulted. Pt underwent thoracentesis 09/25 with removal of 2.2 L of fluid. -Coumadin on hold per medicine team. INR 1.2 today. Plan -Maintain Mckee catheter -Continue antibiotics for now. -Continue pain management and bowel regimen -Continue diet -Encourage OOB/ambulation -PT/OT eval pending. -Appreciate medicine and pulmonology consultations and assistance. Continue care per their recommendations. -Pt is eager to go home. Will await PT/OT and medicine recommendations. -Will continue to monitor closely. Patient seen and examined at bedside today with Dr. Zapata. Admission and Anticipated Discharge Date Admission Date: September 26, 2022 Subjective Pt examined at bedside this AM. Awake, resting in bed on arrival. No acute distress. Denies fevers, chills, nausea, vomiting. Denies CP/SOB. Denies pain. Mckee intact, draining pink tinged urine. Eager to go home today. Review of Systems Constitutional: as per Subjective / HPI Gastrointestinal: as per Subjective / HPI Genitourinary: + as per Subjective / HPI Physical Exam Constitutional: no acute distress Respiratory: no respiratory distress and no labored breathing Gastrointestinal (Abdomen): Percussion/Palpation: abdomen soft; abdomen nontender Neurologic: awake Psychiatric: Orientation: alert, oriented x 3 and cooperative Genitourinary: Mckee intact Results & Data Vital Signs (Past 12 Hours) Vital Signs Temp Pulse Resp BP Pulse Ox O2 Del Method O2 Flow Rate 09/28/22 08:32 36.7 C 102 H 18 102/63 95 Nasal Cannula 2 09/28/22 03:58 36.5 C 96 H 18 124/74 97 Nasal Cannula 2 09/27/22 23:18 36.6 C 99 H 18 133/83 94 Nasal Cannula 2 PG Care Time/CCT Total # of Minutes Spent Total Time Spent with Patient: Total time spent is greater than 50% in coordination of care (as documented) at patient's floor/unit and/or counseling patient: Coding Level of Care Code 16994 SUB INP/OBS CARE 2/35MIN Diagnoses S/P TURP Z90.79 Urinary retention R33.9 Pleural effusion J90 HIRAM (obstructive sleep apnea) G47.33 Atrial fibrillation I48.91
[2022-09-28] MEDS: DIGOXIN 0.125 MG TAB PO SCH (16:25)
[2022-09-28] MEDS: WARFARIN SOD 10 MG TAB PO SCH (17:15)
--- NOTE | 2022-09-28 17:56 | Hospitalist Progress Note ---
Date of Service September 28, 2022 Assessment & Plan (1) S/P TURP: Plan: per previous attending notes with addendum: Status post TURP on 09/24/2022 Managed by urologist Minimal abdominal symptoms Three-way Guillory catheter is in place-still draining pinkish urine Management as per urologist 09/28 Afebrile Urine culture negative so far Blood cultures negative so far Repeat chest x-ray today showing increased right-sided pleural effusion, possible consolidation We will order CT chest to better characterize above findings Continue IV cefepime day #3 for possible pneumonia Continue incentive spirometer (2) Pleural effusion: Plan: - Admitted under urology service - Medicine consulted for dyspnea, requirement of 2 L supplemental o2 and does not wear this at baseline - CXR ordered - appears to have moderate right sided pleural effusion which is larger than previous study where pt underwent thoracentesis on 09/03/22 and 1500mL was taken off - Lasix 40 mg IV now, continue with 40 mg Po daily dosing as per home meds - Stop fluids, pt has received LR all day and last dose of lasix was yesterday morning, BNP=72 -Appreciate pulmonary input and recommendation -Status post right thoracentesis of 2.2 L of fluid::Fluid was sent for cytology, cell count differential, Gram stain and culture, LDH, pH, total protein, and glucose. -Remains stable following the procedure 09/28 Respiratory status stable but chest x-ray revealing possible right-sided lower lobe pneumonia CT chest ordered Management per above Holding Lasix as patient currently on IV fluids for hypotension yesterday and borderline blood pressure today Continue to monitor closely (3) HIRAM (obstructive sleep apnea): Plan: Continue CPAP (4) Urinary retention: Plan: - Continue management of guillory catheter per primary team - Bladder irrigation in place, currently draining bright red urine - Pain management and bowel regimen ordered 09/11 Hemoglobin stable overall Continue to monitor (5) Heart failure, diastolic, with acute decompensation: Plan: Lasix held in light of marginal blood pressure Monitor closely (6) CAD (coronary artery disease): Plan: No acute cardiac symptoms (7) PAF (paroxysmal atrial fibrillation): Plan: - Chronic diastolic, will continue lasix as above, does not appear to be grossly overloaded peripherally - no JVD, no pitting edema - Cont asa 81 mg daily, , atorvastatin, metoprolol succinate. - digoxin 125 mcg for rate control - BP is soft at 90s/50s -- per pt , pt runs on the lower side. - Lisinopril on hold - Cont coumadin, follow INR with am labs -Rate is controlled 09/28 Heart rate elevated yesterday but blood pressure marginal Metoprolol XL resumed but will slowly uptitrate depending on blood pressure For now 25 mg in the morning INR 1.2 Resume Coumadin today DVT ppx: - teds, scds Coumadin on hold CODE: Full code Dispo: From home, monitoring of heart rate and blood pressure, titration of metoprolol in progress Admission and Anticipated Discharge Date Admission Date: September 26, 2022 Subjective Follow-up for pleural effusion, etc. status post TURP Resting in bed, comfortable, not in distress On 2 L of oxygen States he feels okay overall Had some dizziness when working with PT today, sitting up in bed Denies shortness of breath, chest pain, palpitations No fevers or chills Denies cough No abdominal pain, nausea No other symptom Review of Systems Review of Systems: all noted and negative except for above Physical Exam Physical Exam: General- oriented x 3, not in distress, speaks in sentences with no effort or accessory muscle use Eyes- anicteric Neck- no JVD Lungs- clear breath sounds bilaterally, no rales/wheezes Heart- normal rate, regular rhythm; no murmurs Abdomen- normal bowel sounds, nondistended, soft, nontender Extremities- no pretibial edema, no calf tenderness Neuro- alert, oriented x 3; no gross focal neurologic deficits Skin- warm & dry Results & Data Results & Data Vital Signs (Past 12 Hours) Vital Signs Temp Pulse Pulse Resp BP Pulse Ox O2 Del Method 09/28/22 08:00 Nasal Cannula 09/28/22 08:00 102 H 09/28/22 16:25 112 H 09/28/22 16:36 36.3 C L 86 18 114/82 98 Nasal Cannula 09/28/22 12:40 36.6 C 60 18 104/53 L 94 Nasal Cannula 09/28/22 08:32 36.7 C 102 H 18 102/63 95 Nasal Cannula O2 Flow Rate 09/28/22 08:00 2 09/28/22 08:00 09/28/22 16:25 09/28/22 16:36 2 09/28/22 12:40 2 09/28/22 08:32 2 all noted and reviewed including below
--- NOTE | 2022-09-28 20:42 | CT Scan Report ---
Exam(s): CT CHEST Without Contrast EXAM: CT Chest Without Intravenous Contrast CLINICAL HISTORY: Reason for exam: r/o pneumonia. TECHNIQUE: Axial computed tomography images of the chest without intravenous contrast. CTDI is 30.17 mGy and DLP is 989.32 mGy-cm. Automated exposure control was utilized for the study. A dose lowering technique was utilized adhering to the principles of ALARA. COMPARISON: No relevant prior studies available. FINDINGS: Lungs: Airspace consolidation of the RIGHT lung base, concerning for aspiration pneumonia. Moderate RIGHT and trace LEFT pleural effusions. Pleural space: No pneumothorax. Heart: Cardiomegaly. Trace pericardial fluid. No significant coronary artery calcifications. Mediastinum: Calcified subcarinal lymph node. Bones/joints: Degenerative changes of the spine. No acute fracture. No dislocation. Soft tissues: Unremarkable. Vasculature: Unremarkable. No thoracic aortic aneurysm. Lymph nodes: See above. IMPRESSION: Airspace consolidation of the RIGHT lung base, concerning for aspiration pneumonia. Moderate RIGHT and trace LEFT pleural effusions. Electronically signed by: Power Bonds MD 09/28/22 20:41 PM
[2022-09-28] MEDS: oxyCODONE/ACETAMINOPHEN 5mg/325mg TAB PO PRN (22:56)
[2022-09-29] MEDS: ACETAMINOPHEN 325 MG TAB PO PRN ×2 (02:11→08:41)
[2022-09-29] MEDS ORDERED: MELATONIN 3 MG TAB PO STA (02:33)
[2022-09-29] MEDS: CEFEPIME 2,000 MG in SYRINGE 0 ML IV SCH ×3 (05:44→20:17)
[2022-09-29 07:10] LABS: Hematocrit (blood only) 38.3 % (42.0-52.0); Hemoglobin 12.2 g/dl (14.0-18.0); Mean Corpuscular Hemoglobin 27.4 pg (25.0-34.0); Mean Corpuscular Hgb Conc 31.9 g/dL (32.0-36.0); Mean Corpuscular Volume 85.9 fL (80.0-100.0); Mean Platelet Volume 10.4 fL (9.4-12.4); Platelet Count 160 K/uL (130-400); RDW Coefficient of Variation 13.4 % (11.5-14.5); RDW Standard Deviation 42.4 fL (36.4-46.3); Red Blood Count 4.46 M/uL (4.70-6.10); White Blood Count 7.28 K/ul (4.8-10.8)
[2022-09-29 07:41] LABS: BUN Creatinine Ratio 21.3 (10-20); Calcium 9.1 mg/dl (8.6-10.3); Creatinine Clr Calc Pharmacy 138.2 ml/min; Est GFR (African American) 112.4 ml/min; Potassium 3.7 mmol/L (3.5-5.1)
[2022-09-29 08:18] LABS: INR 1.2 (0.9-1.1); Partial Thromboplastin Ratio 1.2; Partial Thromboplastin Time 34.6 Seconds (21.0-31.0); Prothrombin Time 12.8 Seconds (9.0-12.0)
[2022-09-29] MEDS: METOPROLOL SUCC 25MG EXT REL TAB PO SCH (08:39)
[2022-09-29] MEDS: TAMSULOSIN HCL 0.4 MG CAP PO SCH (08:40)
[2022-09-29] MEDS: GABAPENTIN 400 MG CAP PO SCH (08:40)
[2022-09-29] MEDS: FINASTERIDE 5 MG TAB PO SCH (08:40)
[2022-09-29] MEDS: DOCUSATE SODIUM 100 MG CAP PO SCH ×2 (08:43→20:22)
[2022-09-29] MEDS ORDERED: diphenhydrAMINE Capsule 25 MG CAP PO ONE (09:59)
[2022-09-29] MEDS: FUROSEMIDE 20 MG TAB PO SCH (10:30)
--- NOTE | 2022-09-29 15:11 | Urology Progress Note ---
Date of Service September 29, 2022 Assessment & Plan (1) S/P TURP: (2) Urinary retention: Plan: 77yo/M admitted to urology service postoperatively s/p TURP by Dr. Zapata on 09/24/2022. Patient had been doing extremely well from the TURP however has been dealing with a number of other issues including significant exacerbation of his chronic respiratory issues, a significant issue with his A-fib and management of his beta-blockers, hypotension, and severe deconditioning which has been an ongoing issue since his major orthopedic procedure. He had 2 L of fluid taken off during thoracocentesis due to chronic fluid collection in the lung. Patient has had hypotensive issues since then. Has been slowly recovering. Has been slowly having his beta-chata titrated back to normal dosing. -Postop day #5 -Afebrile, tachycardic, normotensive. -Labs reviewed stable and continuing to monitor -Urine culture negative, blood cultures prelim no growth x48 hours. On IV Cefepime. Likely was due to instrumentation with the thoracocentesis versus systemic reaction likely not related to infection -Mckee removed this morning after being off of CBI. Patient is trying to go back to normal voiding. Have been working with this. We will plan to continue to monitor. Patient is being evaluated by physical therapy. May need home health assistance. We will plan to continue to monitor with plans to discharge once patient has been cleared by physical therapy as well as the hospitalist and pulmonary teams. (3) Pleural effusion: (4) HIRAM (obstructive sleep apnea): (5) Atrial fibrillation: Admission and Anticipated Discharge Date Admission Date: September 26, 2022 Subjective Postop from urologic surgery. Patient has been tolerating well, but is having some pain and discomfort. Catheter removed this Am. Having some pelvic discomfort and pains. Had been tolerated catheter. Has not had severe pain or uncontrollable pain. Patient has been ambulating. Has not had bowel movement or major change. No new nausea or vomiting. Had tolerated anesthesia without major problems Has chronic severe respiratory and CHF issues at baseline. Had large fluid collection on the lung which required thoracocentesis. Has been dealing with some mild hypotension since that procedure. Also has significant A-fib and has been trying to titrate back to his normal dose of beta-chata. Has been dealing with significant deconditioning which has been an ongoing issue since his major orthopedic surgery. He has slowly been increasing activity during the hospitalization and is working with physical therapy now. Tolerating diet Review of Systems Review of Systems: All systems reviewed & are unremarkable except as noted in HPI & below Physical Exam Physical Exam: General: Alert in no acute distress. HEENT: Normocephalic Atraumatic. Inspection normal. Cranial Nerves 2-12 Grossly intact. Normal inspection of face. Normal inspection of neck. Psychologic: Normal affect. Respiratory: Nonlabored. No use of accessory muscles. No tachypnea or dyspnea. Cardiovascular: No tachycardia Skin: [place] and Dry. No rashes or visible lesions. Extremities/Lymphatics: No edema Abdomen: Appropriately tender. Mild distended. No rebound or guarding. Wound: Clean, dry, covered. Results & Data Vital Signs (Past 12 Hours) Vital Signs Temp Pulse Pulse Resp BP Pulse Ox O2 Del Method 09/29/22 07:15 106 H 09/29/22 11:33 36.6 C 93 H 18 101/66 96 Nasal Cannula 09/29/22 10:31 72 110/68 09/29/22 07:49 Nasal Cannula 09/29/22 07:00 36.7 C 74 18 97/62 L 96 Nasal Cannula O2 Flow Rate 09/29/22 07:15 09/29/22 11:33 2 09/29/22 10:31 09/29/22 07:49 2 09/29/22 07:00 2 PG Care Time/CCT Total # of Minutes Spent Total Time Spent with Patient: Total time spent is greater than 50% in coordination of care (as documented) at patient's floor/unit and/or counseling patient: Coding Level of Care Code 06579 SUB INP/OBS CARE 3/50MIN Diagnoses S/P TURP Z90.79 Urinary retention R33.9 Pleural effusion J90 HIRAM (obstructive sleep apnea) G47.33 Atrial fibrillation I48.91
--- NOTE | 2022-09-29 16:28 | Hospitalist Progress Note ---
Date of Service September 29, 2022 Assessment & Plan (1) S/P TURP: Plan: (1) S/P TURP: Plan: per previous attending notes with addendum: Status post TURP on 09/24/2022 Managed by urologist Minimal abdominal symptoms Three-way Guillory catheter is in place-still draining pinkish urine Management as per urologist 09/29 Afebrile Urine culture negative so far Blood cultures negative so far Repeat chest x-ray today showing increased right-sided pleural effusion, possible consolidation CT chest:Airspace consolidation of the RIGHT lung base, concerning for aspiration pneumonia. Moderate RIGHT and trace LEFT pleural effusions. Discussed with Dr. Florian, recommend VATS For now, will resume Lasix p.o. Expand antibiotic coverage with doxycycline, obtain MRSA swab Continue cefepime day #4 Monitor closely (2) Pleural effusion: Plan: - Admitted under urology service - Medicine consulted for dyspnea, requirement of 2 L supplemental o2 and does not wear this at baseline - CXR ordered - appears to have moderate right sided pleural effusion which is larger than previous study where pt underwent thoracentesis on 09/03/22 and 1500mL was taken off - Lasix 40 mg IV now, continue with 40 mg Po daily dosing as per home meds - Stop fluids, pt has received LR all day and last dose of lasix was yesterday morning, BNP=72 -Appreciate pulmonary input and recommendation -Status post right thoracentesis of 2.2 L of fluid::Fluid was sent for cytology, cell count differential, Gram stain and culture, LDH, pH, total protein, and glucose. -Remains stable following the procedure 09/29 Management per above Insomnia Patient complains of not being able to sleep with the past few days Trial of Benadryl 25 mg p.o. daily ordered (3) HIRAM (obstructive sleep apnea): Plan: Continue CPAP (4) Urinary retention: Plan: - Continue management of guillory catheter per primary team - Bladder irrigation in place, currently draining bright red urine - Pain management and bowel regimen ordered 09/29 Hemoglobin stable overall Continue to monitor (5) Heart failure, diastolic, with acute decompensation: Plan: Resume Lasix, start with 20 mg p.o. daily in light of blood pressure (6) CAD (coronary artery disease): Plan: No acute cardiac symptoms (7) PAF (paroxysmal atrial fibrillation): Plan: - Chronic diastolic, will continue lasix as above, does not appear to be grossly overloaded peripherally - no JVD, no pitting edema - Cont asa 81 mg daily, , atorvastatin, metoprolol succinate. - digoxin 125 mcg for rate control - BP is soft at 90s/50s -- per pt , pt runs on the lower side. - Lisinopril on hold - Cont coumadin, follow INR with am labs -Rate is controlled 09/28 Heart rate elevated yesterday but blood pressure marginal Metoprolol XL resumed but will slowly uptitrate depending on blood pressure For now 25 mg in the morning INR 1.2 On Coumadin DVT ppx: - teds, scds Coumadin Add heparin while Coumadin subtherapeutic CODE: Full code Dispo: From home, monitoring of heart rate and blood pressure, titration of metoprolol in progress Admission and Anticipated Discharge Date Admission Date: September 26, 2022 Subjective Follow-up status post TURP, pleural effusion, etc. Resting in bed, sitting up, on 2 L, not in distress but appears somewhat tired States he feels fine overall Denies shortness of breath, cough, fevers or chills, sputum production No chest pain Patient repeating that he would like to leave the hospital, cannot stay another day in the hospital, mainly because he has not slept for many days When asked, patient states he just cannot fall asleep No other symptoms Review of Systems Review of Systems: all noted and negative except for above Physical Exam Physical Exam: General- oriented x 3, not in distress, speaks in sentences with no effort or accessory muscle use Eyes- anicteric Neck- no JVD Lungs-decreased breath sound right lower lung field, clear on the left No wheezing Heart- normal rate, regular rhythm; no murmurs Abdomen- normal bowel sounds, nondistended, soft, nontender Extremities- no pretibial edema, no calf tenderness Neuro- alert, oriented x 3; no gross focal neurologic deficits Skin- warm & dry Results & Data Results & Data Vital Signs (Past 12 Hours) Vital Signs Temp Pulse Pulse Resp BP Pulse Ox O2 Del Method 09/29/22 15:00 36.8 C 98 H 18 107/71 93 Room Air 09/29/22 07:15 106 H 09/29/22 11:33 36.6 C 93 H 18 101/66 96 Nasal Cannula 09/29/22 10:31 72 110/68 09/29/22 07:49 Nasal Cannula 09/29/22 07:00 36.7 C 74 18 97/62 L 96 Nasal Cannula O2 Flow Rate 09/29/22 15:00 09/29/22 07:15 09/29/22 11:33 2 09/29/22 10:31 09/29/22 07:49 2 09/29/22 07:00 2 all noted and reviewed including below
[2022-09-29] MEDS ORDERED: WARFARIN SOD 2.5 MG TAB PO ONE (16:41)
[2022-09-29] MEDS: DIGOXIN 0.125 MG TAB PO SCH (17:00)
[2022-09-29] MEDS: WARFARIN SOD 10 MG TAB PO SCH (17:00)
[2022-09-29] MEDS: DOXYCYCLINE HYCLATE 100 MG CAP PO SCH (20:17)
[2022-09-29] MEDS: diphenhydrAMINE HCL 25 MG/10 ML UDC PO PRN (20:17)
[2022-09-29] MEDS: MELATONIN 3 MG TAB PO PRN (20:17)
[2022-09-29] MEDS: HEPARIN SOD 5,000 UNIT/0.5 ML VIAL SQ SCH (20:18)
[2022-09-30] MEDS: CEFEPIME 2,000 MG in SYRINGE 0 ML IV SCH ×3 (05:28→20:58)
[2022-09-30] MEDS: ACETAMINOPHEN 325 MG TAB PO PRN ×2 (08:25→18:25)
[2022-09-30] MEDS: FINASTERIDE 5 MG TAB PO SCH (08:26)
[2022-09-30] MEDS: METOPROLOL SUCC 25MG EXT REL TAB PO SCH (08:27)
[2022-09-30] MEDS: GABAPENTIN 400 MG CAP PO SCH (08:27)
[2022-09-30] MEDS: FUROSEMIDE 20 MG TAB PO SCH (08:27)
[2022-09-30] MEDS: TAMSULOSIN HCL 0.4 MG CAP PO SCH (08:28)
[2022-09-30] MEDS: HEPARIN SOD 5,000 UNIT/0.5 ML VIAL SQ SCH ×2 (08:28→20:58)
[2022-09-30] MEDS: DOCUSATE SODIUM 100 MG CAP PO SCH ×2 (08:31→20:58)
[2022-09-30] MEDS: DOXYCYCLINE HYCLATE 100 MG CAP PO SCH ×2 (08:31→20:58)
--- NOTE | 2022-09-30 09:03 | Urology Progress Note ---
Date of Service September 30, 2022 Assessment & Plan (1) S/P TURP: (2) Urinary retention: Plan: 77yo/M admitted to urology service postoperatively s/p TURP by Dr. Zapata on 09/24/2022. Patient had been doing extremely well from the TURP however has been dealing with a number of other issues including significant exacerbation of his chronic respiratory issues, a significant issue with his A-fib and management of his beta-blockers, hypotension, and severe deconditioning which has been an ongoing issue since his major orthopedic procedure. He had over 2 L of fluid taken off during thoracocentesis due to chronic fluid collection in the lung. Patient has had hypotensive issues since then. Has been slowly recovering. Has been slowly having his beta-chata titrated back to normal dosing. -Postop day #6 -Afebrile, tachycardic, normotensive. Blood pressures have been improving. -Labs reviewed stable and continuing to monitor -Urine culture negative, blood cultures prelim no growth x48 hours. On IV Cefepime. Likely was due to instrumentation with the thoracocentesis versus systemic reaction likely not related to infection -Mckee was removed yesterday. Patient has been voiding well. Has not had considerable straining. Feels that he is emptying well without major issues We will plan to continue to monitor. Patient is being evaluated by physical therapy. May need home health assistance. We will plan to continue to monitor with plans to discharge once patient has been cleared by physical therapy as well as the hospitalist and pulmonary teams. At this point patient is completely stable from a neurologic standpoint. Awaiting the medicine and pulmonology and physical therapy recommendations as far as discharge his major complaint has been inability to sleep due to a combination of insomnia as well as disruption from the normal hospital distraction. At this point waiting finalized okay to move forward with discharge. If patient is likely going to anticipate needing to stay much longer we will likely need to discuss with hospitalist team about transfer of care. We will plan to continue to monitor with plans to continue to monitor voiding and output. (3) Pleural effusion: (4) HIRAM (obstructive sleep apnea): (5) Atrial fibrillation: Admission and Anticipated Discharge Date Admission Date: September 26, 2022 Subjective Follow-up status post TURP, pleural effusion, etc. Resting in bed, sitting up, on 2 L, not in distress but appears somewhat tired States he feels fine overall Denies shortness of breath, cough, fevers or chills, sputum production No chest pain Patient repeating that he would like to leave the hospital, cannot stay another day in the hospital, mainly because he has not slept for many days When asked, patient states he just cannot fall asleep No other symptoms Physical Exam Physical Exam: General: Alert in no acute distress. HEENT: Normocephalic Atraumatic. Inspection normal. Cranial Nerves 2-12 Grossly intact. Normal inspection of face. Normal inspection of neck. Psychologic: Normal affect. Respiratory: Nonlabored. No use of accessory muscles. No tachypnea or dyspnea. Cardiovascular: No tachycardia Skin: [place] and Dry. No rashes or visible lesions. Extremities/Lymphatics: No edema Abdomen: Appropriately tender. Mild distended. No rebound or guarding. : Mckee catheter had been removed Results & Data Vital Signs (Past 12 Hours) Vital Signs Temp Pulse Pulse Resp BP Pulse Ox O2 Del Method 09/30/22 07:00 36.5 C 104 H 18 112/70 95 Room Air 09/30/22 07:29 Nasal Cannula 09/30/22 04:09 36.7 C 108 H 18 133/86 94 Room Air 09/29/22 23:00 104 H 09/29/22 22:31 36.8 C 94 H 18 117/80 97 Nasal Cannula O2 Flow Rate 09/30/22 07:00 09/30/22 07:29 2 09/30/22 04:09 3 09/29/22 23:00 09/29/22 22:31 4 PG Care Time/CCT Total # of Minutes Spent Total Time Spent with Patient: Total time spent is greater than 50% in coordination of care (as documented) at patient's floor/unit and/or counseling patient: Coding Level of Care Code 01539 SUB INP/OBS CARE 3/50MIN Diagnoses S/P TURP Z90.79 Urinary retention R33.9 Pleural effusion J90 HIRAM (obstructive sleep apnea) G47.33 Atrial fibrillation I48.91
[2022-09-30] MEDS ORDERED: FUROSEMIDE 20 MG TAB PO ONE (14:35)
--- NOTE | 2022-09-30 14:41 | Hospitalist Progress Note ---
Date of Service September 30, 2022 Assessment & Plan (1) S/P TURP: Plan: (1) S/P TURP: Plan: per previous attending notes with addendum: Status post TURP on 09/24/2022 guillory cath removed 09/30 Afebrile Urine culture negative Blood cultures negative CT chest:Airspace consolidation of the RIGHT lung base, concerning for aspiration pneumonia. Moderate RIGHT and trace LEFT pleural effusions. Discussed with Dr. Florian, recommend VATS For now,resume Lasix 40mg po daily Expanded antibiotic coverage with doxycycline, obtain MRSA swab Continue cefepime day #5, Doxy Day 2 repeat CXT tomorrow will discuss case with Pulm tomorrow Monitor closely (2) Pleural effusion: Plan: - Admitted under urology service - Medicine consulted for dyspnea, requirement of 2 L supplemental o2 and does not wear this at baseline - CXR ordered - appears to have moderate right sided pleural effusion which is larger than previous study where pt underwent thoracentesis on 09/03/22 and 1500mL was taken off - Lasix 40 mg IV now, continue with 40 mg Po daily dosing as per home meds - Stop fluids, pt has received LR all day and last dose of lasix was yesterday morning, BNP=72 -Appreciate pulmonary input and recommendation -Status post right thoracentesis of 2.2 L of fluid::Fluid was sent for cytology, cell count differential, Gram stain and culture, LDH, pH, total protein, and glucose. -Remains stable following the procedure / Management per above Insomnia Patient complains of not being able to sleep with the past few days Benadryl 25 mg p.o. HS PRN (3) HIRAM (obstructive sleep apnea): Plan: Continue CPAP (4) Urinary retention: Plan: - Continue management of guillory catheter per primary team - Bladder irrigation in place, currently draining bright red urine - Pain management and bowel regimen ordered 7/2 Hemoglobin stable overall Continue to monitor (5) Heart failure, diastolic, with acute decompensation: Plan: Resume Lasix 40mg po daily monitor BP (6) CAD (coronary artery disease): Plan: No acute cardiac symptoms (7) PAF (paroxysmal atrial fibrillation): Plan: - Chronic diastolic, will continue lasix as above, does not appear to be grossly overloaded peripherally - no JVD, no pitting edema - Cont asa 81 mg daily, , atorvastatin, metoprolol succinate. - digoxin 125 mcg for rate control - BP is soft at 90s/50s -- per pt , pt runs on the lower side. - Lisinopril on hold - Cont coumadin, follow INR with am labs -Rate is controlled / Metoprolol XL resumed but will slowly uptitrate depending on blood pressure For now 50 mg in the morning INR pending On Coumadin DVT ppx: - teds, scds Coumadin SC heparin while Coumadin subtherapeutic CODE: Full code Dispo: from home management of pleural effusion in progress Admission and Anticipated Discharge Date Admission Date: September 26, 2022 Subjective ff up for sp TURP, pleural effusion, a fib,etc seen resting in bed, comfortable patient's at bedside visiting ambulated in the room and a short distance in the hallway today no dizziness, chest pain has some dyspnea while laying flat in bed no cough, fever/chills no other symptoms eager to go home Review of Systems Review of Systems: all noted and negative except for above Physical Exam Physical Exam: General- oriented x 3, not in distress, speaks in sentences with no effort or accessory muscle use Eyes- anicteric Neck- no JVD Lungs- decreased BS R base clear on the left Heart- normal rate, regular rhythm; no murmurs Abdomen- normal bowel sounds, nondistended, soft, nontender Extremities- no pretibial edema, no calf tenderness Neuro- alert, oriented x 3; no gross focal neurologic deficits Skin- warm & dry Results & Data Results & Data Vital Signs (Past 12 Hours) Vital Signs Temp Pulse Pulse Resp BP Pulse Ox O2 Del Method 09/30/22 11:00 36.8 C 91 H 18 100/67 94 Room Air 09/30/22 07:15 101 H 09/30/22 07:00 36.5 C 104 H 18 112/70 95 Room Air 09/30/22 07:29 Nasal Cannula 09/30/22 04:09 36.7 C 108 H 18 133/86 94 Room Air O2 Flow Rate 09/30/22 11:00 09/30/22 07:15 09/30/22 07:00 09/30/22 07:29 2 09/30/22 04:09 3 all noted and reviewed including below
[2022-09-30] MEDS: WARFARIN SOD 10 MG TAB PO SCH (14:57)
[2022-09-30] MEDS: DIGOXIN 0.125 MG TAB PO SCH (14:58)
[2022-09-30 16:00] LABS: INR 1.5 (0.9-1.1); Prothrombin Time 16.5 Seconds (9.0-12.0)
[2022-09-30] MEDS ORDERED: WARFARIN SOD 2.5 MG TAB PO ONE (17:35)
[2022-09-30] MEDS: diphenhydrAMINE HCL 25 MG/10 ML UDC PO PRN (23:07)
[2022-10-01] MEDS: MELATONIN 3 MG TAB PO PRN ×2 (01:28→21:03)
[2022-10-01] MEDS: CEFEPIME 2,000 MG in SYRINGE 0 ML IV SCH ×3 (05:08→21:03)
--- NOTE | 2022-10-01 07:53 | XRay Report ---
XR chest 1V portable HISTORY: Follow-up right-sided pleural effusion COMPARISON: Chest CT 09/28/2022. FINDINGS: Moderate right and small left pleural effusions are again noted. There are low lung volumes . No pneumothorax. Right basilar consolidation persists. No evidence for pulmonary edema. The heart r emains enlarged. IMPRESSION: No significant change in the bilateral pleural effusions and right base airspace opacity. ACT 112: Negative or not required by law. Electronically signed by: Sb Seth M.D. 10/01/2022 7:51 AM
[2022-10-01] MEDS: FINASTERIDE 5 MG TAB PO SCH (08:30)
[2022-10-01] MEDS: GABAPENTIN 400 MG CAP PO SCH (08:30)
[2022-10-01] MEDS: FUROSEMIDE 20 MG TAB PO SCH (08:31)
[2022-10-01] MEDS: DOXYCYCLINE HYCLATE 100 MG CAP PO SCH ×2 (08:31→21:03)
[2022-10-01] MEDS: HEPARIN SOD 5,000 UNIT/0.5 ML VIAL SQ SCH (08:31)
[2022-10-01] MEDS: TAMSULOSIN HCL 0.4 MG CAP PO SCH (08:31)
[2022-10-01] MEDS: DOCUSATE SODIUM 100 MG CAP PO SCH ×2 (08:32→21:14)
[2022-10-01 08:39] LABS: BUN Creatinine Ratio 17.9 (10-20); Calcium 9.3 mg/dl (8.6-10.3); Creatinine Clr Calc Pharmacy 149.1 ml/min; Est GFR (African American) 116.4 ml/min; Est GFR (Non-African American) 100.5 ml/min; Potassium 3.7 mmol/L (3.5-5.1)
[2022-10-01 08:55] LABS: INR 1.9 (0.9-1.1); Prothrombin Time 20.2 Seconds (9.0-12.0)
[2022-10-01] MEDS ORDERED: METOPROLOL SUCC 50MG EXT REL TAB PO SCH (09:00)
--- NOTE | 2022-10-01 10:09 | Pulmonology Progress Note ---
Date of Service October 01, 2022 Assessment & Plan (1) Pleural effusion: (2) Exertional shortness of breath: (3) HIRAM (obstructive sleep apnea): Plan Impression: 77-year-old male admitted for urological procedure. Pulmonary was consulted for recurrent pleural effusion. Patient underwent thoracentesis yesterday. Pleural fluid labs are currently pending. Patient is currently 93% on 3 L via nasal cannula. -- Acute hypoxic respiratory failure with right sided Pleural effusion Along with right lower lobe atelectasis which is likely secondary to heart failure BNP 72 Procalcitonin negative SARS-Cov-2, NAAT negative S/p thoracentesis 09/03/2022, 1.5 L lymphocytic fluid removed, cultures negative, cytology negative S/p repeat thoracentesis 09/25/2022 2.2 L clear yellow fluid, again lymphocytic, cytology negative CT chest 06/23/2022ersonally reviewed: Large right-sided pleural effusion with dependent atelectasis of the right lower lobe, small left sided effusion Patchy groundglass opacity in the left upper lobe on the periphery Cardiomegaly No significant mediastinal lymphadenopathy -- Hypersomnia ESS: 12, STOP-BAN BMI 35 Sputum polysomnography has been ordered for the patient --Exertional shortness of breath Multifactorial Underlying BMI Diastolic CHF as well as history of smoking playing a part --A-fib On warfarin -- Ex cigarette smoker Approximately [id number] smoking history -- Currently vaping Advised to quit -- Obesity Advised to lose with diet and exercise Plan: Lymphocytic right-sided pleural effusion, reaccumulating really fast Cytology is negative x2. The next best approach would be to have VATS/pleuroscopy and then pleurodesis. Unfortunately she is not done in this hospital. Would recommend to have phone consultation with CT surgeon to get the recommendation The patient is not willing to have a VATS procedure done then the other option would be to have a repeat thoracentesis when shortness of breath is getting worse and the pleural effusion is getting worse. His INR right now is 1.9. It needs to be less than 1.7 for it to be considered Consider giving another 20 mg of IV Lasix today. Check for oxygen requirement on exertion prior to discharge All question inquiries of the patient and patient's were answered in depth. Was discussed with Dr. Russo Please note the above document was generated using voice recognition software. It may contain grammatical, syntax or spelling errors.Any formal questions or concerns about the content, text or information contained within the body of this dictation should be directly addressed to the provider for clarification. Admission and Anticipated Discharge Date Admission Date: September 26, 2022 Subjective Patient seen and examined at bedside. No acute distress, no adverse events overnight Was saturating 96-97% on 2 L nasal cannula. Patient's was in the room. He denied any chest pain, no headache, no nausea, no vomiting He says he is feeling better since he came to the hospital. Denies any headache, no dizziness No fever or chills Review of Systems Review of Systems: All systems reviewed & are unremarkable except as noted in Subjective Physical Exam Physical Exam: Constitutional: No acute distress HEENT: EOMI, PERRLA Respiratory system: Decreased air entry on the right side, no wheeze, no rhonchi, mild crackles bilateral lower lobes CVS: S1-S2 positive, no murmurs or gallops Abdomen: Soft, nontender, nondistended, positive bowel sounds x4, obese Extremities: +2 pulses bilaterally radialis/ dorsalis pedis, no cyanosis, +2 ankle edema bilateral lower extremity Neuro: Awake alert oriented x3 Psych: Normal mood and affect G/U: No Mckee Skin: no rashes, warm and dry Lymphatic: no cervical or axillary lymphadenopathy Results & Data Results & Data Vital Signs (Past 12 Hours) Vital Signs Temp Pulse Pulse Resp BP Pulse Ox O2 Del Method 10/01/22 07:48 103 H 10/01/22 07:00 36.6 C 98 H 18 116/77 94 Room Air 10/01/22 07:39 Nasal Cannula 10/01/22 02:33 36.7 C 100 H 18 107/73 95 Nasal Cannula 09/30/22 22:49 36.7 C 100 H 18 123/81 96 Room Air O2 Flow Rate 10/01/22 07:48 10/01/22 07:00 10/01/22 07:39 2 10/01/22 02:33 2 09/30/22 22:49 Laboratory Results 09/29/22 06:07 10/01/22 07:16 PG Care Time/CCT Total # of Minutes Spent Total Time Spent with Patient: Total time spent is greater than 50% in coordination of care (as documented) at patient's floor/unit and/or counseling patient: Coding Level of Care Code 21573 SUB INP/OBS CARE 350MIN Diagnoses Pleural effusion J90 Exertional shortness of breath R06.02 HIRAM (obstructive sleep apnea) G47.33
[2022-10-01] MEDS ORDERED: FUROSEMIDE INJ 20 MG/2 ML VIAL IV ONE (14:00)
--- NOTE | 2022-10-01 14:24 | Urology Progress Note ---
Date of Service October 01, 2022 Assessment & Plan (1) Pleural effusion: (2) S/P TURP: (3) Urinary retention: Plan: 77yo/M admitted to urology service postoperatively s/p TURP by Dr. Zapata on 09/24/2022. Post op day #7 s/p TURP. Patient had been doing extremely well from the TURP. However has been dealing with a number of other issues including significant exacerbation of his chronic respiratory issues, a significant issue with his A-fib and management of his beta-blockers, hypotension, and severe deconditioning which has been an ongoing issue since his major orthopedic procedure. Hospital medicine and pulmonology service following - appreciate recommendations. He had over 2 L of fluid taken off during thoracocentesis due to chronic fluid collection in the lung. Mckee has been removed and he is voiding without difficulty. We will plan to continue to monitor with plans to discharge once patient has been cleared by physical therapy as well as the hospitalist and pulmonary teams. At this point, patient is completely stable from a urologic standpoint. Awaiting the medicine and pulmonology recommendations as far as discharge. Pulmonology reevaluating patient today with possible plan to repeat thoracentesis. Will await recommendations. Patient's major complaint has been inability to sleep due to a combination of insomnia as well as disruption in hospital. If patient remains hospitalized, then we will likely need to discuss with hospit alist team about transfer of care to their service as primary. We will plan to continue to monitor with plans to continue to monitor voiding and output. Admission and Anticipated Discharge Date Admission Date: September 26, 2022 Subjective Patient seen and examined at bedside this morning. He is awake, alert and resting in bed. No acute complaints except for difficulty sleeping. He is anxious to go home due to poor sleep for several days. He is voiding without difficulty since catheter removal. Denies nausea, vomiting, fever or chills. Review of Systems Constitutional: as per Subjective / HPI Gastrointestinal: as per Subjective / HPI Genitourinary: + as per Subjective / HPI Physical Exam Constitutional: no acute distress Respiratory: no respiratory distress and no labored breathing Gastrointestinal (Abdomen): Inspection/Auscultation: abdomen normal to inspection; abdomen not distended Neurologic: awake Psychiatric: Orientation: alert, oriented x 3 and cooperative Results & Data Vital Signs (Past 12 Hours) Vital Signs Temp Pulse Pulse Resp BP Pulse Ox O2 Del Method 10/01/22 11:00 36.5 C 99 H 18 106/69 97 Room Air 10/01/22 07:48 103 H 10/01/22 07:00 36.6 C 98 H 18 116/77 94 Room Air 10/01/22 07:39 Nasal Cannula 10/01/22 02:33 36.7 C 100 H 18 107/73 95 Nasal Cannula O2 Flow Rate 10/01/22 11:00 10/01/22 07:48 10/01/22 07:00 10/01/22 07:39 2 10/01/22 02:33 2 PG Care Time/CCT Total # of Minutes Spent Total Time Spent with Patient: Total time spent is greater than 50% in coordination of care (as documented) at patient's floor/unit and/or counseling patient: Coding Level of Care Code None Diagnoses Pleural effusion J90 S/P TURP Z90.79 Urinary retention R33.9
[2022-10-01] MEDS ORDERED: PHYTONADIONE 2.5 MG in DEXTROSE 5% 50 ML IV ONE (14:57)
--- NOTE | 2022-10-01 15:47 | Procedure Note ---
Procedure Note Date of Service October 01, 2022 Note Bedside Ultrasound: Lung: Right:-Moderate right-sided pleural effusion with dependent atelectasis Left:-No pleural effusion Abdomen: No abdominal ascites Please note the above document was generated using voice recognition software. It may contain grammatical, syntax or spelling errors.Any formal questions or concerns about the content, text or information contained within the body of this dictation should be directly addressed to the provider for clarification. Coding CPT Codes Pulmonary/Thoracic - Pulmonary and Thoracic: 84171 US, Chest, real time with imaging documentation ([id number]) [facility] [place] Procedure Codes (Charges) Pulmonary/Thoracic Procedure 1: Pulmonary and Thoracic: 17474 US, Chest, real time with imaging documentation
[2022-10-01] MEDS: DIGOXIN 0.125 MG TAB PO SCH (16:29)
--- NOTE | 2022-10-01 17:26 | Hospitalist Progress Note ---
Date of Service October 01, 2022 Assessment & Plan (1) S/P TURP: (2) Heart failure, diastolic, with acute decompensation: (3) Pleural effusion: Plan: (1) S/P TURP: Plan: per previous attending notes with addendum: Status post TURP on 09/24/2022 guillory cath removed 10/01 Afebrile Urine culture negative Blood cultures negative CT chest:Airspace consolidation of the RIGHT lung base, concerning for aspiration pneumonia.Moderate RIGHT and trace LEFT pleural effusions. Repeat chest x-ray: Positive moderate right pleural effusion Discussed with Dr. Velasquez Initially patient declined thoracentesis In the afternoon, patient agreeable for thoracentesis We will order vitamin K 2.5 mg IV Repeat INR tomorrow Plan for possible thoracentesis tomorrow Given additional Lasix 20 mg IV this afternoon Continue p.o. Lasix 40 mg Repeat PRP tomorrow Monitor blood pressure (2) Pleural effusion: Plan: - Admitted under urology service - Medicine consulted for dyspnea, requirement of 2 L supplemental o2 and does not wear this at baseline - CXR ordered - appears to have moderate right sided pleural effusion which is larger than previous study where pt underwent thoracentesis on 09/03/22 and 1500mL was taken off - Lasix 40 mg IV now, continue with 40 mg Po daily dosing as per home meds - Stop fluids, pt has received LR all day and last dose of lasix was yesterday morning, BNP=72 -Appreciate pulmonary input and recommendation -Status post right thoracentesis of 2.2 L of fluid 10/01 Management per above Insomnia Patient complains of not being able to sleep with the past few days Benadryl 25 mg p.o. HS PRN (3) HIRAM (obstructive sleep apnea): Plan: Continue CPAP (4) Urinary retention: Plan: - Continue management of guillory catheter per primary team - Bladder irrigation in place, currently draining bright red urine - Pain management and bowel regimen ordered /3 Hemoglobin stable overall Continue to monitor (5) Heart failure, diastolic, with acute decompensation: Plan: Lasix 40mg po daily monitor BP (6) CAD (coronary artery disease): Plan: No acute cardiac symptoms (7) PAF (paroxysmal atrial fibrillation): Plan: - Chronic diastolic, will continue lasix as above, does not appear to be grossly overloaded peripherally - no JVD, no pitting edema - Cont asa 81 mg daily, , atorvastatin, metoprolol succinate. - digoxin 125 mcg for rate control - BP is soft at 90s/50s -- per pt , pt runs on the lower side. - Lisinopril on hold - Cont coumadin, follow INR with am labs -Rate is controlled 10/01 Metoprolol XL resumed but will slowly uptitrate depending on blood pressure Increase to 75 mg in the morning INR 1.9 Hold Coumadin Vitamin K given today for thoracentesis tomorrow DVT ppx: - teds, scds Coumadin held today CODE: Full code Dispo: Transition to acute rehab when medically stable plan of care discussed with patient and his in detail and at length all questions answered They are understanding, agreeable, comfortable with the plan of care Admission and Anticipated Discharge Date Admission Date: September 26, 2022 Subjective Follow-up for status post TURP, pleural effusion, etc. Seen resting in bed, on 2 L of oxygen Patient was very weak, not able to walk to the doorway with respiratory therapist were two-step Was complaining of shortness of breath States he had some dizziness as well with ambulating No chest pain, cough, fevers or chills No other new symptoms Review of Systems Review of Systems: all noted and negative except for above Physical Exam Physical Exam: General- oriented x 3, not in distress, speaks in sentences with no effort or accessory muscle use Eyes- anicteric Neck- no JVD Lungs-decreased breath sounds right mid to base, no crackles or wheezing Heart- normal rate, irregularly irregular rhythm; no murmurs Abdomen- normal bowel sounds, nondistended, soft, nontender Extremities- no pretibial edema, no calf tenderness Neuro- alert, oriented x 3; no gross focal neurologic deficits Skin- warm & dry Results & Data Results & Data Vital Signs (Past 12 Hours) Vital Signs Temp Pulse Pulse Pulse Resp Resp Resp 10/01/22 16:29 85 10/01/22 15:20 36.7 C 87 18 10/01/22 15:06 103 H 10/01/22 14:31 108 H 18 16 10/01/22 11:00 36.5 C 99 H 18 10/01/22 07:48 103 H 10/01/22 07:00 36.6 C 98 H 18 10/01/22 07:39 BP Pulse Ox Pulse Ox Pulse Ox O2 Del Method O2 Flow Rate 10/01/22 16:29 10/01/22 15:20 95/70 L 97 Nasal Cannula 2 10/01/22 15:06 10/01/22 14:31 91 90 10/01/22 11:00 106/69 97 Room Air 10/01/22 07:48 10/01/22 07:00 116/77 94 Room Air 10/01/22 07:39 Nasal Cannula 2 all noted and reviewed including below
[2022-10-02] MEDS: diphenhydrAMINE HCL 25 MG/10 ML UDC PO PRN ×2 (00:47→21:21)
[2022-10-02] MEDS: CEFEPIME 2,000 MG in SYRINGE 0 ML IV SCH ×3 (05:21→21:21)
--- NOTE | 2022-10-02 06:47 | Pulmonology Progress Note ---
Date of Service October 02, 2022 Assessment & Plan (1) Pleural effusion: (2) Exertional shortness of breath: (3) HIRAM (obstructive sleep apnea): Plan Impression: 77-year-old male admitted for urological procedure. Pulmonary was consulted for recurrent pleural effusion. Patient underwent thoracentesis yesterday. Pleural fluid labs are currently pending. Patient is currently 93% on 3 L via nasal cannula. -- Acute hypoxic respiratory failure with right sided Pleural effusion Along with right lower lobe atelectasis which is likely secondary to heart failure BNP 72 Procalcitonin negative SARS-Cov-2, NAAT negative S/p thoracentesis 09/03/2022, 1.5 L lymphocytic fluid removed, cultures negative, cytology negative S/p repeat thoracentesis 09/25/2022 2.2 L clear yellow fluid, again lymphocytic, cytology negative Lymphocytic right-sided pleural effusion, reaccumulating really fast Cytology is negative x2. The next best approach would be to have VATS/pleuroscopy and then pleurodesis. Unfortunately she is not done in this hospital. Would recommend to have phone consultation with CT surgeon to get the recommendation CT chest 06/23/2022ersonally reviewed: Large right-sided pleural effusion with dependent atelectasis of the right lower lobe, small left sided effusion Patchy groundglass opacity in the left upper lobe on the periphery Cardiomegaly No significant mediastinal lymphadenopathy -- Hypersomnia ESS: 12, STOP-BAN BMI 35 Sputum polysomnography has been ordered for the patient --Exertional shortness of breath Multifactorial Underlying BMI Diastolic CHF as well as history of smoking playing a part --A-fib On warfarin -- Ex cigarette smoker Approximately [id number] smoking history -- Currently vaping Advised to quit -- Obesity Advised to lose with diet and exercise Plan: INR today is 1.4, plan for right-sided thoracentesis Check for oxygen requirement on exertion prior to discharge Was discussed with Dr. Russo Please note the above document was generated using voice recognition software. It may contain grammatical, syntax or spelling errors.Any formal questions or concerns about the content, text or information contained within the body of this dictation should be directly addressed to the provider for clarification. Admission and Anticipated Discharge Date Admission Date: September 26, 2022 Subjective Patient seen and examined at bedside. No acute distress, no adverse events overnight Shortness of breath still persistent on exertion. Denies any chest pain, no headache, no nausea, no vomiting Fair appetite. Review of Systems Review of Systems: All systems reviewed & are unremarkable except as noted in Subjective Physical Exam Physical Exam: Constitutional: No acute distress HEENT: EOMI, PERRLA Respiratory system: Decreased air entry on the right side, no wheeze, no rhonchi, mild crackles bilateral lower lobes CVS: S1-S2 positive, no murmurs or gallops Abdomen: Soft, nontender, nondistended, positive bowel sounds x4, obese Extremities: +2 pulses bilaterally radialis/ dorsalis pedis, no cyanosis, +2 ankle edema bilaterally Neuro: Awake alert oriented x3 Psych: Normal mood and affect G/U: No Mckee Skin: no rashes, warm and dry Lymphatic: no cervical or axillary lymphadenopathy Results & Data Results & Data Vital Signs (Past 12 Hours) Vital Signs Temp Pulse Pulse Resp BP Pulse Ox O2 Del Method 10/02/22 03:14 37.1 C 90 18 113/81 96 Nasal Cannula 10/01/22 22:00 86 10/01/22 23:07 36.6 C 98 H 18 113/75 94 Nasal Cannula 10/01/22 22:01 Nasal Cannula 10/01/22 19:43 36.8 C 106 H 18 102/65 94 Nasal Cannula O2 Flow Rate 10/02/22 03:14 2 10/01/22 22:00 10/01/22 23:07 2 10/01/22 22:01 2 10/01/22 19:43 2 Laboratory Results 09/29/22 06:07 PG Care Time/CCT Total # of Minutes Spent Total Time Spent with Patient: Total time spent is greater than 50% in coordination of care (as documented) at patient's floor/unit and/or counseling patient: Coding Level of Care Code 70604 SUB INP/OBS CARE 3/50MIN Diagnoses Pleural effusion J90 Exertional shortness of breath R06.02 HIRAM (obstructive sleep apnea) G47.33
[2022-10-02 06:53] LABS: BUN Creatinine Ratio 16.2 (10-20); Calcium 9.2 mg/dl (8.6-10.3); Est GFR (African American) 103.8 ml/min; Est GFR (Non-African American) 89.6 ml/min; Potassium 3.7 mmol/L (3.5-5.1)
[2022-10-02 07:57] LABS: INR 1.4 (0.9-1.1); Prothrombin Time 14.7 Seconds (9.0-12.0)
--- NOTE | 2022-10-02 08:52 | Procedure Note ---
Procedure Note Date of Service October 02, 2022 Note Procedure: Diagnostic therapeutic ultrasound-guided catheter thoracentesis Photographic Enlarger Operator: Daniel Jean under the direct supervision of Dr. Geyl Daneil Indication: Pleural effusion Consent: Signed by patient and verified with timeout prior to procedure Anesthesia: 1% lidocaine without epinephrine local. Procedure: Consent was verified and timeout performed. Appropriate imaging studies were reviewed prior to the procedure. Patient was placed in a seated position and limited thoracic ultrasound was performed of the right chest. See separate imaging. Appropriate site above the diaphragm for thoracentesis was selected. The skin was prepped and draped in normal sterile fashion. Lidocaine was used for local analgesia. Fluid was aspirated via the finder needle. A small skin cammy was made with the scalpel and the catheter over the needle apparatus was advanced over the rib into the pleural space. Using the syringe one-way valve system, a total of 2000 mL's of serosanguineous fluid was removed. The catheter was removed and observed to be intact. A sterile dressing was applied. Post procedure chest x-ray was ordered. Fluid was sent for labs, culture and cytology. Complications: None Blood loss: Less than 1 cc Coding CPT Codes Pulmonary/Thoracic - Pulmonary and Thoracic: 03122 Thoracentesis w imaging ([id number]) [facility] [place] Procedure Codes (Charges) Pulmonary/Thoracic Procedure 1: Pulmonary and Thoracic: 68621 Thoracentesis w imaging
[2022-10-02] MEDS: FUROSEMIDE 20 MG TAB PO SCH (09:25)
[2022-10-02] MEDS: DOXYCYCLINE HYCLATE 100 MG CAP PO SCH ×2 (09:25→21:22)
[2022-10-02] MEDS: FINASTERIDE 5 MG TAB PO SCH (09:25)
[2022-10-02] MEDS: TAMSULOSIN HCL 0.4 MG CAP PO SCH (09:25)
[2022-10-02] MEDS: DOCUSATE SODIUM 100 MG CAP PO SCH ×2 (09:26→21:13)
[2022-10-02] MEDS: GABAPENTIN 400 MG CAP PO SCH (09:26)
--- NOTE | 2022-10-02 09:26 | XRay Report ---
SINGLE VIEW CHEST CLINICAL HISTORY: Status post thoracentesis. FINDINGS: An AP, portable, semierect chest radiograph is compared to study dated [address] chest CT dated 09/28/2022. The examination is degraded by portable technique and apical lordotic positioning. The heart is enlarged. The pulmonary vasculature is noncongested. Chronic interstitial t hickening is similar to previous. There is trace residual right pleural effusion with right basilar a telectasis. No pneumothorax is seen. The skeletal structures are osteopenic. The bony thorax is gross ly intact. IMPRESSION: 1. No pneumothorax is identified post procedure. 2. Trace residual pleural fluid is seen at the right lung base. 3. Cardiomegaly without radiographic evidence of congestive failure. ACT 112: Negative or not required by law. Electronically signed by: Marito Davison M.D. 10/02/2022 9:24 AM
[2022-10-02] MEDS: METOPROLOL SUCC 25MG EXT REL TAB PO SCH (09:27)
--- NOTE | 2022-10-02 09:36 | Urology Progress Note ---
Date of Service October 02, 2022 Assessment & Plan (1) Urinary retention: Plan: Voiding without difficulty s/p TURP on 09/24/2022. Stable from urology perspective. Continue to manage without catheter. Appreciate medicine and pulmonology involvement (2) Pleural effusion: (3) S/P TURP: Admission and Anticipated Discharge Date Admission Date: September 26, 2022 Subjective Feeling well s/p TURP Tolerating a diet without any nausea or vomiting Has been voiding without any issues Still with O2 requirement and ongoing weakness, however expresses desire to go home Physical Exam Physical Exam: Frail-appearing, NAD, supplemental oxygen by nasal cannula. Results & Data Vital Signs (Past 12 Hours) Vital Signs Temp Pulse Pulse Resp BP Pulse Ox O2 Del Method 10/02/22 07:48 36.6 C 61 20 102/70 96 Room Air 10/02/22 03:14 37.1 C 90 18 113/81 96 Nasal Cannula 10/01/22 22:00 86 10/01/22 23:07 36.6 C 98 H 18 113/75 94 Nasal Cannula 10/01/22 22:01 Nasal Cannula O2 Flow Rate 10/02/22 07:48 10/02/22 03:14 2 10/01/22 22:00 10/01/22 23:07 2 10/01/22 22:01 2 PG Care Time/CCT Total # of Minutes Spent Total Time Spent with Patient: Total time spent is greater than 50% in coordination of care (as documented) at patient's floor/unit and/or counseling patient: Coding Level of Care Code 64872 SUB INP/OBS CARE 1/25MIN Diagnoses Urinary retention R33.9 Pleural effusion J90 S/P TURP Z90.79
[2022-10-02 09:48] LABS: Albumin Level 3.4 gm/dl (3.4-5.0); Bilirubin,Total 0.7 mg/dl (0.2-1.0); Total Protein 6.5 gm/dl (6.0-8.3)
[2022-10-02 10:13] LABS: Total Protein Pleural Fluid 3.3 gm/dl
[2022-10-02 11:00] LABS: Appearance Pleural Fluid Hazy; Basophils, Fluid 1 %; Color Pleural Fluid Amber; Eosinophils, Fluid 3 %; Lymphocytes, Fluid 90 %; Mono,Macrophage,Mesothelial 5 %; Neutrophils, Fluid 1 %; RBC Pleural Fluid Auto 8000 /uL; Source Pleural Fluid Right Lung; WBC Pleural Fluid Auto 1462 /uL
--- NOTE | 2022-10-02 14:39 | Cardiology Consultation ---
Date of Consultation October 02, 2022 Assessment & Plan (1) Acute exacerbation of CHF (congestive heart failure): (2) Atrial fibrillation: Acute on chronic heart failure with preserved ejection fraction -As noted, diuretic dose has been limited by relative hypotension. -I am optimistic that as he recovers from his transurethral prostate resection, with alleviation of his urinary outflow tract obstruction, improving his volume status should be more manageable. -Agree with furosemide 40 mg p.o. daily as already ordered for tomorrow. -Start cautious trial of midodrine for blood pressure support to allow for diuretic therapy. Chronic atrial fibrillation -Anticoagulation on hold due to recent hematuria and need for thoracentesis. -Continue rate control with digoxin and metoprolol. --Increase activity as tolerated. History of Present Illness Attending Physician: Cr Russo MD History of Present Illness Mr Baugh is a 77 year old male seen in cardiology consultation per the request of Dr Russo for the evaluation of acute on chronic heart failure with preserved ejection fraction. Patient seen in room 288-1. He is accompanied by his spouse, Scar. Patient seen in outpatient follow-up by the undersigned on 08/28/2022 at which time he was noted to have a right-sided pleural effusion. He was referred to pulmonology medicine, and shortly thereafter underwent ultrasound-guided thoracentesis by radiology on 09/03/2022 yielding 1500 mL of pleural fluid. Cytology was negative. He has since been followed closely by urology having been found to have urinary retention as well as hematuria after placement of a Mckee catheter. On 09/24/2022 he underwent transurethral resection of the prostate. Post procedure his pleural effusion reaccumulated and he underwent another thoracentesis on 09/25/2022 yielding 2200 mL of clear yellow fluid. Today 10/02/2022, a third right thoracentesis was performed yielding 2000 mL of fluid. As has previously been noted, diuretic therapy has been limited by relative low blood pressure. On telemetry, patient is in atrial fibrillation which is his chronic rhythm, rates at rest in the 90s, although he has had brief episodes of heart rates up into the low 100s. At present he is not acutely shortness of breath but has been relatively bedbound. PAST MEDICAL HISTORY: 1.chronic coronary heart disease Moderate diffuse coronary atherosclerosis with single-vessel obstructive disease. The left circumflex is diffusely diseased with subtotal occlusion in its mid and distal portions with filling via left to left and bridge collateral. Cardiac catheterization 2018 2.Dyslipidemia. LDL goal less than 70 mg/dL. 3.History of tobacco abuse. 4.Longstanding paroxysmal atrial arrhythmias. Atrial flutter ablation in 2005. Chronic atrial fibrillation since at least 2012 5.Past TIA on chronic anticoagulation. 6.Obesity. 7.Obstructive sleep apnea 8.Chronic venous insufficiency. 9.Chronic degenerative joint disease. Allergies Allergy/AdvReac Type Severity Reaction Status Date / Time No Known Allergies Allergy Unknown Verified 09/24/22 10:26 Home Medications Medication Instructions Recorded Confirmed Type sildenafil 100 mg tablet 100 mg PO QAM PRN Erectile 02/11/19 09/24/22 History Dysfunction warfarin 10 mg tablet 5 - 10 mg PO DIRECTED 02/11/19 09/24/22 History atorvastatin 40 mg tablet 40 mg PO QAM 08/13/21 09/24/22 History aspirin 81 mg capsule 81 mg PO QAM 05/28/22 09/24/22 History lisinopril 2.5 mg tablet 2.5 mg PO QAM 05/28/22 09/24/22 History metoprolol succinate 100 mg 100 mg PO QAM 05/28/22 09/24/22 History tablet,extended release 24 hr multivitamin 1 tab PO QAM 05/28/22 09/24/22 History digoxin 125 mcg (0.125 mg) tablet 125 mcg PO DAILY 06/23/22 09/24/22 History gabapentin 400 mg capsule 400 mg PO DAILY 06/23/22 09/24/22 History acetaminophen 500 mg capsule 500 mg PO HS 09/09/22 09/24/22 History diphenhydramine 25 1 tab PO HS 09/09/22 09/24/22 History mg-acetaminophen 500 mg tablet (Tylenol PM Extra Strength) docusate sodium 100 mg capsule 100 mg PO DAILY 09/09/22 09/24/22 History (Colace) furosemide 40 mg tablet 40 mg PO DAILY 09/09/22 09/24/22 History phenazopyridine 200 mg tablet 200 mg PO TID PRN pain 3 days #9 09/14/22 09/24/22 Rx tabs tamsulosin 0.4 mg capsule 0.4 mg PO DAILY #30 caps 06/16/23 06/26/23 Rx cephalexin 500 mg capsule 500 mg PO BID 10 days #20 caps 09/19/22 09/24/22 Rx finasteride 5 mg tablet 5 mg PO DAILY #30 tabs 09/19/22 09/24/22 Rx oxybutynin chloride 5 mg tablet 5 mg PO TID PRN bladder spasms #30 09/19/22 09/24/22 Rx tabs Patient History Medical History Atrial fibrillation on warfarin. CAD (coronary artery disease) Moderate diffuse coronary atherosclerosis with single-vessel obstructive disease. The left circumflex is diffusely diseased with subtotal occlusion in its mid and distal portions with filling via left to left and bridge collateral. CHF (congestive heart failure) EF 60-65% Enlargement of aortic root Mckee catheter in place GERD (gastroesophageal reflux disease) pt experiences sensation of heartburn, regurgitation and occasional coughing/choking at night History of atrial flutter History of gout HLD (hyperlipidemia) [place] (hard of hearing) Hx of acute congestive heart failure Lumbar spondylosis On anticoagulant therapy HIRAM (obstructive sleep apnea) listed above. pt unsure. no device; sleeps upright Spinal stenosis TIA (transient ischemic attack) "past TIA on chronic anticoagulation" per [facility] cardio Urinary retention Surgical History History of arthroscopy of left knee History of cardiac cath 2019 [place]. no stents. Moderate diffuse coronary atherosclerosis with single- vessel obstructive disease. The left circumflex is diffusely diseased with subtotal occlusion in its mid and distal portions with filling via left to left and bridge collateral. History of cardiac radiofrequency ablation History of thoracentesis 05/2022 [place] Hx of colonoscopy S/P total hip arthroplasty left, 05/2022 [place] Family History Other No family history of adverse response to anesthesia Social History Smoking Status: Current every day smoker Tobacco Type: E-cigarettes / Vaping Age Started Using Tobacco: 10; Age Quit Using Tobacco: 70; packs per day: 1; Cigarettes Per Day: vapes daily- advised; Second Hand Exposure: Yes; Do You Dip or Chew Tobacco: No; Hx Alcohol Use: Yes Alcohol type: hard liquor Hx Substance Use: No Preferred Language: Bots[place] Communication Ability: Effective Philosophy Specialist Required: No Beliefs That Will Affect Care: Adventist Current Living Situation: Spouse Feels Safe at Home: Yes Assistive Devices: Walker Review of Systems Review of Systems: All systems reviewed & are unremarkable except as noted in HPI & below Physical Exam Constitutional: no acute distress Respiratory: no labored breathing and no cough Auscultation: lungs clear to auscultation bilaterally Cardiovascular: Rate/Rhythm: + irregularly irregular Heart Sounds: no murmur Extremities: no edema Gastrointestinal (Abdomen): normal bowel sounds, soft, nontender, no hepatosplenomegaly Neurologic: PERRL, EOMI, accommodation nl, no face palsy, no dysarthria Results & Data Vital Signs (Past 12 Hours) Vital Signs Temp Pulse Resp BP Pulse Ox O2 Del Method O2 Flow Rate 10/02/22 11:45 36.3 C L 95 H 16 89/60 L 97 Nasal Cannula 2 10/02/22 08:00 Nasal Cannula 2 10/02/22 07:48 36.6 C 61 20 102/70 96 Room Air 10/02/22 03:14 37.1 C 90 18 113/81 96 Nasal Cannula 2 Laboratory Results Cardiac Enzymes 10/02/22 Range/Units 09:18 Lactate Dehydrogenase 116 (86-244) U/L Coagulation 10/02/22 Range/Units 05:22 PT 14.7 H (9.0-12.0) Seconds Comprehensive Metabolic Panel 10/02/22 10/02/22 Range/Units 05:22 09:18 Sodium 143 (136-145) mmol/L Potassium 3.7 (3.5-5.1) mmol/L Chloride 97 L (98-107) mmol/L Carbon Dioxide 44 H* (21-32) mmol/L BUN 12 (6-23) mg/dl Creatinine 0.74 (0.6-1.4) mg/dl Glucose 95 (70-99(Fasting)) mg/dl Calcium 9.2 (8.6-10.3) mg/dl Total Protein 6.5 (6.0-8.3) gm/dl Albumin 3.4 (3.4-5.0) gm/dl Intake and Output 10/01/22 10/02/22 10/02/22 22:59 06:59 14:59 Intake Total 50.25 / 720.25 400 / 720.25 330 / 330 Output Total 200 / 700 200 / 700 Balance -149.75 / 20.25 200 / 20.25 329 / 329 Intake: IV 50.25 / 50.25 Phytonadione 2.5 mg In Dextrose 50.25 / 50.25 5% 50 ml @ 100.5 mls/hr IV ONE ONE Rx#:[id number] Oral 400 / 670 330 / 330 Output: Urine 200 / 700 200 / 700 # Bowel Movements Other: # Unmeasured Voids 1 Weight 115.4 kg Weight Measurement Method Built in [facility] Diagnostic Findings Echocardiogram performed 09/10/2022: Limited study performed for follow-up of pericardial effusion. Left ventricular ejection fraction normal in the range of 55 to 60%. There is a trace circumferential pericardial effusion with a mild amount of focal fluid collection adjacent to the right atrium. Tamponade is absent. There is a circumferential echodensity in the pericardial space with appearance consistent with pericardial fat. This was correlated with the images obtained at the time of the recent CT of the abdomen pelvis dated 09/09/2022 which were reviewed with radiology and findings were consistent with pericardial fat on CT. Per review of the images obtained at the time of prior echocardiogram studies performed 08/13/2021 and 06/24/2022 the appearance of the pericardial fat is chronic and unchanged. EKG performed 09/09/2022 and interpret independently: Atrial fibrillation 84 bpm, incomplete right bundle branch block, mild nonspecific repolarization changes. (1) Acute exacerbation of CHF (congestive heart failure) Heart failure type: unspecified Qualified Code(s): I50.9 - Heart failure, unspecified
--- NOTE | 2022-10-02 16:46 | Hospitalist Progress Note ---
Date of Service October 02, 2022 Assessment & Plan (1) S/P TURP: (2) Heart failure, diastolic, with acute decompensation: (3) Pleural effusion: Plan: (1) S/P TURP: Plan: per previous attending notes with addendum: Status post TURP on 09/24/2022 guillory cath removed Patient voiding well Stable from urology standpoint Patient's postop course complicated by right-sided pleural effusion and fever, likely from right-sided pneumonia Patient underwent thoracentesis on September 25, 2022, by Dr. Florian, draining 2.2L Pathology: Lymphocytosis Cultures: Negative Pleural effusion felt to be secondary to systolic congestive heart failure Right pleural effusion return within 3 days after thoracentesis, as seen on repeat CT chest Usual p.o. Lasix 40 mg daily resumed, titrated carefully due to marginal blood pressure 10/02: Repeat thoracentesis by Dr. 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 3 times daily to allow for diuresis Usual Lasix 40 mg p.o. daily continued Patient on cefepime day #7/7 plus doxycycline day # 4/7 for right lower lobe pneumonia Currently on 2 L of oxygen, wean off accordingly (2) Pleural effusion, likely secondary to acute on chronic diastolic CHF Plan: Management per above (3) HIRAM (obstructive sleep apnea): Plan: Continue CPAP (4) Urinary retention: Plan: Voiding with no problems status post TURP (5) Heart failure, diastolic, with acute decompensation: Plan: Management per above (6) CAD (coronary artery disease): Plan: No acute cardiac symptoms (7) PAF (paroxysmal atrial fibrillation): Plan: 10/02 Usually on metoprolol XL 100 mg p.o. daily at home Metoprolol XL resumed but will slowly uptitrated in light of marginal blood pressure Started on 75 mg this morning Continue usual digoxin 0.120 mg daily Given vitamin K 2.5 mg IV yesterday for thoracentesis INR 1.4 Coumadin on hold Resume Coumadin tomorrow if allowed by pulmonary service DVT ppx: - teds, scds Coumadin held today CODE: Full code Dispo: Transition to acute rehab when medically stable plan of care discussed with patient and his in detail and at length all questions answered They are understanding, agreeable, comfortable with the plan of care Admission and Anticipated Discharge Date Admission Date: September 26, 2022 Subjective Follow-up for status post TURP, complicated by right-sided pleural effusion, etc. Seen resting in bed, on 2 L of oxygen Not in distress, comfortable Status post repeat thoracentesis this morning, draining 2 L of fluid Patient reports feeling much better after thoracentesis Breathing is improving Denies cough, sputum, fevers or chills, chest pain Voiding with no problems No other new symptom Review of Systems Review of Systems: all noted and negative except for above Physical Exam Physical Exam: General- oriented x 3, not in distress, speaks in sentences with no effort or accessory muscle use Eyes- anicteric Neck- no JVD Lungs- mild rales at the right base, clear on the left Heart- normal rate, regular rhythm; no murmurs Abdomen- normal bowel sounds, nondistended, soft, nontender Extremities- no pretibial edema, no calf tenderness Neuro- alert, oriented x 3; no gross focal neurologic deficits Skin- warm & dry Results & Data Results & Data Vital Signs (Past 12 Hours) Vital Signs Temp Pulse Resp BP Pulse Ox O2 Del Method O2 Flow Rate 10/02/22 15:26 36.5 C 109 H 20 101/68 95 Room Air 10/02/22 11:45 36.3 C L 95 H 16 89/60 L 97 Nasal Cannula 2 10/02/22 08:00 Nasal Cannula 2 10/02/22 07:48 36.6 C 61 20 102/70 96 Room Air all noted and reviewed including below
[2022-10-02] MEDS: DIGOXIN 0.125 MG TAB PO SCH (17:44)
[2022-10-02] MEDS: MIDODRINE HCL 2.5 MG TAB PO SCH (17:44)
[2022-10-02] MEDS: MELATONIN 3 MG TAB PO PRN (21:21)
[2022-10-03] MEDS: CEFEPIME 2,000 MG in SYRINGE 0 ML IV SCH ×2 (05:30→13:04)
[2022-10-03 06:58] LABS: INR 1.2 (0.9-1.1); Prothrombin Time 12.6 Seconds (9.0-12.0)
[2022-10-03 07:05] LABS: BUN Creatinine Ratio 21.1 (10-20); Calcium 9.1 mg/dl (8.6-10.3); Creatinine Clr Calc Pharmacy 117.9 ml/min; Est GFR (African American) 105.6 ml/min; Est GFR (Non-African American) 91.1 ml/min; Potassium 3.7 mmol/L (3.5-5.1)
--- NOTE | 2022-10-03 07:59 | Urology Progress Note ---
Date of Service October 03, 2022 Assessment & Plan (1) Urinary retention: Plan: Voiding without difficulty s/p TURP on 09/24/2022. Stable from urology perspective. Continue to manage without catheter. Appreciate medicine, pulmonology, and cardiology involvement. (2) Pleural effusion: (3) S/P TURP: Admission and Anticipated Discharge Date Admission Date: September 26, 2022 Subjective Awake and resting in bed, no apparent distress. Reports poor sleep. He would like to go home. Denies other complaints. Voiding without difficulty. No dy suria or hematuria. Denies nausea, vomiting, fever or chills. He had repeat thoracentesis on 10/02 - 2L removed. Hospital medicine, pulmonology and cardiology following. Review of Systems Constitutional: as per Subjective / HPI Gastrointestinal: as per Subjective / HPI Genitourinary: + as per Subjective / HPI Physical Exam Constitutional: no acute distress Respiratory: no respiratory distress and no labored breathing O2 via nasal cannula Gastrointestinal (Abdomen): Inspection/Auscultation: abdomen normal to inspection; abdomen not distended Neurologic: awake Psychiatric: Orientation: alert, oriented x 3 and cooperative Results & Data Vital Signs (Past 12 Hours) Vital Signs Temp Pulse Pulse Resp BP Pulse Ox O2 Del Method 10/03/22 07:32 87 10/03/22 03:28 36.5 C 89 16 97/64 L 97 Nasal Cannula 10/02/22 22:00 82 10/02/22 23:38 36.6 C 86 18 99/67 L 96 Nasal Cannula 10/02/22 21:12 Nasal Cannula O2 Flow Rate 10/03/22 07:32 10/03/22 03:28 2 10/02/22 22:00 10/02/22 23:38 2 10/02/22 21:12 2 PG Care Time/CCT Total # of Minutes Spent Total Time Spent with Patient: Total time spent is greater than 50% in coordination of care (as documented) at patient's floor/unit and/or counseling patient: Coding Level of Care Code None Diagnoses Urinary retention R33.9 Pleural effusion J90 S/P TURP Z90.79
[2022-10-03] MEDS: METOPROLOL SUCC 25MG EXT REL TAB PO SCH (08:47)
[2022-10-03] MEDS: FINASTERIDE 5 MG TAB PO SCH (08:47)
[2022-10-03] MEDS: DOXYCYCLINE HYCLATE 100 MG CAP PO SCH (08:48)
[2022-10-03] MEDS: TAMSULOSIN HCL 0.4 MG CAP PO SCH (08:48)
[2022-10-03] MEDS: GABAPENTIN 400 MG CAP PO SCH (08:48)
[2022-10-03] MEDS: MIDODRINE HCL 2.5 MG TAB PO SCH ×3 (08:48→17:31)
[2022-10-03] MEDS: DOCUSATE SODIUM 100 MG CAP PO SCH ×2 (08:53→22:14)
--- NOTE | 2022-10-03 09:48 | Pulmonology Progress Note ---
Date of Service October 03, 2022 Assessment & Plan (1) Pleural effusion: (2) Exertional shortness of breath: (3) HIRAM (obstructive sleep apnea): Plan Impression: 77-year-old male admitted for urological procedure. Pulmonary was consulted for recurrent pleural effusion. Patient underwent thoracentesis yesterday. Pleural fluid labs are currently pending. Patient is currently 93% on 3 L via nasal cannula. -- Acute hypoxic respiratory failure with right sided Pleural effusion Along with right lower lobe atelectasis which is likely secondary to heart failure - Requiring 2 L NC today BNP 72 Procalcitonin negative SARS-Cov-2, NAAT negative S/p thoracentesis 09/03/2022, 1.5 L lymphocytic fluid removed, cultures negative, cytology negative S/p repeat thoracentesis 09/25/2022 2.2 L clear yellow fluid, again lymphocytic, cytology negative s/p thoracentesis yesterday 10/02/2022 - 2 L yellow fluid, lymphocytic, EXUDATIVE Lymphocytic right-sided pleural effusion, reaccumulating really fast Cytology is negative x2. The next best approach would be to have VATS/pleuroscopy and then pleurodesis. Unfortunately she is not done in this hospital. Would recommend to have phone consultation with CT surgeon to get the recommendation CT chest 06/23/2022ersonally reviewed: Large right-sided pleural effusion with dependent atelectasis of the right lower lobe, small left sided effusion Patchy groundglass opacity in the left upper lobe on the periphery Cardiomegaly No significant mediastinal lymphadenopathy -- Hypersomnia ESS: 12, STOP-BAN BMI 35 Sputum polysomnography has been ordered for the patient --Exertional shortness of breath Multifactorial Underlying BMI Diastolic CHF as well as history of smoking playing a part --A-fib On warfarin -- Ex cigarette smoker Approximately [id number] smoking history -- Currently vaping Advised to quit -- Obesity Advised to lose with diet and exercise Plan: Doing well s/p thoracentesis yesterday. Down to 2L NC. Check for oxygen requirement on exertion prior to discharge Please note the above document was generated using voice recognition software. It may contain grammatical, syntax or spelling errors.Any formal questions or concerns about the content, text or information contained within the body of this dictation should be directly addressed to the provider for clarification. Admission and Anticipated Discharge Date Admission Date: September 26, 2022 Supervising Physician Co-Signing Physician Notes I saw and evaluated the patient with Daniel Jean PA-C, and agree with findings and plan as documented in the note. Patient seen and examined at bedside. No acute distress, no adverse signs overnight. Patient says that he is feeling better after thoracentesis Has been urinating well No chest pain, no headache, no dizziness, no palpitation Poor appetite Constitutional: No acute distress HEENT: EOMI, PERRLA Respiratory system:Decreased air entry on the right side, no wheeze, no rhonchi, mild crackles bilateral lower lobes CVS: S1-S2 positive, no murmurs or gallops Abdomen: Soft, nontender, nondistended, positive bowel sounds x4,obese Extremities: +2 pulses bilaterally radialis/ dorsalis pedis, no cyanosis,+2 ankle edema bilaterally Neuro: Awake alert oriented x3 Psych: Normal mood and affect G/U:No Mckee Plan: Continue with diuresis Incentive spirometry will beneficial No further recommendation from pulmonary perspective, will sign off Please call directly with any questions Please note the above document was generated using voice recognition software. It may contain grammatical, syntax or spelling errors.Any formal questions or concerns about the content, text or information contained within the body of this dictation should be directly addressed to the provider for clarification. Subjective Patient seen and evaluated at bedside this morning. He appears weak, but reports that his breathing feels fine. He is anxious to be discharged home. Review of Systems Review of Systems: A complete 6 point review of systems was reviewed with the patient with pertinent positives and negatives as per history of present illness. All else were negative. Physical Exam Physical Exam: VITAL SIGNS - Vital signs and nursing notes were reviewed. GENERAL - 77-year-old male appearing stated age who is in no acute distress. Communicates well with provider and answers questions appropriately. SKIN -bandage in place at thoracentesis site to the RIGHT-sided posterior chest wall. No bleeding or surrounding erythema appreciated LUNGS -diminished breath sounds without wheezing throughout CARDIAC - RRR with S1/S2. No murmur, rubs, or gallops appreciated. ABDOMEN - Abdominal inspection demonstrates an obese abdomen. BS normoactive all four quadrants. No tenderness, palpable masses, or ascites noted. Results & Data Results & Data Vital Signs (Past 12 Hours) Vital Signs Temp Pulse Pulse Resp BP Pulse Ox O2 Del Method 10/03/22 07:00 36.9 C 96 H 15 114/76 96 Room Air 10/03/22 07:32 87 10/03/22 03:28 36.5 C 89 16 97/64 L 97 Nasal Cannula 10/02/22 22:00 82 10/02/22 23:38 36.6 C 86 18 99/67 L 96 Nasal Cannula O2 Flow Rate 10/03/22 07:00 10/03/22 07:32 10/03/22 03:28 2 10/02/22 22:00 10/02/22 23:38 2 Laboratory Results 09/29/22 06:07 10/03/22 05:38 PG Care Time/CCT Total # of Minutes Spent Total Time Spent with Patient: Total time spent is greater than 50% in coordination of care (as documented) at patient's floor/unit and/or counseling patient: Coding Level of Care Code 76038 SUB INP/OBS CARE 2/35MIN Diagnoses Pleural effusion J90 Exertional shortness of breath R06.02 HIRAM (obstructive sleep apnea) G47.33
[2022-10-03] MEDS: FUROSEMIDE 40 MG TAB PO SCH (10:05)
--- NOTE | 2022-10-03 13:23 | Cardiology Progress Note ---
Date of Service October 03, 2022 Assessment & Plan (1) Acute exacerbation of CHF (congestive heart failure): (2) Atrial fibrillation: Plan: Acute on chronic heart failure with preserved ejection fraction -As noted, diuretic dose has been limited by relative hypotension. -CO2 on chemistry panel =40, stable compared to 10/02. -Continue furosemide 40 mg PO daily. Chronic atrial fibrillation -Anticoagulation on hold due to recent hematuria and need for thoracentesis. Pt states urine is clear / yellow. Resume coumadin, at lower dose 5 mg daily to start. -Continue rate control with digoxin and metoprolol. --Increase activity as tolerated. Admission and Anticipated Discharge Date Admission Date: September 26, 2022 Subjective Patient seen in cardiology follow-up. He is in good spirits. Denies subjective shortness of breath. He is eager to proceed with physical therapy. Physical Exam Constitutional: no acute distress Respiratory: no labored breathing and no cough Auscultation: lungs clear to auscultation bilaterally Cardiovascular: Rate/Rhythm: + irregularly irregular Heart Sounds: no murmur Extremities: no edema Gastrointestinal (Abdomen): normal bowel sounds, soft, nontender, no hepatosplenomegaly Neurologic: PERRL, EOMI, accommodation nl, no face palsy, no dysarthria Results & Data Vital Signs (Past 12 Hours) Vital Signs Temp Pulse Pulse Resp BP Pulse Ox O2 Del Method 10/03/22 11:14 36.6 C 72 17 95/65 L 93 Nasal Cannula 10/03/22 08:00 Nasal Cannula 10/03/22 07:00 36.9 C 96 H 15 114/76 96 Room Air 10/03/22 07:32 87 10/03/22 03:28 36.5 C 89 16 97/64 L 97 Nasal Cannula O2 Flow Rate FiO2 10/03/22 11:14 1 10/03/22 08:00 3 10/03/22 07:00 10/03/22 07:32 10/03/22 03:28 2 Laboratory Results Coagulation 10/03/22 Range/Units 05:38 PT 12.6 H (9.0-12.0) Seconds Comprehensive Metabolic Panel 10/03/22 Range/Units 05:38 Sodium 140 (136-145) mmol/L Potassium 3.7 (3.5-5.1) mmol/L Chloride 98 (98-107) mmol/L Carbon Dioxide 40 H (21-32) mmol/L BUN 15 (6-23) mg/dl Creatinine 0.71 (0.6-1.4) mg/dl Glucose 115 H (70-99(Fasting)) mg/dl Calcium 9.1 (8.6-10.3) mg/dl Intake and Output 10/02/22 10/03/22 10/03/22 22:59 06:59 14:59 Intake Total 520 / 850 Output Total 400 / 753 352 / 753 400 / 400 Balance 120 / 97 -352 / 97 -400 / -400 Intake: Oral 520 / 850 Output: Urine 400 / 750 350 / 750 400 / 400 # Bowel Movements 2 / 3 Other: # Unmeasured Voids 1 1 Weight 115.5 kg Weight Measurement Method Built in [facility] (1) Acute exacerbation of CHF (congestive heart failure) Heart failure type: unspecified Qualified Code(s): I50.9 - Heart failure, unspecified
--- NOTE | 2022-10-03 14:43 | Hospitalist Progress Note ---
Date of Service October 03, 2022 Assessment & Plan (1) S/P TURP: (2) Heart failure, diastolic, with acute decompensation: (3) Pleural effusion: Plan: (1) S/P TURP: Plan: per previous attending notes with addendum: Status post TURP on 09/24/2022 guillory cath removed Patient voiding well Stable from urology standpoint Patient's postop course complicated by right-sided pleural effusion and fever, likely from right-sided pneumonia Patient underwent thoracentesis on September 25, 2022, by Dr. Florian, draining 2.2L Pathology: Lymphocytosis Cultures: Negative Pleural effusion felt to be secondary to systolic congestive heart failure Right pleural effusion return within 3 days after thoracentesis, as seen on repeat CT chest Repeat thoracentesis by Dr. Daniel draining 2 L on October 02 Funds Transfer Clerk consulted-placed on midodrine 2.5 mg p.o. 3 times daily to allow for diuresis Usual Lasix 40 mg p.o. daily continued Patient completed 7-day course of cefepime. Currently on doxycycline day # 5/7 for right lower lobe pneumonia Currently on 1 L of oxygen, wean off accordingly Compression stockings to be applied for low blood pressure. (2) Pleural effusion, likely secondary to acute on chronic diastolic CHF Plan: Management per above (3) HIRAM (obstructive sleep apnea): Plan: Continue CPAP (4) Urinary retention: Plan: Voiding with no problems status post TURP (5) Heart failure, diastolic, with acute decompensation: Plan: Management per above (6) CAD (coronary artery disease): Plan: No acute cardiac symptoms (7) PAF (paroxysmal atrial fibrillation): Plan: At home on metoprolol 100 mg once daily Started at 75 mg once daily Also on digoxin 0.120 Coumadin restarted from 10/03 DVT ppx: -Coumadin CODE: Full code Dispo: Transition to acute rehab when medically stable Discussed with at bedside. Time spent evaluating patient, direct bedside care, chart review, placing orders, interpretation of diagnostic studies, discussion with consultants, patient, and family members, as well as other required patient management activities is 60 minutes. Please note the above document was generated using voice recognition software. It may contain grammatical, syntax or spelling errors. Any formal questions or concerns about the content, text or information contained within the body of this dictation should be directly addressed to the provider for clarification Admission and Anticipated Discharge Date Admission Date: September 26, 2022 Subjective Patient seen and examined at bedside. He is lying on the bed comfortably; denies any pain or discomfort. He is frustrated being in the hospital. Review of Systems Review of Systems: All systems reviewed & are unremarkable except as noted in Subjective Physical Exam Physical Exam: General- oriented x 3, not in distress, speaks in sentences with no effort or accessory muscle use Eyes- anicteric Neck- no JVD Lungs- mild rales at the right base, clear on the left Heart- normal rate, regular rhythm; no murmurs Abdomen- normal bowel sounds, nondistended, soft, nontender Extremities- no pretibial edema, no calf tenderness Neuro- alert, oriented x 3; no gross focal neurologic deficits Skin- warm & dry Results & Data Results & Data Vital Signs (Past 12 Hours) Vital Signs Temp Pulse Pulse Resp BP Pulse Ox O2 Del Method 10/03/22 11:14 36.6 C 72 17 95/65 L 93 Nasal Cannula 10/03/22 08:00 Nasal Cannula 10/03/22 07:00 36.9 C 96 H 15 114/76 96 Room Air 10/03/22 07:32 87 10/03/22 03:28 36.5 C 89 16 97/64 L 97 Nasal Cannula O2 Flow Rate FiO2 10/03/22 11:14 1 10/03/22 08:00 3 10/03/22 07:00 10/03/22 07:32 10/03/22 03:28 2 Laboratory Results Laboratory Results WBC 7.28 K/ul (4.8-10.8) 09/29/22 06:07 RBC 4.46 M/uL (4.70-6.10) L 09/29/22 06:07 Hgb 12.2 g/dl (14.0-18.0) L 09/29/22 06:07 Hct 38.3 % (42.0-52.0) L 09/29/22 06:07 MCV 85.9 fL (80.0-100.0) 09/29/22 06:07 MCH 27.4 pg (25.0-34.0) 09/29/22 06:07 MCHC 31.9 g/dL (32.0-36.0) L 09/29/22 06:07 RDW Std Deviation 42.4 fL (36.4-46.3) 09/29/22 06:07 RDW Coeff of Lizandro 13.4 % (11.5-14.5) 09/29/22 06:07 Plt Count 160 K/uL (130-400) 09/29/22 06:07 MPV 10.4 fL (9.4-12.4) 09/29/22 06:07 Immature Gran % (Auto) 0.6 % 09/26/22 03:44 Neut % (Auto) 86.8 % 09/26/22 03:44 Lymph % (Auto) 4.5 % 09/26/22 03:44 Lipscomb % (Auto) 7.8 % 09/26/22 03:44 Eos % (Auto) 0.2 % 09/26/22 03:44 Baso % (Auto) 0.1 % 09/26/22 03:44 Neut # (Auto) 11.78 K/uL (1.40-6.50) H 09/26/22 03:44 Lymph # (Auto) 0.61 K/uL (1.2-3.4) L 09/26/22 03:44 Lipscomb # (Auto) 1.06 K/uL (0.11-0.59) H 09/26/22 03:44 Eos # (Auto) 0.03 K/uL (0-0.50) 09/26/22 03:44 Baso # (Auto) 0.02 K/uL (0-0.2) 09/26/22 03:44 Immature Gran # (Auto) 0.08 K/uL (0.01-0.20) 09/26/22 03:44 Peripher Smr Path Cons 09/29/22 06:07 Peripher Smr Path Cons Cancelled 09/29/22 06:07 PT 12.6 Seconds (9.0-12.0) H 10/03/22 05:38 INR 1.2 (0.9-1.1) H 10/03/22 05:38 APTT 34.6 Seconds (21.0-31.0) H 09/29/22 06:07 PTT Ratio 1.2 09/29/22 06:07 Sodium 140 mmol/L (136-145) 10/03/22 05:38 Potassium 3.7 mmol/L (3.5-5.1) 10/03/22 05:38 Chloride 98 mmol/L (98-107) 10/03/22 05:38 Carbon Dioxide 40 mmol/L (21-32) H 10/03/22 05:38 Anion Gap 2 (3-11) L 10/03/22 05:38 BUN 15 mg/dl (6-23) 10/03/22 05:38 Creatinine 0.71 mg/dl (0.6-1.4) 10/03/22 05:38 Est Cr Clr Drug Dosing 117.9 ml/min 10/03/22 05:38 Est GFR ( Amer) 105.6 ml/min 10/03/22 05:38 Est GFR (Non-Af Amer) 91.1 ml/min 10/03/22 05:38 BUN/Creatinine Ratio 21.1 (10-20) H 10/03/22 05:38 Glucose 115 mg/dl (70-99(Fasting)) H 10/03/22 05:38 Lactate 1.2 mmol/L (0.4-2.0) 09/26/22 03:44 Calcium 9.1 mg/dl (8.6-10.3) 10/03/22 05:38 Magnesium 2.1 mg/dl (1.7-2.4) 09/27/22 08:04 Total Bilirubin 0.7 mg/dl (0.2-1.0) 10/02/22 09:18 AST 16 U/L (13-39) 09/24/22 13:54 ALT 13 U/L (7-52) 09/24/22 13:54 Alkaline Phosphatase 89 U/L (34-104) 09/24/22 13:54 Lactate Dehydrogenase 116 U/L (86-244) 10/02/22 09:18 B-Natriuretic Peptide 72 pg/ml (0-100) 09/24/22 16:28 Total Protein 6.5 gm/dl (6.0-8.3) 10/02/22 09:18 Albumin 3.4 gm/dl (3.4-5.0) 10/02/22 09:18 Globulin 2.8 gm/dl (2.5-4.0) 09/24/22 13:54 Albumin/Globulin Ratio 1.3 (0.9-2) 09/24/22 13:54 Procalcitonin < 0.05 ng/ml (0-0.5) 09/26/22 03:44 TSH 0.334 uIu/ml (0.300-4.500) 09/26/22 03:44 Urine Color Red 09/26/22 03:40 Urine Appearance Turbid (Clear) A 09/26/22 03:40 Urine pH 5.0 (4.5-7.5) 09/26/22 03:40 Ur Specific Taswell 1.008 (1.000-1.030) 09/26/22 03:40 Urine Protein 2+ (Negative) H 09/26/22 03:40 Urine Glucose (UA) Negative (Negative) 09/26/22 03:40 Urine Ketones Negative (Negative) 09/26/22 03:40 Urine Blood 3+ (Negative) H 09/26/22 03:40 Urine Nitrite Negative (Negative) 09/26/22 03:40 Urine Bilirubin Negative (Negative) 09/26/22 03:40 Urine Urobilinogen Negative (Negative) 09/26/22 03:40 Ur Leukocyte Esterase 1+ (Negative) H 09/26/22 03:40 Urine WBC (Auto) >30 /hpf (0-5) H 09/26/22 03:40 Urine RBC (Auto) >30 /hpf (0-4) H 09/26/22 03:40 U Hyaline Cast (Auto) 1-5 /lpf (0-5) 09/26/22 03:40 U Epithel Cells (Auto) 20-30 /lpf (0-5) H 09/26/22 03:40 Urine Bacteria (Auto) Negative (Negative) 09/26/22 03:40 Urine Yeast Not Reportable 09/26/22 03:40 Fluid Neutrophils % 1 % 10/02/22 Unknown Fluid Lymphocytes % 90 % 10/02/22 Unknown Fluid Eosinophils % 3 % 10/02/22 Unknown Fluid Basophils % 1 % 10/02/22 Unknown Fluid Meso/Macro/Lipscomb % 5 % 10/02/22 Unknown Fluid Comment 10/02/22 Unknown Pleural Fluid Source Right Lung 10/02/22 Unknown Pleural Color Becky 10/02/22 Unknown Pleural Appearance Hazy 10/02/22 Unknown Pleural pH 7.51 (7.3-7.4) H 10/02/22 Unknown Pleural WBC (Auto) 1462 /uL 10/02/22 Unknown Pleural RBC (Auto) 8000 /uL 10/02/22 Unknown Pleural Total Protein 3.3 gm/dl 10/02/22 Unknown Pleural LDH 140 U/L 10/02/22 Unknown Pleural Glucose 110 mg/dl 10/02/22 Unknown Pleural Amylase 24 U/L 10/02/22 Unknown Pleural Cholesterol 45 mg/dL 09/25/22 10:10 Nasal Screen MRSA (PCR) Negative (Negative) 09/30/22 15:11 SARS-CoV-2, RNA, NAAT NEGATIVE (NEGATIVE) 09/24/22 11:[address] 09/28/22 17:09 Exam(s): CT CHEST Without Contrast EXAM: CT Chest Without Intravenous Contrast CLINICAL HISTORY: Reason for exam: r/o pneumonia. TECHNIQUE: Axial computed tomography images of the chest without intravenous contrast. CTDI is 30.17 mGy and DLP is 989.32 mGy-cm. Automated exposure control was utilized for the study. A dose lowering technique was utilized adhering to the principles of ALARA. COMPARISON: No relevant prior studies available. FINDINGS: Lungs: Airspace consolidation of the RIGHT lung base, concerning for aspiration pneumonia. Moderate RIGHT and trace LEFT pleural effusions. Pleural space: No pneumothorax. Heart: Cardiomegaly. Trace pericardial fluid. No significant coronary artery calcifications. Mediastinum: Calcified subcarinal lymph node. Bones/joints: Degenerative changes of the spine. No acute fracture. No dislocation. Soft tissues: Unremarkable. Vasculature: Unremarkable. No thoracic aortic aneurysm. Lymph nodes: See above. IMPRESSION: Airspace consolidation of the RIGHT lung base, concerning for aspiration pneumonia. Moderate RIGHT and trace LEFT pleural effusions. Electronically signed by: Power Bonds MD 09/28/22 20:41 PM Chest X-Ray 10/02/22 08:52 SINGLE VIEW CHEST CLINICAL HISTORY: Status post thoracentesis. FINDINGS: An AP, portable, semierect chest radiograph is compared to study dated [address] CT dated 09/28/2022. The examination is degraded by portable technique and apical lordotic positioning. The heart is enlarged. The pulmonary vasculature is noncongested. Chronic interstitial thickening is similar to previous. There is trace residual right pleural effusion with right basilar atelectasis. No pneumothorax is seen. The skeletal structures are osteopenic. The bony thorax is grossly intact. IMPRESSION: 1. No pneumothorax is identified post procedure. 2. Trace residual pleural fluid is seen at the right lung base. 3. Cardiomegaly without radiographic evidence of congestive failure. ACT 112: Negative or not required by law. Electronically signed by: Marito Davison M.D. 10/02/2022 9:24 AM
[2022-10-03] MEDS: WARFARIN SOD 5 MG TAB PO SCH (17:30)
[2022-10-03] MEDS: DIGOXIN 0.125 MG TAB PO SCH (17:30)
[2022-10-03] MEDS: diphenhydrAMINE HCL 25 MG/10 ML UDC PO PRN (23:17)
[2022-10-03] MEDS: MELATONIN 3 MG TAB PO PRN (23:17)
[2022-10-04 07:47] LABS: Basophils # (auto) 0.04 K/uL (0-0.2); Basophils % (auto) 0.4 %; Eosinophils # (auto) 0.47 K/uL (0-0.50); Eosinophils % (auto) 4.3 %; Hemoglobin 13.6 g/dl (14.0-18.0); Immature Granulocytes # (auto) 0.08 K/uL (0.01-0.20); Immature Granulocytes % (auto) 0.7 %; Lymphocytes # (auto) 0.79 K/uL (1.2-3.4); Lymphocytes % (auto) 7.2 %; Mean Corpuscular Hgb Conc 31.6 g/dL (32.0-36.0); Mean Corpuscular Volume 85.3 fL (80.0-100.0); Monocytes # (auto) 1.09 K/uL (0.11-0.59); Neutrophils # (auto) 8.48 K/uL (1.40-6.50); Neutrophils % (auto) 77.4 %; Platelet Count 214 K/uL (130-400); RDW Coefficient of Variation 13.7 % (11.5-14.5); RDW Standard Deviation 42.6 fL (36.4-46.3); Red Blood Count 5.04 M/uL (4.70-6.10); White Blood Count 10.95 K/ul (4.8-10.8)
[2022-10-04 08:05] LABS: INR 1.1 (0.9-1.1); Prothrombin Time 12.1 Seconds (9.0-12.0)
[2022-10-04 08:11] LABS: BUN Creatinine Ratio 20.3 (10-20); Calcium 9.4 mg/dl (8.6-10.3); Creatinine Clr Calc Pharmacy 121.1 ml/min; Est GFR (African American) 106.9 ml/min; Est GFR (Non-African American) 92.2 ml/min; Potassium 4.2 mmol/L (3.5-5.1)
[2022-10-04] MEDS: FUROSEMIDE 40 MG TAB PO SCH (08:28)
[2022-10-04] MEDS: TAMSULOSIN HCL 0.4 MG CAP PO SCH (08:28)
[2022-10-04] MEDS: FINASTERIDE 5 MG TAB PO SCH (08:28)
[2022-10-04] MEDS: MIDODRINE HCL 2.5 MG TAB PO SCH ×3 (08:28→17:34)
[2022-10-04] MEDS: METOPROLOL SUCC 25MG EXT REL TAB PO SCH (08:28)
[2022-10-04] MEDS: GABAPENTIN 400 MG CAP PO SCH (08:28)
[2022-10-04] MEDS: DOCUSATE SODIUM 100 MG CAP PO SCH ×2 (08:29→23:14)
--- NOTE | 2022-10-04 12:21 | Pulmonology Progress Note ---
Date of Service October 04, 2022 Assessment & Plan (1) Pleural effusion: (2) Exertional shortness of breath: (3) HIRAM (obstructive sleep apnea): Plan Impression: 77-year-old male admitted for urological procedure. Pulmonary was consulted for recurrent pleural effusion. Patient underwent thoracentesis yesterday. Pleural fluid labs are currently pending. Patient is currently 93% on 3 L via nasal cannula. -- Acute hypoxic respiratory failure with right sided Pleural effusion Along with right lower lobe atelectasis which is likely secondary to heart failure - Requiring 2 L NC today BNP 72 Procalcitonin negative SARS-Cov-2, NAAT negative S/p thoracentesis 09/03/2022, 1.5 L lymphocytic fluid removed, cultures negative, cytology negative S/p repeat thoracentesis 09/25/2022 2.2 L clear yellow fluid, again lymphocytic, cytology negative s/p thoracentesis yesterday 10/02/2022 - 2 L yellow fluid, lymphocytic, EXUDATIVE Lymphocytic right-sided pleural effusion, reaccumulating really fast Cytology is negative x2. The next best approach would be to have VATS/pleuroscopy and then pleurodesis. Unfortunately she is not done in this hospital. Would recommend to have phone consultation with CT surgeon to get the recommendation CT chest 06/23/2022ersonally reviewed: Large right-sided pleural effusion with dependent atelectasis of the right lower lobe, small left sided effusion Patchy groundglass opacity in the left upper lobe on the periphery Cardiomegaly No significant mediastinal lymphadenopathy -- Hypersomnia ESS: 12, STOP-BAN BMI 35 Sputum polysomnography has been ordered for the patient --Exertional shortness of breath Multifactorial Underlying BMI Diastolic CHF as well as history of smoking playing a part --A-fib On warfarin -- Ex cigarette smoker Approximately [id number] smoking history -- Currently vaping Advised to quit -- Obesity Advised to lose with diet and exercise Plan: Continue with diuresis and incentive spirometry Check for O2 requirement on exertion prior to discharge No further recommendation from pulmonary perspective, will sign off Please call directly with any questions Please note the above document was generated using voice recognition software. It may contain grammatical, syntax or spelling errors.Any formal questions or concerns about the content, text or information contained within the body of this dictation should be directly addressed to the provider for clarification. Admission and Anticipated Discharge Date Admission Date: September 26, 2022 Subjective Patient seen and examined at bedside. No acute distress, no adverse events overnight He was sleeping when I entered the room. He did wake up and said that he is feeling much better Denies any chest pain, no headache, no nausea, no vomiting Fair appetite. Asking to go home. Review of Systems Review of Systems: All systems reviewed & are unremarkable except as noted in Subjective Physical Exam Physical Exam: Constitutional: No acute distress HEENT: EOMI, PERRLA Respiratory system: Decreased air entry on the right side, no wheeze, no rhonchi, mild crackles bilateral lower lobes CVS: S1-S2 positive, no murmurs or gallops Abdomen: Soft, nontender, nondistended, positive bowel sounds x4, obese Extremities: +2 pulses bilaterally radialis/ dorsalis pedis, no cyanosis, +2 ankle edema bilaterally Neuro: Awake alert oriented x3 Psych: Normal mood and affect G/U: No [place] Skin: no rashes, warm and dry Lymphatic: no cervical or axillary lymphadenopathy Results & Data Results & Data Vital Signs (Past 12 Hours) Vital Signs Temp Pulse Resp BP BP Pulse Ox O2 Del Method 10/04/22 11:26 36.7 C 83 16 95/66 L 95 Nasal Cannula 10/04/22 07:00 36.8 C 88 20 105/73 93 Nasal Cannula 10/04/22 03:40 36.3 C L 79 16 99/62 L 94 Nasal Cannula O2 Flow Rate 10/04/22 11:26 1 10/04/22 07:00 1 10/04/22 03:40 1 Laboratory Results 10/04/22 07:00 10/04/22 07:00 PG Care Time/CCT Total # of Minutes Spent Total Time Spent with Patient: Total time spent is greater than 50% in coordination of care (as documented) at patient's floor/unit and/or counseling patient: Coding Level of Care Code 53272 SUB INP/OBS CARE 2/35MIN Diagnoses Pleural effusion J90 Exertional shortness of breath R06.02 HIRAM (obstructive sleep apnea) G47.33
--- NOTE | 2022-10-04 13:25 | Hospitalist Progress Note ---
Date of Service October 04, 2022 Assessment & Plan (1) S/P TURP: (2) Heart failure, diastolic, with acute decompensation: (3) Pleural effusion: Plan: (1) S/P TURP: Plan: per previous attending notes with addendum: Status post TURP on 09/24/2022 guillory cath removed Patient voiding well Stable from urology standpoint Patient's postop course complicated by right-sided pleural effusion and fever, likely from right-sided pneumonia Patient underwent thoracentesis on September 25, 2022, by Dr. Florian, draining 2.2L Pathology: Lymphocytosis Cultures: Negative Pleural effusion felt to be secondary to systolic congestive heart failure Right pleural effusion return within 3 days after thoracentesis, as seen on repeat CT chest Repeat thoracentesis by Dr. Daniel draining 2 L on October 02. Exudative pattern. Local Area Network Administrator consulted-placed on midodrine 2.5 mg p.o. 3 times daily to allow for diuresis Usual Lasix 40 mg p.o. daily continued Patient completed 7-day course of cefepime And doxycycline for right lower lobe pneumonia Currently on 1 L of oxygen, wean off accordingly Compression stockings applied for low blood pressure. (2) Pleural effusion, likely secondary to acute on chronic diastolic CHF Plan: Management per above (3) HIRAM (obstructive sleep apnea): Plan: Continue CPAP (4) Urinary retention: Plan: Voiding with no problems status post TURP (5) Heart failure, diastolic, with acute decompensation: Plan: Management per above (6) CAD (coronary artery disease): Plan: No acute cardiac symptoms (7) PAF (paroxysmal atrial fibrillation): Plan: At home on metoprolol 100 mg once daily Started at 75 mg once daily Also on digoxin 0.120 Coumadin restarted from 10/03 DVT ppx: -Coumadin. Started on Lovenox till INR is therapeutic CODE: Full code Dispo: Transition to acute rehab when bed is available. Please note the above document was generated using voice recognition software. It may contain grammatical, syntax or spelling errors. Any formal questions or concerns about the content, text or information contained within the body of this dictation should be directly addressed to the provider for clarification Admission and Anticipated Discharge Date Admission Date: September 26, 2022 Subjective Patient seen and examined at bedside. He is lying in the bed comfortably; denies any shortness of breath or chest pain. Review of Systems Review of Systems: All systems reviewed & are unremarkable except as noted in Subjective Physical Exam Physical Exam: General- oriented x 3, not in distress, speaks in sentences with no effort or a ccessory muscle use Eyes- anicteric Neck- no JVD Lungs- mild rales at the right base, clear on the left Heart- normal rate, regular rhythm; no murmurs Abdomen- normal bowel sounds, nondistended, soft, nontender Extremities- no pretibial edema, no calf tenderness Neuro- alert, oriented x 3; no gross focal neurologic deficits Skin- warm & dry Results & Data Results & Data Vital Signs (Past 12 Hours) Vital Signs Temp Pulse Resp BP BP Pulse Ox O2 Del Method 10/04/22 11:26 36.7 C 83 16 95/66 L 95 Nasal Cannula 10/04/22 07:00 36.8 C 88 20 105/73 93 Nasal Cannula 10/04/22 03:40 36.3 C L 79 16 99/62 L 94 Nasal Cannula O2 Flow Rate 10/04/22 11:26 1 10/04/22 07:00 1 10/04/22 03:40 1 Laboratory Results Laboratory Results WBC 10.95 K/ul (4.8-10.8) H 10/04/22 07:00 RBC 5.04 M/uL (4.70-6.10) 10/04/22 07:00 Hgb 13.6 g/dl (14.0-18.0) L 10/04/22 07:00 Hct 43.0 % (42.0-52.0) 10/04/22 07:00 MCV 85.3 fL (80.0-100.0) 10/04/22 07:00 MCH 27.0 pg (25.0-34.0) 10/04/22 07:00 MCHC 31.6 g/dL (32.0-36.0) L 10/04/22 07:00 RDW Std Deviation 42.6 fL (36.4-46.3) 10/04/22 07:00 RDW Coeff of Lizandro 13.7 % (11.5-14.5) 10/04/22 07:00 Plt Count 214 K/uL (130-400) 10/04/22 07:00 MPV 10.0 fL (9.4-12.4) 10/04/22 07:00 Immature Gran % (Auto) 0.7 % 10/04/22 07:00 Neut % (Auto) 77.4 % 10/04/22 07:00 Lymph % (Auto) 7.2 % 10/04/22 07:00 [place] % (Auto) 10.0 % 10/04/22 07:00 Eos % (Auto) 4.3 % 10/04/22 07:00 Baso % (Auto) 0.4 % 10/04/22 07:00 Neut # (Auto) 8.48 K/uL (1.40-6.50) H 10/04/22 07:00 Lymph # (Auto) 0.79 K/uL (1.2-3.4) L 10/04/22 07:00 [place] # (Auto) 1.09 K/uL (0.11-0.59) H 10/04/22 07:00 Eos # (Auto) 0.47 K/uL (0-0.50) 10/04/22 07:00 Baso # (Auto) 0.04 K/uL (0-0.2) 10/04/22 07:00 Immature Gran # (Auto) 0.08 K/uL (0.01-0.20) 10/04/22 07:00 Peripher Smr Path Cons 09/29/22 06:07 Peripher Smr Path Cons Cancelled 09/29/22 06:07 PT 12.1 Seconds (9.0-12.0) H 10/04/22 07:00 INR 1.1 (0.9-1.1) 10/04/22 07:00 APTT 34.6 Seconds (21.0-31.0) H 09/29/22 06:07 PTT Ratio 1.2 09/29/22 06:07 Sodium 141 mmol/L (136-145) 10/04/22 07:00 Potassium 4.2 mmol/L (3.5-5.1) 10/04/22 07:00 Chloride 97 mmol/L (98-107) L 10/04/22 07:00 Carbon Dioxide 42 mmol/L (21-32) H* 10/04/22 07:00 Anion Gap 2 (3-11) L 10/04/22 07:00 BUN 14 mg/dl (6-23) 10/04/22 07:00 Creatinine 0.69 mg/dl (0.6-1.4) 10/04/22 07:00 Est Cr Clr Drug Dosing 121.1 ml/min 10/04/22 07:00 Est GFR ( Amer) 106.9 ml/min 10/04/22 07:00 Est GFR (Non-Af Amer) 92.2 ml/min 10/04/22 07:00 BUN/Creatinine Ratio 20.3 (10-20) H 10/04/22 07:00 Glucose 100 mg/dl (70-99(Fasting)) H 10/04/22 07:00 Lactate 1.2 mmol/L (0.4-2.0) 09/26/22 03:44 Calcium 9.4 mg/dl (8.6-10.3) 10/04/22 07:00 Magnesium 2.1 mg/dl (1.7-2.4) 09/27/22 08:04 Total Bilirubin 0.7 mg/dl (0.2-1.0) 10/02/22 09:18 AST 16 U/L (13-39) 09/24/22 13:54 ALT 13 U/L (7-52) 09/24/22 13:54 Alkaline Phosphatase 89 U/L (34-104) 09/24/22 13:54 Lactate Dehydrogenase 116 U/L (86-244) 10/02/22 09:18 B-Natriuretic Peptide 72 pg/ml (0-100) 09/24/22 16:28 Total Protein 6.5 gm/dl (6.0-8.3) 10/02/22 09:18 Albumin 3.4 gm/dl (3.4-5.0) 10/02/22 09:18 Globulin 2.8 gm/dl (2.5-4.0) 09/24/22 13:54 Albumin/Globulin Ratio 1.3 (0.9-2) 09/24/22 13:54 Procalcitonin < 0.05 ng/ml (0-0.5) 09/26/22 03:44 TSH 0.334 uIu/ml (0.300-4.500) 09/26/22 03:44 Urine Color Red 09/26/22 03:40 Urine Appearance Turbid (Clear) A 06/28/23 03:40 Urine pH 5.0 (4.5-7.5) 09/26/22 03:40 Ur Specific [place] 1.008 (1.000-1.030) 09/26/22 03:40 Urine Protein 2+ (Negative) H 09/26/22 03:40 Urine Glucose (UA) Negative (Negative) 09/26/22 03:40 Urine Ketones Negative (Negative) 09/26/22 03:40 Urine Blood 3+ (Negative) H 09/26/22 03:40 Urine Nitrite Negative (Negative) 09/26/22 03:40 Urine Bilirubin Negative (Negative) 09/26/22 03:40 Urine Urobilinogen Negative (Negative) 09/26/22 03:40 Ur Leukocyte Esterase 1+ (Negative) H 09/26/22 03:40 Urine WBC (Auto) >30 /hpf (0-5) H 09/26/22 03:40 Urine RBC (Auto) >30 /hpf (0-4) H 09/26/22 03:40 U Hyaline Cast (Auto) 1-5 /lpf (0-5) 09/26/22 03:40 U Epithel Cells (Auto) 20-30 /lpf (0-5) H 09/26/22 03:40 Urine Bacteria (Auto) Negative (Negative) 09/26/22 03:40 Urine Yeast Not Reportable 09/26/22 03:40 Fluid Neutrophils % 1 % 10/02/22 Unknown Fluid Lymphocytes % 90 % 10/02/22 Unknown Fluid Eosinophils % 3 % 10/02/22 Unknown Fluid Basophils % 1 % 10/02/22 Unknown Fluid [place]/Macro/[place] % 5 % 10/02/22 Unknown Fluid Comment 10/02/22 Unknown Pleural Fluid Source Right Lung 10/02/22 Unknown Pleural Color Becky 10/02/22 Unknown Pleural Appearance Hazy 10/02/22 Unknown Pleural pH 7.51 (7.3-7.4) H 10/02/22 Unknown Pleural WBC (Auto) 1462 /uL 10/02/22 Unknown Pleural RBC (Auto) 8000 /uL 10/02/22 Unknown Pleural Total Protein 3.3 gm/dl 10/02/22 Unknown Pleural LDH 140 U/L 10/02/22 Unknown Pleural Glucose 110 mg/dl 07/04/23 Unknown Pleural Amylase 24 U/L 10/02/22 Unknown Pleural Cholesterol 45 mg/dL 09/25/22 10:10 Nasal Screen MRSA (PCR) Negative (Negative) 09/30/22 15:11 SARS-CoV-2, RNA, NAAT NEGATIVE (NEGATIVE) 09/24/22 11:[address] 09/28/22 17:09 Exam(s): CT CHEST Without Contrast EXAM: CT Chest Without Intravenous Contrast CLINICAL HISTORY: Reason for exam: r/o pneumonia. TECHNIQUE: Axial computed tomography images of the chest without intravenous contrast. CTDI is 30.17 mGy and DLP is 989.32 mGy-cm. Automated exposure control was utilized for the study. A dose lowering technique was utilized adhering to the principles of ALARA. COMPARISON: No relevant prior studies available. FINDINGS: Lungs: Airspace consolidation of the RIGHT lung base, concerning for aspiration pneumonia. Moderate RIGHT and trace LEFT pleural effusions. Pleural space: No pneumothorax. Heart: Cardiomegaly. Trace pericardial fluid. No significant coronary artery calcifications. Mediastinum: Calcified subcarinal lymph node. Bones/joints: Degenerative changes of the spine. No acute fracture. No dislocation. Soft tissues: Unremarkable. Vasculature: Unremarkable. No thoracic aortic aneurysm. Lymph nodes: See above. IMPRESSION: Airspace consolidation of the RIGHT lung base, concerning for aspiration pneumonia. Moderate RIGHT and trace LEFT pleural effusions. Electronically signed by: Power Bonds MD 09/28/22 20:41 PM Chest X-Ray 10/02/22 08:52 SINGLE VIEW CHEST CLINICAL HISTORY: Status post thoracentesis. FINDINGS: An AP, portable, semierect chest radiograph is compared to study dated [address] dated 09/28/2022. The examination is degraded by portable technique and apical lordotic positioning. The heart is enlarged. The pulmonary vasculature is noncongested. Chronic interstitial thickening is similar to previous. There is trace residual right pleural effusion with right basilar atelectasis. No pneumothorax is seen. The skeletal structures are osteopenic. The bony thorax is grossly intact. IMPRESSION: 1. No pneumothorax is identified post procedure. 2. Trace residual pleural fluid is seen at the right lung base. 3. Cardiomegaly without radiographic evidence of congestive failure. ACT 112: Negative or not required by law. Electronically signed by: Marito Davison M.D. 10/02/2022 9:24 AM
[2022-10-04] MEDS ORDERED: ENOXAPARIN 1 MG/KG SQ SCH (13:30)
[2022-10-04] MEDS: ENOXAPARIN INJ 120 MG/0.8 ML SYR SQ SCH (15:07)
[2022-10-04] MEDS: WARFARIN SOD 5 MG TAB PO SCH (17:33)
[2022-10-04] MEDS: DIGOXIN 0.125 MG TAB PO SCH (17:34)
--- NOTE | 2022-10-04 18:40 | Cardiology Progress Note ---
Date of Service October 04, 2022 Assessment & Plan (1) Acute exacerbation of CHF (congestive heart failure): (2) Atrial fibrillation: Plan: Acute on chronic heart failure with preserved ejection fraction -As noted, diuretic dose has been limited by relative hypotension. -CO2 on chemistry panel =42, stable compared to 10/02, 10/03. -Continue furosemide 40 mg PO daily. -Future considerations include outpatient CT surgery evaluation for VATS/pleurodesis. Chronic atrial fibrillation -Anticoagulation on hold due to recent hematuria and need for thoracentesis. Pt states urine is clear / yellow. Resume coumadin, at lower dose 5 mg daily to start. -Continue rate control with digoxin and metoprolol. --Increase activity as tolerated. -Stable for transfer to rehab 10/05 from a cardiac perspective. Admission and Anticipated Discharge Date Admission Date: September 26, 2022 Subjective Patient seen in cardiology follow-up. No subjective complaint. Ongoing relative low blood pressure noted. Telemetry reveals rate controlled atrial fibrillation Physical Exam Constitutional: no acute distress Respiratory: no labored breathing and no cough Auscultation: lungs clear to auscultation bilaterally Cardiovascular: Rate/Rhythm: + irregularly irregular Heart Sounds: no murmur Extremities: no edema Gastrointestinal (Abdomen): normal bowel sounds, soft, nontender, no hepatosplenomegaly Neurologic: PERRL, EOMI, accommodation nl, no face palsy, no dysarthria Results & Data Vital Signs (Past 12 Hours) Vital Signs Temp Pulse Pulse Resp BP Pulse Ox O2 Del Method 10/04/22 18:38 90 10/04/22 15:48 36.3 C L 90 19 89/62 L 95 Nasal Cannula 10/04/22 08:00 Nasal Cannula 10/04/22 11:26 36.7 C 83 16 95/66 L 95 Nasal Cannula 10/04/22 07:00 36.8 C 88 20 105/73 93 Nasal Cannula O2 Flow Rate 10/04/22 18:38 10/04/22 15:48 1 10/04/22 08:00 3 10/04/22 11:26 1 10/04/22 07:00 1 Laboratory Results Coagulation 10/04/22 Range/Units 07:00 PT 12.1 H (9.0-12.0) Seconds CBC 10/04/22 Range/Units 07:00 WBC 10.95 H (4.8-10.8) K/ul RBC 5.04 (4.70-6.10) M/uL Hgb 13.6 L (14.0-18.0) g/dl Hct 43.0 (42.0-52.0) % Plt Count 214 (130-400) K/uL Neut # (Auto) 8.48 H (1.40-6.50) K/uL Lymph # (Auto) 0.79 L (1.2-3.4) K/uL [place] # (Auto) 1.09 H (0.11-0.59) K/uL Eos # (Auto) 0.47 (0-0.50) K/uL Baso # (Auto) 0.04 (0-0.2) K/uL Comprehensive Metabolic Panel 10/04/22 Range/Units 07:00 Sodium 141 (136-145) mmol/L Potassium 4.2 (3.5-5.1) mmol/L Chloride 97 L (98-107) mmol/L Carbon Dioxide 42 H* (21-32) mmol/L BUN 14 (6-23) mg/dl Creatinine 0.69 (0.6-1.4) mg/dl Glucose 100 H (70-99(Fasting)) mg/dl Calcium 9.4 (8.6-10.3) mg/dl Intake and Output 10/04/22 10/04/22 10/04/22 06:59 14:59 22:59 Intake Total 200 / 1120 540 / 540 Output Total 350 / 1376 326 / 326 Balance -150 / -256 214 / 214 Intake: Oral 200 / 1120 540 / 540 Output: Urine 350 / 1075 325 / 325 # Bowel Movements Other: Weight 115.2 kg Weight Measurement Method Built in [facility] (1) Acute exacerbation of CHF (congestive heart failure) Heart failure type: unspecified Qualified Code(s): I50.9 - Heart failure, unspecified
[2022-10-04] MEDS: ONDANSETRON INJ 2 MG/ML 2 ML VIAL IV PRN (20:37)
[2022-10-05] MEDS: ENOXAPARIN INJ 120 MG/0.8 ML SYR SQ SCH (02:16)
[2022-10-05 06:26] LABS: Basophils # (auto) 0.04 K/uL (0-0.2); Basophils % (auto) 0.4 %; Eosinophils # (auto) 0.41 K/uL (0-0.50); Eosinophils % (auto) 4.3 %; Hematocrit (blood only) 42.8 % (42.0-52.0); Hemoglobin 13.4 g/dl (14.0-18.0); Immature Granulocytes # (auto) 0.08 K/uL (0.01-0.20); Immature Granulocytes % (auto) 0.8 %; Lymphocytes # (auto) 0.79 K/uL (1.2-3.4); Lymphocytes % (auto) 8.3 %; Mean Corpuscular Hemoglobin 27.2 pg (25.0-34.0); Mean Corpuscular Hgb Conc 31.3 g/dL (32.0-36.0); Mean Corpuscular Volume 86.8 fL (80.0-100.0); Mean Platelet Volume 10.1 fL (9.4-12.4); Monocytes # (auto) 0.99 K/uL (0.11-0.59); Monocytes % (auto) 10.4 %; Neutrophils # (auto) 7.19 K/uL (1.40-6.50); Neutrophils % (auto) 75.8 %; Platelet Count 189 K/uL (130-400); RDW Coefficient of Variation 13.7 % (11.5-14.5); RDW Standard Deviation 43.6 fL (36.4-46.3); Red Blood Count 4.93 M/uL (4.70-6.10)
[2022-10-05 06:52] LABS: BUN Creatinine Ratio 18.2 (10-20); Calcium 9.4 mg/dl (8.6-10.3); Creatinine Clr Calc Pharmacy 108.4 ml/min; Est GFR (African American) 102.2 ml/min; Est GFR (Non-African American) 88.1 ml/min; Potassium 4.4 mmol/L (3.5-5.1)
[2022-10-05 06:53] LABS: INR 1.2 (0.9-1.1); Prothrombin Time 12.5 Seconds (9.0-12.0)
[2022-10-05] MEDS: GABAPENTIN 400 MG CAP PO SCH (08:50)
[2022-10-05] MEDS: TAMSULOSIN HCL 0.4 MG CAP PO SCH (08:50)
[2022-10-05] MEDS: MIDODRINE HCL 2.5 MG TAB PO SCH ×3 (08:50→16:33)
[2022-10-05] MEDS: FUROSEMIDE 40 MG TAB PO SCH (08:51)
[2022-10-05] MEDS: FINASTERIDE 5 MG TAB PO SCH (08:51)
[2022-10-05] MEDS: METOPROLOL SUCC 25MG EXT REL TAB PO SCH (08:51)
[2022-10-05] MEDS: DOCUSATE SODIUM 100 MG CAP PO SCH ×2 (08:53→20:03)
[2022-10-05 11:41] LABS: Appearance Urine Clear (Clear); Bilirubin Urine Negative (Negative); Blood Urine 3+ (Negative); Glucose Urine UA Negative (Negative); Ketones Urine Negative (Negative); Leukocyte Esterase Urine 1+ (Negative); Nitrite Urine Negative (Negative); Protein Urine Negative (Negative); Specific Gravity Urine <= 1.005 (1.000-1.030); Urobilinogen Urine Negative (Negative)
[2022-10-05 11:45] LABS: Color Urine Yellow
[2022-10-05 11:53] LABS: Bacteria Urine Negative (Negative); Epithelial Cell Urine 0-5 /lpf (0-5); RBC Urine 0-4 /hpf (0-4); WBC Urine 0-5 /hpf (0-5)
--- NOTE | 2022-10-05 13:43 | Cardiology Progress Note ---
Date of Service October 05, 2022 Assessment & Plan (1) Acute exacerbation of CHF (congestive heart failure): (2) Atrial fibrillation: Plan: Acute on chronic heart failure with preserved ejection fraction -As noted, diuretic dose has been limited by relative hypotension. -CO2 on chemistry panel =43, stable -Continue furosemide 40 mg PO daily. -Future considerations include outpatient CT surgery evaluation for VATS/pleurodesis. Chronic atrial fibrillation -Anticoagulation had been on hold due to recent hematuria and need for thoracentesis. Pt states urine is clear / yellow. Patient received Coumadin 5 mg on 10/03 and 10/04, INR still remains below goal at 1.2 today 10/05/2022. Increase Coumadin to 10 mg daily which had been his outpatient dose. Continue metoprolol succinate 75 mg daily for rate control along with digoxin 0.125 mg daily. Midodrine added this hospital stay for blood pressure support 2.5 mg 3 times daily. --We will need to reassess the patient's mental status prior to consideration of transfer to rehab. Admission and Anticipated Discharge Date Admission Date: September 26, 2022 Subjective Patient seen in cardiology follow-up. He was more lethargic than what he was when I had reassessed him at approximately 5 PM last evening. Telemetry reveals atrial fibrillation with rate in the range of 80 to 90s which has been his chronic rhythm. Physical Exam Constitutional: no acute distress (Somnolent) Respiratory: no labored breathing and no cough Auscultation: lungs clear to auscultation bilaterally Cardiovascular: Rate/Rhythm: + irregularly irregular Heart Sounds: no murmur Extremities: no edema Gastrointestinal (Abdomen): normal bowel sounds, soft, nontender, no hepatosplenomegaly Neurologic: PERRL, EOMI, accommodation nl, no face palsy, no dysarthria Results & Data Vital Signs (Past 12 Hours) Vital Signs Temp Pulse Pulse Resp BP BP Pulse Ox 10/05/22 11:59 36.4 C L 97 H 16 126/72 96 10/05/22 07:00 85 10/05/22 08:30 10/05/22 07:52 36.6 C 109 H 16 95/66 L 93 10/05/22 04:58 97 10/05/22 04:25 14 91 10/05/22 04:21 16 85 L 07/07/23 03:57 16 83 L 10/05/22 03:03 36.7 C 84 18 93/63 L 93 O2 Del Method O2 Flow Rate 10/05/22 11:59 Nasal Cannula 3 10/05/22 07:00 10/05/22 08:30 Nasal Cannula 3 10/05/22 07:52 Nasal Cannula 3 10/05/22 04:58 Nasal Cannula 3 10/05/22 04:25 Nasal Cannula 2 10/05/22 04:21 Nasal Cannula 1 10/05/22 03:57 Room Air 10/05/22 03:03 Nasal Cannula 1 Laboratory Results Coagulation 10/05/22 Range/Units 05:30 PT 12.5 H (9.0-12.0) Seconds CBC 10/05/22 Range/Units 05:30 WBC 9.50 (4.8-10.8) K/ul RBC 4.93 (4.70-6.10) M/uL Hgb 13.4 L (14.0-18.0) g/dl Hct 42.8 (42.0-52.0) % Plt Count 189 (130-400) K/uL Neut # (Auto) 7.19 H (1.40-6.50) K/uL Lymph # (Auto) 0.79 L (1.2-3.4) K/uL [place] # (Auto) 0.99 H (0.11-0.59) K/uL Eos # (Auto) 0.41 (0-0.50) K/uL Baso # (Auto) 0.04 (0-0.2) K/uL Comprehensive Metabolic Panel 10/05/22 Range/Units 05:30 Sodium 142 (136-145) mmol/L Potassium 4.4 (3.5-5.1) mmol/L Chloride 96 L (98-107) mmol/L Carbon Dioxide 43 H* (21-32) mmol/L BUN 14 (6-23) mg/dl Creatinine 0.77 (0.6-1.4) mg/dl Glucose 102 H (70-99(Fasting)) mg/dl Calcium 9.4 (8.6-10.3) mg/dl (1) Acute exacerbation of CHF (congestive heart failure) Heart failure type: unspecified Qualified Code(s): I50.9 - Heart failure, unspecified
--- NOTE | 2022-10-05 13:58 | Hospitalist Progress Note ---
Date of Service October 05, 2022 Assessment & Plan (1) S/P TURP: (2) Heart failure, diastolic, with acute decompensation: (3) Pleural effusion: Plan: (1) S/P TURP: Plan: per previous attending notes with addendum: Status post TURP on 09/24/2022 guillory cath removed Patient voiding well Stable from urology standpoint Noted to have hematuria while being started on anticoagulation. Discussed with Dr. Zapata on October 05 regarding the hematuria after getting started on anticoagulation; reported that it is expected after TURP. Can continue anticoagulation if he is continuing to void. Patient's postop course complicated by right-sided pleural effusion and fever, likely from right-sided pneumonia Patient underwent thoracentesis on September 25, 2022, by Dr. Florian, draining 2.2L Pathology: Lymphocytosis Cultures: Negative Pleural effusion felt to be secondary to systolic congestive heart failure Right pleural effusion return within 3 days after thoracentesis, as seen on repeat CT chest Repeat thoracentesis by Dr. Daniel draining 2 L on October 02. Exudative pattern. Discussed with cardiology placed on midodrine 2.5 mg p.o. 3 times daily to allow for diuresis Usual Lasix 40 mg p.o. daily continued Patient completed 7-day course of cefepime And doxycycline for right lower lobe pneumonia Currently on 3 L of oxygen, wean off accordingly Compression stockings applied for low blood pressure. (2) Pleural effusion, likely secondary to acute on chronic diastolic CHF Plan: Management per above (3) HIRAM (obstructive sleep apnea): Plan: Continue CPAP (4) Urinary retention: Plan: Voiding with no problems status post TURP (5) Heart failure, diastolic, with acute decompensation: Plan: Management per above (6) CAD (coronary artery disease): Plan: No acute cardiac symptoms (7) PAF (paroxysmal atrial fibrillation): Plan: At home on metoprolol 100 mg once daily Started at 75 mg once daily Also on digoxin 0.120 Coumadin restarted from 10/03 DVT ppx: -Coumadin. CODE: Full code Dispo: Transition to acute rehab when bed is available. Discussed with over the phone. Time spent evaluating patient, direct bedside care, chart review, placing orders, interpretation of diagnostic studies, discussion with consultants, patient, and family members, as well as other required patient management activities is 60 minutes Please note the above document was generated using voice recognition software. It may contain grammatical, syntax or spelling errors. Any formal questions or concerns about the content, text or information contained within the body of this dictation should be directly addressed to the provider for clarification Admission and Anticipated Discharge Date Admission Date: September 26, 2022 Subjective Patient seen and examined at bedside. Comfortable; not in distress. Reports that he was not able to get much sleep overnight. Review of Systems Review of Systems: All systems reviewed & are unremarkable except as noted in Subjective Physical Exam Physical Exam: General- oriented x 3, not in distress, speaks in sentences with no effort or accessory muscle use Eyes- anicteric Neck- no JVD Lungs-decreased breath sound at the right base, clear on the left Heart- normal rate, regular rhythm; no murmurs Abdomen- normal bowel sounds, nondistended, soft, nontender Extremities- no pretibial edema, no calf tenderness Neuro- alert, oriented x 3; no gross focal neurologic deficits Skin- warm & dry Results & Data Results & Data Vital Signs (Past 12 Hours) Vital Signs Temp Pulse Pulse Resp BP BP Pulse Ox 10/05/22 11:59 36.4 C L 97 H 16 126/72 96 10/05/22 07:00 85 10/05/22 08:30 10/05/22 07:52 36.6 C 109 H 16 95/66 L 93 10/05/22 04:58 97 10/05/22 04:25 14 91 10/05/22 04:21 16 85 L 10/05/22 03:57 16 83 L 10/05/22 03:03 36.7 C 84 18 93/63 L 93 O2 Del Method O2 Flow Rate 10/05/22 11:59 Nasal Cannula 3 10/05/22 07:00 10/05/22 08:30 Nasal Cannula 3 10/05/22 07:52 Nasal Cannula 3 10/05/22 04:58 Nasal Cannula 3 10/05/22 04:25 Nasal Cannula 2 10/05/22 04:21 Nasal Cannula 1 10/05/22 03:57 Room Air 10/05/22 03:03 Nasal Cannula 1 Laboratory Results Laboratory Results WBC 9.50 K/ul (4.8-10.8) 10/05/22 05:30 RBC 4.93 M/uL (4.70-6.10) 10/05/22 05:30 Hgb 13.4 g/dl (14.0-18.0) L 10/05/22 05:30 Hct 42.8 % (42.0-52.0) 10/05/22 05:30 MCV 86.8 fL (80.0-100.0) 10/05/22 05:30 MCH 27.2 pg (25.0-34.0) 10/05/22 05:30 MCHC 31.3 g/dL (32.0-36.0) L 10/05/22 05:30 RDW Std Deviation 43.6 fL (36.4-46.3) 10/05/22 05:30 RDW Coeff of Lizandro 13.7 % (11.5-14.5) 10/05/22 05:30 Plt Count 189 K/uL (130-400) 10/05/22 05:30 MPV 10.1 fL (9.4-12.4) 10/05/22 05:30 Immature Gran % (Auto) 0.8 % 10/05/22 05:30 Neut % (Auto) 75.8 % 10/05/22 05:30 Lymph % (Auto) 8.3 % 10/05/22 05:30 [place] % (Auto) 10.4 % 10/05/22 05:30 Eos % (Auto) 4.3 % 10/05/22 05:30 Baso % (Auto) 0.4 % 10/05/22 05:30 Neut # (Auto) 7.19 K/uL (1.40-6.50) H 10/05/22 05:30 Lymph # (Auto) 0.79 K/uL (1.2-3.4) L 10/05/22 05:30 [place] # (Auto) 0.99 K/uL (0.11-0.59) H 10/05/22 05:30 Eos # (Auto) 0.41 K/uL (0-0.50) 10/05/22 05:30 Baso # (Auto) 0.04 K/uL (0-0.2) 10/05/22 05:30 Immature Gran # (Auto) 0.08 K/uL (0.01-0.20) 10/05/22 05:30 Peripher Smr Path Cons 09/29/22 06:07 Peripher Smr Path Cons Cancelled 09/29/22 06:07 PT 12.5 Seconds (9.0-12.0) H 10/05/22 05:30 INR 1.2 (0.9-1.1) H 10/05/22 05:30 APTT 34.6 Seconds (21.0-31.0) H 09/29/22 06:07 PTT Ratio 1.2 09/29/22 06:07 Sodium 142 mmol/L (136-145) 10/05/22 05:30 Potassium 4.4 mmol/L (3.5-5.1) 10/05/22 05:30 Chloride 96 mmol/L (98-107) L 10/05/22 05:30 Carbon Dioxide 43 mmol/L (21-32) H* 10/05/22 05:30 Anion Gap 3 (3-11) 10/05/22 05:30 BUN 14 mg/dl (6-23) 10/05/22 05:30 Creatinine 0.77 mg/dl (0.6-1.4) 10/05/22 05:30 Est Cr Clr Drug Dosing 108.4 ml/min 10/05/22 05:30 Est GFR ( Amer) 102.2 ml/min 10/05/22 05:30 Est GFR (Non-Af Amer) 88.1 ml/min 10/05/22 05:30 BUN/Creatinine Ratio 18.2 (10-20) 10/05/22 05:30 Glucose 102 mg/dl (70-99(Fasting)) H 10/05/22 05:30 Lactate 1.2 mmol/L (0.4-2.0) 09/26/22 03:44 Calcium 9.4 mg/dl (8.6-10.3) 10/05/22 05:30 Magnesium 2.1 mg/dl (1.7-2.4) 09/27/22 08:04 Total Bilirubin 0.7 mg/dl (0.2-1.0) 10/02/22 09:18 AST 16 U/L (13-39) 09/24/22 13:54 ALT 13 U/L (7-52) 09/24/22 13:54 Alkaline Phosphatase 89 U/L (34-104) 09/24/22 13:54 Lactate Dehydrogenase 116 U/L (86-244) 10/02/22 09:18 B-Natriuretic Peptide 72 pg/ml (0-100) 09/24/22 16:28 Total Protein 6.5 gm/dl (6.0-8.3) 10/02/22 09:18 Albumin 3.4 gm/dl (3.4-5.0) 10/02/22 09:18 Globulin 2.8 gm/dl (2.5-4.0) 09/24/22 13:54 Albumin/Globulin Ratio 1.3 (0.9-2) 09/24/22 13:54 Procalcitonin < 0.05 ng/ml (0-0.5) 09/26/22 03:44 TSH 0.334 uIu/ml (0.300-4.500) 09/26/22 03:44 Urine Color Yellow 10/05/22 Unknown Urine Appearance Clear (Clear) 10/05/22 Unknown Urine pH 7.0 (4.5-7.5) 10/05/22 Unknown Ur Specific [place] <= 1.005 (1.000-1.030) 10/05/22 Unknown Urine Protein Negative (Negative) 10/05/22 Unknown Urine Glucose (UA) Negative (Negative) 10/05/22 Unknown Urine Ketones Negative (Negative) 10/05/22 Unknown Urine Blood 3+ (Negative) H 10/05/22 Unknown Urine Nitrite Negative (Negative) 10/05/22 Unknown Urine Bilirubin Negative (Negative) 10/05/22 Unknown Urine Urobilinogen Negative (Negative) 10/05/22 Unknown Ur Leukocyte Esterase 1+ (Negative) H 10/05/22 Unknown Urine WBC (Auto) >30 /hpf (0-5) H 09/26/22 03:40 Urine RBC (Auto) >30 /hpf (0-4) H 09/26/22 03:40 U Hyaline Cast (Auto) 1-5 /lpf (0-5) 09/26/22 03:40 U Epithel Cells (Auto) 20-30 /lpf (0-5) H 09/26/22 03:40 Urine Bacteria (Auto) Negative (Negative) 09/26/22 03:40 Urine RBC 0-4 /hpf (0-4) 10/05/22 Unknown Urine WBC 0-5 /hpf (0-5) 10/05/22 Unknown Ur Epithelial Cells 0-5 /lpf (0-5) 10/05/22 Unknown Urine Bacteria Negative (Negative) 10/05/22 Unknown Urine Yeast Not Reportable 09/26/22 03:40 Fluid Neutrophils % 1 % 10/02/22 Unknown Fluid Lymphocytes % 90 % 10/02/22 Unknown Fluid Eosinophils % 3 % 10/02/22 Unknown Fluid Basophils % 1 % 10/02/22 Unknown Fluid Meso/Macro/[place] % 5 % 10/02/22 Unknown Fluid Comment 10/02/22 Unknown Pleural Fluid Source Right Lung 10/02/22 Unknown Pleural Color Becky 10/02/22 Unknown Pleural Appearance Hazy 10/02/22 Unknown Pleural pH 7.51 (7.3-7.4) H 10/02/22 Unknown Pleural WBC (Auto) 1462 /uL 10/02/22 Unknown Pleural RBC (Auto) 8000 /uL 10/02/22 Unknown Pleural Total Protein 3.3 gm/dl 10/02/22 Unknown Pleural LDH 140 U/L 10/02/22 Unknown Pleural Glucose 110 mg/dl 10/02/22 Unknown Pleural Amylase 24 U/L 10/02/22 Unknown Pleural Cholesterol 45 mg/dL 09/25/22 10:10 Nasal Screen MRSA (PCR) Negative (Negative) 09/30/22 15:11 SARS-CoV-2, RNA, NAAT NEGATIVE (NEGATIVE) 09/24/22 11:[address] 09/28/22 17:09 Exam(s): CT CHEST Without Contrast EXAM: CT Chest Without Intravenous Contrast CLINICAL HISTORY: Reason for exam: r/o pneumonia. TECHNIQUE: Axial computed tomography images of the chest without intravenous contrast. CTDI is 30.17 mGy and DLP is 989.32 mGy-cm. Automated exposure control was utilized for the study. A dose lowering technique was utilized adhering to the principles of ALARA. COMPARISON: No relevant prior studies available. FINDINGS: Lungs: Airspace consolidation of the RIGHT lung base, concerning for aspiration pneumonia. Moderate RIGHT and trace LEFT pleural effusions. Pleural space: No pneumothorax. Heart: Cardiomegaly. Trace pericardial fluid. No significant coronary artery calcifications. Mediastinum: Calcified subcarinal lymph node. Bones/joints: Degenerative changes of the spine. No acute fracture. No dislocation. Soft tissues: Unremarkable. Vasculature: Unremarkable. No thoracic aortic aneurysm. Lymph nodes: See above. IMPRESSION: Airspace consolidation of the RIGHT lung base, concerning for aspiration pneumonia. Moderate RIGHT and trace LEFT pleural effusions. Electronically signed by: Power Bonds MD 09/28/22 20:41 PM Chest X-Ray 10/02/22 08:52 SINGLE VIEW CHEST CLINICAL HISTORY: Status post thoracentesis. FINDINGS: An AP, portable, semierect chest radiograph is compared to study dated [address] chest CT dated 09/28/2022. The examination is degraded by portable technique and apical lordotic positioning. The heart is enlarged. Th e pulmonary vasculature is noncongested. Chronic interstitial thickening is similar to previous. There is trace residual right pleural effusion with right basilar atelectasis. No pneumothorax is seen. The skeletal structures are osteopenic. The bony thorax is grossly intact. IMPRESSION: 1. No pneumothorax is identified post procedure. 2. Trace residual pleural fluid is seen at the right lung base. 3. Cardiomegaly without radiographic evidence of congestive failure. ACT 112: Negative or not required by law. Electronically signed by: Marito Davison M.D. 10/02/2022 9:24 AM
[2022-10-05] MEDS: WARFARIN SOD 10 MG TAB PO SCH (16:32)
[2022-10-05] MEDS: DIGOXIN 0.125 MG TAB PO SCH (16:33)
[2022-10-05] MEDS: MELATONIN 3 MG TAB PO PRN (22:08)
[2022-10-06 06:28] LABS: Basophils # (auto) 0.03 K/uL (0-0.2); Basophils % (auto) 0.3 %; Eosinophils # (auto) 0.27 K/uL (0-0.50); Eosinophils % (auto) 2.3 %; Hemoglobin 13.2 g/dl (14.0-18.0); Immature Granulocytes # (auto) 0.07 K/uL (0.01-0.20); Immature Granulocytes % (auto) 0.6 %; Lymphocytes # (auto) 0.47 K/uL (1.2-3.4); Lymphocytes % (auto) 4.1 %; Mean Corpuscular Hemoglobin 27.3 pg (25.0-34.0); Mean Corpuscular Hgb Conc 31.4 g/dL (32.0-36.0); Mean Platelet Volume 10.1 fL (9.4-12.4); Monocytes # (auto) 1.25 K/uL (0.11-0.59); Monocytes % (auto) 10.8 %; Neutrophils # (auto) 9.51 K/uL (1.40-6.50); Neutrophils % (auto) 81.9 %; Platelet Count 185 K/uL (130-400); RDW Coefficient of Variation 13.6 % (11.5-14.5); RDW Standard Deviation 43.6 fL (36.4-46.3); Red Blood Count 4.83 M/uL (4.70-6.10)
[2022-10-06 06:49] LABS: BUN Creatinine Ratio 18.8 (10-20); Calcium 9.1 mg/dl (8.6-10.3); Creatinine Clr Calc Pharmacy 119.5 ml/min; Est GFR (African American) 106.9 ml/min; Est GFR (Non-African American) 92.2 ml/min; Potassium 4.1 mmol/L (3.5-5.1)
[2022-10-06 06:57] LABS: INR 1.3 (0.9-1.1); Prothrombin Time 13.6 Seconds (9.0-12.0)
[2022-10-06] MEDS: METOPROLOL SUCC 25MG EXT REL TAB PO SCH (08:16)
[2022-10-06] MEDS: TAMSULOSIN HCL 0.4 MG CAP PO SCH (08:16)
[2022-10-06] MEDS: MIDODRINE HCL 2.5 MG TAB PO SCH ×3 (08:16→16:14)
[2022-10-06] MEDS: FUROSEMIDE 40 MG TAB PO SCH (08:16)
[2022-10-06] MEDS: GABAPENTIN 400 MG CAP PO SCH (08:16)
[2022-10-06] MEDS: FINASTERIDE 5 MG TAB PO SCH (08:17)
[2022-10-06] MEDS: DOCUSATE SODIUM 100 MG CAP PO SCH ×2 (08:18→20:16)
--- NOTE | 2022-10-06 13:33 | Hospitalist Progress Note ---
Date of Service October 06, 2022 Assessment & Plan (1) S/P TURP: (2) Heart failure, diastolic, with acute decompensation: (3) Pleural effusion: Plan: (1) S/P TURP: Plan: per previous attending notes with addendum: Status post TURP on 09/24/2022 guillory cath removed Patient voiding well Stable from urology standpoint Noted to have hematuria while being started on anticoagulation. Discussed with Dr. Zapata on October 05 regarding the hematuria after getting started on anticoagulation; reported that it is expected after TURP. Can continue anticoagulation if he is continuing to void. . (2) Pleural effusion, likely secondary to acute on chronic diastolic CHF Plan: Patient's postop course complicated by right-sided pleural effusion and fever, likely from right-sided pneumonia Patient underwent thoracentesis on September 25, 2022, by Dr. Florian, draining 2.2L Pathology: Lymphocytosis Cultures: Negative Pleural effusion felt to be secondary to systolic congestive heart failure Right pleural effusion return within 3 days after thoracentesis, as seen on repeat CT chest Repeat thoracentesis by Dr. Daniel draining 2 L on October 02. Exudative pattern Discussed with cardiology placed on midodrine 2.5 mg p.o. 3 times daily to allow for diuresis Usual Lasix 40 mg p.o. daily continued Patient completed 7-day course of cefepime And doxycycline for right lower lobe pneumonia Currently on 2 L of oxygen, wean off accordingly Compression stockings applied for low blood pressure. (3) HIRAM (obstructive sleep apnea): Plan: Continue CPAP (4) Urinary retention: Plan: Voiding with no problems status post TURP (5) Heart failure, diastolic, with acute decompensation: Plan: Management per above (6) CAD (coronary artery disease): Plan: No acute cardiac symptoms (7) PAF (paroxysmal atrial fibrillation): Plan: At home on metoprolol 100 mg once daily Started at 75 mg once daily Also on digoxin 0.125 Coumadin restarted from 10/03 DVT ppx: -Coumadin. CODE: Full code Dispo: [id number] done over the phone for over 24 minutes. Discussed the need for acute rehab. The medical coding auditor did not feel that patient meets sufficient criteria for acute rehab. Case management, patient and updated. Time spent evaluating patient, direct bedside care, chart review, placing orders, interpretation of diagnostic studies, discussion with consultants, patient, and family members, as well as other required patient management activities is 60 minutes Please note the above document was generated using voice recognition software. It may contain grammatical, syntax or spelling errors. Any formal questions or concerns about the content, text or information contained within the body of this dictation should be directly addressed to the provider for clarification Admission and Anticipated Discharge Date Admission Date: September 26, 2022 Subjective Patient is comfortable; not in any distress. He is sitting up on the chair. Not in distress. Review of Systems Review of Systems: All systems reviewed & are unremarkable except as noted in Subjective Physical Exam Physical Exam: General- oriented x 3, not in distress, speaks in sentences with no effort or accessory muscle use Eyes- anicteric Neck- no JVD Lungs-decreased breath sound at the right base, clear on the left Heart- normal rate, regular rhythm; no murmurs Abdomen- normal bowel sounds, nondistended, soft, nontender Extremities- no pretibial edema, no calf tenderness Neuro- alert, oriented x 3; no gross focal neurologic deficits Skin- warm & dry Results & Data Results & Data Vital Signs (Past 12 Hours) Vital Signs Temp Pulse Pulse Pulse Resp BP Pulse Ox 10/06/22 11:36 36.5 C 88 18 100/68 98 10/06/22 08:00 10/06/22 08:15 95 10/06/22 08:09 36.9 C 112 H 18 113/74 92 10/06/22 07:00 97 H 10/06/22 03:40 37 C 97 H 106/72 98 O2 Del Method O2 Flow Rate 10/06/22 11:36 Nasal Cannula 2 10/06/22 08:00 Nasal Cannula 2 10/06/22 08:15 Nasal Cannula 2 10/06/22 08:09 Room Air 10/06/22 07:00 10/06/22 03:40 Nasal Cannula 3 Laboratory Results Laboratory Results WBC 11.60 K/ul (4.8-10.8) H 10/06/22 05:23 RBC 4.83 M/uL (4.70-6.10) 10/06/22 05:23 Hgb 13.2 g/dl (14.0-18.0) L 10/06/22 05:23 Hct 42.0 % (42.0-52.0) 10/06/22 05: MCV 87.0 fL (80.0-100.0) 10/06/22 05: MCH 27.3 pg (25.0-34.0) 10/06/22 05: MCHC 31.4 g/dL (32.0-36.0) L 10/06/22 05: RDW Std Deviation 43.6 fL (36.4-46.3) 10/06/22 05: RDW Coeff of Lizandro 13.6 % (11.5-14.5) 10/06/22 05: Plt Count 185 K/uL (130-400) 10/06/22 05: MPV 10.1 fL (9.4-12.4) 10/06/22 05: Immature Gran % (Auto) 0.6 % 10/06/22 05:23 Neut % (Auto) 81.9 % 10/06/22 05:23 Lymph % (Auto) 4.1 % 10/06/22 05:23 [place] % (Auto) 10.8 % 10/06/22 05:23 Eos % (Auto) 2.3 % 10/06/22 05:23 Baso % (Auto) 0.3 % 10/06/22 05:23 Neut # (Auto) 9.51 K/uL (1.40-6.50) H 10/06/22 05:23 Lymph # (Auto) 0.47 K/uL (1.2-3.4) L 10/06/22 05:23 [place] # (Auto) 1.25 K/uL (0.11-0.59) H 10/06/22 05:23 Eos # (Auto) 0.27 K/uL (0-0.50) 10/06/22 05:23 Baso # (Auto) 0.03 K/uL (0-0.2) 10/06/22 05:23 Immature Gran # (Auto) 0.07 K/uL (0.01-0.20) 10/06/22 05:23 Peripher Smr Path Cons 09/29/22 06:07 Peripher Smr Path Cons Cancelled 09/29/22 06:07 PT 13.6 Seconds (9.0-12.0) H 10/06/22 05:23 INR 1.3 (0.9-1.1) H 10/06/22 05:23 APTT 34.6 Seconds (21.0-31.0) H 09/29/22 06:07 PTT Ratio 1.2 09/29/22 06:07 Sodium 140 mmol/L (136-145) 10/06/22 05:23 Potassium 4.1 mmol/L (3.5-5.1) 10/06/22 05:23 Chloride 95 mmol/L (98-107) L 10/06/22 05:23 Carbon Dioxide 41 mmol/L (21-32) H* 10/06/22 05:23 Anion Gap 4 (3-11) 10/06/22 05:23 BUN 13 mg/dl (6-23) 10/06/22 05:23 Creatinine 0.69 mg/dl (0.6-1.4) 10/06/22 05:23 Est Cr Clr Drug Dosing 119.5 ml/min 10/06/22 05:23 Est GFR ( Amer) 106.9 ml/min 10/06/22 05:23 Est GFR (Non-Af Amer) 92.2 ml/min 10/06/22 05:23 BUN/Creatinine Ratio 18.8 (10-20) 10/06/22 05:23 Glucose 104 mg/dl (70-99(Fasting)) H 10/06/22 05:23 Lactate 1.2 mmol/L (0.4-2.0) 09/26/22 03:44 Calcium 9.1 mg/dl (8.6-10.3) 10/06/22 05:23 Magnesium 2.1 mg/dl (1.7-2.4) 09/27/22 08:04 Total Bilirubin 0.7 mg/dl (0.2-1.0) 10/02/22 09:18 AST 16 U/L (13-39) 09/24/22 13:54 ALT 13 U/L (7-52) 09/24/22 13:54 Alkaline Phosphatase 89 U/L (34-104) 09/24/22 13:54 Lactate Dehydrogenase 116 U/L (86-244) 10/02/22 09:18 B-Natriuretic Peptide 72 pg/ml (0-100) 09/24/22 16:28 Total Protein 6.5 gm/dl (6.0-8.3) 10/02/22 09:18 Albumin 3.4 gm/dl (3.4-5.0) 10/02/22 09:18 Globulin 2.8 gm/dl (2.5-4.0) 09/24/22 13:54 Albumin/Globulin Ratio 1.3 (0.9-2) 09/24/22 13:54 Procalcitonin < 0.05 ng/ml (0-0.5) 09/26/22 03:44 TSH 0.334 uIu/ml (0.300-4.500) 09/26/22 03:44 Urine Color Yellow 10/05/22 Unknown Urine Appearance Clear (Clear) 10/05/22 Unknown Urine pH 7.0 (4.5-7.5) 10/05/22 Unknown Ur Specific [place] <= 1.005 (1.000-1.030) 10/05/22 Unknown Urine Protein Negative (Negative) 10/05/22 Unknown Urine Glucose (UA) Negative (Negative) 10/05/22 Unknown Urine Ketones Negative (Negative) 10/05/22 Unknown Urine Blood 3+ (Negative) H 10/05/22 Unknown Urine Nitrite Negative (Negative) 10/05/22 Unknown Urine Bilirubin Negative (Negative) 10/05/22 Unknown Urine Urobilinogen Negative (Negative) 10/05/22 Unknown Ur Leukocyte Esterase 1+ (Negative) H 10/05/22 Unknown Urine WBC (Auto) >30 /hpf (0-5) H 09/26/22 03:40 Urine RBC (Auto) >30 /hpf (0-4) H 09/26/22 03:40 U Hyaline Cast (Auto) 1-5 /lpf (0-5) 09/26/22 03:40 U Epithel Cells (Auto) 20-30 /lpf (0-5) H 09/26/22 03:40 Urine Bacteria (Auto) Negative (Negative) 09/26/22 03:40 Urine RBC 0-4 /hpf (0-4) 10/05/22 Unknown Urine WBC 0-5 /hpf (0-5) 10/05/22 Unknown Ur Epithelial Cells 0-5 /lpf (0-5) 10/05/22 Unknown Urine Bacteria Negative (Negative) 10/05/22 Unknown Urine Yeast Not Reportable 09/26/22 03:40 Fluid Neutrophils % 1 % 10/02/22 Unknown Fluid Lymphocytes % 90 % 10/02/22 Unknown Fluid Eosinophils % 3 % 10/02/22 Unknown Fluid Basophils % 1 % 10/02/22 Unknown Fluid [place]/Macro/[place] % 5 % 10/02/22 Unknown Fluid Comment 10/02/22 Unknown Pleural Fluid Source Right Lung 10/02/22 Unknown Pleural Color Becky 10/02/22 Unknown Pleural Appearance Hazy 10/02/22 Unknown Pleural pH 7.51 (7.3-7.4) H 10/02/22 Unknown Pleural WBC (Auto) 1462 /uL 10/02/22 Unknown Pleural RBC (Auto) 8000 /uL 10/02/22 Unknown Pleural Total Protein 3.3 gm/dl 10/02/22 Unknown Pleural LDH 140 U/L 10/02/22 Unknown Pleural Glucose 110 mg/dl 10/02/22 Unknown Pleural Amylase 24 U/L 10/02/22 Unknown Pleural Cholesterol 45 mg/dL 09/25/22 10:10 Nasal Screen MRSA (PCR) Negative (Negative) 09/30/22 15:11 SARS-CoV-2, RNA, NAAT NEGATIVE (NEGATIVE) 09/24/22 11:[address] 09/28/22 17:09 Exam(s): CT CHEST Without Contrast EXAM: CT Chest Without Intravenous Contrast CLINICAL HISTORY: Reason for exam: r/o pneumonia. TECHNIQUE: Axial computed tomography images of the chest without intravenous contrast. CTDI is 30.17 mGy and DLP is 989.32 mGy-cm. Automated exposure control was utilized for the study. A dose lowering technique was utilized adhering to the principles of ALARA. COMPARISON: No relevant prior studies available. FINDINGS: Lungs: Airspace consolidation of the RIGHT lung base, concerning for aspiration pneumonia. Moderate RIGHT and trace LEFT pleural effusions. Pleural space: No pneumothorax. Heart: Cardiomegaly. Trace pericardial fluid. No significant coronary artery calcifications. Mediastinum: Calcified subcarinal lymph node. Bones/joints: Degenerative changes of the spine. No acute fracture. No dislocation. Soft tissues: Unremarkable. Vasculature: Unremarkable. No thoracic aortic aneurysm. Lymph nodes: See above. IMPRESSION: Airspace consolidation of the RIGHT lung base, concerning for aspiration pneumonia. Moderate RIGHT and trace LEFT pleural effusions. Electronically signed by: Power Bonds MD 09/28/22 20:41 PM Chest X-Ray 10/02/22 08:52 SINGLE VIEW CHEST CLINICAL HISTORY: Status post thoracentesis. FINDINGS: An AP, portable, semierect chest radiograph is compared to study dated [address] dated 09/28/2022. The examination is degraded by portable technique and apical lordotic positioning. The heart is enlarged. The pulmonary vasculature is noncongested. Chronic interstitial thickening is similar to previous. There is trace residual right pleural effusion with right basilar atelectasis. No pneumothorax is seen. The skeletal structures are osteopenic. The bony thorax is grossly intact. IMPRESSION: 1. No pneumothorax is identified post procedure. 2. Trace residual pleural fluid is seen at the right lung base. 3. Cardiomegaly without radiographic evidence of congestive failure. ACT 112: Negative or not required by law. Electronically signed by: Marito Davison M.D. 10/02/2022 9:24 AM
[2022-10-06] MEDS: ENOXAPARIN INJ 40 MG/0.4 ML SYR SQ SCH (14:04)
[2022-10-06] MEDS: DIGOXIN 0.125 MG TAB PO SCH (16:14)
[2022-10-06] MEDS: WARFARIN SOD 10 MG TAB PO SCH (16:15)
[2022-10-06] MEDS: MELATONIN 3 MG TAB PO PRN (21:50)
[2022-10-06] MEDS: diphenhydrAMINE HCL 25 MG/10 ML UDC PO PRN (21:50)
[2022-10-07 06:56] LABS: Basophils # (auto) 0.03 K/uL (0-0.2); Basophils % (auto) 0.3 %; Eosinophils # (auto) 0.33 K/uL (0-0.50); Eosinophils % (auto) 3.4 %; Hematocrit (blood only) 39.7 % (42.0-52.0); Hemoglobin 12.6 g/dl (14.0-18.0); Immature Granulocytes # (auto) 0.07 K/uL (0.01-0.20); Immature Granulocytes % (auto) 0.7 %; Lymphocytes # (auto) 0.76 K/uL (1.2-3.4); Lymphocytes % (auto) 7.9 %; Mean Corpuscular Hemoglobin 27.1 pg (25.0-34.0); Mean Corpuscular Hgb Conc 31.7 g/dL (32.0-36.0); Mean Corpuscular Volume 85.4 fL (80.0-100.0); Mean Platelet Volume 10.1 fL (9.4-12.4); Monocytes # (auto) 1.15 K/uL (0.11-0.59); Monocytes % (auto) 11.9 %; Neutrophils # (auto) 7.32 K/uL (1.40-6.50); Neutrophils % (auto) 75.8 %; Platelet Count 165 K/uL (130-400); RDW Coefficient of Variation 13.7 % (11.5-14.5); RDW Standard Deviation 42.5 fL (36.4-46.3); Red Blood Count 4.65 M/uL (4.70-6.10); White Blood Count 9.66 K/ul (4.8-10.8)
[2022-10-07 07:26] LABS: INR 1.6 (0.9-1.1); Prothrombin Time 16.7 Seconds (9.0-12.0)
[2022-10-07 07:45] LABS: BUN Creatinine Ratio 23.3 (10-20); Calcium 9.1 mg/dl (8.6-10.3); Est GFR (African American) 113.2 ml/min; Est GFR (Non-African American) 97.7 ml/min; Magnesium 2.1 mg/dl (1.7-2.4); Potassium 3.9 mmol/L (3.5-5.1)
[2022-10-07] MEDS: METOPROLOL SUCC 25MG EXT REL TAB PO SCH (08:14)
[2022-10-07] MEDS: TAMSULOSIN HCL 0.4 MG CAP PO SCH (08:22)
[2022-10-07] MEDS: FUROSEMIDE 40 MG TAB PO SCH (08:22)
[2022-10-07] MEDS: GABAPENTIN 400 MG CAP PO SCH (08:22)
[2022-10-07] MEDS: FINASTERIDE 5 MG TAB PO SCH (08:22)
[2022-10-07] MEDS: MIDODRINE HCL 2.5 MG TAB PO SCH ×3 (08:23→16:23)
[2022-10-07] MEDS: ENOXAPARIN INJ 40 MG/0.4 ML SYR SQ SCH (08:23)
[2022-10-07] MEDS: DOCUSATE SODIUM 100 MG CAP PO SCH ×2 (08:24→20:40)
--- NOTE | 2022-10-07 11:08 | Hospitalist Progress Note ---
Date of Service October 07, 2022 Assessment & Plan (1) S/P TURP: (2) Heart failure, diastolic, with acute decompensation: (3) Pleural effusion: Plan: (1) S/P TURP: Plan: per previous attending notes with addendum: Status post TURP on 09/24/2022 guillory cath removed Patient voiding well Stable from urology standpoint Noted to have hematuria while being started on anticoagulation. Discussed with Dr. Zapata on October 05 regarding the hematuria after getting started on anticoagulation; reported that it is expected after TURP. Can continue anticoagulation if he is continuing to void. . (2) Pleural effusion, likely secondary to acute on chronic diastolic CHF Plan: Patient's postop course complicated by right-sided pleural effusion and fever, likely from right-sided pneumonia Patient underwent thoracentesis on September 25, 2022, by Dr. Florian, draining 2.2L Pathology: Lymphocytosis Cultures: Negative Pleural effusion felt to be secondary to systolic congestive heart failure Right pleural effusion return within 3 days after thoracentesis, as seen on repeat CT chest Repeat thoracentesis by Dr. Daniel draining 2 L on October 02. Exudative pattern Discussed with cardiology placed on midodrine 2.5 mg p.o. 3 times daily to allow for diuresis Usual Lasix 40 mg p.o. daily continued Patient completed 7-day course of cefepime And doxycycline for right lower lobe pneumonia Currently on 2 L of oxygen, wean off accordingly Compression stockings applied for low blood pressure. (3) HIRAM (obstructive sleep apnea): Plan: Continue CPAP (4) Urinary retention: Plan: Voiding with no problems status post TURP (5) Heart failure, diastolic, with acute decompensation: Plan: Management per above (6) CAD (coronary artery disease): Plan: No acute cardiac symptoms (7) PAF (paroxysmal atrial fibrillation): Plan: At home on metoprolol 100 mg once daily Started at 75 mg once daily Also on digoxin 0.125 Coumadin restarted from 10/03 DVT ppx: -Coumadin. CODE: Full code Dispo: [id number] done over the phone on September 06. Discussed the need for acute reha b. The biomedical engineering director did not feel that patient meets sufficient criteria for acute rehab. Case management, patient and updated. Please note the above document was generated using voice recognition software. It may contain grammatical, syntax or spelling errors. Any formal questions or concerns about the content, text or information contained within the body of this dictation should be directly addressed to the provider for clarification Admission and Anticipated Discharge Date Admission Date: September 26, 2022 Subjective Patient seen and examined at bedside. He is lying in the bed comfortably; sleepy but awakened by voice. Afebrile. Blood pressure on the lower end. Saturating well with nasal cannula at 2 L/min Review of Systems Review of Systems: All systems reviewed & are unremarkable except as noted in Subjective Physical Exam Physical Exam: General- oriented x 3, not in distress, speaks in sentences with no effort or accessory muscle use Eyes- anicteric Neck- no JVD Lungs-decreased breath sound at the right base, clear on the left Heart- normal rate, regular rhythm; no murmurs Abdomen- normal bowel sounds, nondistended, soft, nontender Extremities- no pretibial edema, no calf tenderness Neuro- alert, oriented x 3; no gross focal neurologic deficits Skin- warm & dry Results & Data Results & Data Vital Signs (Past 12 Hours) Vital Signs Temp Pulse Pulse Pulse Resp BP Pulse Ox 10/07/22 08:00 10/07/22 07:00 85 10/07/22 07:56 36.5 C 85 18 93/61 L 97 10/07/22 03:14 36.3 C L 85 16 98/64 L 93 10/06/22 23:18 36.6 C 83 16 93/60 L 96 O2 Del Method O2 Flow Rate 10/07/22 08:00 Nasal Cannula 2 10/07/22 07:00 10/07/22 07:56 Nasal Cannula 2 10/07/22 03:14 Nasal Cannula 2 10/06/22 23:18 Nasal Cannula 2 Laboratory Results Laboratory Results WBC 9.66 K/ul (4.8-10.8) 10/07/22 06:28 RBC 4.65 M/uL (4.70-6.10) L 10/07/22 06:28 Hgb 12.6 g/dl (14.0-18.0) L 10/07/22 06:28 Hct 39.7 % (42.0-52.0) L 10/07/22 06:28 MCV 85.4 fL (80.0-100.0) 10/07/22 06:28 MCH 27.1 pg (25.0-34.0) 10/07/22 06:28 MCHC 31.7 g/dL (32.0-36.0) L 10/07/22 06:28 RDW Std Deviation 42.5 fL (36.4-46.3) 10/07/22 06: RDW Coeff of Lizandro 13.7 % (11.5-14.5) 10/07/22 06:28 Plt Count 165 K/uL (130-400) 10/07/22 06:28 MPV 10.1 fL (9.4-12.4) 10/07/22 06:28 Immature Gran % (Auto) 0.7 % 10/07/22 06: Neut % (Auto) 75.8 % 10/07/22 06:28 Lymph % (Auto) 7.9 % 10/07/22 06:28 [place] % (Auto) 11.9 % 10/07/22 06:28 Eos % (Auto) 3.4 % 10/07/22 06:28 Baso % (Auto) 0.3 % 10/07/22 06:28 Neut # (Auto) 7.32 K/uL (1.40-6.50) H 10/07/22 06:28 Lymph # (Auto) 0.76 K/uL (1.2-3.4) L 10/07/22 06:28 [place] # (Auto) 1.15 K/uL (0.11-0.59) H 10/07/22 06:28 Eos # (Auto) 0.33 K/uL (0-0.50) 10/07/22 06:28 Baso # (Auto) 0.03 K/uL (0-0.2) 10/07/22 06:28 Immature Gran # (Auto) 0.07 K/uL (0.01-0.20) 10/07/22 06:28 Peripher Smr Path Cons 09/29/22 06:07 Peripher Smr Path Cons Cancelled 09/29/22 06:07 PT 16.7 Seconds (9.0-12.0) H 10/07/22 06:28 INR 1.6 (0.9-1.1) H 10/07/22 06:28 APTT 34.6 Seconds (21.0-31.0) H 09/29/22 06:07 PTT Ratio 1.2 09/29/22 06:07 Sodium 139 mmol/L (136-145) 10/07/22 06:28 Potassium 3.9 mmol/L (3.5-5.1) 10/07/22 06:28 Chloride 94 mmol/L (98-107) L 10/07/22 06:28 Carbon Dioxide 45 mmol/L (21-32) H* 10/07/22 06:28 Anion Gap 0 (3-11) L 10/07/22 06:28 BUN 14 mg/dl (6-23) 10/07/22 06:28 Creatinine 0.60 mg/dl (0.6-1.4) 10/07/22 06:28 Est Cr Clr Drug Dosing 138.0 ml/min 10/07/22 06:28 Est GFR ( Amer) 113.2 ml/min 10/07/22 06:28 Est GFR (Non-Af Amer) 97.7 ml/min 10/07/22 06:28 BUN/Creatinine Ratio 23.3 (10-20) H 10/07/22 06:28 Glucose 99 mg/dl (70-99(Fasting)) 10/07/22 06:28 Lactate 1.2 mmol/L (0.4-2.0) 09/26/22 03:44 Calcium 9.1 mg/dl (8.6-10.3) 10/07/22 06:28 Magnesium 2.1 mg/dl (1.7-2.4) 10/07/22 06:28 Total Bilirubin 0.7 mg/dl (0.2-1.0) 10/02/22 09:18 AST 16 U/L (13-39) 09/24/22 13:54 ALT 13 U/L (7-52) 09/24/22 13:54 Alkaline Phosphatase 89 U/L (34-104) 09/24/22 13:54 Lactate Dehydrogenase 116 U/L (86-244) 10/02/22 09:18 B-Natriuretic Peptide 72 pg/ml (0-100) 09/24/22 16:28 Total Protein 6.5 gm/dl (6.0-8.3) 10/02/22 09:18 Albumin 3.4 gm/dl (3.4-5.0) 10/02/22 09:18 Globulin 2.8 gm/dl (2.5-4.0) 09/24/22 13:54 Albumin/Globulin Ratio 1.3 (0.9-2) 09/24/22 13:54 Procalcitonin < 0.05 ng/ml (0-0.5) 09/26/22 03:44 TSH 0.334 uIu/ml (0.300-4.500) 09/26/22 03:44 Urine Color Yellow 10/05/22 Unknown Urine Appearance Clear (Clear) 10/05/22 Unknown Urine pH 7.0 (4.5-7.5) 10/05/22 Unknown Ur Specific Wise <= 1.005 (1.000-1.030) 10/05/22 Unknown Urine Protein Negative (Negative) 10/05/22 Unknown Urine Glucose (UA) Negative (Negative) 10/05/22 Unknown Urine Ketones Negative (Negative) 10/05/22 Unknown Urine Blood 3+ (Negative) H 10/05/22 Unknown Urine Nitrite Negative (Negative) 10/05/22 Unknown Urine Bilirubin Negative (Negative) 10/05/22 Unknown Urine Urobilinogen Negative (Negative) 10/05/22 Unknown Ur Leukocyte Esterase 1+ (Negative) H 10/05/22 Unknown Urine WBC (Auto) >30 /hpf (0-5) H 09/26/22 03:40 Urine RBC (Auto) >30 /hpf (0-4) H 09/26/22 03:40 U Hyaline Cast (Auto) 1-5 /lpf (0-5) 09/26/22 03:40 U Epithel Cells (Auto) 20-30 /lpf (0-5) H 09/26/22 03:40 Urine Bacteria (Auto) Negative (Negative) 09/26/22 03:40 Urine RBC 0-4 /hpf (0-4) 10/05/22 Unknown Urine WBC 0-5 /hpf (0-5) 10/05/22 Unknown Ur Epithelial Cells 0-5 /lpf (0-5) 10/05/22 Unknown Urine Bacteria Negative (Negative) 10/05/22 Unknown Urine Yeast Not Reportable 09/26/22 03:40 Fluid Neutrophils % 1 % 10/02/22 Unknown Fluid Lymphocytes % 90 % 10/02/22 Unknown Fluid Eosinophils % 3 % 10/02/22 Unknown Fluid Basophils % 1 % 10/02/22 Unknown Fluid Meso/Macro/[place] % 5 % 10/02/22 Unknown Fluid Comment 10/02/22 Unknown Pleural Fluid Source Right Lung 10/02/22 Unknown Pleural Color Becky 10/02/22 Unknown Pleural Appearance Hazy 10/02/22 Unknown Pleural pH 7.51 (7.3-7.4) H 10/02/22 Unknown Pleural WBC (Auto) 1462 /uL 10/02/22 Unknown Pleural RBC (Auto) 8000 /uL 10/02/22 Unknown Pleural Total Protein 3.3 gm/dl 10/02/22 Unknown Pleural LDH 140 U/L 10/02/22 Unknown Pleural Glucose 110 mg/dl 10/02/22 Unknown Pleural Amylase 24 U/L 10/02/22 Unknown Pleural Cholesterol 45 mg/dL 09/25/22 10:10 Nasal Screen MRSA (PCR) Negative (Negative) 09/30/22 15:11 SARS-CoV-2, RNA, NAAT NEGATIVE (NEGATIVE) 09/24/22 11:[address] 09/28/22 17:09 Exam(s): CT CHEST Without Contrast EXAM: CT Chest Without Intravenous Contrast CLINICAL HISTORY: Reason for exam: r/o pneumonia. TECHNIQUE: Axial computed tomography images of the chest without intravenous contrast. CTDI is 30.17 mGy and DLP is 989.32 mGy-cm. Automated exposure control was utilized for the study. A dose lowering technique was utilized adhering to the principles of ALARA. COMPARISON: No relevant prior studies available. FINDINGS: Lungs: Airspace consolidation of the RIGHT lung base, concerning for aspiration pneumonia. Moderate RIGHT and trace LEFT pleural effusions. Pleural space: No pneumothorax. Heart: Cardiomegaly. Trace pericardial fluid. No significant coronary artery calcifications. Mediastinum: Calcified subcarinal lymph node. Bones/joints: Degenerative changes of the spine. No acute fracture. No dislocation. Soft tissues: Unremarkable. Vasculature: Unremarkable. No thoracic aortic aneurysm. Lymph nodes: See above. IMPRESSION: Airspace consolidation of the RIGHT lung base, concerning for aspiration pneumonia. Moderate RIGHT and trace LEFT pleural effusions. Electronically signed by: Power Bonds MD 09/28/22 20:41 PM Chest X-Ray 10/02/22 08:52 SINGLE VIEW CHEST CLINICAL HISTORY: Status post thoracentesis. FINDINGS: An AP, portable, semierect chest radiograph is compared to study dated [address] dated 09/28/2022. The examination is degraded by portable technique and apical lordotic positioning. The heart is enlarged. The pulmonary vasculature is noncongested. Chronic interstitial thickening is similar to previous. There is trace residual right pleural effusion with right basilar atelectasis. No pneumothorax is seen. The skeletal structures are osteopenic. The bony thorax is grossly intact. IMPRESSION: 1. No pneumothorax is identified post procedure. 2. Trace residual pleural fluid is seen at the right lung base. 3. Cardiomegaly without radiographic evidence of congestive failure. ACT 112: Negative or not required by law. Electronically signed by: Marito Davison M.D. 10/02/2022 9:24 AM
[2022-10-07] MEDS: WARFARIN SOD 10 MG TAB PO SCH (16:22)
[2022-10-07] MEDS: DIGOXIN 0.125 MG TAB PO SCH (16:23)
[2022-10-07] MEDS: diphenhydrAMINE HCL 25 MG/10 ML UDC PO PRN (22:30)
[2022-10-07] MEDS: MELATONIN 3 MG TAB PO PRN (22:30)
[2022-10-08 06:13] LABS: Basophils # (auto) 0.03 K/uL (0-0.2); Basophils % (auto) 0.3 %; Eosinophils # (auto) 0.33 K/uL (0-0.50); Hematocrit (blood only) 40.7 % (42.0-52.0); Immature Granulocytes # (auto) 0.07 K/uL (0.01-0.20); Immature Granulocytes % (auto) 0.6 %; Lymphocytes # (auto) 0.55 K/uL (1.2-3.4); Mean Corpuscular Hemoglobin 27.3 pg (25.0-34.0); Mean Corpuscular Hgb Conc 31.9 g/dL (32.0-36.0); Mean Corpuscular Volume 85.3 fL (80.0-100.0); Mean Platelet Volume 10.3 fL (9.4-12.4); Monocytes # (auto) 1.12 K/uL (0.11-0.59); Monocytes % (auto) 10.2 %; Neutrophils # (auto) 8.87 K/uL (1.40-6.50); Neutrophils % (auto) 80.9 %; Platelet Count 168 K/uL (130-400); RDW Coefficient of Variation 13.7 % (11.5-14.5); RDW Standard Deviation 43.1 fL (36.4-46.3); Red Blood Count 4.77 M/uL (4.70-6.10); White Blood Count 10.97 K/ul (4.8-10.8)
[2022-10-08 06:38] LABS: INR 1.8 (0.9-1.1); Prothrombin Time 18.7 Seconds (9.0-12.0)
[2022-10-08 06:40] LABS: BUN Creatinine Ratio 21.7 (10-20); Calcium 9.4 mg/dl (8.6-10.3); Creatinine Clr Calc Pharmacy 138.6 ml/min; Est GFR (African American) 113.2 ml/min; Est GFR (Non-African American) 97.7 ml/min; Potassium 3.6 mmol/L (3.5-5.1)
[2022-10-08] MEDS: METOPROLOL SUCC 25MG EXT REL TAB PO SCH ×2 (08:02→11:31)
[2022-10-08] MEDS: MIDODRINE HCL 2.5 MG TAB PO SCH ×2 (08:05→11:30)
[2022-10-08] MEDS: TAMSULOSIN HCL 0.4 MG CAP PO SCH (08:05)
[2022-10-08] MEDS: ENOXAPARIN INJ 40 MG/0.4 ML SYR SQ SCH (08:05)
[2022-10-08] MEDS: GABAPENTIN 400 MG CAP PO SCH (08:05)
[2022-10-08] MEDS: FINASTERIDE 5 MG TAB PO SCH (08:05)
[2022-10-08] MEDS: FUROSEMIDE 40 MG TAB PO SCH (08:05)
[2022-10-08] MEDS: DOCUSATE SODIUM 100 MG CAP PO SCH (08:33)
--- NOTE | 2022-10-08 13:10 | Hospitalist Progress Note ---
Date of Service October 08, 2022 Assessment & Plan (1) S/P TURP: (2) Heart failure, diastolic, with acute decompensation: (3) Pleural effusion: Plan: (1) S/P TURP: Plan: per previous attending notes with addendum: Status post TURP on 09/24/2022 guillory cath removed Patient voiding well Stable from urology standpoint Noted to have hematuria while being started on anticoagulation. Discussed with Dr. Zapata on October 05 regarding the hematuria after getting started on anticoagulation; reported that it is expected after TURP. Can continue anticoagulation if he is continuing to void. . (2) Pleural effusion, likely secondary to acute on chronic diastolic CHF Plan: Patient's postop course complicated by right-sided pleural effusion and fever, likely from right-sided pneumonia Patient underwent thoracentesis on September 25, 2022, by Dr. Florian, draining 2.2L Pathology: Lymphocytosis Cultures: Negative Pleural effusion felt to be secondary to systolic congestive heart failure Right pleural effusion return within 3 days after thoracentesis, as seen on repeat CT chest Repeat thoracentesis by Dr. Daniel draining 2 L on October 02. Exudative pattern Discussed with cardiology placed on midodrine 2.5 mg p.o. 3 times daily to allow for diuresis Usual Lasix 40 mg p.o. daily continued Patient completed 7-day course of cefepime And doxycycline for right lower lobe pneumonia Currently on 2 L of oxygen, wean off accordingly Compression stockings applied for low blood pressure. (3) HIRAM (obstructive sleep apnea): Plan: Continue CPAP (4) Urinary retention: Plan: Voiding with no problems status post TURP (5) Heart failure, diastolic, with acute decompensation: Plan: Management per above (6) CAD (coronary artery disease): Plan: No acute cardiac symptoms (7) PAF (paroxysmal atrial fibrillation): Plan: At home on metoprolol 100 mg once daily Started at 75 mg once daily Also on digoxin 0.125 Coumadin restarted from 10/03 DVT ppx: -Coumadin. CODE: Full code Dispo: [id number] done over the phone on September 06. Discussed the need for acute gemma ab. The medical attendant did not feel that patient meets sufficient criteria for acute rehab. Case management, patient and updated. Please note the above document was generated using voice recognition software. It may contain grammatical, syntax or spelling errors. Any formal questions or concerns about the content, text or information contained within the body of this dictation should be directly addressed to the provider for clarification Admission and Anticipated Discharge Date Admission Date: September 26, 2022 Results & Data Results & Data Vital Signs (Past 12 Hours) Vital Signs Temp Pulse Pulse Pulse Pulse Resp BP 10/08/22 13:02 103 H 90/62 L 10/08/22 11:27 36.8 C 115 H 115 H 16 96/63 L 10/08/22 09:58 10/08/22 07:00 36.4 C L 98 H 18 97/67 L 10/08/22 07:23 102 H 10/08/22 04:14 36.5 C 88 20 111/78 Pulse Ox O2 Del Method O2 Flow Rate 10/08/22 13:02 10/08/22 11:27 93 Room Air 10/08/22 09:58 Nasal Cannula 2 10/08/22 07:00 95 Room Air 10/08/22 07:23 10/08/22 04:14 95 Nasal Cannula 2
--- NOTE | 2022-10-08 13:26 | Discharge Summary ---
Date of Service October 08, 2022 Admission HPI Per Admitting Provider This is a 77-year-old male with PMH of atrial fibrillation on coumadin, CAD with moderate diffuse single-vessel obstructive disease medically managed, chronic diastolic CHF, venous insufficiency, postherpetic polyneuropathy, obstructive sleep apnea, tobacco use, chronic tobacco mucositis. He was recently hospitalized on 09/10 for hematuria and was seen by urology, guillory catheter was placed, and was placed on short course of oral antibiotics and has 3 days left on this course. With his recent urinary retention/hematuria, urology proceeded with surgical intervention and he is currently POD#0 s/p TURP procedure by Dr. Zapata. Medicine has been consulted for possible volume overload. Pt takes lasix 40 mg for chronic diastolic CHF and last dose was on 09/23. Pt was started on LR given 1L IV today for the OR, and anesthesia in PACU concern that the lungs sound wet. Pt complains of dyspnea on exertion as well as increased dyspnea with lying flat. He is currently on 2 L via NC, and does not wear supplemental o2 or cpap at home. Pt was supposed to have an outpatient sleep study but does not appear to have done so yet. Pt had previously seen pulmonology for right sided pleural effusion in May but at that time decline the tap. More recently on 09/03/22 the pt underwent thoracentesis of 1500 mL removal fluid. Pulmonology has established with him as an outpatient. Admission Exam Per Admitting Provider General: awake, alert, no apparent distress, + obese, fatigued Head: Normocephalic, atraumatic ENT: PERRL, EOMI, no pharyngeal exudate, mucous membranes moist Chest: Absent breath sounds in R base and to the mid edge, no crackles, breath sounds present throughout on the left but diminished, on 2 L via NC, no rales Cardiac: Regular rate and rhythm, no murmur, no JVD, normal peripheral pulses, good capillary refill Abdominal: NABS x 4 quadrants, soft, nondistended, nontender to palpation, no rebound or guarding : guillory catheter in place, draining bright red urine, guillory irrigation in place Extremities: Normal inspection, no peripheral edema or erythema, calfs nontender to palpation Psych: Normal mood and affect Neuro: AAO x 3, strength intact bilaterally and rated 5/5, no motor deficits, speech is clear, no peripheral sensory deficits Principal Diagnosis (1) S/P TURP: (2) Heart failure, diastolic, with acute decompensation: (3) Pleural effusion Discharge Exam General- oriented x 3, not in distress, speaks in sentences with no effort or accessory muscle use Eyes- anicteric Neck- no JVD Lungs-decreased breath sound at the right base, clear on the left Heart- normal rate, regular rhythm; no murmurs Abdomen- normal bowel sounds, nondistended, soft, nontender Extremities- no pretibial edema, no calf tenderness Neuro- alert, oriented x 3; no gross focal neurologic deficits Skin- warm & dry Discharge Data Allergies Allergy/AdvReac Type Severity Reaction Status Date / Time No Known Allergies Allergy Unknown Verified 09/24/22 10:26 Consultations 09/24/22 11:19 Consult Hospitalist Routine 09/24/22 17:25 Consult Pulmonology Routine 10/02/22 14:33 Consult Cardiology Routine Procedures Performed Operation Date: 09/24/22 11:45 Actual Procedures p Transurethral Resection of the Prostate(Not Applicable) - Sebastian Zapata, Ordered Studies 09/28/22 17:09 CT chest diagnostic wo con Routine 10/01/22 12:35 US point of care ultrasound Urgent 10/02/22 06:47 US point of care ultrasound Urgent Hospital Course (1) S/P TURP: (2) Heart failure, diastolic, with acute decompensation: (3) Pleural effusion: Plan Patient was admitted to urology for TURP on September 24 Postoperatively; guillory cath removed and patient voided well. Noted to have hematuria while being started on anticoagulation. Discussed with Dr. Zapata on October 05 regarding the hematuria after getting started on anticoagulation; reported that it is expected after TURP. Can continue anticoagulation if he is continuing to void. (2) Pleural effusion, likely secondary to acute on chronic diastolic CHF Plan: Patient's postop course complicated by right-sided pleural effusion and fever, likely from right-sided pneumonia Patient underwent thoracentesis on September 25, 2022, by Dr. Florian, draining 2.2L Pathology: Lymphocytosis Cultures: Negative Pleural effusion felt to be secondary to systolic congestive heart failure Right pleural effusion return within 3 days after thoracentesis, as seen on repeat CT chest Repeat thoracentesis by Dr. Daniel draining 2 L on October 02. Exudative pattern Cardiology was consulted; pleural effusion was thought likely secondary to acute on chronic diastolic heart failure. Cardiology recommended admission of midodrine 2.5 mg 3 times a day along with Lasix once a day to allow diuresis Patient also completed 7-day course of cefepime And doxycycline for right lower lobe pneumonia. At discharge, oxygen was weaned off and patient was saturating well on room air. PT OT evaluation was done; patient was recommended to go to acute rehab. Acute rehab was not approved; [id number] was done unsuccessfully. Patient wanted to go home with the support of his . Discussion was done with foster care social worker regarding home PT OT Patient was discharged home with instruction to follow-up with PCP Total Time Total Time Spent Total Time Spent (In Minutes): 45 Total Time Includes: Examination of the Patient, Discharge Planning, Medication Reconciliation, Communication With Other Providers and Other Discharge Plan Discharge Items Patient Disposition: Home - Self-Care Reason For Visit: Acute Urinary Retention, Hematuria Discharge Diagnosis: Acute urinary retention, hematuria CHF Pleural effusion status post right sided thoracentesis Activity: Per Instructions section Non-emergency contact: Surgeon and Urologist Call non-emergency contact if: you have any medication questions, your pain is not controlled and you have a fever Follow-up/Referrals: Sebastian Zapata DO [Physician] - (Office will call patient with appointment date and time) Gely Daniel MD, [facility] [Physician] - 12/05/22 2:30 pm Ej Baumnan MD [Primary Care Provider] - 10/15/22 9:00 am (Date & Time 10/15/2022 9:00 AM Provider Franck Hodge MD [facility] ) Diet: Heart Healthy Addtl Attending Provider Instructions: You Were admitted to the hospital for TURP. The postop period was complicated with right-sided pleural effusion for which you underwent drainage by pulmonology. You were also treated with antibiotics during the hospitalization for pneumonia. Following medication changes are made: 1) Metoprolol dose is decreased from 100 mg to 75 mg once daily. A new prescription is sent to her pharmacy 2) Midodrine 2.5 mg 3 times a day is added for low blood pressure. You can hold the dose if your blood pressure is greater than 100/60. Measure Your blood pressure every day in the morning at the same time in a sitting position with both feet on the ground and your arm rested. Take midodrine on a sitting position. 3) Lisinopril is currently stopped. If your blood pressure improves after discharge; it can be started back on. An appointment will be set up with your primary care doctor. Pending Studies at Discharge: No Stand-Alone Forms: My [facility], Smoking Cessation Medications and DC Order Prescriptions: New midodrine 2.5 mg Tablet 2.5 mg PO TID@0800,1200,1700 Qty: 90 0RF metoprolol succinate 25 mg Tablet Extended Release 24 Hr 75 mg PO QAM Qty: 30 0RF Continued tamsulosin 0.4 mg capsule 0.4 mg PO DAILY Qty: 30 11RF oxybutynin chloride 5 mg tablet 5 mg PO TID PRN (Reason: bladder spasms) Qty: 30 0RF finasteride 5 mg tablet 5 mg PO DAILY Qty: 30 11RF warfarin 10 mg Tablet 5 - 10 mg PO DIRECTED Rx Instructions: DIRECTED BY [facility]TICOAGULATION CLINIC sildenafil 100 mg Tablet 100 mg PO QAM PRN (Reason: Erectile Dysfunction) atorvastatin 40 mg tablet 40 mg PO QAM multivitamin Tablet 1 tab PO QAM aspirin 81 mg Capsule 81 mg PO QAM digoxin 125 mcg (0.125 mg) tablet 125 mcg PO DAILY gabapentin 400 mg capsule 400 mg PO DAILY docusate sodium [Colace] 100 mg Capsule 100 mg PO DAILY diphenhydramine-acetaminophen [Tylenol PM Extra Strength] 25-500 mg Tablet 1 tab PO HS Rx Instructions: Takes with one ES TYLENOL QHS furosemide 40 mg tablet 40 mg PO DAILY acetaminophen 500 mg capsule 500 mg PO HS Rx Instructions: Takes with 1 Tylenol pm QHS Discontinued phenazopyridine 200 mg tablet 200 mg PO TID PRN (Reason: pain) 3 Days Qty: 9 0RF cephalexin 500 mg capsule 500 mg PO BID 10 Days Qty: 20 0RF metoprolol succinate 100 mg tablet extended release 24 hr 100 mg PO QAM lisinopril 2.5 mg tablet 2.5 mg PO QAM Discharge Orders: Discharge Order (Routine); Ordered 10/08/22 Ordered By: Clifford Mitchell Admission Data Admit Date/Time: 09/26/22 12:19 Attending Provider: Clifford Mitchell Admit Provider: Sebastian Zapata Primary Care Provider: Ej Baumann Other Providers: Shannon Pretty ; Armin Florian ; Nils Cruz ; Cr Russo ; Sebastian Zapata ; Rema Salvador at [place] ; [facility] ; Parth Beltran ; [facility]
== END 2022-10-08 14:36 | disposition home or self-care (01) | DRG 665 ==
LOC: ASU 10:01 → 2N 10:01 → SUATTDRO 09-26 12:19 → 2N 09-28 02:20